=== PATIENT | female | born 1935 | race Caucasian/White ===

== ENCOUNTER 2016-04-11 14:07 | Inpatient (IN) | payer MEDICARE, OTHER ==
--- NOTE | 2016-04-11 14:54 | PDOC ---
History of Present Illness - General History Source: Patient Exam Limitations: No Limitations - History of Present Illness Initial Comments: 04/11/16 15:01 The patient is an 81 year old female, with significant past medical history diabetes, gastritis, HLD, diverticulosis, appendectomy, hiatal hernia, cholecystectomy, who presents today complaining of vomiting, diarrhea, chest pain, abdominal pain starting last night.She reports chills starting last night and states that her body started shaking and she urinated on herself. She describes the chest pain as not strong but if she had to rate the pain, it is 10/10. She reports 2 episodes of vomiting and 4 episodes of diarrhea since last night. She explains that the Abdominal pain is a soft pain, but hurts a lot. Her last meal was this morning which made her nauseous. Denies recent travel. Denies sick contact. Allergies: None reported Surgical Hx: hernia repair. Appendectomy, Cholecystectomy. PCP- Dr. Neri Kay Shotblast Operator: [phone] [id number] <Maris Cobb - Last Filed: 04/11/16 18:11> - General History Source: Patient Exam Limitations: No Limitations <Winifred Perkins - Last Filed: 04/14/16 07:27> - General Chief Complaint: Pain Stated Complaint: ABD PAIN, VOMITING Time Seen by Provider: 04/11/16 14:17 Past History <Maris Cobb - Last Filed: 04/11/16 18:11> - Past Medical History Anemia: Yes (h/o blood transfusion) Cardiac Disorders: Yes (HYPERLIPIDEMIA) Diabetes: Yes GI Disorders: Yes (DIVERTICULA OF COLON, Ulcers) - Surgical History Appendectomy: Yes - Psycho/Social/Smoking Cessation Hx Anxiety: No Suicidal Ideation: No Smoking Status: No Smoking History: Former smoker Have you smoked in the past 12 months: No Number of Cigarettes Smoked Daily: 2 Information on smoking cessation initiated: No Hx Alcohol Use: No Drug/Substance Use Hx: No Substance Use Type: None Hx Substance Use Treatment: No <Winifred Perkins - Last Filed: 04/14/16 07:27> - Past Medical History Allergies/Adverse Reactions: Allergies Allergy/AdvReac Type Severity Reaction Status Date / Time No Known Allergies Allergy Verified 04/11/16 14:08 Home Medications: Ambulatory Orders Esomeprazole Mag Trihydrate [Nexium] 40 mg PO DAILY 07/17/11 Meclizine HCl [Antivert -] 12.5 mg PO DAILY PRN 07/17/11 PARoxetine HCL "CR" SUST REL [Paxil Cr -] 12.5 mg PO DAILY 07/17/11 Metformin HCl [Glucophage] 1,000 mg PO BID 04/11/16 Docusate Sodium [Colace -] 1 tablet PO TID 04/12/16 Ferrous Sulfate 325 mg PO TID 04/12/16 Gabapentin [Neurontin] 300 mg PO BID 04/12/16 Hydrochlorothiazide [Hctz -] 12.5 mg PO DAILY 04/12/16 Lipase/Protease/Amylase [Creon Dr 24,000 Units Capsule] 1 cap PO TIDCM 04/12/16 Lubiprostone [Amitiza] 8 mcg PO BID 04/12/16 Metoclopramide HCl [Reglan] 5 mg PO TIDCM 04/12/16 Sitagliptin Phosphate [Januvia] 50 mg PO DAILY 04/12/16 Cephalexin [Keflex] 500 mg PO BID #10 capsule 04/13/16 Review of Systems - Review of Systems Able to Perform ROS?: Yes Comments:: 04/11/16 15:01 GENERAL/CONSTITUTIONAL: No: fever, chills, weakness, loss of appetite. HEAD, EYES, EARS, NOSE AND THROAT: No: change in vision, ear pain, discharge, sore throat, throat swelling. CARDIOVASCULAR: Yes: chest pain. No: lightheadedness, palpitations, syncope RESPIRATORY: No: cough, shortness of breath, wheezing, hemoptysis, stridor. GASTROINTESTINAL: Yes: nausea, vomiting, abdominal pain, diarrhea. No: rectal bleeding, constipation. GENITOURINARY: No: dysuria, hematuria, frequency, urgency, flank pain. MUSCULOSKELETAL: No: back pain, neck pain, joint pain, muscle swelling or pain SKIN: No: lesions, pallor, rash or easy bruising. NEUROLOGIC: No: headache, vertigo, paresthesias, weakness ENDOCRINE: No: unexplained weight gain or loss HEMATOLOGIC/LYMPHATIC: No: anemia, easy bleeding, swelling nodes <Maris Cobb - Last Filed: 04/11/16 18:11> *Physical Exam - Vital Signs Last Vital Signs Temp Pulse Resp BP Pulse Ox 98.2 F 80 18 121/65 95 04/11/16 14:08 04/11/16 14:08 04/11/16 14:08 04/11/16 14:08 04/11/16 14:08 - Physical Exam Comments: 04/11/16 15:01 GENERAL: The patient is in no acute distress. HEAD: Normal with no signs of trauma. EYES: PERRLA, EOMI, sclera anicteric, conjunctiva clear. ENT: Ears normal, nares patent, oropharynx clear without exudates. Moist mucous membranes. NECK: Normal range of motion, supple without lymphadenopathy, JVD, or masses. LUNGS: Breath sounds equal, clear to auscultation bilaterally. No wheezes, and no crackles. HEART:Regular rate and rhythm, normal S1 and S2 without murmur, rub or gallop. ABDOMEN: +Diffuse abdominal tenderness. Soft, normoactive bowel sounds. No guarding, no rebound. EXTREMITIES: Normal range of motion, no edema. No clubbing or cyanosis. No erythema, or tenderness. NEUROLOGICAL: Cranial nerves II through XII grossly intact. Normal speech. No focal neurological deficits. MUSCULOSKELETAL: Back nontender to palpation, no CVA tenderness SKIN: Warm, Dry, normal turgor, no rashes or lesions noted. <Maris Cobb - Last Filed: 04/11/16 18:11> - Vital Signs Last Vital Signs Temp Pulse Resp BP Pulse Ox 98.2 F 80 18 121/65 95 04/11/16 14:08 04/11/16 14:08 04/11/16 14:08 04/11/16 14:08 04/11/16 14:08 <Winifred Perkins - Last Filed: 04/14/16 07:27> Heart Score/ECG Review #1 ECG reviewed & interpreted by me at: 15:12 04/11/16 15:12 Twelve-lead EKG was performed and reviewed by me. There is normal sinus rhythm with a normal rate of 81bpm. The axis is normal. The intervals are normal - pr: 184ms, QRS:78ms, QTc:432ms. There are no ST elevations or depressions. T wave flattening. PVC <Winifred Perkins - Last Filed: 04/14/16 07:27> ED Treatment Course - LABORATORY CBC & Chemistry Diagram: 04/11/16 14:59 04/11/16 14:59 - RADIOLOGY Radiograph Interpretation: 04/11/16 18:11 EXAM#: TYPE/EXAM: RESULT: [id number] RAD/CHEST X-RAY PORTABLE* Chest pain. Single AP portable x-ray compared with August 08, 2015. Uncoiled thoracic aorta. No evidence of cardiomegaly, a widening of the superior mediastinum. The lungs are well aerated. No evidence of pulmonary infiltrates, CHF, pleural effusion, or pneumothorax. Intact visualized osseous structures. Impression No evidence of active pulmonary disease. Reported By: Malachi Jenkins MD 04/11/16 1540 <Maris Cobb - Last Filed: 04/11/16 18:11> - LABORATORY CBC & Chemistry Diagram: 04/12/16 05:35 04/12/16 05:35 <Winifred Perkins - Last Filed: 04/14/16 07:27> Medical Decision Making - Medical Decision Making 04/11/16 14:54 A portion of this note was documented by scribe services under my direction. I have reviewed the details of the note, within reason, and agree with the documentation with the following case summary and management plan written by me. Nursing documentation reviewed and incorporated into medical decision making This is an 81 yo F presenting to the ER with a complaint of Nausea, vomiting, diarrhea, abdominal pain and chest pain shaking chills at night Pt states her chest pain is intermittent, currently chest pain is present (non exertional, no diaphoresis) Pt differential is broad given her symptoms Will eval for pancreatitis, gastritis, gastroenteritis, ACS, angina Will do labs, cxr, possibly CT Will re assess Laboratory Tests 04/11/16 04/11/16 04/11/16 14:59 14:59 14:59 WBC 4.5 D Hgb 12.7 D Hct 40.4 D Plt Count 218 D Sodium 140 Potassium 3.6 D Chloride 105 Carbon Dioxide 25 D BUN 12 Creatinine 1.0 Random Glucose 133 H D Creatine Kinase 85 Troponin I 0.21 H Urine Nitrite Positive Ur Leukocyte Esterase 1+ H Urine RBC 1 Urine WBC 174 UA positive will give ceftriaxone Pt pending CT Trop is elevated, will plan to admit to Tele Upon re assessment, pt has NO chest pain right now Pt signed out to Dr Rosenberg <Winifred Perkins - Last Filed: 04/14/16 07:27> *DC/Admit/Observation/Transfer - Attestations Scribe Attestion: 04/11/16 15:02 Documentation prepared by ELADIA Britt, acting as medical billing manager for Winifred Perkins MD. <Maris Cobb - Last Filed: 04/11/16 18:11> <Winifred Perkins - Last Filed: 04/14/16 07:27> Diagnosis at time of Disposition: Chest pain, UTI (urinary tract infection) - Discharge Dispostion Disposition: VNS/HOME HEALTH CARE Condition at time of disposition: Stable - Prescriptions
[2016-04-11] MEDS ORDERED: SODIUM CHLORIDE 1,000 ML IV STA ×2 (14:59→22:11)
[2016-04-11] MEDS ORDERED: ONDANSETRON 4 MG/2 ML VIAL IVPUSH ONE (14:59)
[2016-04-11] MEDS ORDERED: ONDANSETRON 4 MG/2 ML VIAL ONE (15:04)
[2016-04-11 15:26] LABS: BASOPHIL 0.8 % (0-2.0); EOSINOPHIL 2.5 % (0-4.5); MCH 25.3 pg (25.7-33.7); MCHC 31.5 g/dl (32.0-36.0); MEAN CELL VOLUME 80.2 fl (80-96); MEAN PLT VOLUME 8.8 fl (7.5-11.1); NEUTROPHILS 73.1 % (42.8-82.8); PLATELET COUNT 218 K/MM3 (134-434); RDW 19.7 % (11.6-15.6); WHITE BLOOD COUNT 4.5 K/mm3 (4.0-10.0)
[2016-04-11 15:31] LABS: ALBUMIN 2.5 g/dl (3.4-5.0); BILIRUBIN,TOTAL 0.4 mg/dL (0.2-1.0); CALCIUM 8.1 mg/dL (8.5-10.1); TOT PROT 6.2 g/dl (6.4-8.2)
[2016-04-11 15:34] LABS: TROPONIN I 0.21 ng/ml (0.00-0.05)
[2016-04-11 15:43] LABS: URINE APPEARANCE CLEAR; URINE BILIRUBIN 1+ (NEGATIVE); URINE COLOR YELLOW; URINE GLUCOSE (UA) NEGATIVE (NEGATIVE); URINE KETONE TRACE (NEGATIVE); URINE PROTEIN TRACE (NEGATIVE); URINE UROBILINOGEN 0.2 E.U/dl E.U./dl (0.2-1.0)
[2016-04-11 15:45] LABS: URINE BLOOD TRACE (NEGATIVE); URINE LEUK ESTERASE 1+ (NEGATIVE); URINE NITRITE POSITIVE (NEGATIVE)
[2016-04-11 16:27] LABS: URINE BACTERIA RARE /hpf (NONE SEEN); URINE MUCUS MODERATE; URINE RBC 1 /hpf (0-3); URINE WBC 174 /hpf (3-5)
[2016-04-11] MEDS ORDERED: ASPIRIN 81 MG CHEWABLE TABLETS PO ONE (17:38)
[2016-04-11] MEDS ORDERED: ASPIRIN 81 MG CHEWABLE TABLETS ONE (17:49)
[2016-04-11] MEDS ORDERED: NITROGLYCERIN SUBLINGUAL 1/150 0.4 MG TAB SL ONE (18:49)
[2016-04-11] MEDS ORDERED: CEFTRIAXONE 1 GM in DEXTROSE 5%-WATER - 50 ML IVPB ONE (19:05)
[2016-04-11] MEDS ORDERED: CEFTRIAXONE 50 ML ONE (19:11)
--- NOTE | 2016-04-11 19:44 | PDOC ---
*Physical Exam - Vital Signs Last Vital Signs Temp Pulse Resp BP Pulse Ox 98.2 F 80 18 121/65 95 04/11/16 14:08 04/11/16 14:08 04/11/16 14:08 04/11/16 14:08 04/11/16 14:08 ED Treatment Course - LABORATORY CBC & Chemistry Diagram: 04/11/16 14:59 04/11/16 14:59 - ADDITIONAL ORDERS Additional order review: Laboratory Results 04/11/16 04/11/16 14:59 14:59 Sodium 140 Potassium 3.6 D Chloride 105 Carbon Dioxide 25 D Anion Gap 10 BUN 12 Creatinine 1.0 Creat Clearance w eGFR 53.35 Random Glucose 133 H D Calcium 8.1 L Total Bilirubin 0.4 D AST 52 H D ALT 25 D Alkaline Phosphatase 173 H D Creatine Kinase 85 Troponin I 0.21 H Total Protein 6.2 L Albumin 2.5 L D Total Amylase 38 Lipase 149 Urine Color Yellow Urine Appearance Clear Urine pH 6.0 Ur Specific [place] 1.015 Urine Protein Trace H Urine Glucose (UA) Negative Urine Ketones Trace H Urine Blood Trace H Urine Nitrite Positive Urine Bilirubin 1+ H Urine Urobilinogen 0.2 e.u/dl Ur Leukocyte Esterase 1+ H Urine RBC 1 Urine WBC 174 Ur Epithelial Cells Rare Urine Bacteria Rare Urine Mucus Moderate 04/11/16 14:59 RBC 5.04 D MCV 80.2 MCHC 31.5 L RDW 19.7 H D MPV 8.8 Neutrophils % 73.1 Lymphocytes % 16.2 Monocytes % 7.4 Eosinophils % 2.5 Basophils % 0.8 - Medications Given in the ED: ED Medications Discontinued Medications Generic Name Dose Route Start Last Admin Trade Name Luis PRN Reason Stop Dose Admin Aspirin 162 mg 04/11/16 17:38 04/11/16 18:19 Asa - PO 04/11/16 17:39 162 mg ONCE ONE Administration Ceftriaxone Sodium 1 gm/ 50 mls @ 100 mls/hr 04/11/16 19:05 04/11/16 19:27 Dextrose IVPB 04/11/16 19:34 100 mls/hr ONCE ONE Administration Nitroglycerin 0.4 mg 04/11/16 18:49 04/11/16 19:09 Nitrostat - SL 04/11/16 18:50 Not Given ONCE ONE Ondansetron HCl 4 mg 04/11/16 14:59 04/11/16 15:09 Zofran Injection IVPUSH 04/11/16 15:00 4 mg ONCE ONE Administration *DC/Admit/Observation/Transfer Diagnosis at time of Disposition: Chest pain Qualifiers: Chest pain type: unspecified Qualified Code(s): R07.9 - Chest pain, unspecified Urinary tract infection Qualifiers: Urinary tract infection type: site unspecified Hematuria presence: without hematuria Qualified Code(s): N39.0 - Urinary tract infection, site not specified - Discharge Dispostion Condition at time of disposition: Stable Admit: Yes
--- NOTE | 2016-04-11 20:51 | PN ---
<Clarisa Multani - Last Filed: 04/11/16 20:51> Teaching Attending Note Name of Resident: Dulce Villatoro <Aicha Santamaria - Last Filed: 04/11/16 23:23> Teaching Attending Note ATTENDING PHYSICIAN STATEMENT I saw and evaluated the patient. I reviewed the resident's note and discussed the case with the resident. I agree with the resident's findings and plan as documented. SUBJECTIVE: 82 yo F who presents with shakes, diffuse, nonradiating chest pain. Patient reports having shakes on Sunday which resolved with warm compresses and again today with severe weakness and urine incontinence. Patient reports that first episode of rigors occurred 6 months ago before her which resolved spontaneously. Chest pain is reported as chronic and intermittent with dysonea on exertion and decreased exercise tolerance. Patient also complaining of nausea , vomiting (nonbilious, non nonbloody) and diarrhea(4 episode of black stools). Patient also reports increase in urgency and frequency. She denies any sick contacts or recent travel. She denies any cough, SOB, chest palpitations, diaphoresis or headache. Patient denies fever, constipation or hematuria. PMHx: Iron defeciency, anemia, diabetes, gastritis, HLD, diverticulosis s/p appendectomy, hiatal hernia, cholecystectomy. OBJECTIVE: Physical Last Vital Signs Temp Pulse Resp BP Pulse Ox 98.2 F 80 18 121/65 95 04/11/16 14:08 04/11/16 14:08 04/11/16 14:08 04/11/16 14:08 04/11/16 14:08 GENERAL: Awake, alert, and fully oriented, in no acute distress HEENT: Atraumatic. PERRLA, EOMI. Moist mucosa. No JVD LUNGS: No distress, speaks full sentences, clear to auscultation bilaterally HEART: Regular rate and rhythm, normal S1 and S2, no murmurs, rubs or gallops, peripheral pulses normal and equal bilaterally. ABDOMEN: + Diffuse abdominal tenderness. + Hyperactive bowel sounds. No guarding , no rebound. No masses EXTREMITIES: Normal inspection, Normal range of motion, no edema. No clubbing or cyanosis. NEUROLOGICAL: Cranial nerves II through XII grossly intact. Normal speech, normal gait, no focal sensorimotor deficits SKIN: Warm, Dry, normal turgor, no rashes or lesions noted. CBCD WBC 4.5 K/mm3 (4.0-10.0) D 04/11/16 14:59 RBC 5.04 M/mm3 (3.60-5.2) D 04/11/16 14:59 Hgb 12.7 GM/dL (10.7-15.3) D 04/11/16 14:59 Hct 40.4 % (32.4-45.2) D 04/11/16 14:59 MCV 80.2 fl (80-96) 04/11/16 14:59 MCHC 31.5 g/dl (32.0-36.0) L 04/11/16 14:59 RDW 19.7 % (11.6-15.6) H D 04/11/16 14:59 Plt Count 218 K/MM3 (134-434) D 04/11/16 14:59 MPV 8.8 fl (7.5-11.1) 04/11/16 14:59 CMP Sodium 140 mmol/L (136-145) 04/11/16 14:59 Potassium 3.6 mmol/L (3.5-5.1) D 04/11/16 14:59 Chloride 105 mmol/L (98-107) 04/11/16 14:59 Carbon Dioxide 25 mmol/L (21-32) D 04/11/16 14:59 Anion Gap 10 (8-16) 04/11/16 14:59 BUN 12 mg/dL (7-18) 04/11/16 14:59 Creatinine 1.0 mg/dL (0.55-1.02) 04/11/16 14:59 Creat Clearance w eGFR 53.35 (>60) 04/11/16 14:59 Calcium 8.1 mg/dL (8.5-10.1) L 04/11/16 14:59 Total Bilirubin 0.4 mg/dL (0.2-1.0) D 04/11/16 14:59 AST 52 U/L (15-37) H D 04/11/16 14:59 ALT 25 U/L (12-78) D 04/11/16 14:59 Alkaline Phosphatase 173 U/L (45-117) H D 04/11/16 14:59 Total Protein 6.2 g/dl (6.4-8.2) L 04/11/16 14:59 Albumin 2.5 g/dl (3.4-5.0) L D 04/11/16 14:59 IMAGING: Chest Xray No evidence of active pulmonary disease. Abdomen/Pelvis CT There is suggestion of thickening of the second and third portion of the duodenal wall without surrounding inflammatory changes. Further evaluation is needed Diverticulosis coli mainly involving the sigmoid colon without evidence of acute diverticulitis. Nonvisualization of the gallbladder. ASSESSMENT AND PLAN: 82 yo F admitted for atypical chest pain. 1.) Atypical chest pain r/o ACS - Trend trops - Lipid panel and TSH - Aspirin - Get Echo - Cardiology consult 2.) UTI - Rocephin - Follow UC 3.) Acute Gastroenteritis - Supportive care: IVF - FOBT Continue home medications. Admission to Inpatient Documentation prepared by Aicha Santamaria, acting as medical program specialist for Clarisa Multani MD.
--- NOTE | 2016-04-11 20:57 | HP ---
CHIEF COMPLAINT: "esvin been feeling week and shaking" PCP: none at this time, Past PCP Dr. Neri Verduzco GI: Dr Kay HISTORY OF PRESENT ILLNESS: This is an 81 yo F with PMH of atypical chest pain, atypical abdominal pain, Fe deficiency anemia, HLD, NIDDM, gastritis and diverticulosis, who presents due to increasing weakness and chills x5 days. She states that on sun she started having chills but not fever and feeling week, symptoms progressed until today she had an episode of rigors, had urinary incontinence and was unable to walk from weakness. She has chronic dysuria but lately has had new urgency and frequency w/o hematuria. She has had diarrhea and nbnb vomiting in , sun and today. Today she vomited 2x and had 4 eps of diarrhea. She denies hematochezia but states that her stool is always black; she does take Fe supplements. She denies sick contacts. She has chronic nonradiating, diffuse chest pain and chronic diffuse abdominal and flank pain that comes and goes and has been unchanged from baseline. She had some chest pain when she first arrived but it has since resolved. It is reproducible by pressing on sternum. Her abd and flank pain is still present. She denies associated h/a, SOB, cough, orthopnea, dizziness, loc, diaphoresis, palpitations or LE edema. ER course was notable for: (1)labs (2)cxr, ct abd (3)asa, ntg, rocephin, zofran, IVF Recent Travel: denies PAST MEDICAL HISTORY: as above PAST SURGICAL HISTORY: cholecystectomy, appendectomy, hiatal hernia repair. Social History: lives in senior care Smoking: past 2 cigs/day Alcohol: denies Drugs: denies Family History: denies Allergies No Known Allergies Allergy (Verified 04/11/16 14:08) Selected Entries 04/11/16 14:08 Temperature 98.2 F Pulse Rate 80 Respiratory 18 Rate Blood Pressure 121/65 O2 Sat by Pulse 95 Oximetry (%) Weight 135 lb HOME MEDICATIONS: Medication Instructions Recorded Aspirin [Aspirin EC] 81 mg PO DAILY 07/17/11 Bicarsim 80 mg PO TID 07/17/11 Esomeprazole Mag Trihydrate 40 mg PO DAILY 07/17/11 [Nexium] Meclizine HCl [Antivert -] 12.5 mg PO DAILY 07/17/11 PARoxetine HCL "CR" SUST REL 12.5 mg PO DAILY 07/17/11 [Paxil Cr -] Lipase/Protease/Amylase 3 each NR TID #0 cap 07/22/11 [Pancrelipase 5,000 Dr Capsule] Sitagliptin Phos/Metformin HCl 1 each PO DAILY #0 tablet 07/22/11 [Janumet 50-500 mg Tablet] REVIEW OF SYSTEMS CONSTITUTIONAL: Absent: weight change HEENT: Absent: rhinorrhea, nasal congestion, throat pain, ear pain, eye pain, visual changes CARDIOVASCULAR: Absent: syncope, palpitations, irregular heart rate, lightheadedness, peripheral edema RESPIRATORY: Absent: cough, shortness of breath, orthopnea GASTROINTESTINAL: Absent: constipation, melena, hematochezia GENITOURINARY: Absent: hematuria, genital pain MUSCULOSKELETAL: present: myalgia, arthralgia, joint swelling, back pain, neck pain SKIN: Absent: rash, itching, pallor HEMATOLOGIC/IMMUNOLOGIC: Absent: easy bleeding, easy bruising ENDOCRINE: Absent: unexplained weight gain, unexplained weight loss NEUROLOGIC: Absent: headache, focal weakness or paresthesias, seizure, mental status changes PSYCHIATRIC: Absent: anxiety, depression Laboratory Tests 04/11/16 04/11/16 04/11/16 14:59 14:59 14:59 WBC 4.5 D Hgb 12.7 D Hct 40.4 D MCHC 31.5 L RDW 19.7 H D Plt Count 218 D Sodium 140 Potassium 3.6 D Chloride 105 Carbon Dioxide 25 D Anion Gap 10 BUN 12 Creatinine 1.0 Creat Clearance w eGFR 53.35 Random Glucose 133 H D Calcium 8.1 L Total Bilirubin 0.4 D AST 52 H D ALT 25 D Alkaline Phosphatase 173 H D Creatine Kinase 85 Troponin I 0.21 H Total Protein 6.2 L Albumin 2.5 L D Total Amylase 38 Lipase 149 Urine Color Yellow Urine Appearance Clear Urine pH 6.0 Ur Specific [place] 1.015 Urine Protein Trace H Urine Glucose (UA) Negative Urine Ketones Trace H Urine Blood Trace H Urine Nitrite Positive Urine Bilirubin 1+ H Urine Urobilinogen 0.2 e.u/dl Ur Leukocyte Esterase 1+ H Urine RBC 1 Urine WBC 174 Ur Epithelial Cells Rare Urine Bacteria Rare Urine Mucus Moderate PHYSICAL EXAMINATION GENERAL: Awake, alert, and fully oriented, in no acute distress. HEAD: Normal with no signs of trauma. EYES: Pupils equal, round and reactive to light, extraocular movements intact, sclera anicteric, conjunctiva clear. EARS, NOSE, THROAT: oropharynx clear without exudates. Moist mucous membranes. NECK: supple without JVD LUNGS: Breath sounds equal, clear to auscultation bilaterally. HEART: Regular rate and rhythm, normal S1 and S2 ABDOMEN: Soft, diffusely tender, not distended, hyperactive bowel sounds, no guarding, no masses. MUSCULOSKELETAL: diffuse body tenderness. mild b/l CVA tenderness. Reproducible chest pain UPPER EXTREMITIES: 2+ pulses, warm, well-perfused. No cyanosis. No peripheral edema. LOWER EXTREMITIES: 2+ pulses, warm, well-perfused. diffuse muscular tenderness. No peripheral edema. NEUROLOGICAL: Cranial nerves II-XII grossly intact. Normal speech. PSYCHIATRIC: Cooperative. Good eye contact. Appropriate mood and affect. SKIN: Warm, dry ASSESSMENT/PLAN: This is an 81 yo F with PMH of atypical chest pain, atypical abdominal pain, Fe deficiency anemia, HLD, NIDDM, gastritis and diverticulosis, who presents due to increasing weakness and chills x5 days. EKG unremarkable for ACS; some PVC's CXR unremarkable CT Abd: possible wall thinckening of 2nd and 3rd duodenal segment w/o inflammation, sigmoid deverticulosis Atypical chest pain -r/o ACS vs demand ischemia possibly due to PVC's or dehydration -MATTEO score=3 -EKG unremarkable -trop 0.21, next trop 0.24; prior admission trop negative; trend trop -reproducible -tele monitoring -TTE; no baseline available -TFTs -lipid panel -A1C -NS@75 -s/p asa load, continue daily asa 81 -am labs -cardio consult UTI -s/p rocephin -f/u cultures -continue rocephin nausea and diarrhea -r/o gastroenteritis -likely viral -CT abd appreciated -IV hydration -zofran prn NIDDM -fingerstick TIDAC -sliding scale Pancreating insufficiency -continue pancreatic enzyme supplement vertigo -meclazine prn FEN NS@75 lytes stable DVT GI PPX: SCD's, early ambulation, diet na restricted diet Dispo: admit tele Problem List - Problem (1) Chest pain Code(s): R07.9 - CHEST PAIN, UNSPECIFIED Qualifiers: Chest pain type: unspecified Qualified Code(s): R07.9 - Chest pain, unspecified (2) UTI (urinary tract infection) Code(s): N39.0 - URINARY TRACT INFECTION, SITE NOT SPECIFIED Qualifiers: Urinary tract infection type: site unspecified Hematuria presence: without hematuria Qualified Code(s): N39.0 - Urinary tract infection, site not specified (3) Atypical chest pain Code(s): R07.89 - OTHER CHEST PAIN (4) Chronic anemia Code(s): D64.9 - ANEMIA, UNSPECIFIED (5) Abdominal pain Code(s): R10.9 - UNSPECIFIED ABDOMINAL PAIN (6) Nausea & vomiting Code(s): R11.2 - NAUSEA WITH VOMITING, UNSPECIFIED (7) Diarrhea Code(s): R19.7 - DIARRHEA, UNSPECIFIED Visit type - Emergency Visit Emergency Visit: Yes ED Registration Date: 04/11/16 Care time: The patient presented to the Emergency Department on the above date and was hospitalized for further evaluation of their emergent condition. - New Patient This patient is new to me today: Yes Date on this admission: 04/12/16 - Critical Care Critical Care patient: No
[2016-04-11 22:47] LABS: TROPONIN I 0.24 ng/ml (0.00-0.05)
--- NOTE | 2016-04-11 22:49 | MSN ---
Admitting History and Physical - Admission Chief Complaint: Chills and weakness History of Present Illness: 81 year old female patient with a significant past medical history of NIDDM, HLP , HTN, diverticulosis, gastritis and iron deficiency anemia presents with chills and weakness to the point where today she has trouble walking. Today she developed rigors and had an episode of urinary incontinence. She has diffuse abdominal and reproducible, non-radiating chest pain that seems to come and go periodically that has not changed in severity. She says she has had chest and abdominal pain for a long time. She experienced episodes of vomiting and diarrhea on , Sunday and today. Today she had diarrhea twice and vomited four times today. Vomiting was described as non bilious and non bloody and diarrhea is described as dark, however, patient is on iron suppliments. She has chronic dysuria but has noticed an increase in frequency and urgency. Patient denies sob, dizziness, fever, headache, palpitations, orthopnea and cough. History Source: Patient - Past Medical History Cardiovascular: Yes: HTN, Hyperlipdemia Gastrointestinal: Yes: Diverticulosis, Gastritis Heme/Onc: Yes: Anemia - Past Surgical History Past Surgical History: Yes: Appendectomy, Cholecystectomy, Hernia Repair (Hiatal ) - Smoking History Smoking history: Never smoked Have you smoked in the past 12 months: No Aproximately how many cigarettes per day: 2 - Alcohol/Substance Use Hx Alcohol Use: No History of Substance Use: reports: None - Social History Usual Living Arrangement: Yes: Longterm Home Medications - Allergies Allergies/Adverse Reactions: Allergies Allergy/AdvReac Type Severity Reaction Status Date / Time No Known Allergies Allergy Verified 04/11/16 14:08 - Home Medications Home Medications: Ambulatory Orders Esomeprazole Mag Trihydrate [Nexium] 40 mg PO DAILY 07/17/11 Meclizine HCl [Antivert -] 12.5 mg PO DAILY PRN 07/17/11 PARoxetine HCL "CR" SUST REL [Paxil Cr -] 12.5 mg PO DAILY 07/17/11 Metformin HCl [Glucophage] 1,000 mg PO BID 04/11/16 Docusate Sodium [Colace -] 1 tablet PO TID 04/12/16 Ferrous Sulfate 325 mg PO TID 04/12/16 Gabapentin [Neurontin] 300 mg PO BID 04/12/16 Hydrochlorothiazide [Hctz -] 12.5 mg PO DAILY 04/12/16 Lipase/Protease/Amylase [Toya Tucker 24,000 Units Capsule] 1 cap PO TIDCM 04/12/16 Lubiprostone [Amitiza] 8 mcg PO BID 04/12/16 Metoclopramide HCl [Reglan] 5 mg PO TIDCM 04/12/16 Miscellaneous Medical Supply [Outpatient Order] 1 each ASDIR #1 misc Sitagliptin Phosphate [Januvia] 50 mg PO DAILY 04/12/16 Family Disease History - Family Disease History Family History: Denies Review of Systems - Review of Systems Constitutional: reports: Chills, Weakness Cardiovascular: reports: Chest Pain Respiratory: reports: No Symptoms Gastrointestinal: reports: Abdominal Pain, Diarrhea, Nausea, Vomiting Genitourinary: reports: Dysuria, Flank Pain, Frequency, Incontinence, Urgency Breasts: reports: No Symptoms Reported Musculoskeletal: reports: Back Pain Endocrine: reports: No Symptoms Pain Intensity: 10 Physical Examination Vital Signs: Vital Signs Temperature 98.2 F 04/11/16 14:08 Pulse Rate 76 04/11/16 22:24 Respiratory Rate 18 04/11/16 22:24 Blood Pressure 123/66 04/11/16 22:24 O2 Sat by Pulse Oximetry (%) 98 04/11/16 22:24 Constitutional: Yes: Well Nourished, No Distress, Calm Eyes: Yes: WNL HENT: Yes: WNL Cardiovascular: Yes: WNL, Regular Rate and Rhythm Respiratory: Yes: WNL, Regular Gastrointestinal: Yes: Hyperactive Bowel Sounds Musculoskeletal: Yes: Back Pain Edema: No Neurological: Yes: WNL, Alert, Oriented Labs: Elevated troponin on comparison with previous and is trending upward upon second draw Elevated AST and ALP UA showed positive leukocyte esterase and nitrites Imaging - Results Chest X-ray: Report Reviewed (No acute process) Cat Scan: Report Reviewed (Wall of 2nd and 3rd portion of duodenum thickening and diverticulosis) EKG: Image Reviewed (Unremarkable with PVC's present) Assessment/Plan Patient is 89 year old female with past medical history of NIDDM, HLP, HTN, diverticulosis, gastritis and iron deficiency anemia who presents with a chief complaint of chills and weakness. -Admit to inpatient -2x elevated troponin -Moniter and observe -Echocardiogram -EKG unremarkable with PVC -CXR-no acute process, unremarkable -UTI -continue treatment with rosephin -IV fluids -UA-positive nitrites and leukocyte esterase -HTN -continue aspirin and nitroglycerin -HCTZ -Gastritis -conitnue protonix -CT-2nd and 3rd part duodenal wall thickening -NIDDM -meformin -elevated random glucose
[2016-04-11] MEDS ORDERED: ONDANSETRON 4 MG TABLET PO PRN (22:52)
[2016-04-12 00:40] VITALS: BMI 24.3
[2016-04-12] MEDS: INSULIN SLIDING SCALE (NOVOLOG) 1 VIAL SQ SCH ×3 (06:15→17:50)
[2016-04-12 06:50] LABS: MCH 26.3 pg (25.7-33.7); MCHC 32.9 g/dl (32.0-36.0); MEAN CELL VOLUME 79.8 fl (80-96); MEAN PLT VOLUME 8.7 fl (7.5-11.1); PLATELET COUNT 196 K/MM3 (134-434); RDW 19.7 % (11.6-15.6); WHITE BLOOD COUNT 4.2 K/mm3 (4.0-10.0)
[2016-04-12 07:14] LABS: ALBUMIN 2.2 g/dl (3.4-5.0); ANION GAP 7 (8-16); CALCIUM 7.8 mg/dL (8.5-10.1); CO2 25 mmol/L (21-32); GLUCOSE,RANDOM 79 mg/dL (74-106); MAGNESIUM 1.9 mg/dL (1.8-2.4)
[2016-04-12 07:20] LABS: ALK PHOS 149 U/L (45-117); BILIRUBIN,TOTAL 0.3 mg/dL (0.2-1.0); CREATININE 0.7 mg/dL (0.55-1.02); SGOT/AST 42 U/L (15-37); SGPT/ALT 22 U/L (12-78); TOT PROT 5.3 g/dl (6.4-8.2)
--- NOTE | 2016-04-12 08:43 | CONSULT ---
Consult Consult Specialty:: Cardiology Referred by:: Hospitalist Reason for Consultation:: Chest pain - History of Present Illness Chief Complaint: Chest pain History of Present Illness: 81 year old woman with a history of HTN, HLD, DMII, multiple abdominal surgeries , admitted with c/o nausea, vomiting, abdominal pain, fever, chills and chest pain. Pt. seen and examined today in nad. states she is feeling better. denies sob, palpitations, pnd, orthopnea, or LE edema. no lightheadedness, dizziness, syncope, or near syncope. - History Source History Provided By: Patient, Medical Record Limitations to Obtaining History: Language Barrier - Past Medical History Cardio/Vascular: Yes: HTN, Hyperlipdemia Gastrointestinal: Yes: Diverticulosis, Gastritis - Past Surgical History Past Surgical History: Yes: Appendectomy, Cholecystectomy, Hernia Repair (Hiatal ) - Alcohol/Substance Use Hx Alcohol Use: No History of Substance Use: reports: None - Smoking History Smoking history: Never smoked Have you smoked in the past 12 months: No Aproximately how many cigarettes per day: 2 - Social History ADL: Independent History of Recent Travel: No Home Medications - Allergies Allergies/Adverse Reactions: Allergies Allergy/AdvReac Type Severity Reaction Status Date / Time No Known Allergies Allergy Verified 04/11/16 14:08 - Home Medications Home Medications: Ambulatory Orders Esomeprazole Mag Trihydrate [Nexium] 40 mg PO DAILY 07/17/11 Meclizine HCl [Antivert -] 12.5 mg PO DAILY 07/17/11 PARoxetine HCL "CR" SUST REL [Paxil Cr -] 12.5 mg PO DAILY 07/17/11 Lipase/Protease/Amylase [Pancrelipase 5,000 Dr Capsule] 3 each NR TID #0 cap 22/03 Lipase/Protease/Amylase [Creon Dr 6,000 Units Capsule] 1 cap PO TIDCM 04/11/16 Metformin HCl [Glucophage] 1,000 mg PO DAILY 04/11/16 Family Disease History - Family Disease History Family History: Denies Review of Systems - Review of Systems Constitutional: reports: Chills, Fever, Loss of Appetite, Weakness. denies: No Symptoms, Diaphoresis, Lethargy, Malaise, Night Sweats, Unintentional Wgt. Loss , Other Eyes: denies: No Symptoms, Blind Spots, Blurred Vision, Double Vision, Eye Pain , Floaters, Photophobia, Recent Change in Vision, Other HENT: denies: No Symptoms, Difficult Swallowing, Ear Discharge, Ear Pain, Epistaxis, Gingival Bleeding, Hearing Loss, Mouth Swelling, Nasal Congestion, Ocular Prosthesis, Throat Pain, Toothache, Ringing in Ears, Other Neck: denies: No Symptoms, Decreased ROM, Lumps, Pain on Movement, Stiffness, Swollen Glands, Tenderness, Other Cardiovascular: reports: Chest Pain. denies: No Symptoms, Edema, Palpitations, Shortness of Breath, Other Respiratory: denies: No Symptoms, Cough, Exercise Intolerance, Hemoptysis, Orthopnea, PND, Snoring, SOB, SOB on Exertion, Wheezing, Other Gastrointestinal: reports: Abdominal Pain, Nausea, Vomiting. denies: No Symptoms, Bloating, Constipation, Diarrhea, Dysphagia, Indigestion, Melena, Rectal Bleeding, Vomiting Blood, Other Genitourinary: denies: No Symptoms, Burning, Discharge, Dysuria, Flank Pain, Frequency, Hematuria, Incontinence, Lesions, Menses, Pain, Testicular Mass, Testicular Pain, Testicular Swelling, Urgency, Vaginal Bleeding, Other Breasts: denies: No Symptoms Reported, See HPI, Breast Implants, Discharge from Nipple, Lumps, Pain, Skin Changes, Other Musculoskeletal: denies: No Symptoms, Back Pain, Crepitus, Decreased ROM, Extremity Pain, Joint Pain, Joint Swelling, Muscle Pain, Muscle Cramps, Muscle Weakness, Other Integumentary: denies: No Symptoms, Blister, Bruising, Change in Color, Eczema, Erythema, Incision, Lesions, Lump, Pallor, Pruritis, Rash, Wound, Other Neurological: denies: No Symptoms, Change in LOC, Change in Speech, Confusion, Dizziness, Headache, Incoordination, Numbness, Parasthesia, Pre-Existing Deficit , Seizure, Syncope, Tremors, Unsteady Gait, Weakness, Other Endocrine: denies: No Symptoms, Excessive Sweating, Flushing, Increased Hunger, Increased Thirst, Intolerance to Cold, Intolerance to Heat, Unexplained Weight Gain, Unexplained Weight Loss, Other Hematology/Lymphatic: denies: No Symptoms, Easily Bruised, Excessive Bleeding, Swollen Glands, Other Psychiatric: denies: No Symptoms, Altered Sleep Pattern, Anxiety, Depression, Hallucinations, Panic, Paranoia, Suicidal, Other - Risk Factors Known Risk Factors: Yes: Diabetes Mellitus, Hypercholesterolemia, Hypertension Vital Signs: Vital Signs Temperature 97.9 F 04/12/16 06:00 Pulse Rate 68 04/12/16 06:00 Respiratory Rate 16 04/12/16 06:00 Blood Pressure 105/60 04/12/16 06:00 O2 Sat by Pulse Oximetry (%) 98 04/12/16 00:41 Constitutional: Yes: Well Nourished, No Distress, Calm Eyes: Yes: WNL, Conjunctiva Clear, EOM Intact, PERRL HENT: Yes: WNL, Atraumatic, Normocephalic Neck: Yes: WNL, Supple, Trachea Midline Respiratory: Yes: WNL, Regular, CTA Bilaterally. No: Rales, Rhonchi, Wheezes Gastrointestinal: Yes: Normal Bowel Sounds, Soft, Tenderness. No: Distention Renal/: Yes: WNL Cardiovascular: Yes: WNL, Regular Rate and Rhythm. No: Bradycardia, Tachycardia , Pulse Irregular, Gallop, Rub, Varicosities JVD: No Carotid Bruit: No PMI: Non-Displaced Heart Sounds: Yes: S1, S2. No: Split S2, S3, S4, Clicks, Gallop, Rub, Bruit Murmur: No: Systolic Murmur, Diastolic Murmur Musculoskeletal: Yes: WNL Extremities: Yes: WNL Edema: No Peripheral Pulses WNL: Yes Peripheral Pulses: 2+ Left Doralis Pedis, 2+ Right Dorsalis Pedis Integumentary: Yes: WNL Neurological: Yes: WNL, Alert, Oriented, Cran Nerves II-XII Intact ...Motor Strength: WNL Psychiatric: Yes: WNL, Alert, Oriented - Other Data Labs, Other Data: Troponin, BNP 04/12/16 06:30 Troponin I 0.14 H Troponin, BNP 04/12/16 06:30 Troponin I 0.14 H ekg-nsr 81bpm, pvcs, borderline 1st deg AVB, nonspecific ST abnl, no ischemia Echo: Pending Imaging - Results Chest X-ray: Report Reviewed, Image Reviewed EKG: Report Reviewed, Image Reviewed Other: Report Reviewed, Image Reviewed (tele-nsr, frequent pvcs) Problem List - Problems (1) Abdominal pain Code(s): R10.9 - UNSPECIFIED ABDOMINAL PAIN (2) Chest pain Code(s): R07.9 - CHEST PAIN, UNSPECIFIED Qualifiers: Chest pain type: unspecified Qualified Code(s): R07.9 - Chest pain, unspecified (3) Diarrhea Code(s): R19.7 - DIARRHEA, UNSPECIFIED (4) Nausea & vomiting Code(s): R11.2 - NAUSEA WITH VOMITING, UNSPECIFIED (5) Chronic anemia Code(s): D64.9 - ANEMIA, UNSPECIFIED (6) Diabetes mellitus Code(s): E11.9 - TYPE 2 DIABETES MELLITUS WITHOUT COMPLICATIONS (7) HTN (hypertension) Code(s): I10 - ESSENTIAL (PRIMARY) HYPERTENSION (8) HLD (hyperlipidemia) Code(s): E78.5 - HYPERLIPIDEMIA, UNSPECIFIED Assessment/Plan 81 year old woman with a history of HTN, HLD, DMII, multiple abdominal surgeries , admitted with c/o nausea, vomiting, abdominal pain, fever, chills and chest pain. Chest pain-atypical, unlikely ACS -likely related to GI/ pathology -no ischemia on ekg -troponin slightly above upper limit of normal with normal CK level -only PVCs on tele, no sig arrhythmia -no sign of chf -check echo to evaluate for structural heart disease -work up for abdominal process -can consider stress test either inpatient or outpatient once GI/ work up is complete -can start ASA 81mg daily HTN-well controlled -does not require medical therapy HLD -adequately controlled
[2016-04-12] MEDS: LIPASE/PROTEASE/AMYLASE 6,000 UNIT CAPSULE PO SCH ×3 (09:08→17:47)
[2016-04-12 09:39] LABS: FREE T4 1.07 ng/dl (0.76-1.46); THYROID STIMULATING HORMONE 5.58 uIU/ml (0.358-3.74)
[2016-04-12] MEDS ORDERED: PATIENT'S OWN MEDICATION (NON-FORMULARY) (Esomeprazole Mag Trihydrate [Nexium] 40 MG) PO SCH (10:00)
[2016-04-12] MEDS ORDERED: PARoxetine HCL 10 MG TABLET (FP) PO SCH ×2 (10:00)
[2016-04-12] MEDS: MECLIZINE HCL 12.5 MG TABLET PO SCH (10:36)
[2016-04-12] MEDS: PANTOPRAZOLE 40 MG TABLET (FP) PO SCH (10:36)
[2016-04-12] MEDS: ASPIRIN 81 MG CHEWABLE TABLETS PO SCH (10:36)
[2016-04-12] MEDS ORDERED: INFLUENZA VACCINE 45 MCG/0.5 ML (MDV 16-17) IM ONE (11:00)
--- NOTE | 2016-04-12 15:26 | MSN ---
Progress Note (SOAP) - Subjective Chief Complaint: Patient feels nausea and fatigue for the past 5 days History of Present Illness: Patient was interviewed at bedside, and only speaks [place] islander. She stated that she was feeling better this morning, and had only a mild nausea this morning. She denied any fevers headaches or chills but stated that her chest pain is still present. She also noted that she had suprapubic pain on palpation. - Current Medications Current Medications: Active Medications Aspirin (Asa -) 81 mg PO DAILY [facility] Last Admin: 04/12/16 10:36 Dose: 81 mg Ceftriaxone Sodium (Rocephin 1gm Ivpb (Pre-Docked)) 50 mls @ 100 mls/hr IVPB ONCE ONE Stop: 04/12/16 20:29 Insulin Aspart (Novolog Vial Sliding Scale -) 1 vial SQ TIDAC [facility] PRN Reason: Protocol Last Admin: 04/12/16 11:47 Dose: Not Given Meclizine HCl (Antivert -) 12.5 mg PO DAILY [facility] Last Admin: 04/12/16 10:36 Dose: 12.5 mg Ondansetron HCl (Zofran -) 4 mg PO Q6H PRN PRN Reason: NAUSEA Pancrelipase (Creon Dr 6,000 Units Capsule) 1 cap PO TIDCM [facility] Last Admin: 04/12/16 12:45 Dose: 1 cap Pantoprazole Sodium (Protonix -) 40 mg PO DAILY [facility] Last Admin: 04/12/16 10:36 Dose: 40 mg Paroxetine HCl (Paxil -) 10 mg PO DAILY [facility] Last Admin: 04/12/16 10:36 Dose: 10 mg - Objective Vital Signs: Vital Signs Temperature 98.1 F 04/12/16 14:08 Pulse Rate 67 04/12/16 14:08 Respiratory Rate 16 04/12/16 14:08 Blood Pressure 119/71 04/12/16 14:08 O2 Sat by Pulse Oximetry (%) 95 04/12/16 10:00 Constitutional: Yes: Well Nourished, No Distress, Calm Eyes: Yes: WNL, Conjunctiva Clear, EOM Intact, PERRL HENT: Yes: WNL, Atraumatic, Normocephalic Neck: Yes: WNL, Supple, Trachea Midline Cardiovascular: Yes: WNL, Regular Rate and Rhythm Respiratory: Yes: WNL, Regular, CTA Bilaterally Gastrointestinal: Yes: WNL, Normal Bowel Sounds, Soft Musculoskeletal: Yes: Muscle Weakness (Throughout) Extremities: Yes: WNL Peripheral Pulses WNL: Yes Peripheral Pulses: Left Radial: 2+, Right Radial: 2+, Left Doralis Pedis: 2+, Right Dorsalis Pedis: 2+ Edema: No Integumentary: Yes: WNL Neurological: Yes: WNL, Alert, Oriented ...Motor Strength: No: WNL (Weakness throughout ) Psychiatric: Yes: WNL, Alert, Oriented Assessment/Plan Patient is an 81 yo F with PMH of atypical chest pain, atypical abdominal pain, Fe deficiency anemia, HLD, NIDDM, gastritis and diverticulosis, who presents due to increasing weakness and chills x5 days. Atypical chest pain/GERD/MSK Pain -Patient is complaining of a Burning pain in the chest that is also reproduced by palaption on the ribcage -EKG shows some PVC's -trop 0.21, then 0.24; then 0.14 --Trop below range for concern of NSTEMI -Pain reproducible with palpation of the chest -Tele monitoring -TFTs-TSH high while T4 normal -TG-high and HDL is Low -Start ASA 81 -Cardio consult - Chest pain is secondary to GI pain UTI -Cont. rocephin -Culture-gram neg lactose fermenting lactobacilli NIDDM -fingerstick TIDAC -sliding scale nausea and diarrhea -r/o gastroenteritis -H. Pylori stool antigen -IV hydration -zofran prn Pancreating insufficiency -continue pancreatic enzyme supplement
--- NOTE | 2016-04-12 16:05 | PN ---
Teaching Attending Note Name of Resident: Joo Mg ATTENDING PHYSICIAN STATEMENT I saw and evaluated the patient. I reviewed the resident's note and discussed the case with the resident. I agree with the resident's findings and plan as documented. SUBJECTIVE:science interpreter phone was used no fever or chills, denies cp at time of interview( 10 am ) . denies SOb. reported burning like CP yesterday, which lasted 5 min , resolved then she vomited. reports inability to ambulate far due to arthritis , but she develops CP and SOB with esxertion ( not clear about distance ) . no LE edema . has nausea , vomited yesterday . intermittent black stool, but on iron supp She saw Dr. Harrell before and had an EGD about a year ago. results are unknown OBJECTIVE: NAD CV: RRR, no MRG , no JVD lungs: CTAB Ext : no edema abd : soft, TTP in epigastric area and in suprapubic area. ND , NL BS . no rebound tenderness or guarding TTP over chest wall on both sides ASSESSMENT AND PLAN: 81 y/o lady with h/o NIDDM, HLP, HTN, diverticulosis, gastritis and iron deficiency anemia who presented with Chest pain . she was found to have a trop leak and UTI . 1- Atypical CP : not sure if trop elevation is significant . possible demand ischemia chest pain is reproducible. She also ,has GERD /gastritis sx and her pain is burning in nature, so it could be due to GERD trop trended down. - Aspirin daily - tele with no events ( PVCs ) - echo with no WMA - will need a stress test at some point as she reports exertional cp - LDL 64 2- UTI : with lactose fermenting GNR - cont CTX . - follow cx 3- N/V : probably due to gastritis . CT shows thickening in dudenum. - need to r/o HP. check HP stool AG - consult Dr. Harrell - PPI 4-DM : SSI . metfromin at dc dispo : monitor in house
--- NOTE | 2016-04-12 17:43 | PN ---
Physical Exam: SUBJECTIVE: Patient seen and examined this morning pt was c/o nausea but no vomiting pt vomited at home non bloody, non bilious vomitus no fever, chills c/o dysuria which resolved since te pt has been in the hospital the weakness has resolved had chest pain yesterday, had resolved, it was across the chest, lasted 5mn, burning, pt felt bad and vomited C/o chest pain and fatigue on exertion and ambulation OBJECTIVE: Vital Signs Period Temp Pulse Resp BP Sys/White Pulse Ox Last 24 Hr 98.1 F-98.4 F 67-74 16-18 119-135/71-74 95 GENERAL: The patient is awake, alert, and fully oriented, in no acute distress. HEAD: Normal with no signs of trauma. EYES: PERRL, extraocular movements intact, sclera anicteric, conjunctiva clear. No ptosis. ENT: Ears normal, nares patent, oropharynx clear without exudates, moist mucous membranes. NECK: Trachea midline, full range of motion, supple. LUNGS: Breath sounds equal, clear to auscultation bilaterally, no wheezes, no crackles, no accessory muscle use. HEART: Regular rate and rhythm, S1, S2 without murmur, rub or gallop. ABDOMEN: Low abdominal and suprapubic tenderness. Epigastric tendernes. nondistended, normoactive bowel sounds, no guarding, no rebound, no hepatosplenomegaly, no masses. EXTREMITIES: 2+ pulses, warm, well-perfused, no edema. NEUROLOGICAL: Normal speech, gait not observed. PSYCH: Normal mood, normal affect. SKIN: Warm, dry, normal turgor, no rashes or lesions noted Laboratory Results - last 24 hr 04/12/16 04/12/16 04/12/16 06:30 06:30 06:30 POC Glucometer Hemoglobin A1c % 6.9 H Troponin I 0.14 H Triglycerides Cancelled Cholesterol Cancelled Total LDL Cholesterol Cancelled HDL Cholesterol Cancelled TSH Cancelled Free T4 Cancelled 04/12/16 04/12/16 06:30 11:47 POC Glucometer 131 Hemoglobin A1c % Troponin I Triglycerides 165 H Cholesterol 103 Total LDL Cholesterol 64 HDL Cholesterol 23 L TSH 5.58 H Free T4 1.07 Active Medications Generic Name Dose Route Start Last Admin Trade Name Freq PRN Reason Stop Dose Admin Aspirin 81 mg 04/12/16 10:00 04/12/16 10:36 Asa - PO 81 mg DAILY [facility] Administration Docusate Sodium 100 mg 04/12/16 22:00 Colace - PO TID [facility] Ferrous Sulfate 325 mg 04/12/16 22:00 Feosol - PO TID [facility] Ceftriaxone Sodium 50 mls @ 100 mls/hr 04/12/16 20:00 Rocephin 1gm Ivpb (Pre-Docked) IVPB 04/12/16 20:29 ONCE ONE Insulin Aspart 1 vial 04/12/16 07:00 04/12/16 11:47 Novolog Vial Sliding Scale - SQ Not Given TIDAC [facility] Protocol Meclizine HCl 12.5 mg 04/12/16 10:00 04/12/16 10:36 Antivert - PO 12.5 mg DAILY [facility] Administration Metoclopramide HCl 5 mg 04/12/16 17:30 Reglan - PO TIDCM [facility] Ondansetron HCl 4 mg 04/11/16 22:52 Zofran - PO Q6H PRN NAUSEA Pancrelipase 4 cap 04/12/16 17:[address] 6,000 Units Capsule PO TIDCM [facility] Pantoprazole Sodium 40 mg 04/12/16 10:00 04/12/16 10:36 Protonix - PO 40 mg DAILY [facility] Administration Paroxetine HCl 10 mg 04/13/16 10:00 Paxil - PO DAILY [facility] CBC, BMP 04/12/16 05:35 04/12/16 05:35 Microbiology 04/11/16 14:59 Urine - Urine Clean Catch Urine Culture - Preliminary Lactose Fermenting Neg Bacilli Laboratory Tests 04/11/16 04/11/16 04/11/16 14:59 14:59 22:00 Phosphorus Magnesium Total Bilirubin AST ALT Alkaline Phosphatase Troponin I 0.21 H 0.24 H Cholesterol Total LDL Cholesterol HDL Cholesterol Lipase 149 TSH Free T4 Urine Nitrite Positive Ur Leukocyte Esterase 1+ H Urine WBC 174 04/12/16 04/12/16 04/12/16 05:35 06:30 06:30 Phosphorus 3.0 Magnesium 1.9 Total Bilirubin 0.3 D AST 42 H ALT 22 Alkaline Phosphatase 149 H Troponin I 0.14 H Cholesterol 103 Total LDL Cholesterol 64 HDL Cholesterol 23 L Lipase TSH 5.58 H Free T4 1.07 Urine Nitrite Ur Leukocyte Esterase Urine WBC CXR: 04/11/16 Uncoiled thoracic aorta. No evidence of cardiomegaly, a widening of the superior mediastinum. The lungs are well aerated. No evidence of pulmonary infiltrates, CHF, pleural effusion, or pneumothorax. Intact visualized osseous structures. Impression No evidence of active pulmonary disease CTabdomen 04/11/16 There is suggestion of thickening of the second and third portion of the duodenal wall without surrounding inflammatory changes. Further evaluation is needed Diverticulosis coli mainly involving the sigmoid colon without evidence of acute diverticulitis. Nonvisualization of the gallbladder ASSESSMENT/PLAN: 81 year old female with pmh gastritis, diverticulosis, iron deficiency anemia, atypical chest pain, NIDDM present to the ED with complaint of chest pain. she was found to have a UTI and troponins Atypical Chest pain Pt has intermediate troponins they are less than 0.5. madelyn be related to demand ischemia Pt with GEARD/GAStritis/PUD symptoms/signs with burning pain, epigastric tenderness, nausea/vomiting troponins are trending down 024, 0.21, 0.14 Aspirin po echo with normal function, thickness and EF LDL 64, HDL 23 consider outpatient stress test cardiology consulted UTI c/o of dysuria which resolved suprapubic tenderness on physical exam UA with pyuria Urine culture with gram negative bacilli lactose fermenting on rocephin IV will continue pending sensitivity on urine culture NAusea and vomiting likley due to gastritis r/o PUD/Hpilori/gastroenteritis Stool H pilori antigen Zofran PPI IV fluid DR Kay consulted NIDDM HBGA1c 6.9 ON novolog sliding on metformin at home FEN Fluid : None Elctrolytes : no leectrlytes Nutrition: Diabetic diet DVT prophylaxis: SCD Disposition: pending cardiology and GI eval Visit type - Emergency Visit Emergency Visit: Yes ED Registration Date: 04/12/16 Care time: The patient presented to the Emergency Department on the above date and was hospitalized for further evaluation of their emergent condition. - New Patient This patient is new to me today: Yes Date on this admission: 04/13/16 - Critical Care Critical Care patient: No - Discharge Referral Referred to [facility] Med [facility] No
[2016-04-12] MEDS: METOCLOPRAMIDE HCL 10 MG TABLET (FP) PO SCH (17:47)
--- NOTE | 2016-04-12 18:28 | CONSULT ---
Consult Consult Specialty:: gastroenterology Referred by:: hospitalist - History of Present Illness History of Present Illness: 81 y/o female was admitted becasue of atypical chest pain,UTI, abdominal pain, nausea, vomiting. At present asymptomatic and diarrhea. Tonight ate 60 percent of her diet. No nausea no vomiting. Diarrhea has resolved. She was started on Docusate for constipation. - Past Medical History Cardio/Vascular: Yes: HTN, Hyperlipdemia Gastrointestinal: Yes: Diverticulosis, Gastritis - Past Surgical History Past Surgical History: Yes: Appendectomy, Cholecystectomy, Hernia Repair (Hiatal ) - Alcohol/Substance Use Hx Alcohol Use: No History of Substance Use: reports: None - Smoking History Smoking history: Never smoked Have you smoked in the past 12 months: No Aproximately how many cigarettes per day: 2 - Social History ADL: Independent History of Recent Travel: No Home Medications - Allergies Allergies/Adverse Reactions: Allergies Allergy/AdvReac Type Severity Reaction Status Date / Time No Known Allergies Allergy Verified 04/11/16 14:08 - Home Medications Home Medications: Ambulatory Orders Esomeprazole Mag Trihydrate [Nexium] 40 mg PO DAILY 07/17/11 Meclizine HCl [Antivert -] 12.5 mg PO DAILY PRN 07/17/11 PARoxetine HCL "CR" SUST REL [Paxil Cr -] 12.5 mg PO DAILY 07/17/11 Metformin HCl [Glucophage] 1,000 mg PO BID 04/11/16 Docusate Sodium [Colace -] 1 tablet PO TID 04/12/16 Ferrous Sulfate 325 mg PO TID 04/12/16 Gabapentin [Neurontin] 300 mg PO BID 04/12/16 Hydrochlorothiazide [Hctz -] 12.5 mg PO DAILY 04/12/16 Lipase/Protease/Amylase [Toya Dr 24,000 Units Capsule] 1 cap PO TIDCM 04/12/16 Lubiprostone [Amitiza] 8 mcg PO BID 04/12/16 Metoclopramide HCl [Reglan] 5 mg PO TIDCM 04/12/16 Miscellaneous Medical Supply [Outpatient Order] 1 each ASDIR #1 misc Sitagliptin Phosphate [Januvia] 50 mg PO DAILY 04/12/16 Physical Exam-GI Vital Signs: Vital Signs Temperature 98.5 F 04/12/16 18:13 Pulse Rate 70 04/12/16 18:13 Respiratory Rate 18 04/12/16 18:13 Blood Pressure 122/80 04/12/16 18:13 O2 Sat by Pulse Oximetry (%) 95 04/12/16 10:00 Constitutional: Yes: Well Nourished Eyes: Yes: Conjunctiva Clear HENT: Yes: Atraumatic Neck: Yes: Supple Cardiovascular: Yes: Regular Rate and Rhythm Respiratory: Yes: CTA Bilaterally ...Palpate: Yes: Soft. No: Firm/Rigid, Guarding, Hepatomegaly, Mass, Pulsatile Mass, Splenomegaly, Tenderness Assessment/Plan IBS alternating diarrhea and constipation R> low fiber lactose free diet further gi w/u as an outpatient pt's son was informed of findings and was asked to bring her mother for follow -up as an outpatient
[2016-04-12] MEDS ORDERED: CEFTRIAXONE 50 ML IVPB ONE (20:00)
[2016-04-12] MEDS: FERROUS SO4 325 MG TABLET (FP) PO SCH (21:17)
[2016-04-12] MEDS: DOCUSATE SODIUM 100 MG CAPSULE (FP) PO SCH (21:17)
--- NOTE | 2016-04-12 23:52 | EKG ---
Test Reason : Blood Pressure : / mmHG Vent. Rate : 081 BPM Atrial Rate : 081 BPM P-R Int : 184 ms QRS Dur : 078 ms QT Int : 372 ms P-R-T Axes : 075 020 084 degrees QTc Int : 432 ms SINUS RHYTHM WITH OCCASIONAL PREMATURE VENTRICULAR COMPLEXES OTHERWISE NORMAL ECG WHEN COMPARED WITH ECG OF 08-AUG-2015 10:15, PREMATURE VENTRICULAR COMPLEXES ARE NOW PRESENT Confirmed by KAMRON MONTANO, KATHERIN ([id number]) on 04/12/2016 11:52:39 PM Referred By: Confirmed By:KATHERIN LUNDY MD
[2016-04-13] MEDS: DOCUSATE SODIUM 100 MG CAPSULE (FP) PO SCH ×2 (07:05→13:08)
[2016-04-13] MEDS: INSULIN SLIDING SCALE (NOVOLOG) 1 VIAL SQ SCH ×3 (07:05→16:58)
[2016-04-13] MEDS: FERROUS SO4 325 MG TABLET (FP) PO SCH ×2 (07:05→13:08)
--- NOTE | 2016-04-13 07:46 | PN ---
Physical Exam: SUBJECTIVE: Patient seen and examined Pt said the nausea has subsided She is feeling stronger she is walking now and going to the bathroom She denies abdominal pain She complain of watery/soft bowel movement 2 times yesterday and once this morning no bright red blood, no melena no fever, no chills OBJECTIVE: Vital Signs Period Temp Pulse Resp BP Sys/White Pulse Ox Last 24 Hr 97.9 F-98.5 F 66-79 16-18 111-135/47-80 95-95 GENERAL: The patient is awake, alert, and fully oriented, in no acute distress. HEAD: Normal with no signs of trauma. EYES: PERRL, extraocular movements intact, sclera anicteric, conjunctiva clear. No ptosis. ENT: Ears normal, nares patent, oropharynx clear without exudates, moist mucous membranes. NECK: Trachea midline, full range of motion, supple. LUNGS: Breath sounds equal, clear to auscultation bilaterally, no wheezes, no crackles, no accessory muscle use. HEART: Regular rate and rhythm, S1, S2 without murmur, rub or gallop. ABDOMEN: Still having Low abdominal and suprapubic tenderness. Epigastric tendernes. nondistended, normoactive bowel sounds, no guarding, no rebound, no hepatosplenomegaly, no masses. EXTREMITIES: 2+ pulses, warm, well-perfused, no edema. NEUROLOGICAL: Normal speech, gait not observed. PSYCH: Normal mood, normal affect. SKIN: Warm, dry, normal turgor, no rashes or lesions noted Laboratory Results - last 24 hr 04/12/16 04/12/16 04/12/16 06:30 06:30 06:30 POC Glucometer Hemoglobin A1c % 6.9 H Triglycerides Cancelled 165 H Cholesterol Cancelled 103 Total LDL Cholesterol Cancelled 64 HDL Cholesterol Cancelled 23 L TSH Cancelled 5.58 H Free T4 Cancelled 1.07 04/12/16 04/12/16 04/13/16 11:47 17:50 06:39 POC Glucometer 131 130 117 Hemoglobin A1c % Triglycerides Cholesterol Total LDL Cholesterol HDL Cholesterol TSH Free T4 Active Medications Generic Name Dose Route Start Last Admin Trade Name Freq PRN Reason Stop Dose Admin Aspirin 81 mg 04/12/16 10:00 04/12/16 10:36 Asa - PO 81 mg DAILY SARAH Administration Docusate Sodium 100 mg 04/12/16 22:00 04/13/16 07:05 Colace - PO 100 mg TID SARAH Administration Ferrous Sulfate 325 mg 04/12/16 22:00 04/13/16 07:05 Feosol - PO 325 mg TID SARAH Administration Insulin Aspart 1 vial 04/12/16 07:00 04/13/16 07:05 Novolog Vial Sliding Scale - SQ Not Given TIDAC [facility] Protocol Meclizine HCl 12.5 mg 04/12/16 10:00 04/12/16 10:36 Antivert - PO 12.5 mg DAILY SARAH Administration Metoclopramide HCl 5 mg 04/12/16 17:30 04/12/16 17:47 Reglan - PO 5 mg TIDCM SARAH Administration Ondansetron HCl 4 mg 04/11/16 22:52 Zofran - PO Q6H PRN NAUSEA Pancrelipase 4 cap 04/12/16 17:30 04/12/16 17:[address] 6,000 Units Capsule PO 4 cap TIDCM SARAH Administration Pantoprazole Sodium 40 mg 04/12/16 10:00 04/12/16 10:36 Protonix - PO 40 mg DAILY SARAH Administration Paroxetine HCl 10 mg 04/13/16 10:00 Paxil - PO DAILY SARAH ASSESSMENT/PLAN: CXR: 04/11/16 Uncoiled thoracic aorta. No evidence of cardiomegaly, a widening of the superior mediastinum. The lungs are well aerated. No evidence of pulmonary infiltrates, CHF, pleural effusion, or pneumothorax. Intact visualized osseous structures. Impression No evidence of active pulmonary disease CTabdomen 04/11/16 There is suggestion of thickening of the second and third portion of the duodenal wall without surrounding inflammatory changes. Further evaluation is needed Diverticulosis coli mainly involving the sigmoid colon without evidence of acute diverticulitis. Nonvisualization of the gallbladder ASSESSMENT/PLAN: 81 year old female with pmh gastritis, diverticulosis, iron deficiency anemia, atypical chest pain, NIDDM present to the ED with complaint of chest pain. she was found to have a UTI and troponins Atypical Chest pain Pt has intermediate troponins they are less than 0.5. may be related to demand ischemia Pt with GEARD/GAStritis/PUD symptoms/signs with burning pain, epigastric tenderness, nausea/vomiting troponins are trending down 024, 0.21, 0.14, this morning 0.04 Aspirin po echo with normal function, thickness and EF LDL 64, HDL 23 Stress test this morning cardiology consulted UTI c/o of dysuria which resolved suprapubic tenderness on physical exam UA with pyuria Urine culture with gram negative bacilli lactose fermenting on rocephin IV will continue pending sensitivity on urine culture NAusea and vomiting likley due to gastritis r/o PUD/Hpilori/gastroenteritis Stool H pilori antigen Zofran PPI DR Kay consulted, outpatient follow for IBS Confirm plan with Dr Kay rt to duodenal thickening on CT scan abdomen and pelvis NIDDM HBGA1c 6.9 ON novolog sliding on metformin at home FEN Fluid : None Elctrolytes : no electrolytes abnormalities Nutrition: Diabetic diet, low sodium, lactose free low fiber diet DVT prophylaxis: SCD Disposition: waiting for sensitivity on urine culture and stress test result Visit type - Emergency Visit Emergency Visit: Yes ED Registration Date: 04/12/16 Care time: The patient presented to the Emergency Department on the above date and was hospitalized for further evaluation of their emergent condition. - New Patient This patient is new to me today: No - Critical Care Critical Care patient: No - Discharge Referral Referred to [facility] No
[2016-04-13 08:40] LABS: TROPONIN I 0.04 ng/ml (0.00-0.05)
[2016-04-13] MEDS ORDERED: CEFTRIAXONE 50 ML IVPB SCH (10:00)
[2016-04-13] MEDS ORDERED: DIPYRIDAMOLE STRESS TEST IVPB ONE (10:00)
[2016-04-13] MEDS ORDERED: WATER IVPB ONE (10:00)
[2016-04-13] MEDS ORDERED: DEXTROSE 5% IVPB ONE (10:00)
[2016-04-13] MEDS ORDERED: PARoxetine HCL 10 MG TABLET (FP) PO SCH (10:00)
[2016-04-13 10:11] VITALS: PULSE 70
[2016-04-13] MEDS: LIPASE/PROTEASE/AMYLASE 6,000 UNIT CAPSULE PO SCH ×3 (12:00→17:01)
[2016-04-13] MEDS: METOCLOPRAMIDE HCL 10 MG TABLET (FP) PO SCH ×3 (12:00→16:57)
[2016-04-13] MEDS: ASPIRIN 81 MG CHEWABLE TABLETS PO SCH (12:01)
[2016-04-13] MEDS: PANTOPRAZOLE 40 MG TABLET (FP) PO SCH (12:01)
[2016-04-13] MEDS: MECLIZINE HCL 12.5 MG TABLET PO SCH (12:02)
--- NOTE | 2016-04-13 12:14 | DS ---
Physical Exam: SUBJECTIVE: Patient seen and examined no complaint at this time OBJECTIVE: Vital Signs Period Temp Pulse Resp BP Sys/White Pulse Ox Last 24 Hr 97.9 F-98.5 F 66-79 16-18 111-129/47-80 95-95 PHYSICAL EXAM GENERAL: The patient is awake, alert, and fully oriented, in no acute distress. HEAD: Normal with no signs of trauma. EYES: PERRL, extraocular movements intact, sclera anicteric, conjunctiva clear. No ptosis. ENT: Ears normal, nares patent, oropharynx clear without exudates, moist mucous membranes. NECK: Trachea midline, full range of motion, supple. LUNGS: Breath sounds equal, clear to auscultation bilaterally, no wheezes, no crackles, no accessory muscle use. HEART: Regular rate and rhythm, S1, S2 without murmur, rub or gallop. ABDOMEN: Still having Low abdominal and suprapubic tenderness. Epigastric tendernes. nondistended, normoactive bowel sounds, no guarding, no rebound, no hepatosplenomegaly, no masses. EXTREMITIES: 2+ pulses, warm, well-perfused, no edema. NEUROLOGICAL: Normal speech, gait not observed. PSYCH: Normal mood, normal affect. SKIN: Warm, dry, normal turgor, no rashes or lesions noted LABS Laboratory Results - last 24 hr 04/12/16 04/12/16 04/13/16 11:47 17:50 05:35 POC Glucometer 131 130 Creatine Kinase 38 Troponin I 0.04 04/13/16 04/13/16 06:39 11:30 POC Glucometer 117 147 Creatine Kinase Troponin I CBC, BMP 04/12/16 05:35 04/12/16 05:35 CXR: 04/11/16 Uncoiled thoracic aorta. No evidence of cardiomegaly, a widening of the superior mediastinum. The lungs are well aerated. No evidence of pulmonary infiltrates, CHF, pleural effusion, or pneumothorax. Intact visualized osseous structures. Impression No evidence of active pulmonary disease CTabdomen 04/11/16 There is suggestion of thickening of the second and third portion of the duodenal wall without surrounding inflammatory changes. Further evaluation is needed Diverticulosis coli mainly involving the sigmoid colon without evidence of acute diverticulitis. Nonvisualization of the gallbladder HOSPITAL COURSE: Date of Admission:04/12/16 This is an 81 yo F with PMH of atypical chest pain, atypical abdominal pain, Fe deficiency anemia, HLD, NIDDM, gastritis and diverticulosis, who presents due to increasing weakness and chills x5 days. She states that on sunday she started having chills but not fever and feeling week, symptoms progressed until today she had an episode of rigors, had urinary incontinence and was unable to walk from weakness. She has chronic dysuria but lately has had new urgency and frequency w/o hematuria. She has had diarrhea and nbnb vomiting in , Sun and today. Today she vomited 2x and had 4 eps of diarrhea. She denies hematochezia but states that her stool is always black; she does take Fe supplements. She denies sick contacts. She has chronic nonradiating, diffuse chest pain and chronic diffuse abdominal and flank pain that comes and goes and has been unchanged from baseline. She had some chest pain when she first arrived but it has since resolved. It is reproducible by pressing on sternum. Her abd and flank pain is still present. She denies associated h/a, SOB, cough, orthopnea, dizziness, loc, diaphoresis, palpitations or LE edema. ER course was notable for: (1)labs (2)cxr, ct abd (3)asa, ntg, rocephin, zofran, IVF 81 year old female with pmh gastritis, diverticulosis, iron deficiency anemia, atypical chest pain, NIDDM present to the ED with complaint of chest pain, epigastric and low abdominal tenderness, nausea, vomiting. She was found to have a UTI and troponins. Pt was admitted with a diagnosis of Atypical Chest pain, Pt had intermediate troponins they were less than 0.5. possibly be related to demand ischemia. Troponins trended down from 024, 0.21, 0.14, this morning 0.04. Pt was aspirin 81 mg po. Pt had an echo with normal LV function, thickness and EF. LDL 64, HDL 23. Pt had a normal Stress test this morning. Symptoms were of GI origin or costochondritis since chest pain reproducible. Patient was diagnosed with UTI, her initial c/o of dysuria has resolved, she had suprapubic tenderness on physical exam, UA with pyuria, Urine culture showed E. coli and Pt was treated with Rocephin IV for 2 days, pt will now be discharge on Keflex 500mg BID for 5 more days. Pt nausea and vomiting likely due to gastritis r/o PUD/Hpilori/gastroenteritis. Pt had burning chest pain, epigastric tenderness, nausea/vomiting. Stool H pilori antigen was sent. Pt was teated with Zofran, PPI, CT abdomen was done and showed diverticulosis and thickening of 2nd portion duodenum. Dr Kay was consulted, he recommend lactose free, low fiber diet, outpatient follow for IBS. he aslo said he may do another endoscopy to take a look at the duondenum as outpatient. Pt is diabetic, his HBGA1c is 6.9, was novolog sliding in the hospital, will resume metformin and Januvia at home Date of Discharge: 04/13/16 Minutes to complete discharge: 35 Discharge Summary Reason For Visit: CHEST PAIN/UTI Current Active Problems Abdominal pain (Acute) Chest pain (Acute) Diabetes mellitus (Acute) Diarrhea (Acute) HLD (hyperlipidemia) (Acute) HTN (hypertension) (Acute) Nausea & vomiting (Acute) UTI (urinary tract infection) (Acute) Condition: Stable - Instructions Diet, Activity, Other Instructions: Discharge Home Resume Home activity Start Low fiber, lactose free diet Resume home medication Start Keflex 1 tablet orally twice per day for 5 days starting tomorrow. Follow up with Dr Neri Witt in 1 week Follow up with your Primary Care Physician within 1 week Follow up With Dr Remberto Cali in 2 week Referrals: Eren Head MD [Primary Care Provider] - 1 Week Neri Kay MD [Staff Physician] - 1 Week Remberto Cali MD [Staff Physician] - 2 Weeks Disposition: VNS/HOME HEALTH CARE - Home Medications Comprehensive Discharge Medication List: Ambulatory Orders Esomeprazole Mag Trihydrate [Nexium] 40 mg PO DAILY 07/17/11 Meclizine HCl [Antivert -] 12.5 mg PO DAILY PRN 07/17/11 PARoxetine HCL "CR" SUST REL [Paxil Cr -] 12.5 mg PO DAILY 07/17/11 Metformin HCl [Glucophage] 1,000 mg PO BID 04/11/16 Docusate Sodium [Colace -] 1 tablet PO TID 04/12/16 Ferrous Sulfate 325 mg PO TID 04/12/16 Gabapentin [Neurontin] 300 mg PO BID 04/12/16 Hydrochlorothiazide [Hctz -] 12.5 mg PO DAILY 04/12/16 Lipase/Protease/Amylase [Toya Tucker 24,000 Units Capsule] 1 cap PO TIDCM 04/12/16 Lubiprostone [Amitiza] 8 mcg PO BID 04/12/16 Metoclopramide HCl [Reglan] 5 mg PO TIDCM 04/12/16 Miscellaneous Medical Supply [Outpatient Order] 1 each ASDIR #1 misc Sitagliptin Phosphate [Januvia] 50 mg PO DAILY 04/12/16 This patient is new to me today: No Emergency Visit: Yes ED Registration Date: 04/12/16 Care time: The patient presented to the Emergency Department on the above date and was hospitalized for further evaluation of their emergent condition. Critical Care patient: No - Discharge Referral Referred to [facility] No
--- NOTE | 2016-04-13 12:50 | PN ---
Teaching Attending Note Name of Resident: Joo Mg ATTENDING PHYSICIAN STATEMENT I saw and evaluated the patient. I reviewed the resident's note and discussed the case with the resident. I agree with the resident's findings and plan as documented. SUBJECTIVE: no CP , no fever or chills, no abd pain . no diarrhea OBJECTIVE: NAD CV: RRR, no MRG , no JVD lungs: CTAB Ext : no edema Abd : soft, TTP in epigastric area and in suprapubic area. ND , NL BS . no rebound tenderness or guarding ASSESSMENT AND PLAN: 81 y/o lady with h/o NIDDM, HLP, HTN, diverticulosis, gastritis and iron deficiency anemia who presented with Chest pain . she was found to have a trop leak and UTI . 1- Atypical CP : probably from GERD/gastritis. Has slight trop elevation < 0.5 , which trended down. - obtain stress test due to h/o exertional cp - aspirin daily 2- complicated UTI : with E coli - cont CTX . here , but prescribe Keflex at dc to complete 7 day total of Abx 3- N/V : probably due to gastritis , resolved . CT shows thickening in dudenum which will be followed by GI as out pt - HP stool AG pending - PPI 4-DM : SSI . metfromin at dc Dispo : Depending on results of stress test. possible dc today
--- NOTE | 2016-04-13 13:25 | PN ---
Progress Note, Physician History of Present Illness: seen and examined today in nad. no overnight events. no new complaints. - Current Medication List Current Medications: Active Medications Aspirin (Asa -) 81 mg PO DAILY [facility] Last Admin: 04/13/16 12:01 Dose: 81 mg Docusate Sodium (Colace -) 100 mg PO TID [facility] Last Admin: 04/13/16 13:08 Dose: 100 mg Ferrous Sulfate (Feosol -) 325 mg PO TID [facility] Last Admin: 04/13/16 13:08 Dose: 325 mg Ceftriaxone Sodium (Rocephin 1gm Ivpb (Pre-Docked)) 50 mls @ 100 mls/hr IVPB DAILY [facility] Last Admin: 04/13/16 12:01 Dose: 100 mls/hr Insulin Aspart (Novolog Vial Sliding Scale -) 1 vial SQ TIDAC [facility] PRN Reason: Protocol Last Admin: 04/13/16 12:02 Dose: Not Given Meclizine HCl (Antivert -) 12.5 mg PO DAILY [facility] Last Admin: 04/13/16 12:02 Dose: 12.5 mg Metoclopramide HCl (Reglan -) 5 mg PO TIDCM [facility] Last Admin: 04/13/16 12:01 Dose: 5 mg Ondansetron HCl (Zofran -) 4 mg PO Q6H PRN PRN Reason: NAUSEA Pancrelipase (Creon Dr 6,000 Units Capsule) 4 cap PO TIDCM [facility] Last Admin: 04/13/16 12:03 Dose: 4 cap Pantoprazole Sodium (Protonix -) 40 mg PO DAILY [facility] Last Admin: 04/13/16 12:01 Dose: 40 mg Paroxetine HCl (Paxil -) 10 mg PO DAILY [facility] Last Admin: 04/13/16 12:01 Dose: 10 mg - Objective Vital Signs: Vital Signs Temperature 98.2 F 04/13/16 10:00 Pulse Rate 70 04/13/16 10:00 Respiratory Rate 18 04/13/16 10:00 Blood Pressure 129/79 04/13/16 10:19 O2 Sat by Pulse Oximetry (%) 95 04/13/16 10:00 Constitutional: Yes: Well Nourished, No Distress, Calm Eyes: Yes: WNL, Conjunctiva Clear, EOM Intact, PERRL HENT: Yes: WNL, Atraumatic, Normocephalic Neck: Yes: WNL, Supple, Trachea Midline Cardiovascular: Yes: WNL, Regular Rate and Rhythm, S1, S2. No: Bradycardia, Tachycardia, Pulse Irregular, Bruit, JVD, Gallop, Murmur, Rub, S3, S4, Varicosities Respiratory: Yes: WNL, Regular, CTA Bilaterally. No: Rales, Rhonchi, Wheezes Gastrointestinal: Yes: WNL, Normal Bowel Sounds, Soft. No: Distention, Tenderness Musculoskeletal: Yes: WNL Extremities: Yes: WNL Edema: No Peripheral Pulses WNL: Yes Peripheral Pulses: Left Doralis Pedis: 2+, Right Dorsalis Pedis: 2+ Integumentary: Yes: WNL Neurological: Yes: WNL, Alert, Oriented, Cran Nerves II-XII Intact ...Motor Strength: WNL Psychiatric: Yes: WNL, Alert, Oriented - ....Imaging Chest X-ray: Report Reviewed, Image Reviewed EKG: Report Reviewed, Image Reviewed Other: Report Reviewed, Image Reviewed (tele-nsr, frequent pvcs) Problem List - Problems (1) Abdominal pain Code(s): R10.9 - UNSPECIFIED ABDOMINAL PAIN (2) Chest pain Code(s): R07.9 - CHEST PAIN, UNSPECIFIED Qualifiers: Qualified Code(s): R07.9 - Chest pain, unspecified (3) Diarrhea Code(s): R19.7 - DIARRHEA, UNSPECIFIED (4) Nausea & vomiting Code(s): R11.2 - NAUSEA WITH VOMITING, UNSPECIFIED (5) Chronic anemia Code(s): D64.9 - ANEMIA, UNSPECIFIED (6) Diabetes mellitus Code(s): E11.9 - TYPE 2 DIABETES MELLITUS WITHOUT COMPLICATIONS (7) HTN (hypertension) Code(s): I10 - ESSENTIAL (PRIMARY) HYPERTENSION (8) HLD (hyperlipidemia) Code(s): E78.5 - HYPERLIPIDEMIA, UNSPECIFIED Assessment/Plan 81 year old woman with a history of HTN, HLD, DMII, multiple abdominal surgeries , admitted with c/o nausea, vomiting, abdominal pain, fever, chills and chest pain. Chest pain-atypical, unlikely ACS -likely related to GI/ pathology, however pt reports a few week history of more typical chest pain with exertion -no ischemia on ekg -troponin slightly above upper limit of normal with normal CK level -only PVCs on tele, no sig arrhythmia -no sign of chf -echo showed normal LV systolic function, impaired relaxation, trace to mild mr , mild tr, mild AR -pt underwent a pharm nuclear stress test today, if no sig ischemia would be acceptable for discharge home with outpatient follow up, if shows ischemia will plan to transfer for cardiac cath -cont ASA 81mg daily HTN-well controlled -does not require medical therapy HLD -adequately controlled
--- NOTE | 2016-04-13 14:46 | MSN ---
Progress Note (SOAP) - Subjective Chief Complaint: Weakness and chills for 5 days History of Present Illness: Patient was examined at bedside. She was alert and oriented. She stated that she had no chest pain today above her normal level of chest pain. Patient also claimed to have 2 events of diarrhea this morning. Patient says she is feeling stronger, with no SLADE, Nauesa, vomiting, constipation or throat pain. She has diffuse pain throughout her abdomen. - Current Medications Current Medications: Active Medications Aspirin (Asa -) 81 mg PO DAILY [facility] Last Admin: 04/13/16 12:01 Dose: 81 mg Docusate Sodium (Colace -) 100 mg PO TID [facility] Last Admin: 04/13/16 13:08 Dose: 100 mg Ferrous Sulfate (Feosol -) 325 mg PO TID [facility] Last Admin: 04/13/16 13:08 Dose: 325 mg Ceftriaxone Sodium (Rocephin 1gm Ivpb (Pre-Docked)) 50 mls @ 100 mls/hr IVPB DAILY [facility] Last Admin: 04/13/16 12:01 Dose: 100 mls/hr Insulin Aspart (Novolog Vial Sliding Scale -) 1 vial SQ TIDAC [facility] PRN Reason: Protocol Last Admin: 04/13/16 12:02 Dose: Not Given Meclizine HCl (Antivert -) 12.5 mg PO DAILY [facility] Last Admin: 04/13/16 12:02 Dose: 12.5 mg Metoclopramide HCl (Reglan -) 5 mg PO TIDCM [facility] Last Admin: 04/13/16 12:01 Dose: 5 mg Ondansetron HCl (Zofran -) 4 mg PO Q6H PRN PRN Reason: NAUSEA Pancrelipase (Creon Dr 6,000 Units Capsule) 4 cap PO TIDCM [facility] Last Admin: 04/13/16 12:03 Dose: 4 cap Pantoprazole Sodium (Protonix -) 40 mg PO DAILY [facility] Last Admin: 04/13/16 12:01 Dose: 40 mg Paroxetine HCl (Paxil -) 10 mg PO DAILY [facility] Last Admin: 04/13/16 12:01 Dose: 10 mg - Objective Vital Signs: Vital Signs Temperature 98.2 F 04/13/16 10:00 Pulse Rate 70 04/13/16 10:00 Respiratory Rate 18 04/13/16 10:00 Blood Pressure 129/79 04/13/16 10:19 O2 Sat by Pulse Oximetry (%) 95 04/13/16 10:00 Constitutional: Yes: Well Nourished, No Distress, Calm Eyes: Yes: WNL, Conjunctiva Clear, EOM Intact HENT: Yes: WNL, Atraumatic, Normocephalic Neck: Yes: WNL, Supple, Trachea Midline Cardiovascular: Yes: WNL, Regular Rate and Rhythm Respiratory: Yes: WNL, Regular, CTA Bilaterally Gastrointestinal: Yes: Soft, Hyperactive Bowel Sounds Musculoskeletal: Yes: WNL Extremities: Yes: WNL Peripheral Pulses WNL: Yes Peripheral Pulses: Left Radial: 2+, Right Radial: 2+, Left Doralis Pedis: 2+, Right Dorsalis Pedis: 2+, Left Femoral: 2+, Right Femoral: 2+ Edema: No Integumentary: Yes: WNL Neurological: Yes: WNL, Alert, Oriented ...Motor Strength: Yes: WNL Psychiatric: Yes: WNL, Alert, Oriented Assessment/Plan Patient is an 81 yo F with PMH of atypical chest pain, atypical abdominal pain, Fe deficiency anemia, HLD, NIDDM, gastritis and diverticulosis, who presents due to increasing weakness and chills x5 days. Atypical chest pain/GERD/MSK Pain -Patient is no longer complaining of any CP greater than her baseline -trop 0.21, then 0.24; then 0.14 --Trop below range for concern of NSTEMI -Stress Test-all findings normal -Pain reproducible with palpation of the chest -Tele monitoring --EKG shows some PVC's -TFTs-TSH high normal and T4 normal -TG-high and HDL is Low -Started ASA 81 -Cardio consult - Chest pain is secondary to GI pain UTI -Culture came back with E. Coli with sensitivity to all cephalosporins -Stop rocephin -Start keflex 500mg BID NIDDM -fingerstick TIDAC -sliding scale -Start home meds after discharge nausea and diarrhea -r/o gastroenteritis -H. Pylori stool antigen Pending -zofran prn -Follow up with GI in outpt. Pancreating insufficiency -continue pancreatic enzyme supplement
[2016-04-13] MEDS ORDERED: PT OWN MED DRAWER 7, Y5N ONE (17:14)
[2016-04-13 18:39] VITALS: BP 111/78; TEMP 97.8
== END 2016-04-13 18:40 | disposition home health service (06) | DRG 392 ==
LOC: JER 14:07 → JERBED 20:15 → UNDOADMIN 20:15 → JERBED 22:35 → J4S 22:46 → JERBED 04-12 06:06 → J4S 04-12 06:06
PROVIDERS: ADMIT Internal Medicine; ATTEND Internal Medicine
DX: K29.70 Gastritis, unspecified, without bleeding (principal); N39.0 Urinary tract infection, site not specified; K21.9 Gastro-esophageal reflux disease without esophagitis; B96.20 Unspecified Escherichia coli [E. coli] as the cause of diseases classified elsewhere; R07.9 Chest pain, unspecified; E11.9 Type 2 diabetes mellitus without complications; R11.2 Nausea with vomiting, unspecified; K86.89 Other specified diseases of pancreas; D64.9 Anemia, unspecified; I10 Essential (primary) hypertension; E78.5 Hyperlipidemia, unspecified; K57.90 Diverticulosis of intestine, part unspecified, without perforation or abscess without bleeding; K58.9 Irritable bowel syndrome, unspecified
CPT/HCPCS: 36415; 71010-TC; 74177-TC; 78452-TC; 80053; 80061; 81003; 81015; 82150; 82550; 82977; 83036; 83690; 83721; 83735; 84100; 84439; 84443; 84484; 85025; 85027; 87086; 87186; 87338; 93005; 93010; 93017; 93306-TC; 97116-GP; 97161-GP; 99285-25; A9502; C1887; G0008; J1245; Q2037; Q9967

== ENCOUNTER 2016-05-23 09:55 | Day surgery (SDC) | payer MEDICARE, OTHER ==
[2016-05-23 10:56] VITALS: BMI 32.5
[2016-05-23] MEDS ORDERED: LIDOCAINE HCL/PF 1% SDV 5ML VIAL ONE (11:55)
[2016-05-23] MEDS ORDERED: PROPOFOL 20 ML ONE (11:55)
[2016-05-23 12:18] VITALS: TEMP 98
[2016-05-23 12:46] VITALS: BP 143/73; PULSE 58
--- NOTE | 2016-05-24 14:46 | PATH ---
Surgical Pathology Report Patient Name: OMAIRA LUONG [facility]. Rec. #: [id number] /Age/Gender: 1935 (Age: 81) / F Account: [id number] Location: U-ENDOSCOPY Taken: 05/23/2016 Received: 05/23/2016 Reported: 05/24/2016 Physicians: Neri Kay M.D. Specimen(s) Received A: BX SUBMUCOSAL MASS B: BX BODY Clinical History Anemia, epigastric pain Atrophic gastritis, submucosal mass Final Diagnosis A. SUBMUCOSAL MASS, BIOPSY: GASTRIC MUCOSA WITH MODERATE CHRONIC GASTRITIS WITH FOCAL INTESTINAL METAPLASIA AND ATROPHIC FEATURES; NEGATIVE FOR DYSPLASIA. FOCALLY PROMINENT BLAND APPEARING SMOOTH MUSCLE (SEE COMMENT). Comment: Immunohistochemical stains for SMM-HC and S100 performed and interpreted at [facility] show the following: SMM-HC highlights smooth muscle, S100 shows focal non-specific reactivity. These results support prominent smooth muscle fibers, which may represent smooth muscle hyperplasia or leiomyoma. Endoscopic correlations are suggested. B. STOMACH, BODY, BIOPSY: GASTRIC OXYNTIC MUCOSA WITH MODERATE CHRONIC GASTRITIS WITH FOCAL INTESTINAL METAPLASIA. NEGATIVE FOR DYSPLASIA. IMMUNOSTAIN FOR H. PYLORI IS NEGATIVE FOR ORGANISMS. Electronically Signed Riley Sheets M.D. Gross Description A. Received in formalin, labeled "biopsy submucosal mass" are 3 parker, irregular portions of soft tissue ranging from 0.1-0.2 cm in greatest dimension. The specimens are submitted in toto in one cassette. B. Received in formalin, labeled "biopsy body" are 2 parker, irregular portions of soft tissue averaging 0.3 cm in greatest dimension. The specimens are submitted in toto in one cassette. 05/23/201605/23/2016
== END 2016-05-23 13:04 | disposition home or self-care (01) ==
LOC: JASU-ENDO 09:55
PROVIDERS: ATTEND Internal Medicine Gastroenterology
PROC: 0DB68ZX Excision of Stomach, Via Natural or Artificial Opening Endoscopic, Diagnostic (ICD-10-PCS; 2016-05-23)
PROC: 0DB98ZX Excision of Duodenum, Via Natural or Artificial Opening Endoscopic, Diagnostic (ICD-10-PCS; principal; 2016-05-23 11:00)
DX: D64.89 Other specified anemias (principal); K29.50 Unspecified chronic gastritis without bleeding; K31.89 Other diseases of stomach and duodenum
CPT/HCPCS: 88305-TC; 88341-TC; 88342-TC

== ENCOUNTER 2016-06-21 23:31 | Inpatient (IN) | payer MEDICARE, OTHER ==
[2016-06-22] MEDS ORDERED: ASPIRIN 81 MG CHEWABLE TABLETS PO ONE (00:12)
--- NOTE | 2016-06-22 00:12 | PDOC ---
History of Present Illness - General Chief Complaint: Chest Pain Stated Complaint: CHEST PAIN Time Seen by Provider: 06/22/16 00:08 - History of Present Illness Initial Comments: 06/22/16 01:02 CHIEF COMPLAINT: abdominal pain, chest pain HISTORY OF PRESENT ILLNESS: 81 yo F with significant PMH of NIDDM, gastritis, HLD, diverticulosis presents to ED complaining of vomiting, chest pain, abdominal pain x 9 hours. Patient reports two episodes of vomiting and epigastric pain, as well as chest pain and shortness of breath. She reports the chest pain as a shooting pain across her chest, and the abdominal pain as a cramping pain. She denies any fever, chills, diarrhea, rectal bleeding, or change in urination. No recent travel or sick contacts. PAST MEDICAL HISTORY: as per HPI SOCIAL HISTORY: Former smoker. Denies alcohol, illicit drug use. SURGICAL HISTORY: appendectomy, hernia repair, and cholecystectomy ALLERGIES: No known drug allergies REVIEW OF SYSTEMS General/Constitutional: Denies fever or chills. Denies weakness, weight change. HEENT: Denies change in vision. Denies ear pain or discharge. Denies sore throat. Cardiovascular: Denies chest pain or shortness of breath. Respiratory: Denies cough, wheezing, or hemoptysis. Gastrointestinal: Two episodes of vomiting tonight. Denies diarrhea or constipation. Denies rectal bleeding. Genitourinary: Denies dysuria, frequency, or change in urination. Musculoskeletal: Denies joint or muscle swelling or pain. Denies neck or back pain. Skin and breasts: Denies rash or easy bruising. Neurologic: Denies headache, vertigo, loss of consciousness, or loss of sensation. PHYSICAL EXAM General Appearance: Uncomfortable-appearing, appropriately dressed. HEENT: EOMI, PERRLA, normal ENT inspection, normal voice, TMs normal, pharynx normal. No conjunctival pallor. No photophobia, scleral icterus. Respiratory/Chest: Lungs CTAB. Cardiovascular: Tachycardic to 124. S1, S2. Vascular Pulses: Dorsalis-Pedis (R): 2+, Dorsalis-Pedis (L): 2+ Gastrointestinal/Abdominal: Diffuse abdominal tenderness. No organomegaly, pulsatile mass, guarding, hernia, hepatomegaly, splenomegaly. Musculoskeletal/Extremities: Normal inspection. FROM of all extremities, normal capillary refill. Pelvis Stable. No CVA tenderness. No tenderness to extremities, pedal edema, swelling, erythema or deformity. Integumentary: Appropriate color, dry, warm. 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 Fully oriented, alert. Appropriate mood/affect. Motor strength 5/5. No appreciable EOM palsy, facial droop or sensory deficit. 07/27/16 16:06 Past History - Past Medical History Allergies/Adverse Reactions: Allergies Allergy/AdvReac Type Severity Reaction Status Date / Time No Known Allergies Allergy Verified 04/11/16 14:08 Home Medications: Ambulatory Orders Metformin HCl [Glucophage] 1,000 mg PO BID 04/11/16 Docusate Sodium [Colace -] 100 mg PO BID 06/23/16 Ferrous Sulfate TID 06/23/16 Furosemide [Lasix] 40 mg PO DAILY 06/23/16 Glipizide 10 mg PO DAILY 06/23/16 Lubiprostone [Amitiza] 8 mcg PO BID 06/23/16 Sitagliptin Phosphate [Januvia] 100 mg PO DAILY 06/23/16 Tramadol HCl/Acetaminophen [Ultracet Tablet] 1 each PO Q4H 06/23/16 Amox-Tr/K Cl [Augmentin 500-125mg Tablet -] 1 tab PO BID@0800,1730 #6 tablet Aspirin Coated [Ecotrin -] 81 mg PO DAILY #30 tab 06/26/16 Esomeprazole Mag Trihydrate [Nexium Packets] 40 mg PO DAILY 06/26/16 Metoclopramide HCl [Reglan] 5 mg PO TID 06/26/16 Anemia: Yes (h/o blood transfusion) Asthma: No Cancer: No Cardiac Disorders: Yes CVA: No COPD: No CHF: No Dementia: No Diabetes: Yes (NIDDM) 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, COLON POLYP, DIVERTICULOSIS) Disorders: No HTN: No Hypercholesterolemia: Yes Liver Disease: Yes (FATTY LIVER) Seizures: No Thyroid Disease: No - Surgical History Abdominal Surgery: Yes (UMBILICAL HERNIA REPAIR) Appendectomy: Yes Cardiac Surgery: No Cholecystectomy: Yes Lung Surgery: No Neurologic Surgery: No Orthopedic Surgery: No - Psycho/Social/Smoking Cessation Hx Anxiety: No Suicidal Ideation: No Smoking Status: No Smoking History: Never smoked Have you smoked in the past 12 months: No Number of Cigarettes Smoked Daily: 2 Information on smoking cessation initiated: No Hx Alcohol Use: No Drug/Substance Use Hx: No Substance Use Type: None Hx Substance Use Treatment: No Cardiac Specific PMH - Complaint Specific PMHX Pacemaker: No *Physical Exam - Vital Signs Last Vital Signs Temp Pulse Resp BP Pulse Ox 98.3 F 80 20 126/86 98 06/26/16 17:45 06/26/16 17:45 06/26/16 17:45 06/26/16 17:45 06/26/16 09:00 Heart Score/ECG Review - History History: Moderately suspicious - Electrocardiogram EKG: Normal - Age Age: >/= 65 - Risk Factors Risk Factors Heart Score: Yes Hx Hypercholesterolemia, Yes Hx Diabetes, Yes Smoking History Based on the list above the patient has:: >/=3 risk factors or Hx atherosclerotic disease - Troponin Troponin: 1-3x normal limit - Score Heart Score - Total: 6 ED Treatment Course - LABORATORY CBC & Chemistry Diagram: 06/25/16 06:30 06/25/16 06:30 - ADDITIONAL ORDERS Additional order review: 06/22/16 01:24 RBC 4.58 MCV 79.5 L MCHC 32.8 RDW 15.1 D MPV 9.3 Neutrophils % 83.0 H Lymphocytes % 2.0 L D Monocytes % 1.0 L D - RADIOLOGY Radiology Studies Ordered: Category Date Time Status ABDOMEN & PELVIS CT WITH CONTR [CT] Stat CT Scan 06/22/16 02:10 Completed CHEST PA & LAT [RAD] Stat Radiology 06/22/16 00:12 Completed - Medications Given in the ED: ED Medications Discontinued Medications Generic Name Dose Route Start Last Admin Trade Name Devanteq PRN Reason Stop Dose Admin Amoxicillin/Clavulanate Potassium 1 tab 06/26/16 12:30 06/26/16 16:32 Augmentin - 500mg Tablet PO 1 tab BID@0800,1730 SARAH Administration Aspirin 162 mg 06/22/16 00:12 06/22/16 00:27 Asa - PO 06/22/16 00:13 162 mg ONCE ONE Administration Aspirin 81 mg 06/22/16 10:00 06/22/16 10:46 Ecotrin - PO 81 mg DAILY SARAH Administration Aspirin 81 mg 06/23/16 10:00 06/24/16 10:51 Ecotrin - PO 81 mg DAILY SARAH Administration Aspirin 81 mg 06/25/16 10:00 06/26/16 11:10 Ecotrin - PO 81 mg DAILY SARAH Administration Docusate Sodium 100 mg 06/24/16 11:00 06/24/16 11:55 Colace - PO Not Given BID SARAH Docusate Sodium 100 mg 06/24/16 22:00 06/26/16 11:11 Colace - PO 100 mg BID SARAH Administration Furosemide 20 mg 06/24/16 12:15 06/24/16 12:27 Lasix Injection - IVPUSH 06/24/16 12:16 20 mg ONCE ONE Administration Heparin Sodium (Porcine) 5,000 unit 06/22/16 10:00 06/22/16 10:46 Heparin - SQ 5,000 unit BID SARAH Administration Heparin Sodium (Porcine) 5,000 unit 06/22/16 22:00 06/24/16 10:51 Heparin - SQ 5,000 unit BID SARAH Administration Heparin Sodium (Porcine) 5,000 unit 06/24/16 22:00 06/26/16 11:11 Heparin - SQ 5,000 unit BID SARAH Administration Potassium Chloride/Sodium Chloride 1,000 mls @ 100 mls/hr 06/22/16 02:45 03:34 Ns+20 Meq Kcl - IV 100 mls/hr ASDIR SARAH Administration Sodium Chloride 1,000 mls @ 75 mls/hr 06/22/16 07:30 06/22/16 09:00 Normal Saline - IV 75 mls/hr ASDIR SRAAH Administration Potassium Chloride 100 mls @ 100 mls/hr 06/22/16 08:50 06/22/16 09:00 Potassium Chloride 10 Meq Premix Ivpb - IVPB 06/22/16 09:49 100 mls/hr Q60M SARAH Administration Ceftriaxone Sodium 50 mls @ 100 mls/hr 06/22/16 09:30 06/22/16 09:30 Rocephin 1gm Ivpb (Pre-Docked) IVPB 06/22/16 09:59 100 mls/hr ONCE ONE Administration Metronidazole 50 mls @ 50 mls/hr 06/22/16 10:00 06/22/16 17:58 Flagyl 250mg Premixed Ivpb - IVPB 50 mls/hr Q8H-IV SARAH Administration Sodium Chloride 1,000 mls @ 100 mls/hr 06/22/16 14:03 06/22/16 14:09 Normal Saline - IV 100 mls/hr ASDIR SARAH Administration Sodium Chloride 500 mls @ 500 mls/hr 06/22/16 13:03 06/22/16 13:30 Normal Saline - IV 06/22/16 14:02 500 mls/hr ASDIR STA Administration Sodium Chloride 500 mls @ 500 mls/hr 06/22/16 16:08 06/22/16 16:15 Normal Saline - IV 06/22/16 17:07 500 mls/hr ASDIR STA Administration Sodium Chloride 500 mls @ 500 mls/hr 06/22/16 18:32 06/22/16 18:59 Normal Saline - IV 06/22/16 19:31 500 mls/hr ASDIR STA Administration Metronidazole 50 mls @ 50 mls/hr 06/23/16 02:00 06/23/16 09:28 Flagyl 250mg Premixed Ivpb - IVPB 50 mls/hr Q8H-IV SARAH Administration Imipenem/Cilastatin Sodium 500 100 mls @ 200 mls/hr 06/22/16 20:45 06/22/16 21: 00 mg/ Dextrose IVPB 06/22/16 21:14 200 mls/hr ONCE ONE Administration Sodium Chloride 1,000 mls @ 175 mls/hr 06/22/16 20:40 06/22/16 21:00 Normal Saline - IV 06/25/16 01:46 175 mls/hr ASDIR SARAH Administration Lactated Ringer's 1,000 mls @ 1,000 mls/hr 06/22/16 22:06 06/22/16 22:10 Lactated Ringers Solution IV 06/22/16 23:05 1,000 mls/hr ONCE STA Administration Norepinephrine Bitartrate 4, 500 mls @ 37.5 mls/hr 06/23/16 01:15 06/23/16 12: 00 000 mcg/ Dextrose IV 0 mcg/min TITR SARAH Titration Protocol 5 MCG/MIN Lactated Ringer's 1,000 mls @ 1,000 mls/hr 06/23/16 05:57 06/23/16 06:57 Lactated Ringers Solution IV 06/23/16 06:56 1,000 mls/hr ONCE STA Administration Imipenem/Cilastatin Sodium 500 100 mls @ 100 mls/hr 06/23/16 07:57 06/23/16 08: 36 mg/ Sodium Chloride IVPB 06/23/16 08:56 100 mls/hr ONCE ONE Administration Protocol Imipenem/Cilastatin Sodium 250 100 mls @ 100 mls/hr 06/23/16 16:00 06/23/16 16: 02 mg/ Sodium Chloride IVPB 100 mls/hr Q8H SARAH Administration Protocol Sodium Chloride 1,000 mls @ 100 mls/hr 06/23/16 09:17 06/23/16 09:35 Normal Saline - IV 06/25/16 06:39 100 mls/hr ASDIR SARAH Administration Dextrose/Sodium Chloride 1,000 mls @ 100 mls/hr 06/23/16 12:00 06/23/16 14:49 D5-1/2ns - IV Not Given ASDIR SARAH Sodium Chloride 1,000 mls @ 100 mls/hr 06/23/16 13:15 06/23/16 13:15 1/2 Normal Saline IV 100 mls/hr ASDIR SARAH Administration Meropenem 1 gm/ Dextrose 100 mls @ 100 mls/hr 06/24/16 02:00 06/24/16 17:57 IVPB 100 mls/hr Q8H-IV SARAH Administration Protocol Meropenem 1 gm/ Dextrose 100 mls @ 100 mls/hr 06/25/16 02:00 06/26/16 11:10 IVPB 100 mls/hr Q8H-IV SARAH Administration Protocol Insulin Aspart 1 vial 06/22/16 16:30 06/22/16 17:17 Novolog Vial Sliding Scale - SQ 6 units [facility] Administration Protocol Insulin Aspart 1 vial 06/23/16 07:00 06/24/16 17:28 Novolog Vial Sliding Scale - SQ 2 units [facility] Administration Protocol Insulin Aspart 1 vial 06/25/16 07:00 06/26/16 11:59 Novolog Vial Sliding Scale - SQ 2 unit [facility] Administration Protocol Magnesium Sulfate 1 gm 06/22/16 02:41 06/22/16 03:02 Magnesium Sulfate IVPB 06/22/16 02:42 1 gm ONCE ONE Administration Metoprolol Tartrate 5 mg 06/22/16 02:41 06/22/16 03:02 Lopressor Injection - IVPUSH 06/22/16 02:42 5 mg ONCE ONE Administration Pantoprazole Sodium 40 mg 06/22/16 10:00 06/22/16 10:46 Protonix 40mg Ivpb (Pre-Docked) IVPB 40 mg DAILY SARAH Administration Pantoprazole Sodium 40 mg 06/23/16 10:00 06/24/16 10:52 Protonix 40mg Ivpb (Pre-Docked) IVPB 40 mg DAILY SARAH Administration Pantoprazole Sodium 40 mg 06/24/16 11:00 06/24/16 12:26 Protonix - PO Not Given DAILY SARAH Pantoprazole Sodium 40 mg 06/25/16 10:00 06/26/16 11:11 Protonix - PO 40 mg DAILY SARAH Administration Pneumococcal 13-Valent Conj Vacc 0.5 ml 06/22/16 14:30 06/22/16 16:27 Prevnar 13 Syringe - IM 06/22/16 14:31 Not Given .ONCE ONE Potassium Chloride 20 meq 06/24/16 08:45 06/24/16 10:51 K-Dur - PO 06/24/16 08:46 20 meq ONCE ONE Administration Potassium Phos/Sodium Phos 1 packet 06/24/16 22:00 06/26/16 11:11 Phos-Nak Packet - PO 1 packet BID SARAH Administration Medical Decision Making - Medical Decision Making 06/22/16 03:52 81 yo F with significant PMH of NIDDM, gastritis, HLD, diverticulosis presents to ED complaining of vomiting, chest pain, abdominal pain x 9 hours. -EKG, CXR -CBC, CMP, PT/INR, Mg, cardiac profile Patient has diffuse abdominal tenderness, given hx of diverticulosis will order A&P CT to r/o diverticulitis. EKG: Sinus tachycardia. Read by myself and MD Rosenberg . -Abdomen and pelvis CT with contrast Labs: WBC: 10.8 K: 3.1 M.3 Creatinine: 1.2 AST: 386 ALT: 127 Trop 0.08 -5 mg Lopressor -NS + 20K -1g Mg Sulfate CT results: Impression: No findings to indicate diverticulitis. Stippled calcifications seen in the right adnexa, no appreciable change impression to prior. Consider further evaluation which can be performed non-emergently. Read by: Nick Franco M.D. Elevated trop. Will admit for serial trops, PAZ. *DC/Admit/Observation/Transfer Diagnosis at time of Disposition: Chest pain, rule out acute myocardial infarction Abdominal pain Qualifiers: Abdominal location: epigastric Qualified Code(s): R10.13 - Epigastric pain - Discharge Dispostion Disposition: VNS/HOME HEALTH CARE Condition at time of disposition: Improved Admit: Yes - Prescriptions
[2016-06-22] MEDS ORDERED: ASPIRIN 81 MG CHEWABLE TABLETS ONE (00:23)
[2016-06-22 01:39] LABS: MCH 26.1 pg (25.7-33.7); MCHC 32.8 g/dl (32.0-36.0); MEAN CELL VOLUME 79.5 fl (80-96); MEAN PLT VOLUME 9.3 fl (7.5-11.1); PLATELET COUNT 169 K/MM3 (134-434); RDW 15.1 % (11.6-15.6); WHITE BLOOD COUNT 10.8 K/mm3 (4.0-10.0)
[2016-06-22 01:55] LABS: INR 1.29 (0.82-1.09); PROTHROMBIN TIME (PATIENT) 14.3 SEC (9.98-11.88)
[2016-06-22 02:06] LABS: ALBUMIN 2.7 g/dl (3.4-5.0); BILIRUBIN,TOTAL 0.9 mg/dL (0.2-1.0); CALCIUM 8.6 mg/dL (8.5-10.1); CREATININE 1.2 mg/dL (0.55-1.02); MAGNESIUM 1.3 mg/dL (1.8-2.4); TOT PROT 6.2 g/dl (6.4-8.2)
[2016-06-22 02:09] LABS: TROPONIN I 0.08 ng/ml (0.00-0.05)
[2016-06-22] MEDS ORDERED: MAGNESIUM SULF 50% (8.12 MEQ/2 ML-1 GM VIAL) IVPB ONE (02:41)
[2016-06-22] MEDS ORDERED: METOPROLOL TARTRATE 5 MG/5 ML VIAL IVPUSH ONE (02:41)
[2016-06-22] MEDS ORDERED: SODIUM CHLORIDE 0.9%/KCL 1,000 ML IV SCH (02:45)
[2016-06-22] MEDS ORDERED: MAGNESIUM SULF 50% (8.12 MEQ/2 ML-1 GM VIAL) ONE (02:52)
[2016-06-22] MEDS ORDERED: METOPROLOL TARTRATE 5 MG/5 ML VIAL ONE (02:52)
[2016-06-22 03:44] LABS: ANISOCYTOSIS 1+; METAMYELOCYTE 2 % (0-2); PLATELET COMMENT2 NO CLOTTING DETECTED; PLATELET COMMENT3 FEW LARGE PLTS; PLATELET ESTIMATE ADEQUATE (NORMAL)
--- NOTE | 2016-06-22 06:03 | PDOC ---
[id number] 120/69 98 06/21/16 23:49 06/22/16 04:56 06/22/16 04:56 06/22/16 04:56 06/22/16 05:59 ED Treatment Course - LABORATORY CBC & Chemistry Diagram: 06/22/16 01:24 06/22/16 10:30 - ADDITIONAL ORDERS Additional order review: Laboratory Results 06/22/16 06/22/16 01:24 01:24 INR 1.29 H Sodium 135 L Potassium 3.1 L Chloride 101 Carbon Dioxide 15 L D Anion Gap 19 H BUN 12 D Creatinine 1.2 H D Creat Clearance w eGFR 43.23 Random Glucose 387 H* D Calcium 8.6 Magnesium 1.3 L D Total Bilirubin 0.9 D AST 386 H D ALT 127 H D Alkaline Phosphatase 407 H D Creatine Kinase 66 Troponin I 0.08 H Total Protein 6.2 L Albumin 2.7 L D 06/22/16 01:24 RBC 4.58 MCV 79.5 L MCHC 32.8 RDW 15.1 D MPV 9.3 Neutrophils % 83.0 H Lymphocytes % 2.0 L D Monocytes % 1.0 L D - Medications Given in the ED: ED Medications Discontinued Medications Generic Name Dose Route Start Last Admin Trade Name Freq PRN Reason Stop Dose Admin Aspirin 162 mg 06/22/16 00:12 06/22/16 00:27 Asa - PO 06/22/16 00:13 162 mg ONCE ONE Administration Magnesium Sulfate 1 gm 06/22/16 02:41 06/22/16 03:02 Magnesium Sulfate IVPB 06/22/16 02:42 1 gm ONCE ONE Administration Metoprolol Tartrate 5 mg 06/22/16 02:41 06/22/16 03:02 Lopressor Injection - IVPUSH 06/22/16 02:42 5 mg ONCE ONE Administration Medical Decision Making - Medical Decision Making 06/22/16 06:03 agree with care from LETICIA Whitlock *DC/Admit/Observation/Transfer Diagnosis at time of Disposition: Chest pain, rule out acute myocardial infarction, Abdominal pain
[2016-06-22] MEDS ORDERED: morphine CARPU-JECT 2 MG/1 ML DISP.SYRIN IVPUSH PRN ×2 (07:19→20:03)
[2016-06-22] MEDS ORDERED: SODIUM CHLORIDE 1,000 ML IV SCH ×4 (07:30→20:40)
--- NOTE | 2016-06-22 08:30 | PN ---
Teaching Attending Note Name of Resident: Ducle Villatoro ATTENDING PHYSICIAN STATEMENT I saw and evaluated the patient. I reviewed the resident's note and discussed the case with the resident. I agree with the resident's findings and plan as documented. SUBJECTIVE: CC: abd and chest pain . - pt has had R shoulder pain due to OA for a while , 2 weeks ago she had steroid injection , and continued to do PT . her pain has worsened in past few days and , including anterior chest wall pain , whch was present before( now worse) . son was called yesterday that his mom was not doing well . She had N/ V of non bllious , non- bloody material. she also had chills. SHe denied any abd pain . she denies SOB or cough Of note and depending on EMR: she had an EGD in 05/19 , which showed subendothelial mass ( bx showed no malignancy) . [facility] with CP, stress test was neg OBJECTIVE: NAD, looks tired. AAox3 , cooperative HEENT: no facial droop, MMM, round equal ppils . CV: RRR, no MRG LUngs : CTAB ( R side with courser breath sounds , but no crackles heard ) Abd: soft, obese, TTP in all quadrants especially RUQ. no rebound tenderness or guarding, nL BS. B/l CVA tenderness . RUQ vertigal surgical scar. lower abd durgical scar . Ext: no edema , no fungal infection among toes. TTP over R shoulder with limited rangeof motion in abduction and flexion Neuro : awake , alert and oriented x3. no facial droop, round equal pupils reactive to light , tongue at mid line , nl facial sensation . strength 5/5 in upper and lower ext proximally and distally . unable to evaluate R shoulder shrug due to pain. nL sensation all over . 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 1- Cheat pain : Atypical in nature, due to radiation form shoulder OA. there is tenderness of Chest wall on exam . - will review EKG ( unavailable at this time ) - although trop slightly elevated ( minimal ) , ACS is unlikely . she had a recent admission with similar trop leak and stress test came back Neg . will follow trop . - tele 2- Abd pain . Meets SIRS criteria . CT scan with no evidence of acute diverticulitis or acute intra-abd process. LFTS are elevated ( mixed hepatocellular and obstructive picture ) and she has significant pain in RUQ. Although she has CCY in past, that does not R/O choledocolithiasis. biliary tree mass is less likely as cause of acute ABd pain Due with her tachypnea, tachycardia , bandemia , and chills..infection in biliary tree (cholangitis ) need to be r/o. - Repeat Stat LFTS , to evaluate if she passed a stone - start Abx , CTX and flagyl for now - check US of RUQ to evaluate for dialted CBD , if neg will perform MRCP . - will check UA ( has no dysuria , but diabetic ) . - GI consult - IVF - NPO until we get US results 3- DM : SSI, hold metformin . will confirm home meds 4- h/ GERD , gastric mass. Bx with benign pathology. HP antigen in stool was neg in May - start PPI 5- hypomagnesemia , hypokalemia : replete 6- DVT px .
[2016-06-22] MEDS ORDERED: KCL 10 MEQ IVPB 100 ML IVPB SCH (08:50)
[2016-06-22 09:21] LABS: TROPONIN I 0.05 ng/ml (0.00-0.05)
[2016-06-22] MEDS ORDERED: CEFTRIAXONE 50 ML IVPB ONE (09:30)
[2016-06-22] MEDS ORDERED: PANTOPRAZOLE SODIUM 40 MG/100 ML PRE-DOCKED IVPB SCH (10:00)
[2016-06-22] MEDS ORDERED: HEPARIN NA (PORCINE) 5,000 UNITS/ML 1ML VIAL SQ SCH (10:00)
[2016-06-22] MEDS ORDERED: PANTOPRAZOLE SODIUM 40 MG in SODIUM CHLORIDE 100 ML IVPB SCH (10:00)
[2016-06-22] MEDS ORDERED: ASPIRIN COATED 81 MG TABLET.EC PO SCH (10:00)
--- NOTE | 2016-06-22 11:03 | HP ---
CHIEF COMPLAINT: "my stomach hurts" PCP: HISTORY OF PRESENT ILLNESS: This is an 81 you F with PMH of gastritis, diverticulosis, NIDDM, HLD, R shoulder arthritis, who presents due to 9 hours of abd pain, NBNB vomiting, nausea and chest pain. History obtained from patient and her son. She has cortizone injection (second one) in her R shoulder 2 days ago and the chest pain is not new and is related to her shoulder pain. Yesterday, however, she began experienchig rigors, nausea and vomiting, as well as diffuse abd pain exacerbated by wretching. Denies taking tylenol or new meds. She had a nonbloody , nonmelenous normal BM yestarday. She was hospitalized In may 2016 for reproducible musculoskeletal chest pain and n/v, found ot have gastritis, h pylori negative. She had EGD with Dr Kay in May, when a benign gastric mass was noted. She is noncompliant with most of her home meds. In Ed her abdominal pain is improved and n/v resolved. she complains of h/a. She states taht she has no appetite. she was initially tachycardic 120's, hypertensive 160's, afebrile and satting 98% on 2l. Her current vitals are 98, 130/72, afebrile. She had a leukocytosis of 10.8, bandemia, new tranaminitis, elevated alk phos and normal bilirubin. Slighly elevated troponin but consistent with labs from previous admisison. Her chest pain is present and reproducible. She denies dysuria, diarrhea, nausaea, vomiting, loc, f/c. She denies eating new foods or sick contacts. She denies drinking EtOH. ER course was notable for: (1)labs (2)cxr, abd ct, abd us (3) asa, hep, NS, morphine, ppi Recent Travel: denies PAST MEDICAL HISTORY: as above PAST SURGICAL HISTORY: cholecystectomy, appendectomy 30 yr ago, hernia repair Social History: lives in [place] Smoking: past smoker Alcohol: past drinker Drugs: denies Family History: no HX of Gi canter Allergies No Known Allergies Allergy (Verified 04/11/16 14:08) HOME MEDICATIONS: Home Medications Medication Instructions Recorded Metformin HCl [Glucophage] 1,000 mg PO BID 04/11/16 REVIEW OF SYSTEMS CONSTITUTIONAL: Absent: fever, chills, weight change HEENT: Absent: rhinorrhea, nasal congestion, throat pain CARDIOVASCULAR: Absent: syncope, palpitations, irregular heart rate, lightheadedness, peripheral edema RESPIRATORY: Absent: cough, shortness of breath GASTROINTESTINAL: Absent: nausea, vomiting, diarrhea, constipation, melena, hematochezia GENITOURINARY: Absent: dysuria MUSCULOSKELETAL: Absent: back pain, neck pain SKIN: Absent: rash, itching, pallor HEMATOLOGIC/IMMUNOLOGIC: Absent: frequent infections ENDOCRINE: Absent: unexplained weight gain, unexplained weight loss NEUROLOGIC: Absent: headache, focal weakness or paresthesias PSYCHIATRIC: Absent: anxiety, depression PHYSICAL EXAMINATION Vital Signs - 24 hr 06/22/16 06/22/16 06/22/16 06:51 07:30 09:00 Temperature 98.7 F Pulse Rate 104 H Pulse Rate [ 98 H 109 H Apical] Respiratory 21 14 20 Rate Blood Pressure 99/54 Blood Pressure 130/72 90/51 [Right Arm] O2 Sat by Pulse 98 98 Oximetry (%) GENERAL: Awake, alert, and fully oriented, in no acute distress. HEAD: Normal with no signs of trauma. EYES: Pupils equal, round and reactive to light, extraocular movements intact, sclera anicteric, conjunctiva clear. EARS, NOSE, THROAT: Moist mucous membranes. NECK: supple without JVD, or masses. LUNGS: mild bibasilar crackles R>L HEART: Regular rate and rhythm, normal S1 and S2, reproducible chest wall pain ABDOMEN: Soft, mildly diffusely nontender, mildly distended, slightly reduced bowel sounds, negative murphys, no guarding, no rebound, no masses. MUSCULOSKELETAL: No CVA tenderness. UPPER EXTREMITIES: 2+ pulses, warm, well-perfused. No peripheral edema. LOWER EXTREMITIES: 2+ pulses, warm, well-perfused. No calf tenderness. No peripheral edema. NEUROLOGICAL: Cranial nerves II-XII grossly intact. Normal speech. PSYCHIATRIC: Cooperative. Good eye contact. Appropriate mood and affect. SKIN: Warm, dry Laboratory Results - last 24 hr 06/22/16 06/22/16 07:30 08:00 Creatine Kinase 63 Troponin I 0.06 H 0.05 ASSESSMENT/PLAN: This is an 81 you F with PMH of gastritis, diverticulosis, NIDDM, HLD, R shoulder arthritis, who presents due to 9 hours of abd pain, NBNB vomiting, nausea and chest pain. s/p cholecystectomy and appendectomy 30 yrs ago CXR WNL Abd CT: diverticulosis Abd US: diffuse fatty liver Sepsis -leukocytosis 10.8 and bandemia -lactic acidosis 7.66, trend -GI vs source -Abdominal pain, vomiting -imaging appreciated, no acute process -new transaminitis, trend -UA, u culture uncollected, please collect -rocephin/flagyl -IVF -blood cultures Transaminitis -AST 386, ALT 127, alk phos 407, t bili normal -possible retained stone in cbd post cholecystectomy vs hepatitis -possibly liver affected by sepsis from another source -trend LFTs -GI consult Dr Kay -MRCP -hepatisis panel -NPO Atypical reproducible chest pain -musculoskeletal, related to R shoulder arthritis -troponin elevated initially 0.08 resoved, possibly due to demand -trend trop -motrin for pain STEPHAN -BUN/Creat 12/1.2 above baseline -likely due to sepsis -IVF -trend NIDDM -hold glipizide 10d, januvia 100d, metformin 1000bid -Sliding scale -BGM gastritis -IV PPI HTN -hold lasix 40 d due to stephan -hydralazine IV 10 q 8 Shoulder pain -hold ultracet 325 q4-5h prn (prescribed by Dr Mariee) -Iv morphine PRN Constipation -not currently constipated -hold amitiza and colace Supplements -hold ferrous sulfate FEN NS@100 replete k, mag, na NPO Hep,ppi Dispo: admit med [facility] Problem List - Problem (1) Abdominal pain Code(s): R10.9 - UNSPECIFIED ABDOMINAL PAIN Qualifiers: Abdominal location: epigastric Qualified Code(s): R10.13 - Epigastric pain (2) Chest pain, rule out acute myocardial infarction Code(s): R07.9 - CHEST PAIN, UNSPECIFIED (3) Chronic anemia Code(s): D64.9 - ANEMIA, UNSPECIFIED (4) Diabetes mellitus Code(s): E11.9 - TYPE 2 DIABETES MELLITUS WITHOUT COMPLICATIONS (5) HLD (hyperlipidemia) Code(s): E78.5 - HYPERLIPIDEMIA, UNSPECIFIED (6) HTN (hypertension) Code(s): I10 - ESSENTIAL (PRIMARY) HYPERTENSION (7) Sepsis Code(s): A41.9 - SEPSIS, UNSPECIFIED ORGANISM (8) STEPHAN (acute kidney injury) Code(s): N17.9 - ACUTE KIDNEY FAILURE, UNSPECIFIED (9) Vomiting Code(s): R11.10 - VOMITING, UNSPECIFIED Visit type - Emergency Visit Emergency Visit: Yes ED Registration Date: 06/22/16 Care time: The patient presented to the Emergency Department on the above date and was hospitalized for further evaluation of their emergent condition. - New Patient This patient is new to me today: Yes Date on this admission: 06/22/16 - Critical Care Critical Care patient: No
[2016-06-22 11:32] LABS: ALBUMIN 2.4 g/dl (3.4-5.0); BILIRUBIN,TOTAL 1.2 mg/dL (0.2-1.0); CALCIUM 7.8 mg/dL (8.5-10.1); CREATININE 1.5 mg/dL (0.55-1.02); TOT PROT 5.6 g/dl (6.4-8.2)
[2016-06-22 12:22] VITALS: BMI 22.6
[2016-06-22] MEDS ORDERED: IBUPROFEN 800 MG/8 ML IJ IVPB PRN (12:56)
[2016-06-22] MEDS ORDERED: SODIUM CHLORIDE 500 ML IV STA ×3 (13:03→18:32)
[2016-06-22] MEDS ORDERED: hydrALAZINE HCL 20 MG/ML VIAL IVPUSH PRN ×2 (13:07→17:09)
[2016-06-22] MEDS ORDERED: FUROSEMIDE 40 MG/4 ML INJECTABLE VIAL IVPUSH SCH (13:15)
[2016-06-22] MEDS: METRONIDAZOLE PREMIXED IVPB 50 ML IVPB SCH ×2 (13:15→17:58)
[2016-06-22] MEDS ORDERED: PNEUMOC 13-VAL CONJ-DIP CRM/PF 0.5 ML DISP.SYRIN IM ONE (14:30)
[2016-06-22] MEDS ORDERED: INSULIN SLIDING SCALE (NOVOLOG) 1 VIAL SQ SCH (16:30)
--- NOTE | 2016-06-22 17:07 | EKG ---
Test Reason : Blood Pressure : / mmHG Vent. Rate : 124 BPM Atrial Rate : 124 BPM P-R Int : 000 ms QRS Dur : 064 ms QT Int : 350 ms P-R-T Axes : 081 035 068 degrees QTc Int : 502 ms SINUS TACHYCARDIA WITH PREMATURE SUPRAVENTRICULAR COMPLEXES OTHERWISE NORMAL ECG WHEN COMPARED WITH ECG OF 11-APR-2016 14:44, PREMATURE VENTRICULAR COMPLEXES ARE NO LONGER PRESENT PREMATURE SUPRAVENTRICULAR COMPLEXES ARE NOW PRESENT VENT. RATE HAS INCREASED BY 43 BPM Confirmed by KATHERIN LUNDY MD ([id number]) on 06/22/2016 5:06:51 PM Referred By: Confirmed By:KATHERIN LUNDY MD
[2016-06-22] MEDS ORDERED: PT OWN MED DRAWER 7, Y5N ONE (17:56)
--- NOTE | 2016-06-22 20:34 | CON.GI ---
Consult Consult Specialty:: Gastroenterology Referred by:: Hospitalist Reason for Consultation:: abdominal pain and elevated liver enzymes - History of Present Illness History of Present Illness: The patient was seen in the ICU.81 y/o female with PMh of cholecystectomy was doing well until 3 days ago when she developed dysuria, suprapubic pain, fever and chills. She has history of Chronic gastritis. She underwent EGD was noted to have erosive gastritis. Abdominal ultrasound was noted to have normal CBD and intrahepatic ducts. On routine labs his sgot/sgpt andALP was 3-5 times normal - Past Medical History Cardio/Vascular: Yes: HTN, Hyperlipdemia Gastrointestinal: Yes: Diverticulosis, Gastritis - Past Surgical History Past Surgical History: Yes: Appendectomy, Cholecystectomy, Hernia Repair (Hiatal ) - Alcohol/Substance Use Hx Alcohol Use: No History of Substance Use: reports: None - Smoking History Smoking history: Never smoked Have you smoked in the past 12 months: No Aproximately how many cigarettes per day: 2 - Social History ADL: Independent History of Recent Travel: No Home Medications - Allergies Allergies/Adverse Reactions: Allergies Allergy/AdvReac Type Severity Reaction Status Date / Time No Known Allergies Allergy Verified 04/11/16 14:08 - Home Medications Home Medications: Ambulatory Orders Metformin HCl [Glucophage] 1,000 mg PO BID 04/11/16 Physical Exam-GI Vital Signs: Vital Signs Temperature 98.0 F 06/22/16 17:00 Pulse Rate 100 H 06/22/16 17:00 Respiratory Rate 18 06/22/16 17:00 Blood Pressure 103/60 06/22/16 17:00 O2 Sat by Pulse Oximetry (%) 98 06/22/16 09:00 Constitutional: Yes: Well Nourished Eyes: Yes: Conjunctiva Clear HENT: Yes: Atraumatic Neck: Yes: Supple Cardiovascular: Yes: Regular Rate and Rhythm Respiratory: Yes: CTA Bilaterally ...Palpate: Yes: Soft, Tenderness (suprapubic greater than epigastric). No: Firm/Rigid, Guarding, Hepatomegaly, Mass, Pulsatile Mass, Splenomegaly Labs: CBC, BMP 06/22/16 10:30 INR, PTT INR 1.29 (0.82-1.09) H 06/22/16 01:24 Problem List - Problems (1) Sepsis Assessment/Plan: r/o Urosepsis, unlikely cholangitis, elevated liver enzymes secondary to sepsis and ischemia R>start Imipenem ID consult u/a marin as needed IV hydration expect lfts to have a downward trend once sepsis has improved. Code(s): A41.9 - SEPSIS, UNSPECIFIED ORGANISM
--- NOTE | 2016-06-22 20:38 | CONSULT ---
Consult Consult Specialty:: PULM / CCM Referred by:: Dr. Padilla Carcamo Reason for Consultation:: Sepsis - History of Present Illness Chief Complaint: Sepsis History of Present Illness: PULM / CCM Pt seen & examined in the ICU: Ms. Beckwith is an 81 y/o woman w/ a PMHX/o OA & DM. The pt is well known to GI w /: GERD, diverticulitis, chronic gastritis, & a CCY. (Most recent EGD was on shows erosive gastritis). The pt presents to the ED on 06/21 w/ dysuria, suprapubic pain, fever, chills, malaise, & global body pain. Her labs in the ED were c/f an LA > 6.0 and LFTs 3-5 X > normal c/f cholangitis. 06/22 Abd US in ED showed a normal CBD and intrahepatic ducts. The pt is transferred now to the ICU for hypotension & sepsis m/l 05/04 urosepsis. - History Source History Provided By: Family Member, Medical Record Limitations to Obtaining History: Language Barrier - Past Medical History Cardio/Vascular: Yes: HTN, Hyperlipdemia Gastrointestinal: Yes: Diverticulosis, Gastritis - Past Surgical History Past Surgical History: Yes: Appendectomy, Cholecystectomy, Hernia Repair (Hiatal ) - Alcohol/Substance Use Hx Alcohol Use: No History of Substance Use: reports: None - Smoking History Smoking history: Never smoked Have you smoked in the past 12 months: No Aproximately how many cigarettes per day: 2 - Social History ADL: Independent History of Recent Travel: No Home Medications - Allergies Allergies/Adverse Reactions: Allergies Allergy/AdvReac Type Severity Reaction Status Date / Time No Known Allergies Allergy Verified 04/11/16 14:08 - Home Medications Home Medications: Ambulatory Orders Metformin HCl [Glucophage] 1,000 mg PO BID 04/11/16 Family Disease History - Family Disease History Family History: Unable to Obtain (Language Barrier) Review of Systems Unable to obtain ROS, reason: Language Barrier Physical Exam Vital Signs: Vital Signs Temperature 98.5 F 06/22/16 20:24 Pulse Rate 100 H 06/22/16 20:29 Respiratory Rate 32 H 06/22/16 20:29 Blood Pressure 90/50 06/22/16 20:29 O2 Sat by Pulse Oximetry (%) 98 06/22/16 09:00 Constitutional: Yes: Well Nourished, No Distress, Calm Eyes: Yes: WNL, Conjunctiva Clear, EOM Intact HENT: Yes: WNL, Atraumatic, Normocephalic Neck: Yes: WNL, Supple, Trachea Midline Cardiovascular: Yes: WNL, Regular Rate and Rhythm Respiratory: Yes: WNL, Regular, CTA Bilaterally Gastrointestinal: Yes: WNL, Normal Bowel Sounds, Abdomen, Obese, Tenderness, Tenderness, Epigastrium, Other (Multiple well healed abd surgical scars.) ...Rectal Exam: Yes: Deferred Renal/: Yes: WNL Breast(s): Yes: WNL Musculoskeletal: Yes: Joint Stiffness, Joint Swelling Extremities: Yes: WNL Edema: No Peripheral Pulses WNL: Yes Neurological: Yes: WNL, Alert, Oriented ...Motor Strength: WNL Psychiatric: Yes: WNL, Alert, Oriented Labs: CBC, BMP 06/22/16 01:24 06/22/16 10:30 Troponin, BNP 06/22/16 06/22/16 07:30 08:00 Troponin I 0.06 H 0.05 Imaging - Results Chest X-ray: Image Reviewed (06/22: Clear (My Read)) Cat Scan: Report Reviewed (CTAP 06/22: colonic diverticulosis w/ no CT e/o diverticulitis.) Ultrasound: Report Reviewed (Abd US 06/22: Fatty Liver w/ normal CBD and intrahepatic ducts.) EKG: Image Reviewed (06/21: S-Tach in the 120's w/o ectopy, normal axis, no T- wave aberrations, QTc= 502ms, no acute process (My Read).) Problem List - Problems (1) Sepsis Code(s): A41.9 - SEPSIS, UNSPECIFIED ORGANISM (2) HTN (hypertension) Code(s): I10 - ESSENTIAL (PRIMARY) HYPERTENSION (3) HLD (hyperlipidemia) Code(s): E78.5 - HYPERLIPIDEMIA, UNSPECIFIED (4) UTI (urinary tract infection) Code(s): N39.0 - URINARY TRACT INFECTION, SITE NOT SPECIFIED Qualifiers: Urinary tract infection type: site unspecified Hematuria presence: without hematuria Qualified Code(s): N39.0 - Urinary tract infection, site not specified (5) UTI symptoms Code(s): R39.9 - UNSP SYMPTOMS AND SIGNS INVOLVING THE GENITOURINARY SYSTEM Assessment/Plan ASSESS: This is an 81 y/o woman w/ OA, DM, GERD, diverticulitis, chronic gastritis, & a CCY who presents to the ED today w/ dysuria, suprapubic pain, fever and chills, transferred now to the ICU for hypotension m/l 2/2 urosepsis. PLAN: -NPO -Ceftriax -Flagyl -F/u Clxrs -ID Consult -IVFs -Trend LA -No Metformin in the ICU w/ a high LA -Low threshold to place a CVC -If CVC then --> IVFs for a CVP of 10 - 12 -Press for a MAP 65 - 70 -FSs -Insulin prn -Abn LFTs m/l 2/2 ischemia 2/2 sepsis -Check Hepatitis Panel -Run Hep C RNA PCR -Trend LFTs -GI Consult -Stict I's & O's -trend BUN/Cr -Replete e-lytes prn -Can cont ASA -PPI (Hx/o GERD) -SQH This patient has multiple comorbidities including but NOT limited to: OA, DM, GERD, diverticulitis, chronic gastritis. From a clinical and treatment plan perspective, considering this pts comorbidities as well as her new sepsis, this pt has a high mortality rate and satisfies the definition of critical condition. Thus, this pt requires inpatient admit to the ICU and based on these facts I do certify that this pt is expected to receive hospital services for at least 2 midnights. Critical Care Time/MDM Note Total Critical Care Time: 38 Critical Care Statement: The care of this patient involved high complexity decision making to prevent further life threatening deterioration of the patient 's condition and/or to evalute & treat vital organ system(s) failure or risk of failure.
[2016-06-22] MEDS ORDERED: IMIPENEM/CILASTATIN SODIUM 500 MG in DEXTROSE 5%-WATER - 100 ML IVPB ONE (20:45)
[2016-06-22 21:18] LABS: URINE APPEARANCE CLEAR; URINE BILIRUBIN NEGATIVE (NEGATIVE); URINE COLOR YELLOW; URINE GLUCOSE (UA) 3+ (NEGATIVE); URINE KETONE NEGATIVE (NEGATIVE); URINE LEUK ESTERASE NEGATIVE (NEGATIVE); URINE NITRITE NEGATIVE (NEGATIVE); URINE UROBILINOGEN NEGATIVE E.U./dl (0.2-1.0)
[2016-06-22 21:43] LABS: URINE BLOOD 1+ (NEGATIVE); URINE PROTEIN 1+ (NEGATIVE)
[2016-06-22] MEDS: HEPARIN NA (PORCINE) 5,000 UNITS/ML 1ML VIAL SQ SCH (21:52)
[2016-06-22] MEDS ORDERED: LACTATED RINGERS SOLUTION 1,000 ML IV STA (22:06)
[2016-06-22 22:23] LABS: URINE MUCUS RARE; URINE RBC 12 /hpf (0-3); URINE WBC 4 /hpf (3-5); YEAST RARE
[2016-06-23] MEDS ORDERED: LIDOCAINE HCL 1%, 10 MG/ML (20ML VIAL) ONE (00:15)
[2016-06-23] MEDS ORDERED: NOREPINEPHRINE BITARTRATE 4,000 MCG in DEXTROSE 5%-WATER - 496 ML IV SCH (01:15)
--- NOTE | 2016-06-23 02:23 | PROC ---
Central Line Insertion Indication: CVP Monitoring, Sepsis, Vasopressor Risks and Benefits Explained: Yes Consent on Chart: Yes Central Line: Triple Lumen Catheter Anesthesia: 1% Lidocaine Sterile Technique: Yes Ultrasound Guided Assistance: Yes Position: Right Internal Jugular Post Insertion: Yes: Bilateral Breath Sounds, Bilateral Chest Expansion, Chest X-Ray Ordered Sterile Dressing Applied: Yes
[2016-06-23] MEDS: METRONIDAZOLE PREMIXED IVPB 50 ML IVPB SCH ×2 (02:26→09:28)
[2016-06-23] MEDS ORDERED: NOREPINEPHRINE BITARTRATE 4 MG/4 ML ML IV ONE (02:50)
[2016-06-23 05:49] LABS: BASOPHIL 0.2 % (0-2.0); EOSINOPHIL 0.8 % (0-4.5); MCH 25.7 pg (25.7-33.7); MCHC 32.6 g/dl (32.0-36.0); MEAN CELL VOLUME 78.8 fl (80-96); MEAN PLT VOLUME 9.8 fl (7.5-11.1); NEUTROPHILS 90.2 % (42.8-82.8); PLATELET COUNT 134 K/MM3 (134-434); RDW 14.9 % (11.6-15.6); WHITE BLOOD COUNT 12.9 K/mm3 (4.0-10.0)
[2016-06-23] MEDS ORDERED: LACTATED RINGERS SOLUTION 1,000 ML IV STA (05:57)
[2016-06-23] MEDS: INSULIN SLIDING SCALE (NOVOLOG) 1 VIAL SQ SCH ×3 (06:47→16:36)
[2016-06-23] MEDS ORDERED: IMIPENEM/CILASTATIN SODIUM 500 MG in SODIUM CHLORIDE 100 ML IVPB ONE (07:57)
[2016-06-23 08:39] LABS: ALBUMIN 1.9 g/dl (3.4-5.0); BILIRUBIN,DIRECT 0.4 mg/dL (0.0-0.2); BILIRUBIN,TOTAL 0.8 mg/dL (0.2-1.0); TOT PROT 4.6 g/dl (6.4-8.2)
[2016-06-23 09:13] LABS: ANION GAP 12 (8-16); CALCIUM 7.1 mg/dL (8.5-10.1); CO2 19 mmol/L (21-32); CREATININE 0.9 mg/dL (0.55-1.02); GLUCOSE,RANDOM 152 mg/dL (74-106)
[2016-06-23 09:14] LABS: TROPONIN I < 0.02 ng/ml (0.00-0.05)
[2016-06-23] MEDS ORDERED: SODIUM CHLORIDE 1,000 ML IV SCH (09:17)
[2016-06-23 09:29] LABS: MAGNESIUM 1.8 mg/dL (1.8-2.4); PHOSPHOROUS 2.7 mg/dL (2.5-4.9)
[2016-06-23] MEDS: PANTOPRAZOLE SODIUM 40 MG/100 ML PRE-DOCKED IVPB SCH (09:30)
[2016-06-23] MEDS: ASPIRIN COATED 81 MG TABLET.EC PO SCH (09:30)
[2016-06-23] MEDS: HEPARIN NA (PORCINE) 5,000 UNITS/ML 1ML VIAL SQ SCH ×2 (09:30→22:00)
[2016-06-23] MEDS ORDERED: cefTRIAXone 1 GM/50 ML BAG (PRE-DOCKED) IVPB SCH (10:00)
[2016-06-23] MEDS ORDERED: CEFTRIAXONE 1 GM in DEXTROSE 5%-WATER - 50 ML IVPB SCH (10:00)
[2016-06-23] MEDS ORDERED: DEXTROSE 5%-0.45% SALINE 1,000 ML IV SCH (12:00)
--- NOTE | 2016-06-23 13:07 | CONSULT ---
Addendum entered and electronically signed by Kale Britton RES 06/23/16 13:56 : possible left apical abnormality, can get CT as an outpatient Original Note: Consultation: REQUESTING PROVIDER: CONSULT REQUEST: We have been asked to medically evaluate this patient for ( specify). HISTORY OF PRESENT ILLNESS: obtained from ed notes 81 yo F with significant PMH of NIDDM, gastritis, HLD, diverticulosis presents to ED complaining of vomiting , chest pain, abdominal pain x 9 hours. Patient reports two episodes of vomiting and epigastric pain, as well as chest pain and shortness of breath. She reports the chest pain as a shooting pain across her chest, and the abdominal pain as a cramping pain. She denies any fever, chills, diarrhea, rectal bleeding, or change in urination. patient seen and examined, lying comfortably in bed, denies pain abdomen, nausea , vomiting diarrhoea. denies chest pain , sob. PAST SURGICAL HISTORY: cholecystectomy, appendectomy 30 yr ago, hernia repair REVIEW OF SYSTEMS: CONSTITUTIONAL: Absent: fever, chills, HEENT: Absent: rhinorrhea, nasal congestion, throat pain CARDIOVASCULAR: Absent: palpitations, irregular heart rate, lightheadedness, peripheral edema RESPIRATORY: Absent: cough, shortness of breath, fever, GASTROINTESTINAL: Absent: nausea, vomiting, diarrhea, constipation, melena, hematochezia, pain abdomen improved GENITOURINARY: dysuria present. MUSCULOSKELETAL: Absent: back pain, neck pain ENDOCRINE: Absent: unexplained weight gain, unexplained weight loss NEUROLOGIC: Absent: headache, focal weakness or paresthesias PSYCHIATRIC: Absent: anxiety, depression PHYSICAL EXAMINATION Vital Signs - 24 hr 06/22/16 06/22/16 06/22/16 16:13 17:00 20:24 Temperature 98.9 F 98.0 F 98.5 F Pulse Rate 103 H 100 H 103 H Respiratory 20 18 31 H Rate Blood Pressure 94/58 103/60 90/50 O2 Sat by Pulse Oximetry (%) 06/22/16 06/22/16 06/22/16 20:29 21:00 22:00 Temperature Pulse Rate 100 H 92 H Respiratory 32 H 20 Rate Blood Pressure 90/50 81/52 O2 Sat by Pulse 100 Oximetry (%) 06/23/16 06/23/16 06/23/16 00:00 02:00 02:57 Temperature 99.3 F Pulse Rate 101 H 99 H 93 H Respiratory 31 H 28 H Rate Blood Pressure 96/57 93/43 93/43 O2 Sat by Pulse Oximetry (%) 06/23/16 06/23/16 06/23/16 04:00 06:00 08:00 Temperature 98.6 F Pulse Rate 89 89 88 Respiratory 23 19 22 Rate Blood Pressure 97/56 100/52 110/59 O2 Sat by Pulse Oximetry (%) 06/23/16 10:00 Temperature 98.9 F Pulse Rate 92 H Respiratory 21 Rate Blood Pressure 118/60 O2 Sat by Pulse Oximetry (%) GENERAL: Awake, alert, and fully oriented, in no acute distress. HEAD: Normal with no signs of trauma. EYES: Pupils equal, round and reactive to light, conjunctiva clear. EARS, NOSE, THROAT: Ears normal, nares patent, oropharynx clear without exudates. Moist mucous membranes. NECK: Normal range of motion, supple without lymphadenopathy, JVD, LUNGS: Breath sounds equal, clear to auscultation bilaterally. No wheezes, and mild crackles in left basal area. HEART: s1s2 normal ABDOMEN: Soft, nontender, normoactive bowel sounds, no guarding, no rebound, no masses, mild tenderness in right upper quadrant n deep palpation. MUSCULOSKELETAL: Normal range of motion at all joints. No bony deformities or tenderness. No CVA tenderness. UPPER EXTREMITIES: 2+ pulses, warm, well-perfused. No cyanosis. No clubbing. Cap refill <2 seconds. No peripheral edema. LOWER EXTREMITIES: 2+ pulses, warm, well-perfused. No calf tenderness. No peripheral edema. PSYCHIATRIC: Cooperative. Good eye contact. Appropriate mood and affect. SKIN: Warm, dry, Laboratory Results - last 24 hr 06/22/16 06/22/16 06/22/16 08:00 13:40 16:00 WBC RBC Hgb Hct MCV MCHC RDW Plt Count MPV Neutrophils % Lymphocytes % Monocytes % Eosinophils % Basophils % Sodium Potassium Chloride Carbon Dioxide Anion Gap BUN Creatinine Creat Clearance w eGFR POC Glucometer Random Glucose Lactic Acid 6.657 H* 6.437 H* Calcium Phosphorus Magnesium Total Bilirubin Direct Bilirubin AST ALT Alkaline Phosphatase Troponin I B-Natriuretic Peptide Total Protein Albumin Urine Color Urine Appearance Urine pH Ur Specific [place] Urine Protein Urine Glucose (UA) Urine Ketones Urine Blood Urine Nitrite Urine Bilirubin Urine Urobilinogen Ur Leukocyte Esterase Urine RBC Urine WBC Ur Epithelial Cells Urine Mucus Urine Yeast Hepatitis C Antibody 0.1 06/22/16 06/22/16 06/22/16 16:22 20:30 21:20 WBC RBC Hgb Hct MCV MCHC RDW Plt Count MPV Neutrophils % Lymphocytes % Monocytes % Eosinophils % Basophils % Sodium Potassium Chloride Carbon Dioxide Anion Gap BUN Creatinine Creat Clearance w eGFR POC Glucometer 283 Random Glucose Lactic Acid 2.906 H* Calcium Phosphorus Magnesium Total Bilirubin Direct Bilirubin AST ALT Alkaline Phosphatase Troponin I B-Natriuretic Peptide Total Protein Albumin Urine Color Yellow Urine Appearance Clear Urine pH 5.0 Ur Specific [place] 1.040 H Urine Protein 1+ H Urine Glucose (UA) 3+ H Urine Ketones Negative Urine Blood 1+ H Urine Nitrite Negative Urine Bilirubin Negative Urine Urobilinogen Negative Ur Leukocyte Esterase Negative Urine RBC 12 Urine WBC 4 Ur Epithelial Cells Rare Urine Mucus Rare Urine Yeast Rare Hepatitis C Antibody 06/23/16 06/23/16 06/23/16 01:00 05:00 05:00 WBC 12.9 H RBC 3.14 L D Hgb 8.1 L D Hct 24.7 L D MCV 78.8 L MCHC 32.6 RDW 14.9 Plt Count 134 D MPV 9.8 Neutrophils % 90.2 H Lymphocytes % 5.6 L D Monocytes % 3.2 L D Eosinophils % 0.8 Basophils % 0.2 Sodium Cancelled Potassium Cancelled Chloride Cancelled Carbon Dioxide Cancelled Anion Gap Cancelled BUN Cancelled Creatinine Cancelled Creat Clearance w eGFR Cancelled POC Glucometer Random Glucose Cancelled Lactic Acid 1.365 Calcium Cancelled Phosphorus Cancelled Magnesium Cancelled Total Bilirubin Cancelled Direct Bilirubin AST Cancelled ALT Cancelled Alkaline Phosphatase Cancelled Troponin I B-Natriuretic Peptide Total Protein Cancelled Albumin Cancelled Urine Color Urine Appearance Urine pH Ur Specific [place] Urine Protein Urine Glucose (UA) Urine Ketones Urine Blood Urine Nitrite Urine Bilirubin Urine Urobilinogen Ur Leukocyte Esterase Urine RBC Urine WBC Ur Epithelial Cells Urine Mucus Urine Yeast Hepatitis C Antibody 06/23/16 06/23/16 06/23/16 05:00 05:00 05:00 WBC RBC Hgb Hct MCV MCHC RDW Plt Count MPV Neutrophils % Lymphocytes % Monocytes % Eosinophils % Basophils % Sodium 146 H Potassium 3.6 Chloride 115 H D Carbon Dioxide 19 L Anion Gap 12 BUN 16 Creatinine 0.9 D Creat Clearance w eGFR POC Glucometer Random Glucose 152 H D Lactic Acid Calcium 7.1 L Phosphorus 2.7 Magnesium 1.8 D Total Bilirubin Cancelled 0.8 D Direct Bilirubin Cancelled 0.4 H AST Cancelled 124 H D ALT Cancelled 117 H D Alkaline Phosphatase Cancelled 207 H D Troponin I < 0.02 B-Natriuretic Peptide 1842 H Cancelled Total Protein Cancelled 4.6 L Albumin Cancelled 1.9 L D Urine Color Urine Appearance Urine pH Ur Specific [place] Urine Protein Urine Glucose (UA) Urine Ketones Urine Blood Urine Nitrite Urine Bilirubin Urine Urobilinogen Ur Leukocyte Esterase Urine RBC Urine WBC Ur Epithelial Cells Urine Mucus Urine Yeast Hepatitis C Antibody 06/23/16 06/23/16 05:14 11:10 WBC RBC Hgb Hct MCV MCHC RDW Plt Count MPV Neutrophils % Lymphocytes % Monocytes % Eosinophils % Basophils % Sodium Potassium Chloride Carbon Dioxide Anion Gap BUN Creatinine Creat Clearance w eGFR POC Glucometer 179.97276 249.06178 Random Glucose Lactic Acid Calcium Phosphorus Magnesium Total Bilirubin Direct Bilirubin AST ALT Alkaline Phosphatase Troponin I B-Natriuretic Peptide Total Protein Albumin Urine Color Urine Appearance Urine pH Ur Specific [place] Urine Protein Urine Glucose (UA) Urine Ketones Urine Blood Urine Nitrite Urine Bilirubin Urine Urobilinogen Ur Leukocyte Esterase Urine RBC Urine WBC Ur Epithelial Cells Urine Mucus Urine Yeast Hepatitis C Antibody Active Medications Generic Name Dose Route Start Last Admin Trade Name Devanteq PRN Reason Stop Dose Admin Aspirin 81 mg 06/23/16 10:00 06/23/16 09:30 Ecotrin - PO 81 mg DAILY SARAH Administration Heparin Sodium (Porcine) 5,000 unit 06/22/16 22:00 06/23/16 09:30 Heparin - SQ 5,000 unit BID SARAH Administration Metronidazole 50 mls @ 50 mls/hr 06/23/16 02:00 06/23/16 09:28 Flagyl 250mg Premixed Ivpb - IVPB 50 mls/hr Q8H-IV SARAH Administration Norepinephrine Bitartrate 4, 500 mls @ 37.5 mls/hr 06/23/16 01:15 06/23/16 10: 00 000 mcg/ Dextrose IV 1 mcg/min TITR SARAH Titration Protocol 5 MCG/MIN Imipenem/Cilastatin Sodium 250 100 mls @ 100 mls/hr 06/23/16 16:00 mg/ Sodium Chloride IVPB Q8H SARAH Protocol Dextrose/Sodium Chloride 1,000 mls @ 100 mls/hr 06/23/16 12:00 D5-1/2ns - IV ASDIR [facility] Insulin Aspart 1 vial 06/23/16 07:00 06/23/16 06:47 Novolog Vial Sliding Scale - SQ Not Given TIDAC [facility] Protocol Morphine Sulfate 1 mg 06/22/16 20:03 Morphine Injection - IVPUSH Q4H PRN PAIN Pantoprazole Sodium 40 mg 06/23/16 10:00 06/23/16 09:30 Protonix 40mg Ivpb (Pre-Docked) IVPB 40 mg DAILY SARAH Administration ASSESSMENT/PLAN: Sepsis : source on infection not clear, mrcp pending, patient has less chances for cholangitis, UA in unremarkable for uti, ischemic colitis is also possible -leukocytosis -lactic acidosis improved after IV fluid -pain abdomen resolved -CT scan and USg reviewed, diverticulosis and fatty liver -transamenitis can be elevated because of low bp, trend LFT will trend down as sepsis improve, follow hepatitis panel. Less likely from cholangitis - follow blood culture and urine culture. - follow stool for occult blood - monitor vitals - monitor intake / output - taper nor epi - continue with antibiotics. imipenem and metro - started on 1/2 ns 100ml/hr. as patient has hypernatremia and hyperchloremia. watch for fluid over load. STEPHAN renal function improved could be pre renal avoid nephrotoxic drugs monitor creatnine monitor urine output NIDDM -hold oral hypoglycemic -insulin according to sliding scale -BGM gastritis continue IV Protonix h/o HTN hold home meds lasix and hydralazine due to low blood pressure microcytic anemia follow occult blood maintain hb over 8 iron studies can be done out patient fluid: 1/2 ns 100ml/hr electrolyte; follow na, cl corrected calcium in normal range nutrition : oral clear liquid dvt pro ; on sq heparin gi pro ; on protonix dispo: in icu Visit type - Emergency Visit Emergency Visit: Yes ED Registration Date: 06/22/16 Care time: The patient presented to the Emergency Department on the above date and was hospitalized for further evaluation of their emergent condition. - New Patient This patient is new to me today: Yes Date on this admission: 06/23/16 - Critical Care Critical Care patient: Yes Total Critical Care Time (in minutes): 45 Critical Care Statement: The care of this patient involved high complexity decision making to prevent further life threatening deterioration of the patient 's condition and/or to evalute & treat vital organ system(s) failure or risk of failure.
[2016-06-23] MEDS ORDERED: SODIUM CHLORIDE 0.45% 1,000 ML IV SCH (13:15)
--- NOTE | 2016-06-23 13:21 | PN ---
Addendum entered and electronically signed by Dulce Villatoro RES 06/23/16 13: 38: TTE unremarkable Original Note: Physical Exam: SUBJECTIVE: Patient seen and examined Patient resting in bed NAD. Transferred to ICU last night for closer monitoring due to persistent lactic acidosis and hypotension (90's systolic). Now hemodynamically stable on Levophed @ 2 and IVF (R IJ placed). AAOx3. states she feels better. denies and pain, f/c, n/v, h/a. dizzines, loc. OBJECTIVE: Vital Signs Period Temp Pulse Resp BP Sys/White Pulse Ox Last 24 Hr 98.0 F-99.3 F 88-103 18-32 81-118/43-60 100 GENERAL: Awake, alert, and fully oriented, in no acute distress. HEAD: Normal with no signs of trauma. EYES: Pupils equal, round and reactive to light, extraocular movements intact, sclera anicteric, conjunctiva clear. EARS, NOSE, THROAT: dry mucous membranes. NECK: supple without JVD, or masses. LUNGS: mild bibasilar crackles HEART: Regular rate and rhythm, normal S1 and S2, lessened reproducible chest wall pain ABDOMEN: Soft, mildly diffusely nontender, mildly distended, slightly reduced bowel sounds, negative murphys, no guarding, no rebound, no masses. MUSCULOSKELETAL: No CVA tenderness. UPPER EXTREMITIES: 2+ pulses, warm, well-perfused. No peripheral edema. LOWER EXTREMITIES: 2+ pulses, warm, well-perfused. No calf tenderness. No peripheral edema. NEUROLOGICAL: Cranial nerves II-XII grossly intact. Normal speech. PSYCHIATRIC: Cooperative. Good eye contact. Appropriate mood and affect. SKIN: Warm, dry Laboratory Results - last 24 hr 06/22/16 06/22/16 06/22/16 08:00 13:40 16:00 WBC RBC Hgb Hct MCV MCHC RDW Plt Count MPV Neutrophils % Lymphocytes % Monocytes % Eosinophils % Basophils % Sodium Potassium Chloride Carbon Dioxide Anion Gap BUN Creatinine Creat Clearance w eGFR POC Glucometer Random Glucose Lactic Acid 6.657 H* 6.437 H* Calcium Phosphorus Magnesium Total Bilirubin Direct Bilirubin AST ALT Alkaline Phosphatase Troponin I B-Natriuretic Peptide Total Protein Albumin Urine Color Urine Appearance Urine pH Ur Specific [place] Urine Protein Urine Glucose (UA) Urine Ketones Urine Blood Urine Nitrite Urine Bilirubin Urine Urobilinogen Ur Leukocyte Esterase Urine RBC Urine WBC Ur Epithelial Cells Urine Mucus Urine Yeast Hepatitis C Antibody 0.1 06/22/16 06/22/16 06/22/16 16:22 20:30 21:20 WBC RBC Hgb Hct MCV MCHC RDW Plt Count MPV Neutrophils % Lymphocytes % Monocytes % Eosinophils % Basophils % Sodium Potassium Chloride Carbon Dioxide Anion Gap BUN Creatinine Creat Clearance w eGFR POC Glucometer 283 Random Glucose Lactic Acid 2.906 H* Calcium Phosphorus Magnesium Total Bilirubin Direct Bilirubin AST ALT Alkaline Phosphatase Troponin I B-Natriuretic Peptide Total Protein Albumin Urine Color Yellow Urine Appearance Clear Urine pH 5.0 Ur Specific [place] 1.040 H Urine Protein 1+ H Urine Glucose (UA) 3+ H Urine Ketones Negative Urine Blood 1+ H Urine Nitrite Negative Urine Bilirubin Negative Urine Urobilinogen Negative Ur Leukocyte Esterase Negative Urine RBC 12 Urine WBC 4 Ur Epithelial Cells Rare Urine Mucus Rare Urine Yeast Rare Hepatitis C Antibody 06/23/16 06/23/16 06/23/16 01:00 05:00 05:00 WBC 12.9 H RBC 3.14 L D Hgb 8.1 L D Hct 24.7 L D MCV 78.8 L MCHC 32.6 RDW 14.9 Plt Count 134 D MPV 9.8 Neutrophils % 90.2 H Lymphocytes % 5.6 L D Monocytes % 3.2 L D Eosinophils % 0.8 Basophils % 0.2 Sodium Cancelled Potassium Cancelled Chloride Cancelled Carbon Dioxide Cancelled Anion Gap Cancelled BUN Cancelled Creatinine Cancelled Creat Clearance w eGFR Cancelled POC Glucometer Random Glucose Cancelled Lactic Acid 1.365 Calcium Cancelled Phosphorus Cancelled Magnesium Cancelled Total Bilirubin Cancelled Direct Bilirubin AST Cancelled ALT Cancelled Alkaline Phosphatase Cancelled Troponin I B-Natriuretic Peptide Total Protein Cancelled Albumin Cancelled Urine Color Urine Appearance Urine pH Ur Specific [place] Urine Protein Urine Glucose (UA) Urine Ketones Urine Blood Urine Nitrite Urine Bilirubin Urine Urobilinogen Ur Leukocyte Esterase Urine RBC Urine WBC Ur Epithelial Cells Urine Mucus Urine Yeast Hepatitis C Antibody 06/23/16 06/23/16 06/23/16 05:00 05:00 05:00 WBC RBC Hgb Hct MCV MCHC RDW Plt Count MPV Neutrophils % Lymphocytes % Monocytes % Eosinophils % Basophils % Sodium 146 H Potassium 3.6 Chloride 115 H D Carbon Dioxide 19 L Anion Gap 12 BUN 16 Creatinine 0.9 D Creat Clearance w eGFR POC Glucometer Random Glucose 152 H D Lactic Acid Calcium 7.1 L Phosphorus 2.7 Magnesium 1.8 D Total Bilirubin Cancelled 0.8 D Direct Bilirubin Cancelled 0.4 H AST Cancelled 124 H D ALT Cancelled 117 H D Alkaline Phosphatase Cancelled 207 H D Troponin I < 0.02 B-Natriuretic Peptide 1842 H Cancelled Total Protein Cancelled 4.6 L Albumin Cancelled 1.9 L D Urine Color Urine Appearance Urine pH Ur Specific [place] Urine Protein Urine Glucose (UA) Urine Ketones Urine Blood Urine Nitrite Urine Bilirubin Urine Urobilinogen Ur Leukocyte Esterase Urine RBC Urine WBC Ur Epithelial Cells Urine Mucus Urine Yeast Hepatitis C Antibody 06/23/16 06/23/16 05:14 11:10 WBC RBC Hgb Hct MCV MCHC RDW Plt Count MPV Neutrophils % Lymphocytes % Monocytes % Eosinophils % Basophils % Sodium Potassium Chloride Carbon Dioxide Anion Gap BUN Creatinine Creat Clearance w eGFR POC Glucometer 179.35663 249.29415 Random Glucose Lactic Acid Calcium Phosphorus Magnesium Total Bilirubin Direct Bilirubin AST ALT Alkaline Phosphatase Troponin I B-Natriuretic Peptide Total Protein Albumin Urine Color Urine Appearance Urine pH Ur Specific [place] Urine Protein Urine Glucose (UA) Urine Ketones Urine Blood Urine Nitrite Urine Bilirubin Urine Urobilinogen Ur Leukocyte Esterase Urine RBC Urine WBC Ur Epithelial Cells Urine Mucus Urine Yeast Hepatitis C Antibody Active Medications Generic Name Dose Route Start Last Admin Trade Name Devanteq PRN Reason Stop Dose Admin Aspirin 81 mg 06/23/16 10:00 06/23/16 09:30 Ecotrin - PO 81 mg DAILY SARAH Administration Heparin Sodium (Porcine) 5,000 unit 06/22/16 22:00 06/23/16 09:30 Heparin - SQ 5,000 unit BID SARAH Administration Metronidazole 50 mls @ 50 mls/hr 06/23/16 02:00 06/23/16 09:28 Flagyl 250mg Premixed Ivpb - IVPB 50 mls/hr Q8H-IV SARAH Administration Norepinephrine Bitartrate 4, 500 mls @ 37.5 mls/hr 06/23/16 01:15 06/23/16 10: 00 000 mcg/ Dextrose IV 1 mcg/min TITR SARAH Titration Protocol 5 MCG/MIN Imipenem/Cilastatin Sodium 250 100 mls @ 100 mls/hr 06/23/16 16:00 mg/ Sodium Chloride IVPB Q8H SARAH Protocol Sodium Chloride 1,000 mls @ 100 mls/hr 06/23/16 13:15 1/2 Normal Saline IV ASDIR [facility] Insulin Aspart 1 vial 06/23/16 07:00 06/23/16 06:47 Novolog Vial Sliding Scale - SQ Not Given TIDAC [facility] Protocol Morphine Sulfate 1 mg 06/22/16 20:03 Morphine Injection - IVPUSH Q4H PRN PAIN Pantoprazole Sodium 40 mg 06/23/16 10:00 06/23/16 09:30 Protonix 40mg Ivpb (Pre-Docked) IVPB 40 mg DAILY [facility] Administration ASSESSMENT/PLAN: This is an 81 you F with PMH of gastritis, diverticulosis, NIDDM, HLD, R shoulder arthritis, who presents due to 9 hours of abd pain, NBNB vomiting, nausea and chest pain. s/p cholecystectomy and appendectomy 30 yrs ago CXR WNL Abd CT: diverticulosis Abd US: diffuse fatty liver MRCP p/d Sepsis -leukocytosis 12.9 trended up. may be reactive due to steroids -lactic acidosis resolved -Levophed @2, wean off -GI vs source -Abdominal pain, vomiting resolved -imaging appreciated, no acute process -new transaminitis, trending down -UA not consistent with infection but drawn after abx started -u culture, 2 blood cultures p/d -imipanem, flagyl day 2 -still volume contrated s/p 3 L bolus and NS @ 175. Needs further IVF resuscitation but at slower rate -TTE Transaminitis -AST 124, ALT 117, alk phos 207 trending down, t bili normal -GI consult appreciated: Unlikely biliary tree source, possible bowel ischemia -possibly liver affected by sepsis from another source -trend LFTs -GI consult Dr Kay -MRCP -hepatisis panel -clears Atypical reproducible chest pain -improved -musculoskeletal, related to R shoulder arthritis -troponin elevated initially 0.08 resoved, possibly due to demand -trend trop -motrin for pain STEPHAN -resolved -Creat 0.9 at baseline -likely due to sepsis -IVF -trend NIDDM -hold glipizide 10d, januvia 100d, metformin 1000bid -Sliding scale -BGM gastritis -IV PPI HTN -stable on pressors. -hold lasix 40 d due to stephan Shoulder pain -hold ultracet 325 q4-5h prn (prescribed by Dr Mariee) -Iv morphine PRN Constipation -not currently constipated -hold amitiza and colace -can restart tomorrow when tolerates diet Supplements -hold ferrous sulfate FEN NS@100 lytes stable clears Hep,ppi Dispo: ICU Problem List - Problems (1) Abdominal pain Code(s): R10.9 - UNSPECIFIED ABDOMINAL PAIN Qualifiers: Abdominal location: epigastric Qualified Code(s): R10.13 - Epigastric pain (2) Chest pain, rule out acute myocardial infarction Code(s): R07.9 - CHEST PAIN, UNSPECIFIED (3) Chronic anemia Code(s): D64.9 - ANEMIA, UNSPECIFIED (4) Diabetes mellitus Code(s): E11.9 - TYPE 2 DIABETES MELLITUS WITHOUT COMPLICATIONS (5) HLD (hyperlipidemia) Code(s): E78.5 - HYPERLIPIDEMIA, UNSPECIFIED (6) HTN (hypertension) Code(s): I10 - ESSENTIAL (PRIMARY) HYPERTENSION (7) Sepsis Code(s): A41.9 - SEPSIS, UNSPECIFIED ORGANISM (8) STEPHAN (acute kidney injury) Code(s): N17.9 - ACUTE KIDNEY FAILURE, UNSPECIFIED (9) Vomiting Code(s): R11.10 - VOMITING, UNSPECIFIED Visit type - Emergency Visit Emergency Visit: Yes ED Registration Date: 06/22/16 Care time: The patient presented to the Emergency Department on the above date and was hospitalized for further evaluation of their emergent condition. - New Patient This patient is new to me today: No - Critical Care Critical Care patient: Yes Total Critical Care Time (in minutes): 45 Critical Care Statement: The care of this patient involved high complexity decision making to prevent further life threatening deterioration of the patient 's condition and/or to evalute & treat vital organ system(s) failure or risk of failure.
--- NOTE | 2016-06-23 14:17 | PN ---
Teaching Attending Note Name of Resident: Dulce Villatoro ATTENDING PHYSICIAN STATEMENT I saw and evaluated the patient. I reviewed the resident's note and discussed the case with the resident. I agree with the resident's findings and plan as documented. SUBJECTIVE: no fever or chills, feels a little better. denies abd pain . denies N/V. no CP . over night she was placed on levophed due to hypotension OBJECTIVE: NAD, AAOx3 , cooperative HEENT: no facial droop, MMM. CV: RRR, no MRG LUngs : CTAB Abd: soft, obese, no TTP in all quadrants especially RUQ. no rebound tenderness or guarding, nL BS. B/l CVA tenderness . RUQ vertigal surgical scar. lower abd durgical scar . Ext: no edema , no fungal infection among toes. TTP over R shoulder with limited rangeof motion in abduction and flexion Neuro : awake , alert and oriented x3. no facial droop, round equal pupils reactive to light , tongue at mid line , nl facial sensation . strength 5/5 in upper and lower ext proximally and distally . unable to evaluate R shoulder shrug due to pain. nL sensation all over . 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 1- Septic shock with lactic acidosis : unknown source of infection so far. urine does not indicate UTI, less likely biliary tract source. CT scan of Abd with no evidence of diverticulitis or infection . cxray with no PNA and no pulm symptoms. - decrease IVF. - dc levophed - MRCP today - follow blood cx - lactic acid , nl and AG closed . lactic acidosis improved ( bicarb improved ) - cont imipinem , ID consult pending 2- STEPHAN : likely due to prerenal azotemia an dsepsis . resolve d 3- CP : atypical . trop normalized echo 4- DM : SSI now , hold metformin 5- h/o GERD, and gastritis , - cont pPI 6- DVT PX Diet : start clears and then advance ICU level of care Critical Care Total Critical Care Time (in minutes): 45 Critical Care Statement: The care of this patient involved high complexity decision making to prevent further life threatening deterioration of the patient 's condition and/or to evalute & treat vital organ system(s) failure or risk of failure.
[2016-06-23 14:24] LABS: HEP B SURFACE AB Non Reactive (.)
--- NOTE | 2016-06-23 15:55 | PN ---
Teaching Attending Note Name of Resident: Kale Britton ATTENDING PHYSICIAN STATEMENT Patient seen and examined in the ICU. Awake and alert. Some mild lower abdominal discomfort. Mildly tachypneic at rest. No CP or SOB. Intake & Output 06/20/16 06/21/16 06/22/16 06/23/16 23:59 23:59 23:59 23:59 Intake Total 600 4825 Output Total 1900 Balance 600 2925 Weight 124 lb 124 lb 136 lb 3.931 oz Last Vital Signs Temp Pulse Resp BP Pulse Ox 98.8 F 72 19 126/72 100 06/23/16 14:00 06/23/16 15:03 06/23/16 15:03 06/23/16 15:03 06/23/16 09:00 Laboratory Results - last 24 hr 06/22/16 06/22/16 06/22/16 08:00 08:00 16:00 WBC RBC Hgb Hct MCV MCHC RDW Plt Count MPV Neutrophils % Lymphocytes % Monocytes % Eosinophils % Basophils % Sodium Potassium Chloride Carbon Dioxide Anion Gap BUN Creatinine Creat Clearance w eGFR POC Glucometer Random Glucose Lactic Acid 6.437 H* Calcium Phosphorus Magnesium Total Bilirubin Direct Bilirubin AST ALT Alkaline Phosphatase Troponin I B-Natriuretic Peptide Total Protein Albumin Urine Color Urine Appearance Urine pH Ur Specific [place] Urine Protein Urine Glucose (UA) Urine Ketones Urine Blood Urine Nitrite Urine Bilirubin Urine Urobilinogen Ur Leukocyte Esterase Urine RBC Urine WBC Ur Epithelial Cells Urine Mucus Urine Yeast Hep A IgM Ab Confirm Negative Hepatitis A Ab Total Positive H Hep Bs Antigen Negative Hep Bs Antibody Non reactive Hep B Core Total Ab Negative Hepatitis C Antibody 0.1 06/22/16 06/22/16 06/22/16 16:22 20:30 21:20 WBC RBC Hgb Hct MCV MCHC RDW Plt Count MPV Neutrophils % Lymphocytes % Monocytes % Eosinophils % Basophils % Sodium Potassium Chloride Carbon Dioxide Anion Gap BUN Creatinine Creat Clearance w eGFR POC Glucometer 283 Random Glucose Lactic Acid 2.906 H* Calcium Phosphorus Magnesium Total Bilirubin Direct Bilirubin AST ALT Alkaline Phosphatase Troponin I B-Natriuretic Peptide Total Protein Albumin Urine Color Yellow Urine Appearance Clear Urine pH 5.0 Ur Specific [place] 1.040 H Urine Protein 1+ H Urine Glucose (UA) 3+ H Urine Ketones Negative Urine Blood 1+ H Urine Nitrite Negative Urine Bilirubin Negative Urine Urobilinogen Negative Ur Leukocyte Esterase Negative Urine RBC 12 Urine WBC 4 Ur Epithelial Cells Rare Urine Mucus Rare Urine Yeast Rare Hep A IgM Ab Confirm Hepatitis A Ab Total Hep Bs Antigen Hep Bs Antibody Hep B Core Total Ab Hepatitis C Antibody 06/23/16 06/23/16 06/23/16 01:00 05:00 05:00 WBC 12.9 H RBC 3.14 L D Hgb 8.1 L D Hct 24.7 L D MCV 78.8 L MCHC 32.6 RDW 14.9 Plt Count 134 D MPV 9.8 Neutrophils % 90.2 H Lymphocytes % 5.6 L D Monocytes % 3.2 L D Eosinophils % 0.8 Basophils % 0.2 Sodium Cancelled Potassium Cancelled Chloride Cancelled Carbon Dioxide Cancelled Anion Gap Cancelled BUN Cancelled Creatinine Cancelled Creat Clearance w eGFR Cancelled POC Glucometer Random Glucose Cancelled Lactic Acid 1.365 Calcium Cancelled Phosphorus Cancelled Magnesium Cancelled Total Bilirubin Cancelled Direct Bilirubin AST Cancelled ALT Cancelled Alkaline Phosphatase Cancelled Troponin I B-Natriuretic Peptide Total Protein Cancelled Albumin Cancelled Urine Color Urine Appearance Urine pH Ur Specific [place] Urine Protein Urine Glucose (UA) Urine Ketones Urine Blood Urine Nitrite Urine Bilirubin Urine Urobilinogen Ur Leukocyte Esterase Urine RBC Urine WBC Ur Epithelial Cells Urine Mucus Urine Yeast Hep A IgM Ab Confirm Hepatitis A Ab Total Hep Bs Antigen Hep Bs Antibody Hep B Core Total Ab Hepatitis C Antibody 06/23/16 06/23/16 06/23/16 05:00 05:00 05:00 WBC RBC Hgb Hct MCV MCHC RDW Plt Count MPV Neutrophils % Lymphocytes % Monocytes % Eosinophils % Basophils % Sodium 146 H Potassium 3.6 Chloride 115 H D Carbon Dioxide 19 L Anion Gap 12 BUN 16 Creatinine 0.9 D Creat Clearance w eGFR POC Glucometer Random Glucose 152 H D Lactic Acid Calcium 7.1 L Phosphorus 2.7 Magnesium 1.8 D Total Bilirubin Cancelled 0.8 D Direct Bilirubin Cancelled 0.4 H AST Cancelled 124 H D ALT Cancelled 117 H D Alkaline Phosphatase Cancelled 207 H D Troponin I < 0.02 B-Natriuretic Peptide 1842 H Cancelled Total Protein Cancelled 4.6 L Albumin Cancelled 1.9 L D Urine Color Urine Appearance Urine pH Ur Specific [place] Urine Protein Urine Glucose (UA) Urine Ketones Urine Blood Urine Nitrite Urine Bilirubin Urine Urobilinogen Ur Leukocyte Esterase Urine RBC Urine WBC Ur Epithelial Cells Urine Mucus Urine Yeast Hep A IgM Ab Confirm Hepatitis A Ab Total Hep Bs Antigen Hep Bs Antibody Hep B Core Total Ab Hepatitis C Antibody 06/23/16 06/23/16 05:14 11:10 WBC RBC Hgb Hct MCV MCHC RDW Plt Count MPV Neutrophils % Lymphocytes % Monocytes % Eosinophils % Basophils % Sodium Potassium Chloride Carbon Dioxide Anion Gap BUN Creatinine Creat Clearance w eGFR POC Glucometer 179.77384 249.58519 Random Glucose Lactic Acid Calcium Phosphorus Magnesium Total Bilirubin Direct Bilirubin AST ALT Alkaline Phosphatase Troponin I B-Natriuretic Peptide Total Protein Albumin Urine Color Urine Appearance Urine pH Ur Specific [place] Urine Protein Urine Glucose (UA) Urine Ketones Urine Blood Urine Nitrite Urine Bilirubin Urine Urobilinogen Ur Leukocyte Esterase Urine RBC Urine WBC Ur Epithelial Cells Urine Mucus Urine Yeast Hep A IgM Ab Confirm Hepatitis A Ab Total Hep Bs Antigen Hep Bs Antibody Hep B Core Total Ab Hepatitis C Antibody Constitutional: Yes: Awake and alert, NAD Eyes: Yes: WNL, Conjunctiva Clear, EOM Intact HENT: Yes: WNL, Atraumatic, Normocephalic Neck: Yes: WNL, Supple, Trachea Midline Cardiovascular: Yes: WNL, Regular Rate and Rhythm Respiratory: Yes: few rhonchi Gastrointestinal: Yes: WNL, Normal Bowel Sounds, Abdomen, Obese, Tenderness, Tenderness, Epigastrium, Other (Multiple well healed abd surgical scars.) ...Rectal Exam: Yes: Deferred Renal/: Yes: WNL Breast(s): Yes: WNL Musculoskeletal: Yes: Joint Stiffness, Joint Swelling Extremities: Yes: WNL Edema: No Peripheral Pulses WNL: Yes Neurological: Yes: WNL, Alert, Oriented ...Motor Strength: WNL Psychiatric: Yes: WNL, Alert, Oriented Labs: Laboratory Results - last 24 hr 06/22/16 06/22/16 06/22/16 08:00 08:00 16:00 WBC RBC Hgb Hct MCV MCHC RDW Plt Count MPV Neutrophils % Lymphocytes % Monocytes % Eosinophils % Basophils % Sodium Potassium Chloride Carbon Dioxide Anion Gap BUN Creatinine Creat Clearance w eGFR POC Glucometer Random Glucose Lactic Acid 6.437 H* Calcium Phosphorus Magnesium Total Bilirubin Direct Bilirubin AST ALT Alkaline Phosphatase Troponin I B-Natriuretic Peptide Total Protein Albumin Urine Color Urine Appearance Urine pH Ur Specific [place] Urine Protein Urine Glucose (UA) Urine Ketones Urine Blood Urine Nitrite Urine Bilirubin Urine Urobilinogen Ur Leukocyte Esterase Urine RBC Urine WBC Ur Epithelial Cells Urine Mucus Urine Yeast Hep A IgM Ab Confirm Negative Hepatitis A Ab Total Positive H Hep Bs Antigen Negative Hep Bs Antibody Non reactive Hep B Core Total Ab Negative Hepatitis C Antibody 0.1 06/22/16 06/22/16 06/22/16 16:22 20:30 21:20 WBC RBC Hgb Hct MCV MCHC RDW Plt Count MPV Neutrophils % Lymphocytes % Monocytes % Eosinophils % Basophils % Sodium Potassium Chloride Carbon Dioxide Anion Gap BUN Creatinine Creat Clearance w eGFR POC Glucometer 283 Random Glucose Lactic Acid 2.906 H* Calcium Phosphorus Magnesium Total Bilirubin Direct Bilirubin AST ALT Alkaline Phosphatase Troponin I B-Natriuretic Peptide Total Protein Albumin Urine Color Yellow Urine Appearance Clear Urine pH 5.0 Ur Specific [place] 1.040 H Urine Protein 1+ H Urine Glucose (UA) 3+ H Urine Ketones Negative Urine Blood 1+ H Urine Nitrite Negative Urine Bilirubin Negative Urine Urobilinogen Negative Ur Leukocyte Esterase Negative Urine RBC 12 Urine WBC 4 Ur Epithelial Cells Rare Urine Mucus Rare Urine Yeast Rare Hep A IgM Ab Confirm Hepatitis A Ab Total Hep Bs Antigen Hep Bs Antibody Hep B Core Total Ab Hepatitis C Antibody 06/23/16 06/23/16 06/23/16 01:00 05:00 05:00 WBC 12.9 H RBC 3.14 L D Hgb 8.1 L D Hct 24.7 L D MCV 78.8 L MCHC 32.6 RDW 14.9 Plt Count 134 D MPV 9.8 Neutrophils % 90.2 H Lymphocytes % 5.6 L D Monocytes % 3.2 L D Eosinophils % 0.8 Basophils % 0.2 Sodium Cancelled Potassium Cancelled Chloride Cancelled Carbon Dioxide Cancelled Anion Gap Cancelled BUN Cancelled Creatinine Cancelled Creat Clearance w eGFR Cancelled POC Glucometer Random Glucose Cancelled Lactic Acid 1.365 Calcium Cancelled Phosphorus Cancelled Magnesium Cancelled Total Bilirubin Cancelled Direct Bilirubin AST Cancelled ALT Cancelled Alkaline Phosphatase Cancelled Troponin I B-Natriuretic Peptide Total Protein Cancelled Albumin Cancelled Urine Color Urine Appearance Urine pH Ur Specific [place] Urine Protein Urine Glucose (UA) Urine Ketones Urine Blood Urine Nitrite Urine Bilirubin Urine Urobilinogen Ur Leukocyte Esterase Urine RBC Urine WBC Ur Epithelial Cells Urine Mucus Urine Yeast Hep A IgM Ab Confirm Hepatitis A Ab Total Hep Bs Antigen Hep Bs Antibody Hep B Core Total Ab Hepatitis C Antibody 06/23/16 06/23/16 06/23/16 05:00 05:00 05:00 WBC RBC Hgb Hct MCV MCHC RDW Plt Count MPV Neutrophils % Lymphocytes % Monocytes % Eosinophils % Basophils % Sodium 146 H Potassium 3.6 Chloride 115 H D Carbon Dioxide 19 L Anion Gap 12 BUN 16 Creatinine 0.9 D Creat Clearance w eGFR POC Glucometer Random Glucose 152 H D Lactic Acid Calcium 7.1 L Phosphorus 2.7 Magnesium 1.8 D Total Bilirubin Cancelled 0.8 D Direct Bilirubin Cancelled 0.4 H AST Cancelled 124 H D ALT Cancelled 117 H D Alkaline Phosphatase Cancelled 207 H D Troponin I < 0.02 B-Natriuretic Peptide 1842 H Cancelled Total Protein Cancelled 4.6 L Albumin Cancelled 1.9 L D Urine Color Urine Appearance Urine pH Ur Specific [place] Urine Protein Urine Glucose (UA) Urine Ketones Urine Blood Urine Nitrite Urine Bilirubin Urine Urobilinogen Ur Leukocyte Esterase Urine RBC Urine WBC Ur Epithelial Cells Urine Mucus Urine Yeast Hep A IgM Ab Confirm Hepatitis A Ab Total Hep Bs Antigen Hep Bs Antibody Hep B Core Total Ab Hepatitis C Antibody 06/23/16 06/23/16 05:14 11:10 WBC RBC Hgb Hct MCV MCHC RDW Plt Count MPV Neutrophils % Lymphocytes % Monocytes % Eosinophils % Basophils % Sodium Potassium Chloride Carbon Dioxide Anion Gap BUN Creatinine Creat Clearance w eGFR POC Glucometer 179.49533 249.26617 Random Glucose Lactic Acid Calcium Phosphorus Magnesium Total Bilirubin Direct Bilirubin AST ALT Alkaline Phosphatase Troponin I B-Natriuretic Peptide Total Protein Albumin Urine Color Urine Appearance Urine pH Ur Specific [place] Urine Protein Urine Glucose (UA) Urine Ketones Urine Blood Urine Nitrite Urine Bilirubin Urine Urobilinogen Ur Leukocyte Esterase Urine RBC Urine WBC Ur Epithelial Cells Urine Mucus Urine Yeast Hep A IgM Ab Confirm Hepatitis A Ab Total Hep Bs Antigen Hep Bs Antibody Hep B Core Total Ab Hepatitis C Antibody Problem List - Problems (1) Sepsis Code(s): A41.9 - SEPSIS, UNSPECIFIED ORGANISM (2) HTN (hypertension) Code(s): I10 - ESSENTIAL (PRIMARY) HYPERTENSION (3) HLD (hyperlipidemia) Code(s): E78.5 - HYPERLIPIDEMIA, UNSPECIFIED (4) UTI (urinary tract infection) Code(s): N39.0 - URINARY TRACT INFECTION, SITE NOT SPECIFIED Qualifiers: Urinary tract infection type: site unspecified Hematuria presence: without hematuria Qualified Code(s): N39.0 - Urinary tract infection, site not specified (5) UTI symptoms Code(s): R39.9 - UNSP SYMPTOMS AND SIGNS INVOLVING THE GENITOURINARY SYSTEM Assessment/Plan ASSESS: This is an 81 y/o woman w/ OA, DM, GERD, diverticulitis, chronic gastritis, & a CCY who presents to the ED today w/ dysuria, suprapubic pain, fever and chills, transferred now to the ICU for hypotension m/l 2/2 urosepsis. PLAN: ABX per ID O2 as needed IVF Wean pressors Follow CVP Insulin coverage Follow LFTs VTE prophylaxis Strict I&O ICU monitoring Dr Fitch CCTime 35"
[2016-06-23] MEDS ORDERED: PT OWN MED DRAWER 7, Y5N ONE (15:58)
[2016-06-23] MEDS ORDERED: IMIPENEM/CILASTATIN SODIUM 250 MG in SODIUM CHLORIDE 100 ML IVPB SCH (16:00)
--- NOTE | 2016-06-23 17:59 | CONSULT ---
Consult Consult Specialty:: infectious diseases Reason for Consultation:: uti - History of Present Illness Chief Complaint: abd pain History of Present Illness: Ms. Beckwith is an 81 y/o woman w/ a PMHX/o OA & DM. T GERD, diverticulitis, chronic gastritis, & a CCY. (Most recent EGD was on 05/23 shows erosive gastritis ). patient was admitted w/ dysuria, suprapubic pain, fever, chills, malaise, & global body pain ICU for hypotension & sepsis patient was admitted was evaluated and found to have urinary retention Further enquring about the history and d/w with the family the history goes as follows dionne was doing well uptill sun when she went to doctor because of shoulder pain she was injected steroids injection as i think as family mentions that her shoulder was injected with something couple of hours later patient became sick and was brought and admitted to the hospital. she was worked up with imaging studies on admission her lactic acid was very high and patient had nausea and vomiting patient has had gall bladder removed previously currently patient feeling better but still the abdomen is bloated - History Source History Provided By: Family Member Limitations to Obtaining History: Language Barrier - Past Medical History Cardio/Vascular: Yes: HTN, Hyperlipdemia Gastrointestinal: Yes: Diverticulosis, Gastritis - Past Surgical History Past Surgical History: Yes: Appendectomy, Cholecystectomy, Hernia Repair (Hiatal ) - Alcohol/Substance Use Hx Alcohol Use: No History of Substance Use: reports: None - Smoking History Smoking history: Never smoked Have you smoked in the past 12 months: No Aproximately how many cigarettes per day: 2 - Social History ADL: Independent History of Recent Travel: No Home Medications - Allergies Allergies/Adverse Reactions: Allergies Allergy/AdvReac Type Severity Reaction Status Date / Time No Known Allergies Allergy Verified 04/11/16 14:08 - Home Medications Home Medications: Ambulatory Orders Metformin HCl [Glucophage] 1,000 mg PO BID 04/11/16 Docusate Sodium [Colace -] 100 mg PO BID 06/23/16 Ferrous Sulfate DAILY 06/23/16 Furosemide [Lasix] 40 mg PO DAILY 06/23/16 Glipizide 10 mg PO DAILY 06/23/16 Lubiprostone [Amitiza] 8 mcg PO DAILY 06/23/16 Sitagliptin Phosphate [Januvia] 100 mg PO DAILY 06/23/16 Tramadol HCl/Acetaminophen [Ultracet Tablet] 1 each PO Q4H 06/23/16 Review of Systems - Review of Systems Constitutional: reports: Fever, Weakness Eyes: reports: No Symptoms HENT: reports: No Symptoms Neck: reports: No Symptoms Cardiovascular: reports: No Symptoms Respiratory: reports: No Symptoms Gastrointestinal: reports: Abdominal Pain, Nausea, Vomiting Genitourinary: reports: Pain, Other Musculoskeletal: reports: No Symptoms Integumentary: reports: No Symptoms Neurological: reports: No Symptoms Endocrine: reports: No Symptoms Hematology/Lymphatic: reports: No Symptoms Physical Exam Vital Signs: Vital Signs Temperature 98.8 F 06/23/16 14:00 Pulse Rate 84 06/23/16 16:00 Respiratory Rate 19 06/23/16 16:00 Blood Pressure 127/72 06/23/16 16:00 O2 Sat by Pulse Oximetry (%) 100 06/23/16 09:00 Constitutional: Yes: Calm, Mild Distress Eyes: Yes: Conjunctiva Clear HENT: Yes: Atraumatic Neck: Yes: Supple, Trachea Midline Cardiovascular: Yes: Regular Rate and Rhythm Respiratory: Yes: Regular, Poor Air Entry Gastrointestinal: Yes: Soft, Distention, Hypoactive Bowel Sounds, Tenderness Musculoskeletal: Yes: WNL Extremities: Yes: WNL Neurological: Yes: Alert, Oriented Psychiatric: Yes: Alert, Oriented Labs: CBC, BMP 06/23/16 05:00 06/23/16 05:00 Imaging - Results Chest X-ray: Report Reviewed, Image Reviewed Cat Scan: Report Reviewed, Image Reviewed Ultrasound: Report Reviewed, Image Reviewed Assessment/Plan after looking at the patient and the history,and looking at the ct scan of abdomen and lactic acid and other work up As far as i think patients source could be from two places abdomen or the shoulder she also has a chance of having uti and all the cultures have been send patient also had increase in creatinine which was mostly due to her urinary retention she received couple of doses of imipenam patient is going to get mri of the abdomen ct scan does show slow emptuing and dilated stomach--i think there might be a transition point Problem List - Problems (1) Sepsis Code(s): A41.9 - SEPSIS, UNSPECIFIED ORGANISM (2) HTN (hypertension) Code(s): I10 - ESSENTIAL (PRIMARY) HYPERTENSION (3) HLD (hyperlipidemia) Code(s): E78.5 - HYPERLIPIDEMIA, UNSPECIFIED (4) UTI (urinary tract infection) Code(s): N39.0 - URINARY TRACT INFECTION, SITE NOT SPECIFIED Qualifiers: Urinary tract infection type: site unspecified Hematuria presence: without hematuria Qualified Code(s): N39.0 - Urinary tract infection, site not specified (5) UTI symptoms Code(s): R39.9 - UNSP SYMPTOMS AND SIGNS INVOLVING THE GENITOURINARY SYSTEM r/o shoulder infection plan i have started patient on meropenam i would get mri of the rt shoulder to evaluate for any infection continue as per icu gi on board rest as per the team consider keeping patient npo cc time 50 min
[2016-06-24] MEDS: MEROPENEM 1 GM in DEXTROSE 5%-WATER - 100 ML IVPB SCH ×3 (01:18→17:57)
[2016-06-24] MEDS: INSULIN SLIDING SCALE (NOVOLOG) 1 VIAL SQ SCH ×3 (06:05→17:28)
[2016-06-24 06:16] LABS: BASOPHIL 0.3 % (0-2.0); EOSINOPHIL 2.7 % (0-4.5); MCH 25.9 pg (25.7-33.7); MCHC 32.7 g/dl (32.0-36.0); MEAN CELL VOLUME 79.2 fl (80-96); MEAN PLT VOLUME 9.5 fl (7.5-11.1); NEUTROPHILS 85.4 % (42.8-82.8); PLATELET COUNT 118 K/MM3 (134-434); WHITE BLOOD COUNT 8.1 K/mm3 (4.0-10.0)
[2016-06-24 06:23] LABS: ALBUMIN 1.9 g/dl (3.4-5.0); ANION GAP 7 (8-16); BILIRUBIN,TOTAL 0.7 mg/dL (0.2-1.0); CALCIUM 7.5 mg/dL (8.5-10.1); CO2 22 mmol/L (21-32); CREATININE 0.8 mg/dL (0.55-1.02); GLUCOSE,RANDOM 113 mg/dL (74-106); MAGNESIUM 1.9 mg/dL (1.8-2.4); PHOSPHOROUS 2.4 mg/dL (2.5-4.9); SGOT/AST 83 U/L (15-37); SGPT/ALT 91 U/L (12-78); TOT PROT 4.7 g/dl (6.4-8.2)
[2016-06-24 06:24] LABS: ALK PHOS 206 U/L (45-117)
--- NOTE | 2016-06-24 08:11 | PN ---
Progress Note (short form) - Note Progress Note: PULM/CCM Patient seen and examined in the ICU. 24HR: off pressors cxl negative awake and largely comfortable Vital Signs Temp 98.2 F 06/24/16 06:00 Pulse 80 06/24/16 06:00 Resp 21 06/24/16 06:00 BP 137/63 06/24/16 06:00 Pulse Ox 100 06/23/16 22:00 Intake & Output 06/23/16 06/23/16 06/24/16 11:59 23:59 11:59 Intake Total 4425 2124.4 910 Output Total 1200 1200 1400 Balance 3225 924.4 -490 Weight 61.8 kg 61.87 kg Intake: IV 4155 1334.4 750 Normal Saline - 1,000 ml 3102 @ 175 mls/hr IV ASDIR SARAH Rx#:[id number] Levophed - 4,000 Mcg In 53 34.4 D5w - 496 ml @ 5 MCG/MIN 37.5 mls/hr IV TITR SARAH Rx#:[id number] Lactated Ringers Solution 1000 1,000 ml @ 1000 mls/hr IV ONCE STA Rx#: [id number] Normal Saline - 1,000 ml 400 @ 100 mls/hr IV ASDIR SARAH Rx#:[id number] 1/2 Normal Saline 1,000 900 750 ml @ 100 mls/hr IV ASDIR SARAH Rx#:[id number] IVPB 150 150 100 Oral 120 640 60 Output: Urine 1200 1200 1400 Reinoso 1200 1200 1400 Other: Voiding Method Indwelling Catheter Indwelling Catheter Bowel Movement No Yes: soft, unformed # Bowel Movements 1 Weight Measurement Method Built in [facility] Constitutional: Yes: Awake and alert, NAD Eyes: Yes: WNL, Conjunctiva Clear, EOM Intact HENT: Yes: WNL, Atraumatic, Normocephalic Neck: Yes: WNL, Supple, Trachea Midline Cardiovascular: Yes: WNL, Regular Rate and Rhythm Respiratory: Yes: few rhonchi Gastrointestinal: Yes: WNL, Normal Bowel Sounds, Abdomen, Obese, Tenderness, Tenderness, Epigastrium, Other (Multiple well healed abd surgical scars.) ...Rectal Exam: Yes: Deferred Renal/: Yes: WNL Breast(s): Yes: WNL Musculoskeletal: Yes: Joint Stiffness, Joint Swelling R wrist and shoulder Extremities: Yes: WNL Edema: No Peripheral Pulses WNL: Yes Neurological: Yes: WNL, Alert, Oriented ...Motor Strength: WNL Psychiatric: Yes: WNL, Alert, Oriented CBC, BMP 06/24/16 05:40 06/24/16 05:40 Hepatic Panel Total Bilirubin 0.7 mg/dL (0.2-1.0) 06/24/16 05:40 Direct Bilirubin 0.4 mg/dL (0.0-0.2) H 06/23/16 05:00 AST 83 U/L (15-37) H D 06/24/16 05:40 ALT 91 U/L (12-78) H D 06/24/16 05:40 Alkaline Phosphatase 206 U/L (45-117) H 06/24/16 05:40 Albumin 1.9 g/dl (3.4-5.0) L 06/24/16 05:40 Microbiology 06/23/16 01:00 Blood - Peripheral Venous Blood Culture - Preliminary NO GROWTH OBTAINED AFTER 24 HOURS, INCUBATION TO CONTINUE FOR 4 DAYS. 06/23/16 01:00 Blood - Peripheral Venous Blood Culture - Preliminary NO GROWTH OBTAINED AFTER 24 HOURS, INCUBATION TO CONTINUE FOR 4 DAYS. 06/22/16 13:40 Blood - Peripheral Venous Blood Culture - Preliminary NO GROWTH OBTAINED AFTER 24 HOURS, INCUBATION TO CONTINUE FOR 4 DAYS. 06/22/16 13:20 Blood - Peripheral Venous Blood Culture - Preliminary NO GROWTH OBTAINED AFTER 24 HOURS, INCUBATION TO CONTINUE FOR 4 DAYS. Problem List - Problems (1) Sepsis Code(s): A41.9 - SEPSIS, UNSPECIFIED ORGANISM (2) HTN (hypertension) Code(s): I10 - ESSENTIAL (PRIMARY) HYPERTENSION (3) HLD (hyperlipidemia) Code(s): E78.5 - HYPERLIPIDEMIA, UNSPECIFIED (4) UTI (urinary tract infection) Code(s): N39.0 - URINARY TRACT INFECTION, SITE NOT SPECIFIED Qualifiers: Urinary tract infection type: site unspecified Hematuria presence: without hematuria Qualified Code(s): N39.0 - Urinary tract infection, site not specified (5) UTI symptoms Code(s): R39.9 - UNSP SYMPTOMS AND SIGNS INVOLVING THE GENITOURINARY SYSTEM Assessment/Plan ASSESS: This is an 81 y/o woman w/ OA, DM, GERD, diverticulitis, chronic gastritis, & a CCY who presents to the ED today w/ dysuria, suprapubic pain, fever and chills, transferred now to the ICU for hypotension m/l 2/2 urosepsis. PLAN: ABX per ID , cont source work up, MR pending O2 as needed IVF Off pressors, D/c TLC tomorrow Insulin coverage Follow LFTs VTE prophylaxis Strict I&O start clears today ICU monitoring today, can likely leave ICU tomorrow Cordell KIMP
[2016-06-24] MEDS ORDERED: POTASSIUM CHLORIDE TABS 20 MEQ TABLET.ER (FP) PO ONE (08:45)
[2016-06-24] MEDS ORDERED: PT OWN MED DRAWER 7, Y5N ONE ×3 (10:31→19:20)
--- NOTE | 2016-06-24 10:47 | PN ---
Teaching Attending Note Name of Resident: Dulce Villatoro ATTENDING PHYSICIAN STATEMENT I saw and evaluated the patient. I reviewed the resident's note and discussed the case with the resident. I agree with the resident's findings and plan as documented. SUBJECTIVE: no fever or chills, feels better . no Abd pain today . denies SOB OBJECTIVE: NAD, AAOx3 , cooperative. HEENT: no facial droop, MMM. CV: RRR, no MRG LUngs : CTAB , decreased breath sounds at bases , slightly labored breathing Abd: soft, obese, no TTP , nL BS. RUQ vertigal surgical scar. lower abd durgical scar . Ext: no edema , . 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 1- Septic shock with lactic acidosis : source could still be abdominal ( cholangitis , or volvulos causing bowel ischemia ) , or Infected shoulder. shock has resolved and sepsis improved . -Dc IVF , due to labored breathing and elevated BNP - cont meropenem . - follow blood cx . Urine cx neg - MRCP with a stone in CBD. So ascending cholangitits is still in picture . destini contact GI again fro possible ERCP to r/o stone vs tumor - MRI of shoulder 2- STEPHAN : likely due to pr-erenal azotemia and sepsis . resolved 3- CP : atypical . trop normalized echo reviewed 4- DM : SSI now , hold metformin 5- h/o GERD, and gastritis , - cont pPI 6- DVT PX Diet : advance diet
[2016-06-24] MEDS: HEPARIN NA (PORCINE) 5,000 UNITS/ML 1ML VIAL SQ SCH ×2 (10:51→22:00)
[2016-06-24] MEDS: ASPIRIN COATED 81 MG TABLET.EC PO SCH (10:51)
[2016-06-24] MEDS: PANTOPRAZOLE SODIUM 40 MG/100 ML PRE-DOCKED IVPB SCH (10:52)
[2016-06-24] MEDS ORDERED: PANTOPRAZOLE 40 MG TABLET (FP) PO SCH (11:00)
[2016-06-24] MEDS ORDERED: DOCUSATE SODIUM 100 MG CAPSULE (FP) PO SCH (11:00)
--- NOTE | 2016-06-24 11:31 | PN ---
GI Progress Note Subjective: The patient was seen in the ICU. She complains of shoulder pain, denies abdominal pain, no nausea and no vomiting, MRI stomach is under distended and possible 3 mm filling defect in the distal CBD, the CBD is normal in size, the patient is clinically improved. Discussed case with the house staff and Dr Carcamo at length. - Objective Vital Signs: Vital Signs Temperature 98.9 F 06/24/16 09:27 Pulse Rate 81 06/24/16 09:27 Respiratory Rate 26 H 06/24/16 09:27 Blood Pressure 132/64 06/24/16 09:27 O2 Sat by Pulse Oximetry (%) 97 06/24/16 09:37 Constitutional: Well Nourished Eyes: Yes: Conjunctiva Clear HENT: Yes: Atraumatic Neck: Yes: Supple Cardiovascular: Yes: Regular Rate and Rhythm Respiratory: Yes: CTA Bilaterally ...Palpate: Yes: Soft. No: Firm/Rigid, Guarding, Hepatomegaly, Mass, Pulsatile Mass, Splenomegaly, Tenderness Labs: CBC, BMP 06/24/16 05:40 06/24/16 05:40 INR, PTT INR 1.29 (0.82-1.09) H 06/22/16 01:24 Problem List - Problems (1) Sepsis Assessment/Plan: --resolving R> continue antibiotics, most likely urosepsis as patients u/a is unreliable as the specimen was obtained after antibiotic use Code(s): A41.9 - SEPSIS, UNSPECIFIED ORGANISM (2) Anemia Assessment/Plan: etiology unclear R> anemia w/u consider hematology consult CC:35 min Code(s): D64.9 - ANEMIA, UNSPECIFIED
[2016-06-24] MEDS ORDERED: FUROSEMIDE 40 MG/4 ML INJECTABLE VIAL IVPUSH ONE (12:15)
--- NOTE | 2016-06-24 13:32 | PN ---
Progress Note, Physician History of Present Illness: patient feeling much better no complaints family in room abd feels much better still bloated - Current Medication List Current Medications: Active Medications Aspirin (Ecotrin -) 81 mg PO DAILY [facility] Last Admin: 06/24/16 10:51 Dose: 81 mg Docusate Sodium (Colace -) 100 mg PO BID [facility] Last Admin: 06/24/16 11:55 Dose: Not Given Heparin Sodium (Porcine) (Heparin -) 5,000 unit SQ BID [facility] Last Admin: 06/24/16 10:51 Dose: 5,000 unit Meropenem 1 gm/ Dextrose 100 mls @ 100 mls/hr IVPB Q8H-IV SARAH PRN Reason: Protocol Last Admin: 06/24/16 10:54 Dose: 100 mls/hr Insulin Aspart (Novolog Vial Sliding Scale -) 1 vial SQ TIDAC [facility] PRN Reason: Protocol Last Admin: 06/24/16 12:25 Dose: 2 units Pantoprazole Sodium (Protonix -) 40 mg PO DAILY [facility] Last Admin: 06/24/16 12:26 Dose: Not Given Potassium Phos/Sodium Phos (Phos-Nak Packet -) 1 packet PO BID [facility] - Objective Vital Signs: Vital Signs Temperature 98.9 F 06/24/16 09:27 Pulse Rate 84 06/24/16 11:56 Respiratory Rate 26 H 06/24/16 11:56 Blood Pressure 146/86 06/24/16 11:56 O2 Sat by Pulse Oximetry (%) 97 06/24/16 09:37 Constitutional: Yes: No Distress, Calm Cardiovascular: Yes: Regular Rate and Rhythm Respiratory: Yes: Regular, CTA Bilaterally Gastrointestinal: Yes: Normal Bowel Sounds, Soft Musculoskeletal: Yes: WNL Extremities: Yes: WNL Neurological: Yes: Alert, Oriented Psychiatric: Yes: Alert Labs: CBC, BMP 06/24/16 05:40 06/24/16 05:40 INR, PTT INR 1.29 (0.82-1.09) H 06/22/16 01:24 - ....Imaging Chest X-ray: Report Reviewed, Image Reviewed MRI: Report Reviewed, Image Reviewed Assessment/Plan after looking at the patient and the history,and looking at the ct scan of abdomen and lactic acid and other work up Problem List - Problems (1) Sepsis Code(s): A41.9 - SEPSIS, UNSPECIFIED ORGANISM (2) HTN (hypertension) Code(s): I10 - ESSENTIAL (PRIMARY) HYPERTENSION (3) HLD (hyperlipidemia) Code(s): E78.5 - HYPERLIPIDEMIA, UNSPECIFIED (4) UTI (urinary tract infection) Code(s): N39.0 - URINARY TRACT INFECTION, SITE NOT SPECIFIED Qualifiers: Urinary tract infection type: site unspecified Hematuria presence: without hematuria Qualified Code(s): N39.0 - Urinary tract infection, site not specified (5) UTI symptoms Code(s): R39.9 - UNSP SYMPTOMS AND SIGNS INVOLVING THE GENITOURINARY SYSTEM (6) Anemia Code(s): D64.9 - ANEMIA, UNSPECIFIED plan continue abx continue current mgmt continue following labs rest as per icu primary and gi cc time 40 min
--- NOTE | 2016-06-24 13:39 | PN ---
Addendum entered and electronically signed by Dulce Villatoro RES 06/24/16 13: 53: informed by icu that patient developed mild sob. was given 20 IV lasix. kept in ICU until symptoms resolve Original Note: Physical Exam: SUBJECTIVE: Patient seen and examined Patient resting in bed NAD. No acute events. afebrile, hemodynamically stable off pressors. still on IVF. States she feels better. denies sob. tolerating clears. + NB nonmelenous diarrhea. Complains of R shoulder pain, lately hurting more than usual. AAOx3. denies abd pain, f/c, n/v, h/a. dizzines, loc. OBJECTIVE: Vital Signs Period Temp Pulse Resp BP Sys/White Pulse Ox Last 24 Hr 98.1 F-98.9 F 72-86 19-26 112-146/59-86 97-100 GENERAL: Awake, alert, and fully oriented, in no acute distress. HEAD: Normal with no signs of trauma. EYES: Pupils equal, round and reactive to light, extraocular movements intact, sclera anicteric, conjunctiva clear. EARS, NOSE, THROAT: moist mucous membranes. NECK: supple without JVD, or masses. LUNGS: b/l bibasilar ronchi HEART: Regular rate and rhythm, normal S1 and S2, lessened reproducible chest wall pain ABDOMEN: Soft, nontender, mildly distended, + bowel sounds, negative murphys, no guarding, no rebound, no masses. MUSCULOSKELETAL: No CVA tenderness. UPPER EXTREMITIES: 2+ pulses, warm, well-perfused. No peripheral edema. R shoulder painful, limited ROM LOWER EXTREMITIES: 2+ pulses, warm, well-perfused. No calf tenderness. No peripheral edema. NEUROLOGICAL: Cranial nerves II-XII grossly intact. Normal speech. PSYCHIATRIC: Cooperative. Good eye contact. Appropriate mood and affect. SKIN: Warm, dry Laboratory Results - last 24 hr 06/22/16 06/23/16 06/23/16 08:00 05:00 16:22 WBC RBC Hgb Hct MCV MCHC RDW Plt Count MPV Neutrophils % Lymphocytes % Monocytes % Eosinophils % Basophils % Sodium Potassium Chloride Carbon Dioxide Anion Gap BUN Creatinine Creat Clearance w eGFR POC Glucometer [phone] Random Glucose Calcium Phosphorus Magnesium Total Bilirubin AST ALT Alkaline Phosphatase Troponin I < 0.02 Total Protein Albumin Stool Occult Blood Hep A IgM Ab Confirm Negative Hepatitis A Ab Total Positive H Hep Bs Antigen Negative Hep Bs Antibody Non reactive Hep B Core Total Ab Negative 06/23/16 06/24/16 06/24/16 18:30 05:40 05:40 WBC 8.1 D RBC 3.08 L Hgb 8.0 L Hct 24.4 L MCV 79.2 L MCHC 32.7 RDW 15.0 Plt Count 118 L MPV 9.5 Neutrophils % 85.4 H Lymphocytes % 8.9 D Monocytes % 2.7 L Eosinophils % 2.7 D Basophils % 0.3 Sodium 145 Potassium 3.4 L Chloride 116 H Carbon Dioxide 22 Anion Gap 7 L BUN 8 D Creatinine 0.8 Creat Clearance w eGFR > 60 POC Glucometer Random Glucose 113 H D Calcium 7.5 L Phosphorus 2.4 L Magnesium 1.9 Total Bilirubin 0.7 AST 83 H D ALT 91 H D Alkaline Phosphatase 206 H Troponin I Total Protein 4.7 L Albumin 1.9 L Stool Occult Blood Negative Hep A IgM Ab Confirm Hepatitis A Ab Total Hep Bs Antigen Hep Bs Antibody Hep B Core Total Ab 06/24/16 05:42 WBC RBC Hgb Hct MCV MCHC RDW Plt Count MPV Neutrophils % Lymphocytes % Monocytes % Eosinophils % Basophils % Sodium Potassium Chloride Carbon Dioxide Anion Gap BUN Creatinine Creat Clearance w eGFR POC Glucometer [phone] Random Glucose Calcium Phosphorus Magnesium Total Bilirubin AST ALT Alkaline Phosphatase Troponin I Total Protein Albumin Stool Occult Blood Hep A IgM Ab Confirm Hepatitis A Ab Total Hep Bs Antigen Hep Bs Antibody Hep B Core Total Ab Active Medications Generic Name Dose Route Start Last Admin Trade Name Freq PRN Reason Stop Dose Admin Aspirin 81 mg 06/23/16 10:00 06/24/16 10:51 Ecotrin - PO 81 mg DAILY SARAH Administration Docusate Sodium 100 mg 06/24/16 11:00 06/24/16 11:55 Colace - PO Not Given BID SARAH Heparin Sodium (Porcine) 5,000 unit 06/22/16 22:00 06/24/16 10:51 Heparin - SQ 5,000 unit BID SARAH Administration Meropenem 1 gm/ Dextrose 100 mls @ 100 mls/hr 06/24/16 02:00 06/24/16 10:54 IVPB 100 mls/hr Q8H-IV SARAH Administration Protocol Insulin Aspart 1 vial 06/23/16 07:00 06/24/16 12:25 Novolog Vial Sliding Scale - SQ 2 units TIDAC SARAH Administration Protocol Pantoprazole Sodium 40 mg 06/24/16 11:00 06/24/16 12:26 Protonix - PO Not Given DAILY [facility] Potassium Phos/Sodium Phos 1 packet 06/24/16 22:00 Phos-Nak Packet - PO BID [facility] ASSESSMENT/PLAN: This is an 81 you F with PMH of gastritis, diverticulosis, NIDDM, HLD, R shoulder arthritis, who presents due to 9 hours of abd pain, NBNB vomiting, nausea and chest pain. s/p cholecystectomy and appendectomy 30 yrs ago CXR WNL Abd CT: diverticulosis Abd US: diffuse fatty liver MRCP filling defect consistent with choledocholithiasis Sepsis -GI vs vs R shouder source -leukocytosis resolved -lactic acidosis resolved -Abdominal pain, vomiting resolved -off pressors -imaging appreciated -Discussed MRCP with Dr Kay. Unlikely biliary tree source of sepsis, if there is an obstruction it has resolved, based on clinical picture. no ERCP needed -transaminitis trending down -UA not consistent with infection but drawn after abx started -u culture, 2 blood cultures negative -ID consult appreciated: started on meropenam day 2 -TTE unremarkable -CXR AM: new bibasilar effusions. + ronci, consistent with vol overload -stop IVF -lasix IV if develops sob -d/c marin Transaminitis -AST 83, ALT 91, alk phos 206 trending down, t bili normal -GI consult appreciated: possibly due to ichemia in setting of sepsis from another source -trend LFTs -hepatisis panel -advance to soft diet Atypical reproducible chest pain -improved -musculoskeletal, related to R shoulder arthritis vs infection of R shoulder -troponin elevated initially 0.08 resoved, possibly due to demand -resolved -R shoulder MRI STEPHAN -resolved -Creat at baseline -likely due to sepsis -trend NIDDM -hold glipizide 10d, januvia 100d, metformin 1000bid -Sliding scale -BGM gastritis -po PPI HTN -stable -hold lasix 40 d due to stephan Shoulder pain -hold ultracet 325 q4-5h prn (prescribed by Dr Mariee) -Iv morphine PRN Constipation -+ diarrhea -hold amitiza and colace -can restart tomorrow when tolerates diet Supplements -hold ferrous sulfate FEN no ivf replete k, phos clears Hep,ppi Dispo: x [facility] Problem List - Problems (1) Abdominal pain Code(s): R10.9 - UNSPECIFIED ABDOMINAL PAIN Qualifiers: Abdominal location: epigastric Qualified Code(s): R10.13 - Epigastric pain (2) Chest pain, rule out acute myocardial infarction Code(s): R07.9 - CHEST PAIN, UNSPECIFIED (3) Chronic anemia Code(s): D64.9 - ANEMIA, UNSPECIFIED (4) Diabetes mellitus Code(s): E11.9 - TYPE 2 DIABETES MELLITUS WITHOUT COMPLICATIONS (5) HLD (hyperlipidemia) Code(s): E78.5 - HYPERLIPIDEMIA, UNSPECIFIED (6) HTN (hypertension) Code(s): I10 - ESSENTIAL (PRIMARY) HYPERTENSION (7) Sepsis Code(s): A41.9 - SEPSIS, UNSPECIFIED ORGANISM (8) STEPHAN (acute kidney injury) Code(s): N17.9 - ACUTE KIDNEY FAILURE, UNSPECIFIED (9) Vomiting Code(s): R11.10 - VOMITING, UNSPECIFIED Visit type - Emergency Visit Emergency Visit: Yes ED Registration Date: 06/22/16 Care time: The patient presented to the Emergency Department on the above date and was hospitalized for further evaluation of their emergent condition. - New Patient This patient is new to me today: No - Critical Care Critical Care patient: No - Discharge Referral Referred to [facility] Med P.C.: No
[2016-06-24] MEDS: DOCUSATE SODIUM 100 MG CAPSULE (FP) PO SCH (21:56)
[2016-06-24] MEDS: NAPH,MB-DB/K PH,MBDB POWDER PACKET PO SCH (22:00)
[2016-06-24] MEDS ORDERED: NAPH,MB-DB/K PH,MBDB POWDER PACKET PO SCH (22:00)
[2016-06-25] MEDS: MEROPENEM 1 GM in DEXTROSE 5%-WATER - 100 ML IVPB SCH ×3 (01:42→18:36)
[2016-06-25] MEDS: INSULIN SLIDING SCALE (NOVOLOG) 1 VIAL SQ SCH ×3 (06:10→17:21)
[2016-06-25] MEDS ORDERED: PT OWN MED DRAWER 7, Y5N ONE ×2 (08:23→17:02)
[2016-06-25 08:28] LABS: MCH 25.7 pg (25.7-33.7); MEAN CELL VOLUME 77.7 fl (80-96); MEAN PLT VOLUME 9.5 fl (7.5-11.1); PLATELET COUNT 135 K/MM3 (134-434); RDW 14.7 % (11.6-15.6); WHITE BLOOD COUNT 5.8 K/mm3 (4.0-10.0)
[2016-06-25 08:48] LABS: ALBUMIN 2.1 g/dl (3.4-5.0); ALK PHOS 203 U/L (45-117); ANION GAP 11 (8-16); BILIRUBIN,TOTAL 0.5 mg/dL (0.2-1.0); CALCIUM 7.7 mg/dL (8.5-10.1); CO2 23 mmol/L (21-32); CREATININE 0.7 mg/dL (0.55-1.02); GLUCOSE,RANDOM 130 mg/dL (74-106); MAGNESIUM 1.8 mg/dL (1.8-2.4); PHOSPHOROUS 2.4 mg/dL (2.5-4.9); SGOT/AST 37 U/L (15-37); SGPT/ALT 57 U/L (12-78); TOT PROT 5.1 g/dl (6.4-8.2)
[2016-06-25] MEDS: HEPARIN NA (PORCINE) 5,000 UNITS/ML 1ML VIAL SQ SCH ×2 (10:21→22:16)
[2016-06-25] MEDS: ASPIRIN COATED 81 MG TABLET.EC PO SCH (10:22)
[2016-06-25] MEDS: DOCUSATE SODIUM 100 MG CAPSULE (FP) PO SCH ×2 (10:22→22:15)
[2016-06-25] MEDS: PANTOPRAZOLE 40 MG TABLET (FP) PO SCH (10:22)
[2016-06-25] MEDS: NAPH,MB-DB/K PH,MBDB POWDER PACKET PO SCH ×2 (10:23→22:16)
--- NOTE | 2016-06-25 12:36 | PN ---
Progress Note, Physician History of Present Illness: patient doing well abd pain much better still with shoulder pain - Current Medication List Current Medications: Active Medications Aspirin (Ecotrin -) 81 mg PO DAILY [facility] Last Admin: 06/25/16 10:22 Dose: 81 mg Docusate Sodium (Colace -) 100 mg PO BID [facility] Last Admin: 06/25/16 10:22 Dose: 100 mg Heparin Sodium (Porcine) (Heparin -) 5,000 unit SQ BID [facility] Last Admin: 06/25/16 10:21 Dose: 5,000 unit Meropenem 1 gm/ Dextrose 100 mls @ 100 mls/hr IVPB Q8H-IV SARAH PRN Reason: Protocol Last Admin: 06/25/16 10:23 Dose: 100 mls/hr Insulin Aspart (Novolog Vial Sliding Scale -) 1 vial SQ TIDAC [facility] PRN Reason: Protocol Last Admin: 06/25/16 12:08 Dose: 2 unit Pantoprazole Sodium (Protonix -) 40 mg PO DAILY [facility] Last Admin: 06/25/16 10:22 Dose: 40 mg Potassium Phos/Sodium Phos (Phos-Nak Packet -) 1 packet PO BID [facility] Last Admin: 06/25/16 10:23 Dose: 1 packet - Objective Vital Signs: Vital Signs Temperature 98.2 F 06/25/16 10:00 Pulse Rate 84 06/25/16 10:00 Respiratory Rate 18 06/25/16 10:00 Blood Pressure 127/67 06/25/16 10:00 O2 Sat by Pulse Oximetry (%) 96 06/25/16 02:14 Constitutional: Yes: No Distress, Calm HENT: Yes: Atraumatic, Normocephalic Cardiovascular: Yes: Regular Rate and Rhythm Respiratory: Yes: Regular, CTA Bilaterally Gastrointestinal: Yes: Normal Bowel Sounds, Soft Musculoskeletal: Yes: WNL Extremities: Yes: Other (rt shoulder pain) Integumentary: Yes: WNL Neurological: Yes: Alert, Oriented Psychiatric: Yes: Alert Labs: CBC, BMP 06/25/16 06:30 06/25/16 06:30 INR, PTT INR 1.29 (0.82-1.09) H 06/22/16 01:24 Assessment/Plan after looking at the patient and the history,and looking at the ct scan of abdomen and lactic acid and other work up Problem List - Problems (1) Sepsis Code(s): A41.9 - SEPSIS, UNSPECIFIED ORGANISM (2) HTN (hypertension) Code(s): I10 - ESSENTIAL (PRIMARY) HYPERTENSION (3) HLD (hyperlipidemia) Code(s): E78.5 - HYPERLIPIDEMIA, UNSPECIFIED (4) UTI (urinary tract infection) Code(s): N39.0 - URINARY TRACT INFECTION, SITE NOT SPECIFIED Qualifiers: Urinary tract infection type: site unspecified Hematuria presence: without hematuria Qualified Code(s): N39.0 - Urinary tract infection, site not specified (5) UTI symptoms Code(s): R39.9 - UNSP SYMPTOMS AND SIGNS INVOLVING THE GENITOURINARY SYSTEM (6) Anemia Code(s): D64.9 - ANEMIA, UNSPECIFIED plan continue abx continue current mgmt pain control shoulder exercise avoid frozen shoulder
--- NOTE | 2016-06-25 14:02 | PN ---
Progress Note (short form) - Note Progress Note: Subjective: no fever or chills , denies abd pain , has R shoulder pain . Objective: Vital Signs: Last Vital Signs Temp Pulse Resp BP Pulse Ox 98.2 F 84 18 127/67 96 06/25/16 10:00 06/25/16 10:00 06/25/16 10:00 06/25/16 10:00 06/25/16 02:14 Physical Exam: NAD, AAOx3 , cooperative. HEENT: no facial droop, MMM. CV: RRR, no MRG LUngs : R basilar crackles Abd: soft, obese, no TTP , nL BS. RUQ vertigal surgical scar. lower abd durgical scar . Ext: no edema. TTP over R shoulder with limited range of motion in abduction and flexion Laboratory Results - last 24 hr 06/24/16 06/25/16 06/25/16 17:20 06:07 06:30 WBC 5.8 RBC 3.54 L Hgb 9.1 L D Hct 27.5 L MCV 77.7 L MCHC 33.0 RDW 14.7 Plt Count 135 MPV 9.5 Sodium Potassium Chloride Carbon Dioxide Anion Gap BUN Creatinine Creat Clearance w eGFR POC Glucometer [phone] Random Glucose Calcium Phosphorus Magnesium Total Bilirubin AST ALT Alkaline Phosphatase Total Protein Albumin 06/25/16 06/25/16 06:30 11:36 WBC RBC Hgb Hct MCV MCHC RDW Plt Count MPV Sodium 142 Potassium 3.5 Chloride 108 H Carbon Dioxide 23 Anion Gap 11 BUN 7 Creatinine 0.7 Creat Clearance w eGFR > 60 POC Glucometer 154 Random Glucose 130 H Calcium 7.7 L Phosphorus 2.4 L Magnesium 1.8 Total Bilirubin 0.5 D AST 37 D ALT 57 D Alkaline Phosphatase 203 H Total Protein 5.1 L Albumin 2.1 L Microbiology 06/23/16 01:00 Blood Culture - Preliminary Blood - Peripheral Venous NO GROWTH OBTAINED AFTER 48 HOURS, INCUBATION TO CONTINUE FOR 3 DAYS. 06/23/16 01:00 Blood Culture - Preliminary Blood - Peripheral Venous NO GROWTH OBTAINED AFTER 48 HOURS, INCUBATION TO CONTINUE FOR 3 DAYS. 06/22/16 13:40 Blood Culture - Preliminary Blood - Peripheral Venous NO GROWTH OBTAINED AFTER 48 HOURS, INCUBATION TO CONTINUE FOR 3 DAYS. 06/22/16 13:20 Blood Culture - Preliminary Blood - Peripheral Venous NO GROWTH OBTAINED AFTER 48 HOURS, INCUBATION TO CONTINUE FOR 3 DAYS. 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 1- Septic shock with lactic acidosis : source could still be abdominal ( cholangitis , or volvulos causing bowel ischemia ) . No signs of infection in R shoulder on MRI - cont meropenem . - Follow blood cx . - Spoke to Dr. Kay about CBD abnormality, no plans for ERCP 2- STEPHAN : pr-erenal azotemia and sepsis . resolved 3- CP : atypical . trop normalized 4- DM : SSI now , hold metformin 5- Complete tear of R supraspinatus muscle on MRI - son will provide name and number of orthopedic surgeon treating her with steroids injections . - will d/w her orthopedic surgeon 6- DVT PX No labs tomorrow Visit type - Emergency Visit Emergency Visit: Yes ED Registration Date: 06/22/16 Care time: The patient presented to the Emergency Department on the above date and was hospitalized for further evaluation of their emergent condition. - New Patient This patient is new to me today: No - Critical Care Critical Care patient: No
[2016-06-26] MEDS: MEROPENEM 1 GM in DEXTROSE 5%-WATER - 100 ML IVPB SCH ×2 (01:04→11:10)
[2016-06-26] MEDS: INSULIN SLIDING SCALE (NOVOLOG) 1 VIAL SQ SCH ×2 (06:14→11:59)
[2016-06-26] MEDS: ASPIRIN COATED 81 MG TABLET.EC PO SCH (11:10)
[2016-06-26] MEDS: NAPH,MB-DB/K PH,MBDB POWDER PACKET PO SCH (11:11)
[2016-06-26] MEDS: PANTOPRAZOLE 40 MG TABLET (FP) PO SCH (11:11)
[2016-06-26] MEDS: DOCUSATE SODIUM 100 MG CAPSULE (FP) PO SCH (11:11)
[2016-06-26] MEDS: HEPARIN NA (PORCINE) 5,000 UNITS/ML 1ML VIAL SQ SCH (11:11)
--- NOTE | 2016-06-26 12:23 | PN ---
Progress Note, Physician History of Present Illness: patient doing much better no complaints except shoulder pain abd no issues - Current Medication List Current Medications: Active Medications Aspirin (Ecotrin -) 81 mg PO DAILY [facility] Last Admin: 06/26/16 11:10 Dose: 81 mg Docusate Sodium (Colace -) 100 mg PO BID [facility] Last Admin: 06/26/16 11:11 Dose: 100 mg Heparin Sodium (Porcine) (Heparin -) 5,000 unit SQ BID [facility] Last Admin: 06/26/16 11:11 Dose: 5,000 unit Insulin Aspart (Novolog Vial Sliding Scale -) 1 vial SQ TIDAC [facility] PRN Reason: Protocol Last Admin: 06/26/16 11:59 Dose: 2 unit Pantoprazole Sodium (Protonix -) 40 mg PO DAILY [facility] Last Admin: 06/26/16 11:11 Dose: 40 mg Potassium Phos/Sodium Phos (Phos-Nak Packet -) 1 packet PO BID [facility] Last Admin: 06/26/16 11:11 Dose: 1 packet - Objective Vital Signs: Vital Signs Temperature 98.9 F 06/26/16 06:00 Pulse Rate 75 06/26/16 06:00 Respiratory Rate 20 06/26/16 06:00 Blood Pressure 121/70 06/26/16 06:00 O2 Sat by Pulse Oximetry (%) 96 06/25/16 21:00 Constitutional: Yes: Calm, Mild Distress (because of shoulder) Eyes: Yes: Conjunctiva Clear Cardiovascular: Yes: Regular Rate and Rhythm Respiratory: Yes: Regular, CTA Bilaterally Gastrointestinal: Yes: Normal Bowel Sounds, Soft Musculoskeletal: Yes: WNL Extremities: Yes: WNL Neurological: Yes: Alert, Oriented Psychiatric: Yes: Alert, Oriented Labs: CBC, BMP 06/25/16 06:30 06/25/16 06:30 INR, PTT INR 1.29 (0.82-1.09) H 06/22/16 01:24 Assessment/Plan after looking at the patient and the history,and looking at the ct scan of abdomen and lactic acid and other work up Problem List - Problems (1) Sepsis Code(s): A41.9 - SEPSIS, UNSPECIFIED ORGANISM (2) HTN (hypertension) Code(s): I10 - ESSENTIAL (PRIMARY) HYPERTENSION (3) HLD (hyperlipidemia) Code(s): E78.5 - HYPERLIPIDEMIA, UNSPECIFIED (4) UTI (urinary tract infection) Code(s): N39.0 - URINARY TRACT INFECTION, SITE NOT SPECIFIED Qualifiers: Urinary tract infection type: site unspecified Hematuria presence: without hematuria Qualified Code(s): N39.0 - Urinary tract infection, site not specified (5) UTI symptoms Code(s): R39.9 - UNSP SYMPTOMS AND SIGNS INVOLVING THE GENITOURINARY SYSTEM (6) Anemia Code(s): D64.9 - ANEMIA, UNSPECIFIED plan changed to oral abx continue oral abx for another 3 days
--- NOTE | 2016-06-26 13:35 | DS ---
Addendum entered and electronically signed by Dulce Villatoro RES 06/26/16 15: 16: No UTI as diagnosis Original Note: Physical Exam: SUBJECTIVE: Patient seen and examined Patient resting in bed NAD. No acute events. afebrile, hemodynamically stable. States she feels well. denies sob. tolerating regular diet. Diarrhea resolved, had normal BM yesterday. Complains of R shoulder pain. denies abd pain, f/c, n /v, h/a. dizzines, loc. OBJECTIVE: Vital Signs Period Temp Pulse Resp BP Sys/White Pulse Ox Last 24 Hr 98.2 F-98.9 F 75-82 20-20 121-142/60-70 96 PHYSICAL EXAM GENERAL: Awake, alert, and fully oriented, in no acute distress. HEAD: Normal with no signs of trauma. EYES: Pupils equal, round and reactive to light, extraocular movements intact, sclera anicteric, conjunctiva clear. EARS, NOSE, THROAT: moist mucous membranes. NECK: supple without JVD, or masses. LUNGS: b/l mild bibasilar crackles HEART: Regular rate and rhythm, normal S1 and S2 ABDOMEN: Soft, nontender, mildly distended, + bowel sounds, negative murphys, no guarding, no rebound, no masses. MUSCULOSKELETAL: No CVA tenderness. UPPER EXTREMITIES: 2+ pulses, warm, well-perfused. No peripheral edema. R shoulder painful, limited ROM LOWER EXTREMITIES: 2+ pulses, warm, well-perfused. No calf tenderness. No peripheral edema. NEUROLOGICAL: Cranial nerves II-XII grossly intact. Normal speech. PSYCHIATRIC: Cooperative. Good eye contact. Appropriate mood and affect. SKIN: Warm, dry LABS Laboratory Results - last 24 hr 06/25/16 06/26/16 06/26/16 17:19 05:25 11:56 POC Glucometer 125 133 167 HOSPITAL COURSE: Date of Admission:06/22/16 This is an 81 you F with PMH of gastritis, diverticulosis, NIDDM, HLD, R shoulder arthritis, who presents due to 9 hours of abd pain, NBNB vomiting, nausea and chest pain. Experienced rigors, nausea, vomiting, diffuse abd pain the day before admission. EGD with Dr Kay in May, when a benign gastric mass was noted. She is noncompliant with most of her home meds. She had a leukocytosis of 10.8, bandemia, new tranaminitis, elevated alk phos and normal bilirubin. Inpatient Imaging: CXR WNL Abd CT: diverticulosis Abd US: diffuse fatty liver MRCP filling defect consistent with choledocholithiasis R Shoulder MRI: R supraspinatus tear, arthrosis. She was worked up for Sepsis due to GI vs source. She was in the ICU for a few days, requiring pressors due to hypotension. She finished a course of broad spectrum IV abx. Her blood and urine cultures came back negative, definitive source was not established. Her sepsis associated STEPHAN and ransaminitis also resolved. She is s/p [id number] 30 yrs ago but was still worked up with MRCP that showed a filling defect, however, GI specialist did nto sugest further intervention. She was sent home on PO augmentin bid x 3 days, per ID specialist. Her R shoulder MRI revealed R supraspinatus tear and was thought o be the cause of her R sided reproducible chest pain and she was advised to f/u with orthopedic surgeon. Date of Discharge: 06/26/16 Minutes to complete discharge: 30 (na) Discharge Summary Reason For Visit: CHEST PAIN, R/O [place] Current Active Problems STEPHAN (acute kidney injury) (Acute) Abdominal pain (Acute) Anemia (Acute) Chest pain, rule out acute myocardial infarction (Acute) Sepsis (Acute) UTI (urinary tract infection) (Acute) UTI symptoms (Acute) Vomiting (Acute) Condition: Good - Instructions Diet, Activity, Other Instructions: You were admitted because of severe infection, It may have come from your urine or your abdomen. You finished a course if IV antibiotics. You will need to take oral antibiotic augmentin twice a day for 3 more days. You had an issue with your liver due to the infection, which had resolved Your shoulder pain is due to arthritis and a torn muscle. Follow up with your orthopedic surgeon for further management. Disposition: HOME - Home Medications Comprehensive Discharge Medication List: Ambulatory Orders Metformin HCl [Glucophage] 1,000 mg PO BID 04/11/16 Docusate Sodium [Colace -] 100 mg PO BID 06/23/16 Ferrous Sulfate TID 06/23/16 Furosemide [Lasix] 40 mg PO DAILY 06/23/16 Glipizide 10 mg PO DAILY 06/23/16 Lubiprostone [Amitiza] 8 mcg PO BID 06/23/16 Sitagliptin Phosphate [Januvia] 100 mg PO DAILY 06/23/16 Tramadol HCl/Acetaminophen [Ultracet Tablet] 1 each PO Q4H 06/23/16 Amox-Tr/K Cl [Augmentin 500-125mg Tablet -] 1 tab PO BID@0800,1730 #6 tablet Aspirin Coated [Ecotrin -] 81 mg PO DAILY #30 tab 06/26/16 Esomeprazole Mag Trihydrate [Nexium Packets] 40 mg PO DAILY 06/26/16 Metoclopramide HCl [Reglan] 5 mg PO TID 06/26/16 Problem List - Problems (1) Abdominal pain Code(s): R10.9 - UNSPECIFIED ABDOMINAL PAIN Qualifiers: Abdominal location: epigastric Qualified Code(s): R10.13 - Epigastric pain (2) Chest pain, rule out acute myocardial infarction Code(s): R07.9 - CHEST PAIN, UNSPECIFIED (3) Chronic anemia Code(s): D64.9 - ANEMIA, UNSPECIFIED (4) Diabetes mellitus Code(s): E11.9 - TYPE 2 DIABETES MELLITUS WITHOUT COMPLICATIONS (5) HLD (hyperlipidemia) Code(s): E78.5 - HYPERLIPIDEMIA, UNSPECIFIED (6) HTN (hypertension) Code(s): I10 - ESSENTIAL (PRIMARY) HYPERTENSION (7) Sepsis Code(s): A41.9 - SEPSIS, UNSPECIFIED ORGANISM (8) STEPHAN (acute kidney injury) Code(s): N17.9 - ACUTE KIDNEY FAILURE, UNSPECIFIED (9) Vomiting Code(s): R11.10 - VOMITING, UNSPECIFIED This patient is new to me today: No Emergency Visit: Yes ED Registration Date: 06/22/16 Care time: The patient presented to the Emergency Department on the above date and was hospitalized for further evaluation of their emergent condition. Critical Care patient: No - Discharge Referral Referred to [facility] Med P.C.: No
[2016-06-26] MEDS: AMOX TR/POT CLAV 500MG/125MG TABLETS (FP) PO SCH ×2 (14:03→16:32)
--- NOTE | 2016-06-26 15:15 | PN ---
Teaching Attending Note Name of Resident: Dulce Villatoro ATTENDING PHYSICIAN STATEMENT I saw and evaluated the patient. I reviewed the resident's note and discussed the case with the resident. I agree with the resident's findings and plan as documented. SUBJECTIVE: no abd pain ,no fever or chills . R shoulder pain OBJECTIVE: NAD CV : RRR Lungs: minimal crackles at bases Ext : trace edema. 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 1- Septic shock with lactic acidosis : source could still be abdominal ( cholangitis , or volvulos causing bowel ischemia ) . No signs of infection in R shoulder on MRI - switch to Augmentin x 3 more days - f/u with GI , and ID 2- STEPHAN : pr-erenal azotemia and sepsis . resolved 3- CP : atypical . trop normalized 4- DM : SSI now , resume po meds as out pt 5- Complete tear of R supraspinatus muscle on MRI spoke to Dr. Mariee last night , no recommendation for sx , and she will follow in office with dr. Newton dc home .
--- NOTE | 2016-06-26 16:49 | OP ---
Operative Note - Note: Operative Date: 06/26/16 Pre-Operative Diagnosis: LEFT IT HIP FX Operation: LEFT GAMMA NAILING Post-Operative Diagnosis: Same as Pre-op Surgeon: Nick Mariee Anesthesia: General Operative Report Dictated: Yes
[2016-06-26] MEDS ORDERED: LACTATED RINGERS SOLUTION 1,000 ML IV SCH (17:00)
--- NOTE | 2016-06-26 17:06 | CONSULT ---
Consult - text type - Consultation Consultation Note: full consult dictated Imp: chronic right RC tear plan: DC to home. F/U with Dr Newton one week after discharge
[2016-06-26 17:45] VITALS: BP 126/86; PULSE 80; TEMP 98.3
[2016-06-26] MEDS ORDERED: CEFAZOLIN 1 GM/D5W 50 ML IVPB SCH (18:00)
--- NOTE | 2016-06-26 18:50 | CONS ---
DATE OF CONSULTATION: 06/26/2016 DATE OF DICTATION: 06/26/2016 ORTHOPEDIC CONSULTATION HISTORY OF PRESENT ILLNESS: Patient is an 81-year-old female who is known to our service. My partner, Dr. Newton, had given her an injection of cortisone in her right shoulder approximately 2-3 weeks ago. She was admitted to the hospital recently for respiratory infection. She has been doing quite well, but is still complaining of some right shoulder pain. This precipitated an MRI of her right shoulder which was positive for a supraspinatus tear with 1.3 cm retraction but no atrophy of the muscle, no evidence of infection in the shoulder. Patient is scheduled to be discharged today and is feeling much better. PHYSICAL EXAMINATION: She has a positive impingement sign, weakness, with ____ _ full range of motion all , otherwise neurovascularly intact. IMPRESSION: Bursitis and right rotator cuff tear, probably chronic. As symptoms are minimal, at this time I will do nothing further, but at discharge from the hospital she can follow with Dr. Newton in a week's time, where they can administer some physical therapy and strengthening protocol for her shoulder. I do not believe patient is a surgical candidate for this rotator cuff tear. NIDIA WOODY M.D. [id number] MTDD
[2016-06-27] MEDS ORDERED: ENOXAPARIN NA (PORCINE) 40 MG/0.4 ML DISP.SYRIN SQ SCH (10:00)
== END 2016-06-26 18:27 | disposition home health service (06) | DRG 871 ==
LOC: JER 23:31 → JERBED 06-22 06:30 → UNDOADMIN 06-22 06:47 → J4W 06-22 09:14 → JICU 06-22 20:19 → J8W 06-24 19:33
PROVIDERS: ADMIT Internal Medicine; ATTEND Internal Medicine
PROC: 05HM33Z Insertion of Infusion Device into Right Internal Jugular Vein, Percutaneous Approach (ICD-10-PCS; principal; 2016-06-23)
DX: A41.89 Other specified sepsis (principal); R65.21 Severe sepsis with septic shock; N17.9 Acute kidney failure, unspecified; E87.2 Acidosis; N39.0 Urinary tract infection, site not specified; E78.5 Hyperlipidemia, unspecified; K29.60 Other gastritis without bleeding; E11.9 Type 2 diabetes mellitus without complications; K57.90 Diverticulosis of intestine, part unspecified, without perforation or abscess without bleeding; K76.0 Fatty (change of) liver, not elsewhere classified; K42.9 Umbilical hernia without obstruction or gangrene; K21.9 Gastro-esophageal reflux disease without esophagitis; E83.42 Hypomagnesemia; E87.6 Hypokalemia; R74.0 Nonspecific elevation of levels of transaminase and lactic acid dehydrogenase [LDH]; M19.011 Primary osteoarthritis, right shoulder; K59.09 Other constipation; R11.10 Vomiting, unspecified; D64.9 Anemia, unspecified; K31.89 Other diseases of stomach and duodenum; M75.101 Unspecified rotator cuff tear or rupture of right shoulder, not specified as traumatic; Z87.891 Personal history of nicotine dependence
CPT/HCPCS: 36415; 71010-TC; 71020-TC; 73218-TC; 74177-TC; 74181-TC; 76705-TC; 80048; 80053; 80076; 81003; 81015; 82010; 82272; 82550; 83605; 83735; 83880; 84100; 84484; 85025; 85027; 85610; 86704; 86706; 86708; 87040; 87086; 87340; 93005; 93010; 93306-TC; 97116-GP; 97162-PG; 99284-25; J1644

== ENCOUNTER 2016-09-06 08:25 | Day surgery (SDC) | payer MEDICARE ==
[2016-09-05 13:37] VITALS: BMI 32.8
[2016-09-06] MEDS ORDERED: ROPIVACAINE HCL 0.5% 30ML VIAL ONE (10:50)
[2016-09-06] MEDS ORDERED: MIDAZOLAM HCL 2 MG/2 ML SINGLE DOSE VIAL ONE ×2 (10:51)
[2016-09-06] MEDS ORDERED: PROPOFOL 20 ML ONE ×2 (10:58)
[2016-09-06] MEDS ORDERED: ONDANSETRON 4 MG/2 ML VIAL IVPUSH PRN (11:25)
[2016-09-06] MEDS ORDERED: oxyCODONE HCL 5 MG TABLET PO PRN (11:25)
[2016-09-06] MEDS ORDERED: LACTATED RINGERS SOLUTION 1,000 ML IV SCH (11:30)
--- NOTE | 2016-09-06 11:39 | HP ---
Satellite [facility] - Chief Complaint Chief Complaint: right shoulder pain - Past Medical History Allergies/Adverse Reactions: Allergies Allergy/AdvReac Type Severity Reaction Status Date / Time No Known Allergies Allergy Verified 09/06/16 09:38 Cardiovascular: Yes: HTN, Hyperlipdemia Gastrointestinal: Yes: Diverticulosis, Gastritis Heme/Onc: Yes: Anemia - Current Medications Current Medications: Home Medications Medication Instructions Recorded Metformin HCl [Glucophage] 1,000 mg PO BID 04/11/16 Docusate Sodium [Colace -] 100 mg PO BID 06/23/16 Furosemide [Lasix] 40 mg PO DAILY 06/23/16 Glipizide 10 mg PO DAILY 06/23/16 Sitagliptin Phosphate [Januvia] 100 mg PO DAILY 06/23/16 Metoclopramide HCl [Reglan] 5 mg PO TID 06/26/16 Naproxen [Naprosyn -] 500 mg PO BID #60 tablet 09/06/16 Satellite Physical Exam - Physical Examination Vital Signs: Vital Signs Period Temp Pulse Resp BP Sys/White Pulse Ox Last 24 Hr 97.8 F 75 18 137/68 96 General Appearance: Well Nourished, Well Developed, Alert & Oriented x3 ENT: Clear Lung: Normal air movement Heart: Regular rate & rhythm Extremities: Other (right shoulder- + ttp, decr rom, + neer, + arreaga, + emptyc can, nvi MRI + rct) Neurological: Intact, Alert, Oriented Satellite Impression/Plan - Impression/Plan Impression: right shoulder rct Operative Procedure: right shoulder arthroscopy with SAD and possible rcr Date to be Performed: 09/06/16
[2016-09-06] MEDS ORDERED: HYDROmorphone HCL/PF 1 MG/ML VIAL (FOR PYXIS CHARGING ONLY) ONE (11:51)
[2016-09-06] MEDS ORDERED: ceFAZolin SODIUM 1 GM VIAL IVPB ONE ×2 (11:52→15:09)
[2016-09-06] MEDS ORDERED: DESFLURANE GAS 240 ML BOTTLE IH ONE (12:14)
--- NOTE | 2016-09-06 12:45 | OP ---
Operative Note - Note: Operative Date: 09/06/16 ([facility]) Pre-Operative Diagnosis: right shoulder rct Operation: right shoulder arthroscopy with RCR, SAD Implants: 2 arthrex swivelocks Post-Operative Diagnosis: Same as Pre-op Surgeon: Nick Mariee Meal Cook: Red Bassett Anesthesiologist/SHOT POLISHER: Kartik Santoyo Anesthesia: General, Local Specimens Removed: shavings Estimated Blood Loss (mls): 5 Operative Report Dictated: Yes
[2016-09-06] MEDS ORDERED: CEFAZOLIN (PRE-DOCKED) 50 ML IVPB ONE (13:30)
[2016-09-06 14:21] VITALS: TEMP 98
[2016-09-06] MEDS ORDERED: ceFAZolin SODIUM 1 GM VIAL ONE (15:02)
[2016-09-06 16:34] VITALS: BP 159/73; PULSE 98
--- NOTE | 2016-09-07 14:18 | OP ---
DATE OF OPERATION: 09/06/2016 PREOPERATIVE DIAGNOSIS: Right rotator cuff tear. POSTOPERATIVE DIAGNOSIS: Right rotator cuff tear. PROCEDURE: Arthroscopy, right shoulder, with subacromial decompression and arthroscopic right rotator cuff repair. SURGICAL ATTENDING: Nick Mariee MD MICROBIOLOGY TECHNOLOGIST: MILY Leger ANESTHESIA: LMA. CLOSURE: Two SwiveLocks with FiberWire suture for rotator cuff, 3-0 nylon for skin. ESTIMATED BLOOD LOSS: Negligible. COMPLICATIONS: None. CONDITION: To recovery in stable condition. DESCRIPTION OF OPERATIVE PROCEDURE: Patient taken to the operating room on September 06, 2016. LMA anesthesia was administered by the anesthesiologist. IV Kefzol administered prophylactically prior to the case. Patient was placed in the beach-chair position with all prominences well padded. The right shoulder area was prepped and draped in the usual sterile fashion. First, a diagnostic arthroscopy of the glenohumeral joint was performed. Posterior portal was made 2 fingerbreadths below the acromion first by a 15 blade followed by a blunt trocar. Arthroscopic exam of the glenohumeral joint revealed the following: Intact glenoid and humeral head articular cartilage, intact labrum circumferentially, intact biceps and biceps anchor, no loose bodies in the axillary pouch, intact subscapularis at its insertion. The supraspinatus was torn and was displaced about 1.5 cm from its insertion on the greater tuberosity. The rest of the rotator cuff appeared to be intact. The fluid was drained from the shoulder and the trocars were removed. The posterior trocar was redirected in the subacromial space. An accessory lateral portal was made with a 15 blade followed by a blunt trocar and an anterior portal at the AC joint for docking of sutures. The subacromial space was debrided using a shaver. ArthroCare device was used to clean off the undersurface of the acromion and detach the coracoacromial ligaments from the anterior acromion. An acromioplasty was then performed using the acromionizer bur out to the appropriate level. A shaver and the ArthroCare were used to clean off the rotator cuff and to mobilize the rotator cuff. Despite her advanced age, her rotator cuff was easily mobilizable and was able to be pulled back to its place on the greater tuberosity. The greater tuberosity was cleaned of all soft tissue, exposing good bleeding surface. Four horizontal mattress sutures were placed using the Scorpion needle using FiberWire suture in a fanned-out configuration in the rotator cuff from anterior to posterior. These sutures were docked through the anterior portal. The 2 posterior sutures were fixated through 1 SwiveLock and the 2 anterior ones were fixated through an anterior SwiveLock into the greater tuberosity. Then, the sutures were cut and snugged. Post fixation, the rotator cuff was matted down to the greater tuberosity with no undue tension on the repair. Range of motion showed good clearance of the subacromial space. The shoulder was irrigated and then drained of fluid. The portals were closed using 3-0 nylon. A sterile pressure dressing followed by a shoulder immobilizer was applied. Patient awakened from anesthesia and transferred to recovery in stable condition. No complications. Estimated blood loss: Negligible. Irena [id number]
--- NOTE | 2016-09-07 16:10 | PATH ---
Surgical Pathology Report Patient Name: OMAIRA LUONG [facility]. Rec. #: [id number] /Age/Gender: 1935 (Age: 81) / F Account: [id number] Location: [facility] SURGICAL Taken: 09/06/2016 Received: 09/06/2016 Reported: 09/07/2016 Physicians: Nick Mariee M.D. Specimen(s) Received SHAVINGS RIGHT SHOULDER Clinical History Right shoulder impingement Final Diagnosis SOFT TISSUE, RIGHT SHOULDER, ARTHROSCOPIC SHAVINGS: SYNOVIUM AND FIBROCARTILAGE WITH MYXOHYALINE DEGENERATION. FRAGMENTS OF UNREMARKABLE BONE AND SKELETAL MUSCLE. Electronically Signed Riley Sheets M.D. Gross Description Received in formalin, labeled "right shoulder shavings" is a 4.0 x 2.7 x 0.3 cm aggregate of parker-yellow soft tissue fragments. A commercial pest control representative portion is submitted in one cassette. 09/06/201609/06/2016
== END 2016-09-06 16:36 | disposition home or self-care (01) ==
LOC: JASU-SURG 08:25
PROVIDERS: ATTEND Orthopaedic Surgery
PROC: 0LQ14ZZ Repair Right Shoulder Tendon, Percutaneous Endoscopic Approach (ICD-10-PCS; 2016-09-06)
PROC: 0RNJ4ZZ Release Right Shoulder Joint, Percutaneous Endoscopic Approach (ICD-10-PCS; principal; 2016-09-06 10:30)
DX: M75.101 Unspecified rotator cuff tear or rupture of right shoulder, not specified as traumatic (principal)
CPT/HCPCS: 88304-TC; 94760

== ENCOUNTER 2017-07-25 16:56 | Observation (INO) | payer MEDICARE, OTHER ==
[2017-07-25] MEDS ORDERED: ASPIRIN 81 MG CHEWABLE TABLETS PO ONE (17:31)
--- NOTE | 2017-07-25 17:34 | PDOC ---
History of Present Illness - General Chief Complaint: Chest Pain Stated Complaint: CHEST PAIN Time Seen by Provider: 07/25/17 17:31 - History of Present Illness Initial Comments: 07/25/17 17:33 DM, gastritis, HTN, HLD, anemia, depression, presents with L-sided chest pain described as a pressure on her L anterior chest with intermittent radiation to her arms. She endorses some tingling in her arms during these episodes of radiation "like her arm is asleep." Pt was brought in by ambulance after her visiting nurse found out because the patient and family believe that this is normal for her. Pt and pt's family state that this chest pain began since her became , however within the recent past she has began walking less (half of a block) due to shortness of breath. She endorses some intermittent shortness of breath with her pain at times. She also endorses increasing fatigue throughout the day and even at rest. Pt denies any exacerbated diaphoresis today, jaw claudication, fevers/chills, palpitations, nausea, vomiting, and edematous legs. In addition pt reports undergoing stress test one year ago which revealed: Normal persantine ecg, normal stress test and an echocardiogram with: Normal LVEF and size. PCP: Dr. Doe Cat Scan Tech: Dr. Goodwin Past History - Past Medical History Allergies/Adverse Reactions: Allergies Allergy/AdvReac Type Severity Reaction Status Date / Time No Known Allergies Allergy Verified 07/25/17 17:22 Home Medications: Ambulatory Orders Metformin HCl [Glucophage] 1,000 mg PO BID 04/11/16 Docusate Sodium [Colace -] 100 mg PO BID 06/23/16 Furosemide [Lasix] 40 mg PO DAILY 06/23/16 Glipizide 10 mg PO DAILY 06/23/16 Sitagliptin Phosphate [Januvia] 100 mg PO DAILY 06/23/16 Metoclopramide HCl [Reglan] 5 mg PO TID 06/26/16 Anemia: Yes (h/o blood transfusion) Asthma: No Cancer: No Cardiac Disorders: Yes CVA: No COPD: No CHF: No DVT: No Dementia: No Diabetes: Yes 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, COLON POLYP, DIVERTICULOSIS) Disorders: No HTN: No Hypercholesterolemia: Yes Liver Disease: Yes (FATTY LIVER) Seizures: No Thyroid Disease: No - Surgical History Abdominal Surgery: Yes (UMBILICAL HERNIA REPAIR) Appendectomy: Yes Cardiac Surgery: No Cholecystectomy: Yes Lung Surgery: No Neurologic Surgery: No Orthopedic Surgery: No - Suicide/Smoking/Psychosocial Hx Smoking Status: No Smoking History: Never smoked Have you smoked in the past 12 months: No Number of Cigarettes Smoked Daily: 2 If you are a former smoker, when did you quit?: 10 yrs ago Information on smoking cessation initiated: No Hx Alcohol Use: No Drug/Substance Use Hx: No Substance Use Type: None Hx Substance Use Treatment: No Review of Systems - Review of Systems Constitutional: Yes: Night Sweats. No: Chills, Fever, Weakness HEENTM: No: Blurred Vision, Nose Congestion, Throat Pain Respiratory: Yes: SOB with Exertion. No: Cough, Wheezing Cardiac (ROS): Yes: See HPI, Chest Tightness. No: Edema, Lightheadedness, Palpitations, Syncope ABD/GI: Yes: Abdominal cramping. No: Constipated, Diarrhea, Nausea, Vomiting : Yes: Dysuria, Flank Pain. No: Incontinence Musculoskeletal: Yes: Back Pain. No: Neck Pain Integumentary: No: Pallor, Rash Neurological: Yes: Tingling. No: Headache, Numbness, Ataxia, Dizziness Hematologic/Lymphatic: No: Easy Bleeding, Easy Bruising *Physical Exam - Vital Signs Last Vital Signs Temp Pulse Resp BP Pulse Ox 99.8 F H 95 H 17 153/80 95 07/25/17 17:21 07/25/17 17:21 07/25/17 17:21 07/25/17 17:21 07/25/17 17:24 - Physical Exam Comments: 07/25/17 18:30 GEN: NAD, awake, alert, Latvian-speaking HEENT: EOMI, ABHI, dry-moist mucosa Neck: Soft, no carotid bruits, no JVD CHEST: nonreproducible pain LUNGS: CTA bilaterally, sufficient airway entry CARDIAC: RRR no murmurs appreciated ABD: Diffusely tender, normoactive BS, nondistended, guarding present BACK: L CVA pain EXT: No edema, 2+ DP pulses Heart Score/ECG Review - History History: Slightly suspicious - Electrocardiogram EKG: Non specific repolarization disturbance - Age Age: >/= 65 - Risk Factors Risk Factors Heart Score: Yes Hx Hypercholesterolemia, Yes Hx Hypertension, Yes Hx Diabetes, No Smoking History, No Hx Obesity Based on the list above the patient has:: >/=3 risk factors or Hx atherosclerotic disease #1 07/25/17 18:36 NSR @ 96bpm, nonspecific T wave repolarization abnormality in the inferior leads --Minimally changed from EKG 1 year prior ED Treatment Course - LABORATORY CBC & Chemistry Diagram: 07/25/17 17:40 07/25/17 17:40 Medical Decision Making - Medical Decision Making 07/25/17 18:17 82yo F with L-sided chest discomfort and increasing DUNN with orthopnea --Suspect family and patient are downplaying type and timing of chest pain --Moderately suspicious for ACS; cardiac workup --CBC, CMP, EKG, Cardiac profile, PT/INR, PTT, BNP --CXR --ASA 162mg PO once --Cardiac monitoring --Due to dysuria and endorsement of UTI without records --UA and urine culture EKG - NSR @ 96bpm, nonspecific T wave repolarization abnormality in the inferior leads --Minimally changed from EKG 1 year prior
[2017-07-25] MEDS ORDERED: ASPIRIN 81 MG CHEWABLE TABLETS ONE (17:59)
[2017-07-25 18:01] LABS: BASO % 0.9 % (0-2.0); EOS % 3.5 % (0-4.5); HEMATOCRIT 34.5 % (32.4-45.2); HEMOGLOBIN 11.9 GM/dL (10.7-15.3); LYMPH % 13.3 % (8-40); MCH 28.1 pg (25.7-33.7); MCHC 34.5 g/dl (32.0-36.0); MEAN CELL VOLUME 81.4 fl (80-96); MEAN PLT VOLUME 8.5 fl (7.5-11.1); NEUT % 76.3 % (42.8-82.8); PLATELET COUNT 248 K/MM3 (134-434); RBC 4.24 M/mm3 (3.60-5.2); RDW 14.3 % (11.6-15.6)
[2017-07-25 18:21] LABS: INR 1.05 (0.82-1.09); PROTHROMBIN TIME (PATIENT) 11.9 SEC (9.7-13.0)
[2017-07-25 18:35] LABS: N-TERMINAL BNP 75.86 pg/ml (5-450)
[2017-07-25 18:53] LABS: ANION GAP 7 (8-16); BILIRUBIN,TOTAL 0.5 mg/dL (0.2-1.0); BLOOD UREA NITROGEN 15 mg/dL (7-18); CALCIUM 8.1 mg/dL (8.5-10.1); CHLORIDE 105 mmol/L (98-107); CO2 22 mmol/L (21-32); CREATININE 0.9 mg/dL (0.55-1.02); POTASSIUM 4.2 mmol/L (3.5-5.1); SGOT/AST 16 U/L (15-37); SGPT/ALT 10 U/L (12-78); SODIUM 134 mmol/L (136-145); TOT PROT 6.8 g/dl (6.4-8.2)
[2017-07-25 18:56] LABS: ALK PHOS 177 U/L (45-117)
[2017-07-25 19:16] LABS: GLUCOSE,RANDOM 322 mg/dL (74-106)
--- NOTE | 2017-07-25 19:23 | PDOC ---
*Physical Exam - Vital Signs Last Vital Signs Temp Pulse Resp BP Pulse Ox 99.8 F H 95 H 17 153/80 95 07/25/17 17:21 07/25/17 17:21 07/25/17 17:21 07/25/17 17:21 07/25/17 17:24 - Physical Exam Comments: 07/25/17 20:56 General Appearance: Nourished. No Apparent Distress HEENT: No Pharyngeal Erythema, Tonsillar Exudate, Tonsillar Erythema Neck: No Cervical Lymphadenopathy Respiratory/Chest: Lungs Clear, Normal Breath Sounds. No Crackles, Rales, Rhonchi, Wheezing Cardiovascular: Regular Rhythm, Regular Rate. No Murmur, Gallops, Rubs Gastrointestinal/Abdominal: Normal Bowel Sounds, Soft. No Guarding, Rebound, Tenderness Musculoskeletal: No CVA Tenderness Extremity: Normal Capillary Refill Integumentary: Normal Color, Dry, Warm Neurologic: Fully Oriented, Alert, Normal Mood/Affect, Normal Response, ED Treatment Course - LABORATORY CBC & Chemistry Diagram: 07/25/17 17:40 07/25/17 17:40 - ADDITIONAL ORDERS Additional order review: Laboratory Results 07/25/17 07/25/17 07/25/17 17:57 17:40 17:40 PT with INR INR Sodium 134 L Potassium 4.2 Chloride 105 Carbon Dioxide 22 Anion Gap 7 L BUN 15 Creatinine 0.9 Creat Clearance w eGFR > 60 Random Glucose 322 H* Calcium 8.1 L Magnesium 2.0 Total Bilirubin 0.5 AST 16 ALT 10 L Alkaline Phosphatase 177 H Creatine Kinase 44 Troponin I < 0.02 B-Natriuretic Peptide 75.86 Total Protein 6.8 Albumin 3.0 L Lipase Cancelled 464 H 07/25/17 17:40 PT with INR 11.90 INR 1.05 Sodium Potassium Chloride Carbon Dioxide Anion Gap BUN Creatinine Creat Clearance w eGFR Random Glucose Calcium Magnesium Total Bilirubin AST ALT Alkaline Phosphatase Creatine Kinase Troponin I B-Natriuretic Peptide Total Protein Albumin Lipase 07/25/17 17:40 RBC 4.24 MCV 81.4 MCHC 34.5 RDW 14.3 MPV 8.5 D Neutrophils % 76.3 Lymphocytes % 13.3 D Monocytes % 6.0 D Eosinophils % 3.5 Basophils % 0.9 - Medications Given in the ED: ED Medications Discontinued Medications Generic Name Dose Route Start Last Admin Trade Name Freq PRN Reason Stop Dose Admin Aspirin 162 mg 07/25/17 17:31 07/25/17 18:04 Asa - PO 07/25/17 17:32 162 mg ONCE ONE Administration Progress Note - Progress Note Progress Note: The patient is an 82 year old female with a history of HTN, HLD, DM who presented for evaluation of chest pain and SOB. The patient has been experiencing worsening dyspnea on exertion with associated left sided chest pain over the past week. The patient is pending a troponin, and cmp and will likely be an observation admission given her cardiac risk factors and history. The patient's communications programmer is Dr. Goodwin. Medical Decision Making - Medical Decision Making 07/25/17 20:58 cmp, troponin are unremarkable. We discussed the case with the hospitalist team who accepted the patient for admission. We discussed the results and plan with the patient and her family and they voiced understanding and are agreeable with the plan. *DC/Admit/Observation/Transfer Diagnosis at time of Disposition: SOB (shortness of breath) Chest pain Qualifiers: Chest pain type: unspecified Qualified Code(s): R07.9 - Chest pain, unspecified - Discharge Dispostion Condition at time of disposition: Stable Admit: Yes - Referrals - Patient Instructions - Post Discharge Activity
--- NOTE | 2017-07-25 20:21 | PN ---
Teaching Attending Note Name of Resident: Jenny Farley ATTENDING PHYSICIAN STATEMENT I saw and evaluated the patient. I reviewed the resident's note and discussed the case with the resident. I agree with the resident's findings and plan as documented. SUBJECTIVE: 82 yo F DM, gastritis, HTN, HLD, anemia, depression, presents with L-sided chest pain. States when she touches her chest wall it is very tender. No chest pressure, chest tightness or shortness of breath. No Nausea, vomiting or diarrhea. No fevers or chills. OBJECTIVE: Physical: VS: Vital Signs Period Temp Pulse Resp BP Sys/White Pulse Ox Last 24 Hr 99.8 F 95 17 153/80 95-100 GEN: NAD, Resting in bed, AA0X3 HEENT: NCAT, PERRL, Throat without erythema or exudates CARD: RRR S1, S2, TTP on Left anterior chest wall RESP: CTAB ABD: BSx4, NTD to palption EXT: - C/C/E CBCD WBC 6.0 K/mm3 (4.0-10.0) 07/25/17 17:40 RBC 4.24 M/mm3 (3.60-5.2) 07/25/17 17:40 Hgb 11.9 GM/dL (10.7-15.3) D 07/25/17 17:40 Hct 34.5 % (32.4-45.2) D 07/25/17 17:40 MCV 81.4 fl (80-96) 07/25/17 17:40 MCHC 34.5 g/dl (32.0-36.0) 07/25/17 17:40 RDW 14.3 % (11.6-15.6) 07/25/17 17:40 Plt Count 248 K/MM3 (134-434) D 07/25/17 17:40 MPV 8.5 fl (7.5-11.1) D 07/25/17 17:40 CMP Sodium 134 mmol/L (136-145) L 07/25/17 17:40 Potassium 4.2 mmol/L (3.5-5.1) 07/25/17 17:40 Chloride 105 mmol/L (98-107) 07/25/17 17:40 Carbon Dioxide 22 mmol/L (21-32) 07/25/17 17:40 Anion Gap 7 (8-16) L 07/25/17 17:40 BUN 15 mg/dL (7-18) 07/25/17 17:40 Creatinine 0.9 mg/dL (0.55-1.02) 07/25/17 17:40 Creat Clearance w eGFR > 60 (>60) 07/25/17 17:40 Random Glucose 322 mg/dL (74-106) H* 07/25/17 17:40 Calcium 8.1 mg/dL (8.5-10.1) L 07/25/17 17:40 Total Bilirubin 0.5 mg/dL (0.2-1.0) 07/25/17 17:40 AST 16 U/L (15-37) 07/25/17 17:40 ALT 10 U/L (12-78) L 07/25/17 17:40 Alkaline Phosphatase 177 U/L (45-117) H 07/25/17 17:40 Total Protein 6.8 g/dl (6.4-8.2) 07/25/17 17:40 Albumin 3.0 g/dl (3.4-5.0) L 07/25/17 17:40 CARDIAC ENZYMES Creatine Kinase 44 IU/L (26-192) 07/25/17 17:40 Troponin I < 0.02 ng/ml (0.00-0.05) 07/25/17 17:40 CXR:No Acute Process EKG: NSR, Non-specific T-Wave Flattening Home Medications Medication Instructions Recorded Metformin HCl [Glucophage] 1,000 mg PO BID 04/11/16 Docusate Sodium [Colace -] 100 mg PO BID 06/23/16 Furosemide [Lasix] 40 mg PO DAILY 06/23/16 Glipizide 10 mg PO DAILY 06/23/16 Sitagliptin Phosphate [Januvia] 100 mg PO DAILY 06/23/16 Metoclopramide HCl [Reglan] 5 mg PO TID 06/26/16 ASSESSMENT AND PLAN: 82 yo F DM, gastritis, HTN, HLD, anemia, depression, presents with L-sided chest pain, 1.) Atypical Chest Pain- Costochondritis, Less Likely ACS - NSAIDS - Trend Trop/EKG - Lipid Panel/A1C - ASA given in ED 2.) HTN - Not on any home meds - Monitor BP - Metoprolol 3.) HLD - Check lipid panel 4.) DM - FS - RAISS 5.) DVT PPx - Less <72 hr stay - [facility] Place in Obs-Tele
[2017-07-25] MEDS ORDERED: KETOROLAC TROMETHAMINE 15 MG/ML VIAL IVPUSH PRN (20:44)
[2017-07-25] MEDS ORDERED: DOCUSATE SODIUM 100 MG CAPSULE (FP) PO PRN (20:45)
[2017-07-25] MEDS ORDERED: METOCLOPRAMIDE HCL 10 MG TABLET (FP) PO PRN (20:45)
--- NOTE | 2017-07-25 20:48 | HP ---
CHIEF COMPLAINT: Chest Pain PCP: Dr Doe Drums Teacher: Dr Goodwin HISTORY OF PRESENT ILLNESS: 82yo pleasant Botswanan speaking F with PMHx of IDDM who presented with intermittent, reproducible, midsternal chest pressure. Pain has been present for weeks, but visiting nurse recommended that she come to the ER. She endorses some dyspnea on exertion. Denies diaphoresis, jaw claudication, palpitations, nausea, vomiting, orthopnea. Reports normal stress test in the past. Prior echo last year was wnl. She also endorses mild suprapubic tenderness, bilateral lower back pain and dysuria. In the ER, she was hemodynamically stable with low grade temps. Labs show no leukocytosis. First set of trops were negative. EKG shows no new changes. Not having CP jovanni. UA studies show trace leuk esterase and has a history UTIs in the past Recent Travel: Denies PAST MEDICAL HISTORY: DM, gastritis, anemia, depression, PAST SURGICAL HISTORY: Umbilical hernia repair, appendectomy, cholecystectomy Social History: Smoking: Denies Alcohol: Denies Drugs: Denies Allergies: No Known Allergies Allergy (Verified 07/25/17 17:22) HOME MEDICATIONS: Home Medications Medication Instructions Recorded Metformin HCl [Glucophage] 1,000 mg PO BID 04/11/16 Docusate Sodium [Colace -] 100 mg PO BID 06/23/16 Furosemide [Lasix] 40 mg PO DAILY 06/23/16 Glipizide 10 mg PO DAILY 06/23/16 Sitagliptin Phosphate [Januvia] 100 mg PO DAILY 06/23/16 Metoclopramide HCl [Reglan] 5 mg PO TID 06/26/16 REVIEW OF SYSTEMS CONSTITUTIONAL: Absent: fever, chills, diaphoresis, generalized weakness, malaise, loss of appetite, weight change HEENT: Absent: rhinorrhea, nasal congestion, throat pain, throat swelling, difficulty swallowing, mouth swelling, ear pain, eye pain, visual changes CARDIOVASCULAR: Absent: chest pain, syncope, palpitations, irregular heart rate , lightheadedness, peripheral edema RESPIRATORY: Absent: cough, shortness of breath, dyspnea with exertion, orthopnea, wheezing, stridor, hemoptysis GASTROINTESTINAL:Absent: abdominal pain, abdominal distension, nausea, vomiting , diarrhea, constipation, melena, hematochezia GENITOURINARY: Absent: dysuria, frequency, urgency, hesitancy, hematuria, flank pain, genital pain MUSCULOSKELETAL: Absent: myalgia, arthralgia, joint swelling, back pain, neck pain SKIN: Absent: rash, itching, pallor HEMATOLOGIC/IMMUNOLOGIC: Absent: easy bleeding, easy bruising, lymphadenopathy, frequent infections ENDOCRINE:Absent: unexplained weight gain, unexplained weight loss, heat intolerance, cold intolerance NEUROLOGIC: Absent: headache, focal weakness or paresthesias, dizziness, unsteady gait, seizure, mental status changes, bladder or bowel incontinence PSYCHIATRIC: Absent: anxiety, depression, suicidal or homicidal ideation, hallucinations. PHYSICAL EXAMINATION Vital Signs Period Temp Pulse Resp BP Sys/White Pulse Ox Last 24 Hr 99.8 F 95 17 153/80 95-100 GEN: AAOx3, NAD, Lying comfortably HEENT: PERRLa, EOMi, no JVD CV: S1, S2, RRR, chest wall tenderness LUNG: CTABL ABD: Soft, mild suprapubic tenderness MSK: No edema, no erythema, tenderness to spine and bilateral flank NEURO: CN 2-12 intact, no msk or sensation deficits, no facial droop ASSESSMENT/PLAN: 82yo pleasant Botswanan speaking F with PMHx of IDDM who presented with intermittent, reproducible, midsternal chest pressure. # Chest Pain -- Likely costrochondritis since she has chest wall tenderness. Will treat w/ Toradol PRN. Due to RF, will trend trops and observe on tele. # IDDM -- Hold PO medications. Continue BGMs and ISS ACHS. Diabetic diet # Dysuria -- UA shows trace leuk esterase, but due to clinical symptoms and hx of UTIs in the past will treat for cystitis. Flank tenderness appears to be musculoskeletal because it is bilateral and she has assoc spinal tenderness, but will get renal sono to evaluate further. # Hx of Constipation -- Continue home colace PRN # FEN/PPx -- No IVF, diabetic diet, SCDs # Dispo -- Obs Tele Case d/w Dr Farley & Dr Meron Jacobson MD - [id number] Night Tapp[employer] Adjuster Visit type - Emergency Visit Emergency Visit: Yes ED Registration Date: 07/25/17 Care time: The patient presented to the Emergency Department on the above date and was hospitalized for further evaluation of their emergent condition. - New Patient This patient is new to me today: Yes Date on this admission: 07/26/17 - Critical Care Critical Care patient: No Hospitalist Screening - Colonoscopy Questionnaire Colonoscopy Questionnaire: Colonoscopy Questionnaire - Patient: 50 - 75 years old and never had a screening colonoscopy: Unknown History of colon or rectal polyps, or CA: Unknown History of IBD, Crohn's disease or UC: Unknown History of abdominal radiation therapy as a child: Unknown - Relative: 1 with colon or rectal CA, or polyps at age 60 or younger: Unknown Colon or rectal CA diagnosed at age 45 or younger: Unknown Multiple relatives with colon or rectal CA: Unknown - Outcome: Screening Result: Negative Screen
[2017-07-25] MEDS: INSULIN SLIDING SCALE (NOVOLOG) 1 VIAL SQ SCH (22:13)
[2017-07-25 22:28] VITALS: BMI 27.2
[2017-07-25 23:12] LABS: URINE APPEARANCE CLEAR; URINE BILIRUBIN NEGATIVE (<2.0 mg/dL); URINE BLOOD NEGATIVE (NEGATIVE); URINE COLOR LTYELLOW; URINE GLUCOSE (UA) 3+ (NEGATIVE); URINE KETONE NEGATIVE (NEGATIVE); URINE LEUK ESTERASE TRACE (NEGATIVE); URINE NITRITE NEGATIVE (NEGATIVE); URINE PROTEIN NEGATIVE (NEGATIVE); URINE UROBILINOGEN NEGATIVE mg/dL (0.2-1.0)
[2017-07-25 23:23] LABS: EPI CELLS RARE /HPF (FEW); URINE MUCUS RARE
[2017-07-26] MEDS ORDERED: CEFTRIAXONE 1 GM in DEXTROSE 5%-WATER - 50 ML IVPB ONE (00:11)
[2017-07-26] MEDS ORDERED: cefTRIAXone SODIUM 1 GM VIAL ONE ×2 (00:27→09:55)
[2017-07-26] MEDS ORDERED: DEXTROSE 5%-WATER - 50 ML IVPB ONE ×2 (00:28→09:55)
[2017-07-26] MEDS: INSULIN SLIDING SCALE (NOVOLOG) 1 VIAL SQ SCH ×4 (06:06→22:50)
--- NOTE | 2017-07-26 06:07 | CON.CARD ---
Cardiology Consult (text) - Consultation Consultation Note: FULL CONSULT DICTATED IMP: Atypical CP H/o pericarditis with small effusion, treated Elevated Lipase Low grade fever REC: 1. Echo today 2. Tele x 24 hours, cardiac enzymes all negative. Nuclear stress test April 2016 no ischemia. 3. Work up of low grade fever and elevated lipase as per PMD
[2017-07-26 07:07] LABS: BASO % 0.8 % (0-2.0); HEMATOCRIT 33.8 % (32.4-45.2); HEMOGLOBIN 11.6 GM/dL (10.7-15.3); LYMPH % 14.4 % (8-40); MCHC 34.3 g/dl (32.0-36.0); MEAN CELL VOLUME 81.6 fl (80-96); NEUT % 73.8 % (42.8-82.8); PLATELET COUNT 254 K/MM3 (134-434); RBC 4.14 M/mm3 (3.60-5.2); RDW 14.2 % (11.6-15.6); WHITE BLOOD COUNT 6.1 K/mm3 (4.0-10.0)
[2017-07-26 07:15] LABS: ANION GAP 11 (8-16); BLOOD UREA NITROGEN 13 mg/dL (7-18); CHLORIDE 103 mmol/L (98-107); CO2 21 mmol/L (21-32); GLUCOSE,RANDOM 261 mg/dL (74-106); MAGNESIUM 2.1 mg/dL (1.8-2.4); POTASSIUM 3.8 mmol/L (3.5-5.1); SODIUM 135 mmol/L (136-145)
[2017-07-26 07:18] LABS: CREATININE 0.8 mg/dL (0.55-1.02); PHOSPHOROUS 4.5 mg/dL (2.5-4.9)
[2017-07-26] MEDS: FUROSEMIDE 40 MG TABLET (FP) PO SCH (09:58)
[2017-07-26] MEDS ORDERED: CEFTRIAXONE 1 GM in DEXTROSE 5%-WATER - 50 ML IVPB SCH (10:00)
--- NOTE | 2017-07-26 10:20 | CONS ---
DATE OF CONSULTATION: 07/26/2017 REQUESTING PHYSICIAN: Luís Uribe MD REASON FOR CONSULTATION: Chest pain. HISTORY OF PRESENT ILLNESS: The patient is an 82-year-old female with past medical history of diabetes who also has a history of chronic chest pain and pericarditis treated [place] [address] Cali. Patient underwent a nuclear stress test in 2016, which was negative for ischemia with normal EF. Subsequent echoes showed trivial to small pericardial effusions, and she was treated for presumptive pericarditis. Repeat echocardiogram in December of 2016 showed resolution of pericardial effusion. She now presents to the ER with very atypical chest pain, reproducible upon examination. She denies any significant shortness of breath, nausea, vomiting, or diaphoresis. She denies cough, fevers, or chills. Cardiac enzymes are negative x2, both CPK and troponin, BNP is negative. Chest x-ray showed no acute changes. PAST MEDICAL HISTORY: Diabetes. SURGICAL HISTORY: Status post cholecystectomy. ALLERGIES: None. MEDICATIONS: Include Januvia 100 mg daily, Reglan 5 mg t.i.d., Glucophage 1000 p.o. b.i.d., glipizide 10 mg daily, Lasix 40 mg daily, and Colace 100 mg b.i.d. FAMILY HISTORY: Noncontributory. SOCIAL HISTORY: Patient never smoked. PHYSICAL EXAMINATION: General: She is seen and examined on in no acute distress. She is anicteric Vital signs: Telemetry shows sinus rhythm. Temperature is 99.0 F, blood pressure 123/68, oxygen saturation is 98 on room air. Neck: No JVD. Heart: S1, S2, regular. No murmurs. Chest: Clear. No wheezing. Abdomen: Soft, nontender. No rebound or guarding. Extremities: No edema. LABORATORIES: CBC was normal. INR 1.05. Sodium 135, potassium 3.8, creatinine 0.8, magnesium 2.1. CK and troponin negative x2 sets. BNP 75.9. Lipase elevated at 464. EKG normal sinus rhythm with non-specific ST changes IMPRESSION: 1. Atypical chest pain. 2. History of pericarditis with small effusion, treated. Echocardiogram shows no pericardial effusion. 3. Elevated lipase. 4. Low-grade fever. RECOMMENDATIONS: 1. Follow up office echocardiogram report. 2. Telemetry x24 hours; third cardiac enzyme. Nuclear stress test in 2017 showed no ischemia. At this point, no plan to repeat further ischemic workup. 3. Workup of low-grade fever and elevated lipase as per PMD. Will follow. Thank you for the consult. CHINTAN WISE M.D. [id number]
--- NOTE | 2017-07-26 12:59 | EKG ---
Test Reason : Blood Pressure : / mmHG Vent. Rate : 096 BPM Atrial Rate : 096 BPM P-R Int : 200 ms QRS Dur : 070 ms QT Int : 350 ms P-R-T Axes : 091 054 080 degrees QTc Int : 442 ms NORMAL SINUS RHYTHM NONSPECIFIC T WAVE ABNORMALITY ABNORMAL ECG WHEN COMPARED WITH ECG OF 21-JUN-2016 23:43, PREMATURE SUPRAVENTRICULAR COMPLEXES ARE NO LONGER PRESENT Confirmed by KAMRON MONTANO, KATHERIN ([id number]) on 07/26/2017 12:58:57 PM Referred By: Confirmed By:KATHERIN LUNDY MD
--- NOTE | 2017-07-26 16:31 | PN ---
Physical Exam: SUBJECTIVE: Patient seen and examined No acute events overnight. Patient feels well this morning. OBJECTIVE: Vital Signs Period Temp Pulse Resp BP Sys/White Pulse Ox Last 24 Hr 97.2 F-99.8 F 78-95 17-20 112-153/62-81 95-100 GEN: AAOx3, NAD, Lying comfortably HEENT: PERRLa, EOMi, no JVD CV: S1, S2, RRR, chest wall tenderness LUNG: CTABL ABD: Soft, mild suprapubic tenderness MSK: No edema, no erythema, tenderness to spine and bilateral flank NEURO: CN 2-12 intact, no msk or sensation deficits, no facial droop Laboratory Results - last 24 hr 07/25/17 07/25/17 07/25/17 17:40 17:40 17:40 WBC 6.0 RBC 4.24 Hgb 11.9 D Hct 34.5 D MCV 81.4 MCH 28.1 MCHC 34.5 RDW 14.3 Plt Count 248 D MPV 8.5 D Neutrophils % 76.3 Lymphocytes % 13.3 D Monocytes % 6.0 D Eosinophils % 3.5 Basophils % 0.9 PT with INR 11.90 INR 1.05 Sodium 134 L Potassium 4.2 Chloride 105 Carbon Dioxide 22 Anion Gap 7 L BUN 15 Creatinine 0.9 Creat Clearance w eGFR > 60 POC Glucometer Random Glucose 322 H* Calcium 8.1 L Phosphorus Magnesium 2.0 Total Bilirubin 0.5 AST 16 ALT 10 L Alkaline Phosphatase 177 H Creatine Kinase 44 Troponin I < 0.02 B-Natriuretic Peptide Total Protein 6.8 Albumin 3.0 L Lipase Urine Color Urine Appearance Urine pH Ur Specific [place] Urine Protein Urine Glucose (UA) Urine Ketones Urine Blood Urine Nitrite Urine Bilirubin Urine Urobilinogen Ur Leukocyte Esterase Urine WBC (Auto) Urine RBC (Auto) Ur Epithelial Cells Urine Mucus 07/25/17 07/25/17 07/25/17 17:40 17:57 21:48 WBC RBC Hgb Hct MCV MCH MCHC RDW Plt Count MPV Neutrophils % Lymphocytes % Monocytes % Eosinophils % Basophils % PT with INR INR Sodium Potassium Chloride Carbon Dioxide Anion Gap BUN Creatinine Creat Clearance w eGFR POC Glucometer 286 Random Glucose Calcium Phosphorus Magnesium Total Bilirubin AST ALT Alkaline Phosphatase Creatine Kinase Troponin I B-Natriuretic Peptide 75.86 Total Protein Albumin Lipase 464 H Cancelled Urine Color Urine Appearance Urine pH Ur Specific [place] Urine Protein Urine Glucose (UA) Urine Ketones Urine Blood Urine Nitrite Urine Bilirubin Urine Urobilinogen Ur Leukocyte Esterase Urine WBC (Auto) Urine RBC (Auto) Ur Epithelial Cells Urine Mucus 07/25/17 07/25/17 07/26/17 23:00 23:00 05:41 WBC RBC Hgb Hct MCV MCH MCHC RDW Plt Count MPV Neutrophils % Lymphocytes % Monocytes % Eosinophils % Basophils % PT with INR INR Sodium Potassium Chloride Carbon Dioxide Anion Gap BUN Creatinine Creat Clearance w eGFR POC Glucometer 271 Random Glucose Calcium Phosphorus Magnesium Total Bilirubin AST ALT Alkaline Phosphatase Creatine Kinase 40 Troponin I < 0.02 B-Natriuretic Peptide Total Protein Albumin Lipase Urine Color Ltyellow Urine Appearance Clear Urine pH 7.0 D Ur Specific [place] 1.018 Urine Protein Negative Urine Glucose (UA) 3+ H Urine Ketones Negative Urine Blood Negative Urine Nitrite Negative Urine Bilirubin Negative Urine Urobilinogen Negative Ur Leukocyte Esterase Trace Urine WBC (Auto) 15 Urine RBC (Auto) 1 Ur Epithelial Cells Rare Urine Mucus Rare 07/26/17 07/26/17 07/26/17 06:20 06:20 06:20 WBC 6.1 RBC 4.14 Hgb 11.6 Hct 33.8 MCV 81.6 MCH 28.0 MCHC 34.3 RDW 14.2 Plt Count 254 MPV 9.0 Neutrophils % 73.8 Lymphocytes % 14.4 Monocytes % 6.0 Eosinophils % 5.0 H Basophils % 0.8 PT with INR INR Sodium 135 L Potassium 3.8 Chloride 103 Carbon Dioxide 21 Anion Gap 11 BUN 13 Creatinine 0.8 Creat Clearance w eGFR POC Glucometer Random Glucose 261 H Calcium 9.0 Phosphorus 4.5 Magnesium 2.1 Total Bilirubin AST ALT Alkaline Phosphatase Creatine Kinase 36 Cancelled Troponin I < 0.02 Cancelled B-Natriuretic Peptide Total Protein Albumin Lipase Urine Color Urine Appearance Urine pH Ur Specific [place] Urine Protein Urine Glucose (UA) Urine Ketones Urine Blood Urine Nitrite Urine Bilirubin Urine Urobilinogen Ur Leukocyte Esterase Urine WBC (Auto) Urine RBC (Auto) Ur Epithelial Cells Urine Mucus Active Medications Generic Name Dose Route Start Last Admin Trade Name Freq PRN Reason Stop Dose Admin Docusate Sodium 100 mg 07/25/17 20:45 Colace - PO BID PRN CONSTIPATION Furosemide 40 mg 07/26/17 10:00 07/26/17 09:58 Lasix - PO 40 mg DAILY SARAH Administration Ceftriaxone Sodium 1 gm/ 50 mls @ 200 mls/hr 07/26/17 10:00 07/26/17 10:35 Dextrose IVPB 200 mls/hr DAILY SARAH Administration Protocol Insulin Aspart 1 vial 07/25/17 22:00 07/26/17 11:30 Novolog Vial Sliding Scale - SQ Not Given ACHS SARAH Protocol Ketorolac Tromethamine 15 mg 07/25/17 20:44 Toradol Injection - IVPUSH 07/30/17 20:43 Q6H PRN PAIN LEVEL 6-10 Metoclopramide HCl 5 mg 07/25/17 20:45 Reglan - PO TID PRN NAUSEA ASSESSMENT/PLAN: 82yo pleasant Swazi speaking F with PMHx of IDDM who presented with intermittent, reproducible, midsternal chest pressure. # Chest Pain -- Likely costrochondritis since she has chest wall tenderness. Will treat w/ Toradol PRN. Trops negative x 3 -- echo unremarkable # IDDM -- Hold PO medications. Continue BGMs and ISS ACHS. Diabetic diet # Dysuria -- UA shows trace leuk esterase, but due to clinical symptoms and hx of UTIs in the past will treat for cystitis. -- Continue Ceftriaxone 1g daily, can be dc on keflex 500 mg tid x 4 more days. # Hx of Constipation -- Continue home colace PRN # Elevated lipase and alk phos --RUQ us # FEN/PPx -- No IVF, diabetic diet, SCDs Dispo: if ruq u/s is negative , can be d/c Visit type - Emergency Visit Emergency Visit: Yes ED Registration Date: 07/25/17 Care time: The patient presented to the Emergency Department on the above date and was hospitalized for further evaluation of their emergent condition. - New Patient This patient is new to me today: Yes Date on this admission: 07/26/17 - Critical Care Critical Care patient: No
--- NOTE | 2017-07-26 17:53 | PN ---
Teaching Attending Note Name of Resident: Rocael Hernandez ATTENDING PHYSICIAN STATEMENT I saw and evaluated the patient. I reviewed the resident's note and discussed the case with the resident. I agree with the resident's findings and plan as documented. SUBJECTIVE: OBJECTIVE: Vital Signs Period Temp Pulse Resp BP Sys/White Pulse Ox Last 24 Hr 97.2 F-99.4 F 78-91 18-20 112-140/62-81 97-99 Laboratory Results - last 24 hr 07/25/17 07/25/17 07/25/17 17:40 17:40 17:40 WBC 6.0 RBC 4.24 Hgb 11.9 D Hct 34.5 D MCV 81.4 MCH 28.1 MCHC 34.5 RDW 14.3 Plt Count 248 D MPV 8.5 D Neutrophils % 76.3 Lymphocytes % 13.3 D Monocytes % 6.0 D Eosinophils % 3.5 Basophils % 0.9 PT with INR 11.90 INR 1.05 Sodium 134 L Potassium 4.2 Chloride 105 Carbon Dioxide 22 Anion Gap 7 L BUN 15 Creatinine 0.9 Creat Clearance w eGFR > 60 POC Glucometer Random Glucose 322 H* Calcium 8.1 L Phosphorus Magnesium 2.0 Total Bilirubin 0.5 AST 16 ALT 10 L Alkaline Phosphatase 177 H Creatine Kinase 44 Troponin I < 0.02 B-Natriuretic Peptide Total Protein 6.8 Albumin 3.0 L Lipase Urine Color Urine Appearance Urine pH Ur Specific [place] Urine Protein Urine Glucose (UA) Urine Ketones Urine Blood Urine Nitrite Urine Bilirubin Urine Urobilinogen Ur Leukocyte Esterase Urine WBC (Auto) Urine RBC (Auto) Ur Epithelial Cells Urine Mucus 07/25/17 07/25/17 07/25/17 17:40 17:57 21:48 WBC RBC Hgb Hct MCV MCH MCHC RDW Plt Count MPV Neutrophils % Lymphocytes % Monocytes % Eosinophils % Basophils % PT with INR INR Sodium Potassium Chloride Carbon Dioxide Anion Gap BUN Creatinine Creat Clearance w eGFR POC Glucometer 286 Random Glucose Calcium Phosphorus Magnesium Total Bilirubin AST ALT Alkaline Phosphatase Creatine Kinase Troponin I B-Natriuretic Peptide 75.86 Total Protein Albumin Lipase 464 H Cancelled Urine Color Urine Appearance Urine pH Ur Specific [place] Urine Protein Urine Glucose (UA) Urine Ketones Urine Blood Urine Nitrite Urine Bilirubin Urine Urobilinogen Ur Leukocyte Esterase Urine WBC (Auto) Urine RBC (Auto) Ur Epithelial Cells Urine Mucus 07/25/17 07/25/17 07/26/17 23:00 23:00 05:41 WBC RBC Hgb Hct MCV MCH MCHC RDW Plt Count MPV Neutrophils % Lymphocytes % Monocytes % Eosinophils % Basophils % PT with INR INR Sodium Potassium Chloride Carbon Dioxide Anion Gap BUN Creatinine Creat Clearance w eGFR POC Glucometer 271 Random Glucose Calcium Phosphorus Magnesium Total Bilirubin AST ALT Alkaline Phosphatase Creatine Kinase 40 Troponin I < 0.02 B-Natriuretic Peptide Total Protein Albumin Lipase Urine Color Ltyellow Urine Appearance Clear Urine pH 7.0 D Ur Specific [place] 1.018 Urine Protein Negative Urine Glucose (UA) 3+ H Urine Ketones Negative Urine Blood Negative Urine Nitrite Negative Urine Bilirubin Negative Urine Urobilinogen Negative Ur Leukocyte Esterase Trace Urine WBC (Auto) 15 Urine RBC (Auto) 1 Ur Epithelial Cells Rare Urine Mucus Rare 07/26/17 07/26/17 07/26/17 06:20 06:20 06:20 WBC 6.1 RBC 4.14 Hgb 11.6 Hct 33.8 MCV 81.6 MCH 28.0 MCHC 34.3 RDW 14.2 Plt Count 254 MPV 9.0 Neutrophils % 73.8 Lymphocytes % 14.4 Monocytes % 6.0 Eosinophils % 5.0 H Basophils % 0.8 PT with INR INR Sodium 135 L Potassium 3.8 Chloride 103 Carbon Dioxide 21 Anion Gap 11 BUN 13 Creatinine 0.8 Creat Clearance w eGFR POC Glucometer Random Glucose 261 H Calcium 9.0 Phosphorus 4.5 Magnesium 2.1 Total Bilirubin AST ALT Alkaline Phosphatase Creatine Kinase 36 Cancelled Troponin I < 0.02 Cancelled B-Natriuretic Peptide Total Protein Albumin Lipase Urine Color Urine Appearance Urine pH Ur Specific [place] Urine Protein Urine Glucose (UA) Urine Ketones Urine Blood Urine Nitrite Urine Bilirubin Urine Urobilinogen Ur Leukocyte Esterase Urine WBC (Auto) Urine RBC (Auto) Ur Epithelial Cells Urine Mucus Current Medications Generic Name Dose Route Start Last Admin Trade Name Freq PRN Reason Stop Dose Admin Docusate Sodium 100 mg 07/25/17 20:45 Colace - PO BID PRN CONSTIPATION Furosemide 40 mg 07/26/17 10:00 07/26/17 09:58 Lasix - PO 40 mg DAILY SARAH Administration Ceftriaxone Sodium 1 gm/ 50 mls @ 200 mls/hr 07/26/17 10:00 07/26/17 10:35 Dextrose IVPB 200 mls/hr DAILY SARAH Administration Protocol Insulin Aspart 1 vial 07/25/17 22:00 07/26/17 11:30 Novolog Vial Sliding Scale - SQ Not Given ACHS SARAH Protocol Ketorolac Tromethamine 15 mg 07/25/17 20:44 Toradol Injection - IVPUSH 07/30/17 20:43 Q6H PRN PAIN LEVEL 6-10 Metoclopramide HCl 5 mg 07/25/17 20:45 Reglan - PO TID PRN NAUSEA ASSESSMENT AND PLAN: This is an 82 year old woman with a history of hyperlipidmeia, DM, gastritis, pericarditis who presented to the ED with chest pressure. 1. Chest pain - Likely musculoskeletal - Resolved - Troponin negative x3 - Echo shows normal LV, normal RV, trace TR 2. Elevated lipase, alk phos - Check RUQ US 3. Type 2 DM - Metformin, glipizide, Januvia held - Continue Novolog sliding scale 4. UTI - Continue Rocephin - Urine culture pending 5. Disposition - If RUQ US unremarkable, discharge home on Keflex with follow up with PCP
[2017-07-27] MEDS: INSULIN SLIDING SCALE (NOVOLOG) 1 VIAL SQ SCH ×4 (06:29→21:21)
[2017-07-27 07:43] LABS: CALCIUM 8.9 mg/dL (8.5-10.1); CHLORIDE 103 mmol/L (98-107); POTASSIUM 3.8 mmol/L (3.5-5.1); SODIUM 135 mmol/L (136-145)
[2017-07-27 07:48] LABS: ALBUMIN 3.1 g/dl (3.4-5.0); ALK PHOS 151 U/L (45-117); ANION GAP 10 (8-16); BILIRUBIN,DIRECT 0.3 mg/dL (0.0-0.2); BILIRUBIN,TOTAL 0.5 mg/dL (0.2-1.0); BLOOD UREA NITROGEN 26 mg/dL (7-18); CO2 22 mmol/L (21-32); CREATININE 1.2 mg/dL (0.55-1.02); GLUCOSE,RANDOM 268 mg/dL (74-106); SGOT/AST 13 U/L (15-37); SGPT/ALT 10 U/L (12-78); TOT PROT 6.8 g/dl (6.4-8.2)
--- NOTE | 2017-07-27 08:50 | PN ---
Progress Note, Physician Chief Complaint: TELE: NSR History of Present Illness: comfortable - Current Medication List Current Medications: Active Medications Cephalexin HCl (Keflex -) 500 mg PO TID SARAH Docusate Sodium (Colace -) 100 mg PO BID PRN PRN Reason: CONSTIPATION Furosemide (Lasix -) 40 mg PO DAILY [facility] Last Admin: 07/26/17 09:58 Dose: 40 mg Insulin Aspart (Novolog Vial Sliding Scale -) 1 vial SQ ACHS SARAH PRN Reason: Protocol Last Admin: 07/27/17 06:29 Dose: 6 units Ketorolac Tromethamine (Toradol Injection -) 15 mg IVPUSH Q6H PRN PRN Reason: PAIN LEVEL 6-10 Stop: 07/30/17 20:43 Last Admin: 07/26/17 20:30 Dose: 15 mg Metoclopramide HCl (Reglan -) 5 mg PO TID PRN PRN Reason: NAUSEA - Objective Vital Signs: Vital Signs Temperature 98.5 F 07/27/17 02:00 Pulse Rate 89 07/27/17 06:00 Respiratory Rate 20 07/27/17 06:00 Blood Pressure 110/73 07/27/17 06:00 O2 Sat by Pulse Oximetry (%) 96 07/26/17 21:00 Constitutional: Yes: No Distress, Calm Cardiovascular: Yes: Regular Rate and Rhythm Respiratory: Yes: CTA Bilaterally Gastrointestinal: Yes: Soft Edema: No Neurological: Yes: Alert ...Motor Strength: WNL Psychiatric: Yes: WNL Labs: CBC, BMP 07/26/17 06:20 07/27/17 05:00 INR, PTT INR 1.05 (0.82-1.09) 07/25/17 17:40 Laboratory Tests 07/25/17 07/25/17 07/26/17 17:40 23:00 06:20 Troponin I < 0.02 < 0.02 < 0.02 - ....Imaging EKG: Image Reviewed Other: Other (Echo normal LV fx, no pericardial effusion) Assessment/Plan IMP: Atypical CP: musculoskeletal H/o pericarditis with small effusion, treated: now resolved. Elevated Lipase Low grade fever REC: 1. Echo normal 2. Tele x 24 hours normal. Cardiac enzymes normal. Nuclear stress test April 2016 no ischemia. 3. Work up of low grade fever and elevated lipase as per PMD D/C tele
[2017-07-27] MEDS ORDERED: CEPHALEXIN MONOHYDRATE 500 MG CAPSULE (UD) PO SCH (10:00)
[2017-07-27] MEDS: FUROSEMIDE 40 MG TABLET (FP) PO SCH (10:03)
[2017-07-27 14:05] LABS: LIPASE 398 U/L (73-393)
--- NOTE | 2017-07-27 14:21 | PN ---
Physical Exam: SUBJECTIVE: Patient seen and examined No acute events overnight. Patient complaining of mild epigastric pain this morning. Denies any other complaints OBJECTIVE: Vital Signs Period Temp Pulse Resp BP Sys/White Pulse Ox Last 24 Hr 97.2 F-98.5 F 82-101 18-20 107-140/64-73 96-96 GEN: AAOx3, NAD, Lying comfortably HEENT: PERRL, EOMi, no JVD CV: S1, S2, RRR, chest wall tenderness LUNG: CTABL ABD: Soft, mild epigastric tenderness MSK: No edema, no erythema, tenderness to spine and bilateral flank NEURO: CN 2-12 intact, no msk or sensation deficits, no facial droop Laboratory Results - last 24 hr 07/26/17 07/26/17 07/27/17 17:37 22:45 05:00 Sodium 135 L Potassium 3.8 Chloride 103 Carbon Dioxide 22 Anion Gap 10 BUN 26 H Creatinine 1.2 H POC Glucometer 320 330 Random Glucose 268 H Calcium 8.9 Total Bilirubin 0.5 Direct Bilirubin 0.3 H AST 13 L ALT 10 L Alkaline Phosphatase 151 H Total Protein 6.8 Albumin 3.1 L Lipase 398 H 07/27/17 07/27/17 07/27/17 05:00 05:36 12:19 Sodium Potassium Chloride Carbon Dioxide Anion Gap BUN Creatinine POC Glucometer 290 343 Random Glucose Calcium Total Bilirubin Direct Bilirubin AST ALT Alkaline Phosphatase Total Protein Albumin Lipase Cancelled Active Medications Generic Name Dose Route Start Last Admin Trade Name Freq PRN Reason Stop Dose Admin Docusate Sodium 100 mg 07/25/17 20:45 Colace - PO BID PRN CONSTIPATION Estrogens Conjugated 1 applic 07/27/17 22:00 Premarin Vaginal Cream - VG HS SARAH Furosemide 40 mg 07/26/17 10:00 07/27/17 10:03 Lasix - PO 40 mg DAILY SARAH Administration Insulin Aspart 1 vial 07/25/17 22:00 07/27/17 13:02 Novolog Vial Sliding Scale - SQ 8 units ACHS SARAH Administration Protocol Metoclopramide HCl 5 mg 07/25/17 20:45 Reglan - PO TID PRN NAUSEA ASSESSMENT/PLAN: 82yo pleasant Japanese speaking F with PMHx of IDDM who presented with intermittent, reproducible, midsternal chest pressure. # Chest Pain -- Likely costrochondritis since she has chest wall tenderness. resolved --Dc toradol -- echo unremarkable #STEPHAN, likely 2/2 to toradol -- Will dc toradol and monitor # IDDM -- Hold PO medications. Continue BGMs and ISS ACHS. Diabetic diet # Dysuria, ucx negative, thinking this may be likely to atrophic vaginitis -DC abx and start estrogen cream vaginally hs # Hx of Constipation -- Continue home colace PRN # Elevated lipase and alk phos --RUQ us negative -- starting to have epigastric pain --will obtain CT abd/pelvis with iv contrast to evaluate pancreas # FEN/PPx -- No IVF, diabetic diet, SCDs Dispo: if CT negative and epigastric pain resolves, can be dc in AM Visit type - Emergency Visit Emergency Visit: Yes ED Registration Date: 07/25/17 Care time: The patient presented to the Emergency Department on the above date and was hospitalized for further evaluation of their emergent condition. - New Patient This patient is new to me today: No - Critical Care Critical Care patient: No
--- NOTE | 2017-07-27 19:09 | PN ---
Teaching Attending Note Name of Resident: Rocael Hernandez ATTENDING PHYSICIAN STATEMENT I saw and evaluated the patient. I reviewed the resident's note and discussed the case with the resident. I agree with the resident's findings and plan as documented. SUBJECTIVE: Patient complaining of epigastric pain today. OBJECTIVE: Last Vital Signs Temp Pulse Resp BP Pulse Ox 98.5 F 94 H 20 140/69 96 07/27/17 02:00 07/27/17 10:00 07/27/17 10:00 07/27/17 10:00 07/27/17 10:00 Patient was feeling well yesterday, but today she complains of epigastric pain. chest clear heart rr no M abd soft, positive upper abdominal tenderness in the midline without guarding or rebound tenderness extrem nl Laboratory Results - last 24 hr 07/26/17 07/27/17 07/27/17 22:45 05:00 05:00 Sodium 135 L Potassium 3.8 Chloride 103 Carbon Dioxide 22 Anion Gap 10 BUN 26 H Creatinine 1.2 H POC Glucometer 330 Random Glucose 268 H Calcium 8.9 Total Bilirubin 0.5 Direct Bilirubin 0.3 H AST 13 L ALT 10 L Alkaline Phosphatase 151 H Total Protein 6.8 Albumin 3.1 L Lipase 398 H Cancelled 07/27/17 07/27/17 07/27/17 05:36 12:19 17:14 Sodium Potassium Chloride Carbon Dioxide Anion Gap BUN Creatinine POC Glucometer 290 343 295 Random Glucose Calcium Total Bilirubin Direct Bilirubin AST ALT Alkaline Phosphatase Total Protein Albumin Lipase Current Medications Generic Name Dose Route Start Last Admin Trade Name Freq PRN Reason Stop Dose Admin Docusate Sodium 100 mg 07/25/17 20:45 Colace - PO BID PRN CONSTIPATION Estrogens Conjugated 1 applic 07/27/17 22:00 Premarin Vaginal Cream - VG HS SARAH Insulin Aspart 1 vial 07/25/17 22:00 07/27/17 17:25 Novolog Vial Sliding Scale - SQ 6 units ACHS SARAH Administration Protocol Metoclopramide HCl 5 mg 07/25/17 20:45 Reglan - PO TID PRN NAUSEA ASSESSMENT AND PLAN: This is an 82 year old woman with a history of hyperlipidmeia, DM, gastritis, pericarditis Admitted for evaluation of chest pain, troponins and serial EKGs unremarkable, not c/w ACS 1. Chest pain - Likely musculoskeletal - Resolved - Troponin negative x3 - Echo shows normal LV, normal RV, trace TR 2. Elevated lipase, alk phos - RUQ ultrasound with normal ducts and no stones - today has new epigastric pain with tenderness - repeat lipase down to almost normal - CT A/P done with results pending 3. Type 2 DM - Metformin, glipizide, Januvia held - Continue Novolog sliding scale 4. UTI - Urine culture without significant growth - stop rocephin - start estrogen topical for dysria from likely atrophic vaginitis - f/u physical therapy attendant 5. Disposition - home tomorrow if CT negative and abdominal pain improved
[2017-07-27] MEDS ORDERED: ESTROGENS,CONJUGATE VAGINAL CR 30 GM TUBE VG SCH (22:00)
[2017-07-28] MEDS: INSULIN SLIDING SCALE (NOVOLOG) 1 VIAL SQ SCH ×2 (06:20→12:35)
[2017-07-28 08:03] LABS: BASO % 0.9 % (0-2.0); EOS % 5.6 % (0-4.5); HEMATOCRIT 37.1 % (32.4-45.2); HEMOGLOBIN 12.8 GM/dL (10.7-15.3); LYMPH % 18.8 % (8-40); MCH 28.1 pg (25.7-33.7); MCHC 34.5 g/dl (32.0-36.0); MEAN CELL VOLUME 81.6 fl (80-96); MEAN PLT VOLUME 8.8 fl (7.5-11.1); MONO % 7.5 % (3.8-10.2); NEUT % 67.2 % (42.8-82.8); PLATELET COUNT 291 K/MM3 (134-434); RBC 4.55 M/mm3 (3.60-5.2); RDW 14.4 % (11.6-15.6); WHITE BLOOD COUNT 6.7 K/mm3 (4.0-10.0)
[2017-07-28 08:57] LABS: CHLORIDE 102 mmol/L (98-107); POTASSIUM 3.6 mmol/L (3.5-5.1); SODIUM 135 mmol/L (136-145)
[2017-07-28 09:37] LABS: ALBUMIN 3.2 g/dl (3.4-5.0); ALK PHOS 146 U/L (45-117); ANION GAP 13 (8-16); BILIRUBIN,TOTAL 0.5 mg/dL (0.2-1.0); BLOOD UREA NITROGEN 27 mg/dL (7-18); CALCIUM 9.1 mg/dL (8.5-10.1); CO2 20 mmol/L (21-32); GLUCOSE,RANDOM 274 mg/dL (74-106); SGOT/AST 16 U/L (15-37); SGPT/ALT 10 U/L (12-78)
--- NOTE | 2017-07-28 10:16 | PN ---
Physical Exam: SUBJECTIVE: Patient seen and examined OBJECTIVE: Vital Signs Temperature 98 F 07/28/17 09:44 Pulse Rate 84 07/28/17 09:44 Respiratory Rate 18 07/28/17 09:44 Blood Pressure 106/58 07/28/17 09:44 O2 Sat by Pulse Oximetry (%) 98 07/27/17 20:09 GENERAL: The patient is awake, alert, and fully oriented, in no acute distress. HEAD: Normal with no signs of trauma. EYES: PERRL, extraocular movements intact, sclera anicteric, conjunctiva clear. No ptosis. ENT: Ears normal, nares patent, oropharynx clear without exudates, moist mucous membranes. NECK: Trachea midline, full range of motion, supple. LUNGS: Breath sounds equal, clear to auscultation bilaterally, no wheezes, no crackles, no accessory muscle use. HEART: Regular rate and rhythm, S1, S2 without murmur, rub or gallop. ABDOMEN: Soft, nontender, nondistended, normoactive bowel sounds, no guarding, no rebound, no hepatosplenomegaly, no masses. EXTREMITIES: 2+ pulses, warm, well-perfused, no edema. NEUROLOGICAL: Cranial nerves II through XII grossly intact. Normal speech, gait not observed. PSYCH: Normal mood, normal affect. SKIN: Warm, dry, normal turgor, no rashes or lesions noted CBCD WBC 6.7 K/mm3 (4.0-10.0) 07/28/17 06:50 RBC 4.55 M/mm3 (3.60-5.2) 07/28/17 06:50 Hgb 12.8 GM/dL (10.7-15.3) D 07/28/17 06:50 Hct 37.1 % (32.4-45.2) 07/28/17 06:50 MCV 81.6 fl (80-96) 07/28/17 06:50 MCHC 34.5 g/dl (32.0-36.0) 07/28/17 06:50 RDW 14.4 % (11.6-15.6) 07/28/17 06:50 Plt Count 291 K/MM3 (134-434) 07/28/17 06:50 MPV 8.8 fl (7.5-11.1) 07/28/17 06:50 CMP Sodium 135 mmol/L (136-145) L 07/28/17 06:50 Potassium 3.6 mmol/L (3.5-5.1) 07/28/17 06:50 Chloride 102 mmol/L (98-107) 07/28/17 06:50 Carbon Dioxide 20 mmol/L (21-32) L 07/28/17 06:50 Anion Gap 13 (8-16) 07/28/17 06:50 BUN 27 mg/dL (7-18) H 07/28/17 06:50 Creatinine 1.0 mg/dL (0.55-1.02) 07/28/17 06:50 Creat Clearance w eGFR 53.21 (>60) 07/28/17 06:50 Random Glucose 274 mg/dL (74-106) H 07/28/17 06:50 Calcium 9.1 mg/dL (8.5-10.1) 07/28/17 06:50 Total Bilirubin 0.5 mg/dL (0.2-1.0) 07/28/17 06:50 AST 16 U/L (15-37) 07/28/17 06:50 ALT 10 U/L (12-78) L 07/28/17 06:50 Alkaline Phosphatase 146 U/L (45-117) H 07/28/17 06:50 Total Protein 7.0 g/dl (6.4-8.2) 07/28/17 06:50 Albumin 3.2 g/dl (3.4-5.0) L 07/28/17 06:50 CARDIAC ENZYMES Creatine Kinase 36 IU/L (26-192) 07/26/17 06:20 Troponin I < 0.02 ng/ml (0.00-0.05) 07/26/17 06:20 Active Medications Generic Name Dose Route Start Last Admin Trade Name Freq PRN Reason Stop Dose Admin Docusate Sodium 100 mg 07/25/17 20:45 Colace - PO BID PRN CONSTIPATION Estrogens Conjugated 1 applic 07/27/17 22:00 07/27/17 21:23 Premarin Vaginal Cream - VG 1 applic HS SARAH Administration Insulin Aspart 1 vial 07/25/17 22:00 07/28/17 06:20 Novolog Vial Sliding Scale - SQ 8 units ACHS SARAH Administration Protocol Metoclopramide HCl 5 mg 07/25/17 20:45 Reglan - PO TID PRN NAUSEA Home Medications Medication Instructions Recorded Metformin HCl [Glucophage] 1,000 mg PO BID 04/11/16 Docusate Sodium [Colace -] 100 mg PO BID 06/23/16 Furosemide [Lasix] 40 mg PO DAILY 06/23/16 Glipizide 10 mg PO DAILY 06/23/16 Sitagliptin Phosphate [Januvia] 100 mg PO DAILY 06/23/16 Metoclopramide HCl [Reglan] 5 mg PO TID 06/26/16 Cephalexin [Keflex] 500 mg PO TID #12 capsule 07/26/17 ASSESSMENT/PLAN: This is an 82 year old woman with a history of hyperlipidmeia, DM, gastritis, pericarditis Admitted for evaluation of chest pain, troponins and serial EKGs unremarkable, not c/w ACS 1. Chest pain - Likely musculoskeletal - Resolved - Troponin negative x3 - Echo shows normal LV, normal RV, trace TR 2. Elevated lipase, alk phos - RUQ ultrasound with normal ducts and no stones - today has new epigastric pain with tenderness - repeat lipase down to almost normal - CT A/P done with results pending 3. Type 2 DM - Metformin, glipizide, Januvia held - Continue Novolog sliding scale 4. UTI - Urine culture without significant growth - stop rocephin - start estrogen topical for dysria from likely atrophic vaginitis - f/u business practices supervisor 5. Disposition - home tomorrow if CT negative and abdominal pain improved
[2017-07-28] MEDS ORDERED: INSULIN (NOVOLOG) ASPART 100 UNITS/ML 10ML VIAL ONE (12:05)
--- NOTE | 2017-07-28 12:30 | DS ---
Physical Exam: SUBJECTIVE: Patient seen and examined Patient is comfortable ,has no further epigastric pain, no nausea or vomiting Vital Signs Temperature 98 F 07/28/17 09:44 Pulse Rate 84 07/28/17 09:44 Respiratory Rate 18 07/28/17 09:44 Blood Pressure 106/58 07/28/17 09:44 O2 Sat by Pulse Oximetry (%) 98 07/27/17 20:09 GENERAL: The patient is awake, alert, and fully oriented, in no acute distress. HEAD: Normal with no signs of trauma. EYES: PERRL, extraocular movements intact, sclera anicteric, conjunctiva clear. ENT: Ears normal, oropharynx clear without exudates, moist mucous membranes. NECK: Trachea midline, full range of motion, supple. LUNGS: Breath sounds equal, clear to auscultation bilaterally, no wheezes, no crackles, no accessory muscle use. HEART: Regular rate and rhythm, S1, S2 without murmur, rub or gallop. ABDOMEN: Soft, mild epigastric tenderness on deep palpation , ND, large abdomen ,normoactive bowel sounds, no guarding, no rebound, no hepatosplenomegaly, no masses appreciated. EXTREMITIES: 2+ pulses, warm, well-perfused, no edema. NEUROLOGICAL: Cranial nerves II through XII grossly intact. Normal speech, gait not observed. PSYCH: Normal mood, normal affect. SKIN: Warm, dry, normal turgor, no rashes or lesions noted CBCD WBC 6.7 K/mm3 (4.0-10.0) 07/28/17 06:50 RBC 4.55 M/mm3 (3.60-5.2) 07/28/17 06:50 Hgb 12.8 GM/dL (10.7-15.3) D 07/28/17 06:50 Hct 37.1 % (32.4-45.2) 07/28/17 06:50 MCV 81.6 fl (80-96) 07/28/17 06:50 MCHC 34.5 g/dl (32.0-36.0) 07/28/17 06:50 RDW 14.4 % (11.6-15.6) 07/28/17 06:50 Plt Count 291 K/MM3 (134-434) 07/28/17 06:50 MPV 8.8 fl (7.5-11.1) 07/28/17 06:50 CMP Sodium 135 mmol/L (136-145) L 07/28/17 06:50 Potassium 3.6 mmol/L (3.5-5.1) 07/28/17 06:50 Chloride 102 mmol/L (98-107) 07/28/17 06:50 Carbon Dioxide 20 mmol/L (21-32) L 07/28/17 06:50 Anion Gap 13 (8-16) 07/28/17 06:50 BUN 27 mg/dL (7-18) H 07/28/17 06:50 Creatinine 1.0 mg/dL (0.55-1.02) 07/28/17 06:50 Creat Clearance w eGFR 53.21 (>60) 07/28/17 06:50 Random Glucose 274 mg/dL (74-106) H 07/28/17 06:50 Calcium 9.1 mg/dL (8.5-10.1) 07/28/17 06:50 Total Bilirubin 0.5 mg/dL (0.2-1.0) 07/28/17 06:50 AST 16 U/L (15-37) 07/28/17 06:50 ALT 10 U/L (12-78) L 07/28/17 06:50 Alkaline Phosphatase 146 U/L (45-117) H 07/28/17 06:50 Total Protein 7.0 g/dl (6.4-8.2) 07/28/17 06:50 Albumin 3.2 g/dl (3.4-5.0) L 07/28/17 06:50 CARDIAC ENZYMES Creatine Kinase 36 IU/L (26-192) 07/26/17 06:20 Troponin I < 0.02 ng/ml (0.00-0.05) 07/26/17 06:20 Active Medications Generic Name Dose Route Start Last Admin Trade Name Freq PRN Reason Stop Dose Admin Docusate Sodium 100 mg 07/25/17 20:45 Colace - PO BID PRN CONSTIPATION Estrogens Conjugated 1 applic 07/27/17 22:00 07/27/17 21:23 Premarin Vaginal Cream - VG 1 applic HS SARAH Administration Insulin Aspart 1 vial 07/25/17 22:00 07/28/17 06:20 Novolog Vial Sliding Scale - SQ 8 units ACHS SARAH Administration Protocol Metoclopramide HCl 5 mg 07/25/17 20:45 Reglan - PO TID PRN NAUSEA Home Medications Medication Instructions Recorded Metformin HCl [Glucophage] 1,000 mg PO BID 04/11/16 Docusate Sodium [Colace -] 100 mg PO BID 06/23/16 Furosemide [Lasix] 40 mg PO DAILY 06/23/16 Glipizide 10 mg PO DAILY 06/23/16 Sitagliptin Phosphate [Januvia] 100 mg PO DAILY 06/23/16 Metoclopramide HCl [Reglan] 5 mg PO TID 06/26/16 Cephalexin [Keflex] 500 mg PO TID #12 capsule 07/26/17 HOSPITAL COURSE: Date of Admission:07/25/17 Date of Discharge: 07/28/17 This is an 82 year old woman with a history of hyperlipidmeia, DM, gastritis, pericarditis, Patient was admitted with chest pain with negative troponins and serial EKGs were unremarkable, ACS was rulled out. Echo shows normal LV, normal RV, trace TR # Epigastric pain with elevated lipase and alk phos , RUQ ultrasound with normal ducts and no stones, CT of the abdomen is done which was reported positive 0.3cm CBD stone s/p cholecystectomy, with 0.7cm CBD dilation, aLso reported 1cm enhancing focus noted on the segment of right hepatic lobe inferiorly. Discussed with , is given an appointment for this Sunday on August 01, 2017 at 9am. Patient is aware, son at bedside. Result of CT was discussed with . # Type 2 DM on Metformin, glipizide, Januvia , patient had a CT abdomen and Pelvis with IV contrast, will hold Metformin till Sunday. # UTI asymptomatic , no further treatment, patient on estrogen topical for dysuria from likely atrophic vaginitis, f/u clam dredger discharge patient home, discharge time is 45minutes. Minutes to complete discharge: 45 Discharge Summary Reason For Visit: SHORTNESS OF BREATH, CHEST PAIN Current Active Problems Cystitis (Acute) Diabetes mellitus (Chronic) HLD (hyperlipidemia) (Chronic) HTN (hypertension) (Chronic) Condition: Stable - Instructions Diet, Activity, Other Instructions: You were in the hospital for atypical chest pain and a UTI. Please follow up with your primary care provider within 1 week. Please follow up with your mid level developer within 1 week. A referral has been provided for the mid level developer you saw in the hospital. Continue your home medications as prescribed. Start taking keflex 500 mg three times a day for 4 more days. (Last day of abx - 07/30/17) If you have severe chest pain, shortness of breath, or any new/worsening symptoms please come back to the hospital immediately. Referrals: Kartik Goodwin MD [Staff Physician] - 1 Week Alex Santana MD [Staff Physician] - Genet Sneed MD [Staff Physician] - Disposition: HOME - Home Medications Comprehensive Discharge Medication List: Ambulatory Orders Metformin HCl [Glucophage] 1,000 mg PO BID 04/11/16 Docusate Sodium [Colace -] 100 mg PO BID 06/23/16 Furosemide [Lasix] 40 mg PO DAILY 06/23/16 Glipizide 10 mg PO DAILY 06/23/16 Sitagliptin Phosphate [Januvia] 100 mg PO DAILY 06/23/16 Metoclopramide HCl [Reglan] 5 mg PO TID 06/26/16 Cephalexin [Keflex] 500 mg PO TID #12 capsule 07/26/17 This patient is new to me today: Yes Date on this admission: 07/28/17 Emergency Visit: Yes ED Registration Date: 07/25/17 Care time: The patient presented to the Emergency Department on the above date and was hospitalized for further evaluation of their emergent condition. Critical Care patient: No - Discharge Referral Referred to [facility] No
[2017-07-28] MEDS ORDERED: sitaGLIPtin PHOSPHATE 100 MG TABLET (FP) PO ONE (13:45)
[2017-07-28 13:57] VITALS: BP 100/60; PULSE 80; TEMP 98.7
== END 2017-07-28 14:29 | disposition home or self-care (01) ==
LOC: JER 16:56 → JERBED 20:08 → J4W 21:31
PROVIDERS: ADMIT Internal Medicine; ATTEND Internal Medicine
PROC: 3E03329 Introduction of Other Anti-infective into Peripheral Vein, Percutaneous Approach (ICD-10-PCS; principal; 2017-07-25)
PROC: 3E0333Z Introduction of Anti-inflammatory into Peripheral Vein, Percutaneous Approach (ICD-10-PCS; 2017-07-25)
PROC: 3E013VG Introduction of Insulin into Subcutaneous Tissue, Percutaneous Approach (ICD-10-PCS; 2017-07-25)
DX: R07.89 Other chest pain (principal); I10 Essential (primary) hypertension; E78.5 Hyperlipidemia, unspecified; E11.9 Type 2 diabetes mellitus without complications; D64.9 Anemia, unspecified; F32.9 Major depressive disorder, single episode, unspecified; K76.0 Fatty (change of) liver, not elsewhere classified; M94.0 Chondrocostal junction syndrome [Tietze]; R74.8 Abnormal levels of other serum enzymes; N17.9 Acute kidney failure, unspecified; N30.90 Cystitis, unspecified without hematuria
CPT/HCPCS: 36415; 71045-TC-FY; 74170-TC; 76705-TC; 76775-TC; 80048; 80053; 80076; 81003; 81015; 82550; 82962; 83690; 83735; 83880; 84100; 84484; 85025; 85610; 87086; 93005; 93010; 93306-TC; 96372; 96374; 96375; 96376; 99282-25; G0378; J1410

== ENCOUNTER 2018-05-28 16:14 | Inpatient (IN) | payer MEDICARE, OTHER ==
[2018-05-28 16:42] VITALS: BMI 26.2
--- NOTE | 2018-05-28 19:24 | PDOC ---
History of Present Illness - General History Source: Patient Exam Limitations: Language Barrier ([employer] interpretor#[id number]) - History of Present Illness Initial Comments: 05/28/18 20:18 83 yr old pakistani speaking woman with HTN, DM, arthritis presents with headache and right facial droop for past 2 days. She was seen by her PCP today and referred to the ed for further evaluation. pt has had continuous pounding headache all over her head. the facial droop occurred 2 days ago a/w burning in her right eye and drooling from the right side of her mouth. She has been able to eat, drink, walk and talk as per her usual. she has had headaches in the past, recently in december while she was in [place]. denies any recent URI symptoms, viral-like illnesses, trauma, weightloss, fevers , cough, chest pain, rashes, chest pain. BGM's at home have been around 130's. when reviewing her medications, she had 2 bottles of levothyroxine, one that was 25mg from Dr. Cristobal and one that was 50mg from Dr. Bangura, pt has been taking both doses once in the morning and one at night. pmhx: DMII, hypothyroidism, HTN, Surghx: appendectomy, Lap Trudi, umbilical hernia, cataract surgery, right rotator cuff tear repair , CAD s/p RUDY <Linda Knott - Last Filed: 05/28/18 21:54> <Tenisha Simpson - Last Filed: 05/28/18 23:06> - General Chief Complaint: Weakness Stated Complaint: R/O STROKE Time Seen by Provider: 05/28/18 19:24 Past History - Travel Traveled outside of the country in the last 30 days: No Close contact w/someone who was outside of country & ill: No - Past Medical History Anemia: Yes (h/o blood transfusion) Asthma: No Cancer: No Cardiac Disorders: Yes CVA: No COPD: No CHF: No DVT: No Dementia: No Diabetes: Yes 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, COLON POLYP, DIVERTICULOSIS) Disorders: No HTN: Yes Hypercholesterolemia: Yes Liver Disease: Yes (FATTY LIVER) Seizures: No Thyroid Disease: No - Surgical History Abdominal Surgery: Yes (UMBILICAL HERNIA REPAIR) Appendectomy: Yes Cardiac Surgery: No Cholecystectomy: Yes Lung Surgery: No Neurologic Surgery: No Orthopedic Surgery: No - Suicide/Smoking/Psychosocial Hx Smoking Status: No Smoking History: Never smoked Have you smoked in the past 12 months: No Number of Cigarettes Smoked Daily: 2 If you are a former smoker, when did you quit?: 10 yrs ago Information on smoking cessation initiated: No Hx Alcohol Use: No Drug/Substance Use Hx: No Substance Use Type: None Hx Substance Use Treatment: No <Linda Knott - Last Filed: 05/28/18 21:54> <Tenisha Simpson - Last Filed: 05/28/18 23:06> - Past Medical History Allergies/Adverse Reactions: Allergies Allergy/AdvReac Type Severity Reaction Status Date / Time No Known Allergies Allergy Verified 07/25/17 17:22 Home Medications: Ambulatory Orders Metformin HCl [Glucophage] 1,000 mg PO BID 04/11/16 Docusate Sodium [Colace -] 100 mg PO BID 06/23/16 Furosemide [Lasix] 40 mg PO DAILY 06/23/16 Glipizide 10 mg PO DAILY 06/23/16 Sitagliptin Phosphate [Januvia] 100 mg PO DAILY 06/23/16 Estrogens,Conjugated [Premarin Vaginal Cream -] 1 applic VG HS tube 07/28/17 Review of Systems - Review of Systems Constitutional: No: Fever, Loss of Appetite, Weight Stable HEENTM: Yes: Blurred Vision, Tinnitus (right ear). No: Double Vision, Nose Bleeding, Hearing Loss, Throat Pain, Throat Swelling, Difficulty Swallowing Respiratory: No: Cough, Shortness of Breath, Wheezing, Productive cough Cardiac (ROS): Yes: Lightheadedness. No: Chest Pain, Edema, Palpitations, Syncope, Chest Tightness ABD/GI: No: Constipated, Diarrhea, Difficulty Swallowing, Nausea, Poor Appetite , Vomiting, Abdominal cramping : No: Dysuria, Discharge Musculoskeletal: No: Back Pain, Muscle Weakness, Neck Pain Integumentary: No: Change in Color, Erythema, Flushing Neurological: Yes: Headache, Tingling, Dizziness. No: Paresthesia, Tremors <Linda Knott - Last Filed: 05/28/18 21:54> *Physical Exam - Vital Signs Last Vital Signs Temp Pulse Resp BP Pulse Ox 97.9 F 77 16 158/100 96 05/28/18 16:40 05/28/18 16:40 05/28/18 16:40 05/28/18 16:40 05/28/18 16:40 - Physical Exam General Appearance: Yes: Mild Distress HEENT: positive: EOMI, GUILLERMINA, Normal Voice, Other (right nasolabial flattening, ptosis of the right eye, decr movement of forehead wrinkles. tongue symmetrical , decr sensation on the right side of her face both upper and lower). negative : Thrush Neck: positive: Trachea midline, Normal Thyroid Respiratory/Chest: positive: Lungs Clear, Normal Breath Sounds. negative: Crackles, Rhonchi, Wheezing <Linda Knott - Last Filed: 05/28/18 21:54> - Vital Signs Last Vital Signs Temp Pulse Resp BP Pulse Ox 97.9 F 77 16 158/100 96 05/28/18 16:40 05/28/18 16:40 05/28/18 16:40 05/28/18 16:40 05/28/18 16:40 <Tenisha Simpson - Last Filed: 05/28/18 23:06> Moderate Sedation - Procedure Monitoring Vital Signs: Procedure Monitoring Vital Signs Temperature 97.9 F 05/28/18 16:40 Pulse Rate 77 05/28/18 16:40 Respiratory Rate 16 05/28/18 16:40 Blood Pressure 158/100 05/28/18 16:40 O2 Sat by Pulse Oximetry (%) 96 05/28/18 16:40 <Linda Knott - Last Filed: 05/28/18 21:54> - Procedure Monitoring Vital Signs: Procedure Monitoring Vital Signs Temperature 97.9 F 05/28/18 16:40 Pulse Rate 77 05/28/18 16:40 Respiratory Rate 16 05/28/18 16:40 Blood Pressure 158/100 05/28/18 16:40 O2 Sat by Pulse Oximetry (%) 96 05/28/18 16:40 <Tenisha Simpson - Last Filed: 05/28/18 23:06> ED Treatment Course - Medications Given in the ED: ED Medications Discontinued Medications Generic Name Dose Route Start Last Admin Trade Name Freq PRN Reason Stop Dose Admin Acetaminophen 975 mg 05/28/18 21:41 05/28/18 21:55 Tylenol - PO 05/28/18 21:42 975 mg ONCE STA Administration <Tenisha Simpson - Last Filed: 05/28/18 23:06> Medical Decision Making - Medical Decision Making 05/28/18 21:21 83 yr old woman with DMII, HTN, hypothyroidism presents with facial droop and headache. diffs include stroke and bells palsy check cbc, cmp, lyme ab, head CT check tsh given pt's incr dose of levothyroxine TOP CAGER's name is Claudia Kern [phone], she is also pakistani speaking only 62yr old son's name is Enoc [phone], he [place]. <Linda Knott - Last Filed: 05/28/18 21:54> *DC/Admit/Observation/Transfer <iLnda Knott - Last Filed: 05/28/18 21:54> <Tenisha Simpson - Last Filed: 05/28/18 23:06> Diagnosis at time of Disposition: Quesada's palsy - Discharge Dispostion Condition at time of disposition: Stable - Referrals Referrals: Genet Sneed MD [Primary Care Provider] - Bryant Jacobs MD [Staff Physician] - - Patient Instructions Printed Discharge Instructions: DI for Quesada's Palsy Print Language: [place] - Post Discharge Activity
--- NOTE | 2018-05-28 20:17 | PDOC ---
Attending Attestation - HPI HPI: 05/28/18 21:53 The patient is an 83 year old female with a significant past medical history of HTN, DM, arthritis, gastritis, cad s/p RUDY, appendectomy, cholecystectomy, and umbilical hernia who presents to the emergency department sent by her PCP Dr. Dahl for evaluation of right sided facial droop with numbness for the last 2 days. Patient reports a 2 day history of right sided facial droop associated with a pounding headache and dizziness. Denies chest pain, fevers, cough, hematuria, weight loss, or dysphagia. - Physicial Exam PE: Wnwd 83 y/o F in no acute distress head ncat, (+) right facial droop with flattening on nasal facial fold. (+) Slight weakness in right eye lid neck supple Oropharynx no bruits or JVD. Heart RRR. No gallops, murmurs, or rubs. lungs clear to auscultation bilaterally abd soft,nontender ext no e/c/c, MAEx4 skin warm and dry,no rashes neuro A&Ox3,no gross focal neuro deficits, No drift in extremities. - Medical Decision Making 05/28/18 21:53 Documentation prepared by Javier Goode, acting as medical writer for Tenisha Simpson MD. <Javier Goode - Last Filed: 05/28/18 21:53> - Resident Resident Name: Linda Knott - ED Attending Attestation I have performed the following: I have examined & evaluated the patient, The case was reviewed & discussed with the resident, I agree w/resident's findings & plan, Exceptions are as noted - HPI HPI: 05/28/18 20:15 this 83 yo female sent by Dr Doe for eval of 2 days of rt sided facial numbness and headache. Pt is alert and ambulatory - Medical Decision Making 05/28/18 20:17 Besides the rt facial droop ,this pt has no focal neuro deficits 05/28/18 20:17 She has no constitutional complaints plan ct scan head 05/28/18 22:53 ct scan of head: there is NO Intracranial hemorrhage seen. There is no extra- axial fluid collection. No discrete infarct is identified. There is no obvious mass lesion. And additional changes are noted with mild ventricular dilatation. The calvarium appears intact. Partially image paranasal sinuses demonstrate no opacification 05/29/18 02:33 05/29/18 03:24 UA reveals UTI pt strated on antibiotics/pt admitted <Tenisha Simpson - Last Filed: 05/29/18 03:25>
[2018-05-28] MEDS ORDERED: ACETAMINOPHEN 500 MG TABLET (FP) PO STA (21:41)
[2018-05-28] MEDS ORDERED: ACETAMINOPHEN 325 MG TABLET (FP) ONE (21:45)
[2018-05-28] MEDS ORDERED: predniSONE 20 MG TABLET (UD) PO ONE (23:07)
[2018-05-29] MEDS ORDERED: predniSONE 20 MG TABLET (UD) ONE (00:05)
[2018-05-29 00:23] LABS: URINE APPEARANCE CLOUDY; URINE BILIRUBIN NEGATIVE (<2.0 mg/dL); URINE COLOR YELLOW; URINE GLUCOSE (UA) NEGATIVE (NEGATIVE); URINE KETONE NEGATIVE (NEGATIVE); URINE LEUK ESTERASE 3+ (NEGATIVE); URINE NITRITE POSITIVE (NEGATIVE); URINE PROTEIN NEGATIVE (NEGATIVE); URINE UROBILINOGEN NEGATIVE mg/dL (0.2-1.0)
[2018-05-29 00:30] LABS: EPI CELLS RARE /HPF (FEW); URINE BACTERIA MODERATE /hpf (NONE SEEN); URINE MUCUS RARE
[2018-05-29 00:40] LABS: BASO % 0.7 % (0-2.0); EOS % 3.5 % (0-4.5); HEMATOCRIT 33.6 % (32.4-45.2); HEMOGLOBIN 11.7 GM/dL (10.7-15.3); LYMPH % 19.5 % (8-40); MCH 27.8 pg (25.7-33.7); MCHC 34.7 g/dl (32.0-36.0); MEAN CELL VOLUME 80.1 fl (80-96); MEAN PLT VOLUME 8.7 fl (7.5-11.1); MONO % 7.5 % (3.8-10.2); NEUT % 68.8 % (42.8-82.8); PLATELET COUNT 276 K/MM3 (134-434); RBC 4.19 M/mm3 (3.60-5.2); RDW 19.8 % (11.6-15.6); WHITE BLOOD COUNT 6.6 K/mm3 (4.0-10.0)
[2018-05-29 01:11] LABS: ALBUMIN 2.9 g/dl (3.4-5.0); ALK PHOS 115 U/L (45-117); ANION GAP 7 MMOL/L (8-16); BILIRUBIN,TOTAL 0.4 mg/dL (0.2-1); BLOOD UREA NITROGEN 14 mg/dL (7-18); CALCIUM 8.3 mg/dL (8.5-10.1); CHLORIDE 108 mmol/L (98-107); CO2 24 mmol/L (21-32); CREATININE 0.8 mg/dL (0.55-1.3); GLUCOSE,RANDOM 126 mg/dL (74-106); POTASSIUM 3.7 mmol/L (3.5-5.1); SGOT/AST 11 U/L (15-37); SGPT/ALT 8 U/L (13-61); SODIUM 138 mmol/L (136-145); TOT PROT 6.4 g/dl (6.4-8.2)
[2018-05-29] MEDS ORDERED: valACYclovir HCL 1000 MG TABLET PO ONE (01:53)
[2018-05-29] MEDS ORDERED: valACYclovir HCL 500 MG TABLET (FP) ONE ×2 (02:04→06:34)
--- NOTE | 2018-05-29 02:14 | PN ---
Teaching Attending Note Name of Resident: Bina Arroyo ATTENDING PHYSICIAN STATEMENT I saw and evaluated the patient. I reviewed the resident's note and discussed the case with the resident. I agree with the resident's findings and plan as documented. SUBJECTIVE: Seen and examined; please refer to resident note for further historical information. Patient lives at home and has an aide. She normally is seen at [address] [place] [address]. She has history of HTN, DM, arthritis. Severe R-sided SLADE w/ facial droop for 48 hours. 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 Has a UA that is strongly suggestive of UTI. Her PCP sent a letter that said describes what her current presentation was; will place in the chart. Describes no prodromal illness. Unfortunately the aide left prior to the team coming down to assess her. 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 She was given valtrex and prednisone and medicine was called for admission. I should note that in the note from her PCP it details RLE weakness for 3 days but she denies this, stating that she has been weak throughout her body. No specific LE weakness that localizes on exam but has b/l positive straight leg raise test 10 sys ROS done and negative aside from HPI PMH, PSH, Family hx, Social hx reviewed Medication list reviewed; pending reconciliation OBJECTIVE: VS, labs, imaging reviewed NAD, AAO, resting comfortably in bed NC AT EOMI PERRLA RRR s1/2 no mgr Lungs CTAB, w/ sym exp Lower facial paralysis R-side evident, NIHSS otherwise would be fully unremarkable. CT head reviewed; no acute findings 3+ LE, 212 WBC EKG reviewed ASSESSMENT AND PLAN: Patient presents with facial droop suggestive of Quesada's Palsy; she is also found to have a UA suggestive of UTI. She presented with severe headache and weakness. 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 Placing the patient on prednisone 60mg PO QD and valtrex 1000 TID. Consider consulting neuro for additional treatment and diagnostic recommendations. Lyme titers ordered in the ER (sx are unilateral). In case of any potential underlying central process will of course review the patient's telemetry. Sx have been present for 48 hours. 2) Acute Cystitis -Old cx reviewed; gerber sn EC. Will place on 1g ceftriaxone QD and FU cx's. 3) Acute Headache -Negative CT; PRN analgesia (if APAP not working consider Mg infusion or MSO4) and followup with neuro 4) Weakness, LE pain -Will go ahead and consult PT. Check ESR to r/o PMR. -Had b/l + straight leg raises, but I question if she was interpreting any pain as the actual identifying sign as she is quite frail-appearing FENA -PO -PRN replete -Resume home diet -As tolerated
--- NOTE | 2018-05-29 02:33 | PDOC ---
NIH Stroke Scale - Last Known Well Date/Time & Onset Date Last Known Well: 05/26/18 Time Last Known Well: 08:00 - Initial Evaluation Level of consciousness: Alert Ask patient the month and their age: Answers both correctly Ask patient to open & close eyes; make fist and let go: Obeys both correctly Best gaze (horizontal eye movement): Normal Visual field testing: No visual field loss Facial paresis (Show teeth/raise eyebrows/close eyes tight): Minor paralysis ( flattened nasolabial fold, asymmetry on smiling) Motor Function: Left Arm: Normal Motor Function: Right Arm: Normal (extends arm 90 (or 45) degrees for 10 seconds without drift Motor Function: Left Leg: Normal (extends leg 30 degrees for 5 seconds without drift) Motor Function: Right Leg: Drift Limb Ataxia: No ataxia Sensory(Use pinprick test arms,legs,trunk,face/side to side): Mild to moderate decrease in sensation (rt facial numbness) Best language (Describe picture, name items, read sentences): No Aphasia (rt facial numbness) Dysarthria (read several words): Normal articulation Extinction and Inattention: No abnormality - Total Score NIH Stroke Scale Score: 3
--- NOTE | 2018-05-29 02:47 | PDOC ---
tPA Exclusion Checklist 0-3hr - Time Elapsed Date last known well: 05/26/18 Time last known well: 08:00 Elaspsed time: 2 Day(s) and 18 Hour(s) and 46 Minutes - Thrombolytic Therapy Candidate Is the patient eligible for Thrombolytic Therapy?: No - Exclusion Criteria 0-3hr SBP greater than 185 or DBP greater than 110mmHg despite tx: No Recent IC/spinal surgery,head trauma or stroke w/in last 3mo: No Hx of previous IC hemorrhage, IC neoplasm, AVM or aneurysm: No Active internal bleeding: No Blding diathesis(low plt ct, inc PTT,INR>1.7 or use of NOAC): No Symptoms suggest subarachnoid hemorrhage: No CT demonstrates multilobar infarct(>1/3 cerebral hemiphere): No Arterial puncture at noncompressible site in previous 7 days: No Blood glucose concentration less than 50mg/dL (2.7mmol/L): No - Relative Exclusion Criteria 0-3h Life expectancy <1yr/severe co-morbid illness/[employer]DER on admit: No : No Patient/family refused: No Rapid improvement: Yes Stroke severity too mild: Yes Recent acute WA (w/in previous 3 months): No Seizure at onset with postictal residual neuro impairments: No Major surgery or serious trauma w/in previous 14 days: No Recent GI or hemorrhage (w/in previous 21 days): No - Ineligibility reason(s) Reasons No tPA given: Outside of window - delayed arrival
--- NOTE | 2018-05-29 02:52 | PDOC ---
*Physical Exam - Vital Signs Last Vital Signs Temp Pulse Resp BP Pulse Ox 97.7 F 77 18 131/68 96 05/29/18 01:56 05/29/18 01:56 05/29/18 01:56 05/29/18 01:56 05/29/18 01:56 ED Treatment Course - LABORATORY CBC & Chemistry Diagram: 05/29/18 00:25 05/29/18 00:25 - ADDITIONAL ORDERS Additional order review: Laboratory Results 05/29/18 05/28/18 00:25 23:30 Sodium 138 Potassium 3.7 Chloride 108 H Carbon Dioxide 24 Anion Gap 7 L BUN 14 Creatinine 0.8 Creat Clearance w eGFR > 60 Random Glucose 126 H Calcium 8.3 L Total Bilirubin 0.4 AST 11 L ALT 8 L Alkaline Phosphatase 115 Total Protein 6.4 Albumin 2.9 L TSH 2.83 Urine Color Yellow Urine Appearance Cloudy Urine pH 5.0 D Ur Specific [place] 1.018 Urine Protein Negative Urine Glucose (UA) Negative Urine Ketones Negative Urine Blood Negative Urine Nitrite Positive Urine Bilirubin Negative Urine Urobilinogen Negative Ur Leukocyte Esterase 3+ H Urine WBC (Auto) 212 Urine RBC (Auto) 2 Ur Epithelial Cells Rare Urine Bacteria Moderate Urine Mucus Rare 05/29/18 00:25 RBC 4.19 MCV 80.1 MCHC 34.7 RDW 19.8 H MPV 8.7 Neutrophils % 68.8 Lymphocytes % 19.5 Monocytes % 7.5 Eosinophils % 3.5 Basophils % 0.7 - Medications Given in the ED: ED Medications Discontinued Medications Generic Name Dose Route Start Last Admin Trade Name Freq PRN Reason Stop Dose Admin Acetaminophen 975 mg 05/28/18 21:41 05/28/18 21:55 Tylenol - PO 05/28/18 21:42 975 mg ONCE STA Administration Prednisone 60 mg 05/28/18 23:07 05/29/18 00:10 Deltasone - PO 05/28/18 23:08 60 mg ONCE ONE Administration Valacyclovir HCl 1,000 mg 05/29/18 01:53 05/29/18 02:20 Valtrex - PO 05/29/18 01:54 1,000 mg ONCE ONE Administration *DC/Admit/Observation/Transfer Diagnosis at time of Disposition: Quesada's palsy HTN (hypertension) Qualifiers: Hypertension type: unspecified Qualified Code(s): I10 - Essential (primary) hypertension Diabetes mellitus Qualifiers: Diabetes mellitus type: type 2 Diabetes mellitus detention insulin use: without detention use Diabetes mellitus complication status: with hyperglycemia Qualified Code(s): E11.65 - Type 2 diabetes mellitus with hyperglycemia - Discharge Dispostion Decision to Admit order: Yes - Referrals Referrals: Bryant Jacobs MD [Staff Physician] - Genet Sneed MD [Primary Care Provider] - - Patient Instructions Print Language: KHMER - Post Discharge Activity
[2018-05-29] MEDS ORDERED: ACETAMINOPHEN 325 MG TABLET (FP) PO PRN (03:05)
[2018-05-29] MEDS ORDERED: ARTIFICIAL TEARS (POLYVINYL ALCOHOL) OPTH DROPS OD PRN (03:07)
--- NOTE | 2018-05-29 03:13 | HP ---
CHIEF COMPLAINT:right facial droop, headache PCP:Dr. Nader Hu HISTORY OF PRESENT ILLNESS: Patient is an 83 year old ukrainian speaking female with past medical history of HTN, NIDDM, HLD, CAD s/p PCI, Hypothyroidism, arthritis, presented with a 2 day history of severe generalized pounding headache that was accompanied by right sided facial droop. Patient also reports right eye burning and drooling from right side of her mouth. Patient denies any trauma, recent travel or flu-like illness. Patient also reported to have bilateral leg pain/weakness that started 3 days ago. She lives alone at home with an aide. Patient denies any fever, chills, blurry vision, dizziness, nausea, vomiting, chest pain, SOB, abdominal pain, diarrhea, dysuria or frequency. ER course was notable for: (1)UA: 3+ LE, 212 WBC (2)Iv Levaquin 500mg given (3)Prednisone 60mg, Valtrex 1000mg Recent Travel:denies PAST MEDICAL HISTORY: NIDDM HTN CAD Hypothyroidism Athritis PAST SURGICAL HISTORY: Appendectomy Lap cholecystectomy umbilical hernia repair cataract surgery right rotator cuff tear repair CAD s/p stent placement Social History: Smoking:denies Alcohol:denies Drugs: denies Family History:noncontributory Allergies No Known Allergies Allergy (Verified 07/25/17 17:22) HOME MEDICATIONS: Home Medications Medication Instructions Recorded Metformin HCl [Glucophage] 1,000 mg PO BID 04/11/16 Docusate Sodium [Colace -] 100 mg PO BID 06/23/16 Furosemide [Lasix] 40 mg PO DAILY 06/23/16 Glipizide 10 mg PO DAILY 06/23/16 Sitagliptin Phosphate [Januvia] 100 mg PO DAILY 06/23/16 Estrogens,Conjugated [Premarin 1 applic VG HS tube 07/28/17 Vaginal Cream -] REVIEW OF SYSTEMS CONSTITUTIONAL: Absent: fever, chills, diaphoresis, generalized weakness, malaise, loss of appetite, weight change HEENT: Absent: rhinorrhea, nasal congestion, throat pain, throat swelling, difficulty swallowing, mouth swelling, ear pain, eye pain, visual changes CARDIOVASCULAR: Absent: chest pain, syncope, palpitations, irregular heart rate, lightheadedness , peripheral edema RESPIRATORY: Absent: cough, shortness of breath, dyspnea with exertion, orthopnea, wheezing, stridor, hemoptysis GASTROINTESTINAL: Absent: abdominal pain, abdominal distension, nausea, vomiting, diarrhea, constipation, melena, hematochezia GENITOURINARY: Absent: dysuria, frequency, urgency, hesitancy, hematuria, flank pain, genital pain MUSCULOSKELETAL: Absent: myalgia, arthralgia, joint swelling, back pain, neck pain SKIN: Absent: rash, itching, pallor HEMATOLOGIC/IMMUNOLOGIC: Absent: easy bleeding, easy bruising, lymphadenopathy, frequent infections ENDOCRINE: Absent: unexplained weight gain, unexplained weight loss, heat intolerance, cold intolerance NEUROLOGIC: Absent: headache, focal weakness or paresthesias, dizziness, unsteady gait, seizure, mental status changes, bladder or bowel incontinence PSYCHIATRIC: Absent: anxiety, depression, suicidal or homicidal ideation, hallucinations. PHYSICAL EXAMINATION Vital Signs - 24 hr 05/28/18 05/29/18 16:40 01:56 Temperature 97.9 F 97.7 F Pulse Rate 77 Pulse Rate [ 77 Apical] Respiratory 16 18 Rate Blood Pressure 158/100 Blood Pressure 131/68 [Left] O2 Sat by Pulse 96 96 Oximetry (%) GENERAL: Awake, alert, and fully oriented, in no acute distress. EYES: PERRLA, EOMI, sclera anicteric, conjunctiva clear. EARS, NOSE, THROAT: Ears normal,oropharynx clear without exudates. Moist mucous membranes. NECK: Normal range of motion, supple without lymphadenopathy, JVD, or masses. LUNGS: Breath sounds equal, clear to auscultation bilaterally. HEART: Regular rate and rhythm, normal S1 and S2 without murmur, rub or gallop. ABDOMEN: Soft, nontender, not distended, normoactive bowel sounds. MUSCULOSKELETAL: Normal range of motion at all joints. No CVA tenderness. UPPER EXTREMITIES: 2+ pulses, warm, well-perfused. No peripheral edema. LOWER EXTREMITIES: 2+ pulses, warm, well-perfused. No peripheral edema. +b/l straight leg raise NEUROLOGICAL: AAOx3, Right facial droop, flattening of right nasolabial fold, asymmetric smile, can not fully close right eye, right eye ptosis, Other Cranial nerves II-XII intact. Motor strength 4/5 b/l LE, limited by pain, 5/5 b/ l UE. Sensation intact. No dysmetria, no dysdiadochokinesia. Normal speech. Gait not observed. PSYCHIATRIC: Cooperative. Good eye contact. Appropriate mood and affect. SKIN: Warm, dry, normal turgor, no rashes or lesions. Laboratory Results - last 24 hr 05/28/18 05/29/18 05/29/18 23:30 00:25 00:25 WBC 6.6 RBC 4.19 Hgb 11.7 Hct 33.6 MCV 80.1 MCH 27.8 MCHC 34.7 RDW 19.8 H Plt Count 276 MPV 8.7 Absolute Neuts (auto) 4.6 Neutrophils % 68.8 Lymphocytes % 19.5 Monocytes % 7.5 Eosinophils % 3.5 Basophils % 0.7 Nucleated RBC % 0 Sodium 138 Potassium 3.7 Chloride 108 H Carbon Dioxide 24 Anion Gap 7 L BUN 14 Creatinine 0.8 Creat Clearance w eGFR > 60 Random Glucose 126 H Calcium 8.3 L Total Bilirubin 0.4 AST 11 L ALT 8 L Alkaline Phosphatase 115 Total Protein 6.4 Albumin 2.9 L TSH 2.83 Urine Color Yellow Urine Appearance Cloudy Urine pH 5.0 D Ur Specific [place] 1.018 Urine Protein Negative Urine Glucose (UA) Negative Urine Ketones Negative Urine Blood Negative Urine Nitrite Positive Urine Bilirubin Negative Urine Urobilinogen Negative Ur Leukocyte Esterase 3+ H Urine WBC (Auto) 212 Urine RBC (Auto) 2 Ur Epithelial Cells Rare Urine Bacteria Moderate Urine Mucus Rare ASSESSMENT/PLAN: Patient is an 83 year old ukrainian speaking female with past medical history of HTN, NIDDM, HLD, CAD s/p PCI, Hypothyroidism, arthritis, presented with a 2 day history of severe generalized pounding headache that was accompanied by right sided facial droop. #Right facial droop, likely 2/2 Quesada's palsy, rule out CVA -Head CT: No intracranial hemorrhage seen. No extra-axial fluid collection. No discrete infarct identified No obvious mass lesion. Involutional changes with mild ventricular dilatation. Calvarium appears intact. Partially imaged paranasal sinuses demonstrate no opacification. -Prednisone 60mg and Valtrex 1000mg given at the ED -Will continue Prednisone 60mg daily and Valtrex 1000mg TID -Consider neuro consult -Lyme titers pending -Tele monitoring -ESR/CRP, B12, TSH, RPR, Lipid panel ordered #Headache -Head CT: no acute intracranial pathology -Tylenol PRN -Neurology consulted. #Acute cystitis -UA: 3+ LE, 212 WBC -Levaquin given at the ED -Will start IV Ceftriaxone 1000mg daily -urine cultures pending #Bilateral LE pain/ weakness -Likely 2/2 arthritis -Physical therapy -ESR/CRP -Tylenol PRN for pain #NIDDM -Will hold home meds Glipizide, Metformin, Januvia -Insulin sliding scale implemented -BGM ACHS -HbA1c #CAD s/p PCI -Continue Plavix 75mg and ASA 81mg daily #Hypothyroidism -will continue home Levothyroxine #FEN -Not on any standing fluids -Encourage increased oral fluid intake -Electrolytes wnl, routine bmp monitoring -Soft diet for now, may advance to regular as tolerated #Prophylaxis -Lovenox 40mg sq daily #Disposition -tele obs Visit type - Emergency Visit Emergency Visit: Yes ED Registration Date: 05/29/18 Care time: The patient presented to the Emergency Department on the above date and was hospitalized for further evaluation of their emergent condition. - New Patient This patient is new to me today: Yes Date on this admission: 05/29/18 - Critical Care Critical Care patient: No
[2018-05-29] MEDS ORDERED: CEFTRIAXONE 1 GM in DEXTROSE 5%-WATER - 50 ML IVPB ONE (03:15)
[2018-05-29 03:23] LABS: CHOLESTEROL 146 mg/dL (50-200); HDL CHOLESTEROL 30 mg/dL (40-60); TRIGLYCERIDES 210 mg/dL (0-150)
[2018-05-29] MEDS ORDERED: MECLIZINE HCL 12.5 MG TABLET PO PRN (03:59)
[2018-05-29] MEDS ORDERED: LEVOTHYROXINE NA 25 MCG TABLET (FP) ONE (06:34)
[2018-05-29 06:38] LABS: BASO % 0.2 % (0-2.0); EOS % 0.1 % (0-4.5); HEMATOCRIT 35.5 % (32.4-45.2); LYMPH % 10.9 % (8-40); MCH 27.2 pg (25.7-33.7); MCHC 33.9 g/dl (32.0-36.0); MEAN CELL VOLUME 80.3 fl (80-96); MEAN PLT VOLUME 8.9 fl (7.5-11.1); MONO % 1.4 % (3.8-10.2); NEUT % 87.4 % (42.8-82.8); PLATELET COUNT 273 K/MM3 (134-434); RBC 4.42 M/mm3 (3.60-5.2); RDW 19.5 % (11.6-15.6); WHITE BLOOD COUNT 6.7 K/mm3 (4.0-10.0)
[2018-05-29] MEDS: valACYclovir HCL 1000 MG TABLET PO SCH ×2 (06:40→14:07)
[2018-05-29] MEDS: INSULIN SLIDING SCALE (NOVOLOG) 1 VIAL SQ SCH ×2 (06:45→11:43)
[2018-05-29] MEDS ORDERED: INSULIN (NOVOLOG) ASPART 100 UNITS/ML 10ML VIAL ONE ×2 (06:48→11:38)
[2018-05-29] MEDS ORDERED: LEVOTHYROXINE NA 50 MCG TABLET (FP) PO SCH (07:00)
[2018-05-29 07:17] LABS: ANION GAP 10 MMOL/L (8-16); BLOOD UREA NITROGEN 14 mg/dL (7-18); CALCIUM 8.7 mg/dL (8.5-10.1); CHLORIDE 103 mmol/L (98-107); CO2 22 mmol/L (21-32); GLUCOSE,RANDOM 246 mg/dL (74-106); MAGNESIUM 1.8 mg/dL (1.8-2.4); PHOSPHOROUS 3.5 mg/dL (2.5-4.9); POTASSIUM 4.2 mmol/L (3.5-5.1); SODIUM 134 mmol/L (136-145)
[2018-05-29] MEDS ORDERED: FERROUS SO4 325 MG TABLET (FP) PO SCH ×2 (08:00→10:00)
[2018-05-29] MEDS ORDERED: MAGNESIUM SULF 50% (8.12 MEQ/2 ML-1 GM VIAL) IVPB ONE (08:15)
[2018-05-29] MEDS ORDERED: PATIENT'S OWN MEDICATION (NON-FORMULARY) (Omeprazole [Omeprazole] 40 MG) PO SCH (10:00)
[2018-05-29] MEDS ORDERED: CEFTRIAXONE 1 GM in DEXTROSE 5%-WATER - 50 ML IVPB SCH (10:00)
[2018-05-29] MEDS ORDERED: ENOXAPARIN NA (PORCINE) 40 MG/0.4 ML DISP.SYRIN SQ SCH (10:00)
[2018-05-29] MEDS ORDERED: METOCLOPRAMIDE HCL 10 MG TABLET (FP) PO SCH (10:00)
[2018-05-29] MEDS ORDERED: CLOPIDOGREL BISULFATE 75 MG TABLET (FP) PO SCH (10:00)
[2018-05-29] MEDS ORDERED: PATIENT'S OWN MEDICATION (NON-FORMULARY) (Lubiprostone [Amitiza] 8 MCG) PO SCH (10:00)
[2018-05-29] MEDS ORDERED: CYANOCOBALAMIN 1,000 MCG TABLET (FP) PO SCH (10:00)
[2018-05-29] MEDS ORDERED: ASPIRIN COATED 81 MG TABLET.EC PO SCH (10:00)
[2018-05-29] MEDS ORDERED: PATIENT'S OWN MEDICATION (NON-FORMULARY) (Lipase/Protease/Amylase [Creon Dr 24,000 Units C PO SCH (10:00)
[2018-05-29] MEDS ORDERED: FUROSEMIDE 40 MG TABLET (FP) PO SCH (10:00)
[2018-05-29] MEDS ORDERED: predniSONE 20 MG TABLET (UD) PO SCH (10:00)
[2018-05-29] MEDS ORDERED: MAGNESIUM 1GM/D5W - 1 GM/100 ML IVPB IVPB ONE (11:04)
--- NOTE | 2018-05-29 12:34 | EKG ---
Test Reason : Blood Pressure : / mmHG Vent. Rate : 076 BPM Atrial Rate : 076 BPM P-R Int : 184 ms QRS Dur : 070 ms QT Int : 386 ms P-R-T Axes : 060 014 079 degrees QTc Int : 434 ms NORMAL SINUS RHYTHM WITH SINUS ARRHYTHMIA NORMAL ECG WHEN COMPARED WITH ECG OF 25-JUL-2017 17:12, NO SIGNIFICANT CHANGE WAS FOUND Confirmed by DEEPALI MONTANO, NUNO ([id number]) on 05/29/2018 12:34:32 PM Referred By: Confirmed By:NUNO PALUMBO MD
--- NOTE | 2018-05-29 15:56 | DS ---
Physical Examination Vital Signs: Vital Signs Temperature 97.5 F L 05/29/18 14:00 Pulse Rate 112 H 05/29/18 14:00 Respiratory Rate 22 H 05/29/18 14:00 Blood Pressure 126/73 05/29/18 14:00 O2 Sat by Pulse Oximetry (%) 95 05/29/18 10:57 Constitutional: Yes: Well Nourished, No Distress, Calm Eyes: Yes: Conjunctiva Clear, PERRL, Ptosis (right eye) HENT: Yes: Atraumatic, Normocephalic Neck: Yes: Supple, Trachea Midline Cardiovascular: Yes: Pulse Irregular Respiratory: Yes: Regular, CTA Bilaterally Gastrointestinal: Yes: Normal Bowel Sounds, Soft, Abdomen, Obese ...Rectal Exam: Yes: Deferred Musculoskeletal: Yes: WNL Extremities: Yes: WNL Edema: No Peripheral Pulses WNL: Yes Peripheral Pulses: Left Radial: 2+, Right Radial: 2+, Left Doralis Pedis: 2+, Right Dorsalis Pedis: 2+ Integumentary: Yes: WNL, Venous Stasis Changes Neurological: Yes: Alert, Oriented, Facial Droop (right sided) ...Motor Strength: WNL (slow steady gait, asymmetrical smile, inability to fully close left eye.) Psychiatric: Yes: Alert, Oriented Labs: CBC, BMP 05/29/18 05:30 05/29/18 05:30 Discharge Summary Reason For Visit: URINARY TRACT INFECTION QUESADA'S PALSY DM HYPERTENSI Current Active Problems Quesada's palsy (Acute) Procedures: Principal: Head CT 05/28/2018. Impression: No CT evidence of acute intracranial pathology. Other Procedures: MRI Brain w/o contrast 05/29/2018 pending Hospital Course: 83 year old female with history of HTN, DM, arthritis. Severe R-sided SLADE w/ facial droop for 48 hours. Patient was referred by PCP for evaluation of facial palsy, headache and dizziness. Describes no prodromal illness. Head Ct in ED negative. She was given valtrex and prednisone and medicine was called for admission. Has a UA that is strongly suggestive of UTI and she was started on ceftriaxone. Spoke with neurology who recommended MRI brain. Pt unable to complete MRI because radiology department required paperwork about her Drug eluting stents. Dr. Valente's office was recalled and she was scheduled for routine visit: May 30 2018 @ 3pm Pt stable for D/c home on oral pred taper, valtrex for [place] Palsy and Augmentin for UTI. Condition: Improved - Instructions Diet, Activity, Other Instructions: NEUROLOGY APPOINTMENT Dr. Jcarlos Valente DO ADDRESS [address] [place] [address] telephone: [phone] Appointment Time: May 30 2018 3:00pm Discharge Instructions: Call 911 anytime you think you may need emergency care. For example, call if: You have symptoms of a stroke. These may include: Sudden numbness, tingling, weakness, or loss of movement in your face, arm, or leg, especially on only one side of your body. Sudden vision changes. Sudden trouble speaking. Sudden confusion or trouble understanding simple statements. Sudden problems with walking or balance. A sudden, severe headache that is different from past headaches. Call your doctor or nurse call line now or seek immediate medical care if: You have numbness or weakness that spreads beyond one side of your face. You have a skin rash or eye pain or redness, or light bothers your eyes. You have a new or worse headache. Watch closely for changes in your health, and be sure to contact your doctor or nurse call line if: You do not get better as expected. Quesada's palsy is paralysis or weakness of the muscles on one side of the face. Often people with Quesada's palsy have a droop on one side of the mouth and have trouble completely shutting the eye on the same side. Quesada's palsy can also interfere with the sense of taste. These things happen when a nerve in your face becomes inflamed. Quesada's palsy is not caused by a stroke. The cause of the nerve inflammation is not known. But some experts think that a virus may cause it. Because of this, doctors sometimes prescribe antiviral medicine to treat it. You also may get medicine to reduce swelling. Quesada's palsy usually gets better on its own in a few weeks or months. Follow-up care is a tilley part of your treatment and safety. Be sure to make and go to all appointments, and call your doctor or nurse call line if you are having problems. It's also a good idea to know your test results and keep a list of the medicines you take. How can you care for yourself at home? Take your medicines exactly as prescribed. Call your doctor or nurse call line if you think you are having a problem with your medicine. You will get more details on the specific medicines your doctor prescribes. Use artificial tears or ointment if your eyes are too dry. Quesada's palsy can make your lower eyelid droop, causing a dry eye. If you cannot completely close your eye, consider using an eye patch while you sleep. Help yourself blink by using your finger to close and open your eyelid. This may help keep your eye moist. Wear glasses or goggles to keep dust and dirt out of your eye. As feeling comes back to your face, massage your forehead, cheeks, and lips. Massage may make the muscles in your face stronger. [place] and floss your teeth often to help prevent tooth decay. Quesada's palsy can dry up the spit on one side of your mouth. This increases the risk of tooth decay. Referrals: Bryant Jacobs MD [Staff Physician] - Genet Sneed MD [Primary Care Provider] - Disposition: HOME - Home Medications Comprehensive Discharge Medication List: Ambulatory Orders Metformin HCl [Glucophage] 1,000 mg PO BID 04/11/16 Furosemide [Lasix] 40 mg PO DAILY 06/23/16 Glipizide 10 mg PO BID 06/23/16 Sitagliptin Phosphate [Januvia] 100 mg PO DAILY 06/23/16 Aspirin [Adult Aspirin] 81 mg PO DAILY 05/29/18 Clopidogrel Bisulfate [Plavix] 75 mg PO DAILY 05/29/18 Cyanocobalamin [Vitamin B12 -] 1,000 mcg SL DAILY 05/29/18 Ferrous Sulfate 325 mg PO BID 05/29/18 Levothyroxine Sodium [Euthyrox] 50 mcg PO AM 05/29/18 Lipase/Protease/Amylase [Toya Dr 24,000 Units Capsule] 24,000 units PO DAILY Lubiprostone [Amitiza] 8 mcg PO DAILY 05/29/18 Meclizine HCl 12.5 mg PO TID PRN 05/29/18 Metoclopramide HCl 5 mg PO DAILY 05/29/18 Naproxen 500 mg PO DAILY 05/29/18 Omeprazole 40 mg PO DAILY 05/29/18 traZODone HCL [Trazodone HCl] 50 mg PO HS PRN 05/29/18 This patient is new to me today: Yes Date on this admission: 05/29/18 Emergency Visit: Yes ED Registration Date: 05/29/18 Care time: The patient presented to the Emergency Department on the above date and was hospitalized for further evaluation of their emergent condition. Critical Care patient: No - Discharge Referral Referred to [facility] Med [facility] No
[2018-05-29 16:56] VITALS: BP 130/78; PULSE 107; TEMP 97.7
[2018-05-29] MEDS ORDERED: traZODone HCL 50 MG TABLET (FP) PO SCH (22:00)
== END 2018-05-29 18:10 | disposition home or self-care (01) | DRG 74 ==
LOC: JER 16:14 → JERBED 05-29 02:52 → OBSVTOIN 05-29 12:36 → J4W 05-29 14:39
PROVIDERS: ADMIT Internal Medicine; ATTEND Nurse Practitioner Family
DX: G51.0 Bell's palsy (principal); N39.0 Urinary tract infection, site not specified; I10 Essential (primary) hypertension; E11.65 Type 2 diabetes mellitus with hyperglycemia; R51 Headache; I25.10 Atherosclerotic heart disease of native coronary artery without angina pectoris; E03.9 Hypothyroidism, unspecified; M19.90 Unspecified osteoarthritis, unspecified site; H02.401 Unspecified ptosis of right eyelid; R00.0 Tachycardia, unspecified; K76.0 Fatty (change of) liver, not elsewhere classified; E66.9 Obesity, unspecified; Z68.26 Body mass index [BMI] 26.0-26.9, adult; K63.5 Polyp of colon; K57.90 Diverticulosis of intestine, part unspecified, without perforation or abscess without bleeding; Z95.5 Presence of coronary angioplasty implant and graft; R53.1 Weakness
CPT/HCPCS: 36415; 70450-TC; 80048; 80053; 80061; 81003; 81015; 82607; 82962; 83036; 83721; 83735; 84100; 84443; 85025; 85651; 86140; 86593; 86618; 87086; 87186; 93005; 93010; 99283-25; G0378

== ENCOUNTER 2018-12-19 15:10 | Inpatient (IN) | payer MEDICARE ==
[2018-12-19] MEDS ORDERED: ONDANSETRON 4 MG/2 ML VIAL IVPUSH ONE ×2 (15:29→19:13)
[2018-12-19] MEDS ORDERED: SODIUM CHLORIDE 1,000 ML IV STA (15:29)
[2018-12-19] MEDS ORDERED: ACETAMINOPHEN 1000 MG/100 ML VIAL (NON FORMULARY) IVPB ONE (15:29)
--- NOTE | 2018-12-19 15:31 | PDOC ---
Rapid Medical Evaluation Chief Complaint: Pain Medical Evaluation: Allergies Allergy/AdvReac Type Severity Reaction Status Date / Time No Known Allergies Allergy Verified 12/19/18 15:14 12/19/18 15:27 The patient is an 83 y/o F with hx of multiple abdominal surgeries, who presents to the ER with three days of abdominal pain. She hasn't had a bowel movement in two days and now she is naudious and vomiting. Pt is not tolerating PO Exam: distended firm tender abdomen Orders: labs, IV, CTAP, meds Pt to proceed to the ER for further evaluation Discharge Disposition - Diagnosis Abdominal pain Qualifiers: Abdominal location: generalized Qualified Code(s): R10.84 - Generalized abdominal pain - Referrals Referrals: Genet Sneed MD [Primary Care Provider] - - Patient Instructions - Post Discharge Activity
[2018-12-19] MEDS ORDERED: ONDANSETRON 4 MG/2 ML VIAL ONE ×2 (15:56→19:09)
[2018-12-19] MEDS ORDERED: ACETAMINOPHEN INJECTION 100 ML IVPB ONE (15:56)
[2018-12-19 16:21] LABS: BASO % 0.8 % (0-2.0); EOS % 4.1 % (0-4.5); HEMATOCRIT 33.6 % (32.4-45.2); HEMOGLOBIN 10.3 GM/dL (10.7-15.3); LYMPH % 10.8 % (8-40); MCHC 30.6 g/dl (32.0-36.0); MEAN CELL VOLUME 71.9 fl (80-96); MONO % 4.7 % (3.8-10.2); NEUT % 79.6 % (42.8-82.8); PLATELET COUNT 297 K/MM3 (134-434); RBC 4.67 M/mm3 (3.60-5.2); RDW 19.3 % (11.6-15.6)
--- NOTE | 2018-12-19 16:25 | PDOC ---
History of Present Illness - General Chief Complaint: Pain Stated Complaint: ABDOMINAL PAIN Time Seen by Provider: 12/19/18 15:32 History Source: Patient Exam Limitations: No Limitations - History of Present Illness Initial Comments: 83 year old female with PMH HTN, HLD, CAD s/p stent, DM, fatty liver, and past surgical history of appendectomy, cholecystectomy, hernia repair presented to ED for generalized abdominal pain since sunday, worsening last night. Pt reported constipation x2 days, last BM x2 days ago. Pt admitted to nausea, 1 episode of vomiting today. Pt denied fever, chest pain, shortness of breath, diarrhea, blood in stool. ROS General: denied fever, chills, generalized weakness. HEENT: denied sore throat, rhinorrhea, ear pain. Cardiovascular: denied chest pain, palpitations, syncope, diaphoresis. Respiratory: denied shortness of breath, cough, sputum production, hemoptysis. Gastrointestinal: admitted to abdominal pain, nausea, vomiting, constipation. denied diarrhea, blood in stool. Genitourinary: denied dysuria, increased urinary frequency, hematuria, urinary incontinence, flank pain. Back: denied back pain. Musculoskeletal: denied joint pain, muscle pain, joint swelling. Neurological: denied headache, dizziness, numbness, tingling, weakness. Integumentary: denied rash, laceration, abrasion. Hematologic/Lymphatic: denied bruising or bleeding. PE Constitutional: Well-nourished, Well-developed, appearing stated age. HEENT: head is normocephalic, atraumatic. EOMI. PERRLA. Neck: supple. Full ROM. Cardiovascular: regular heart rhythm. no murmurs. no pericardial friction rub. Respiratory: clear to auscultation bilaterally. no crackles, rhonchi or wheezing. no stridor. Gastrointestinal: distended. diffuse tenderness to palpation. decreased bowel sounds. Extremities: peripheral pulses intact. no lower extremity edema. Neurological: CN 2-12 grossly intact. moves all four extremities. Psych: awake, alert, oriented x3. follows commands. answers questions appropriately. Rectal: no external hemorrhoids. soft stool palpated in rectal vault. no gross blood on glove. Past History - Past Medical History Allergies/Adverse Reactions: Allergies Allergy/AdvReac Type Severity Reaction Status Date / Time No Known Allergies Allergy Verified 12/19/18 15:14 Home Medications: Ambulatory Orders Metformin HCl [Glucophage] 1,000 mg PO BID 04/11/16 Furosemide [Lasix] 40 mg PO DAILY 06/23/16 Glipizide 10 mg PO BID 06/23/16 Sitagliptin Phosphate [Januvia] 100 mg PO DAILY 06/23/16 Acetaminophen [Tylenol .Regular Strength -] 650 mg PO Q6H PRN tablet 05/29/18 Amoxicillin/Potassium Clav [Augmentin 500-125 Tablet] 1 each PO BID 14 Days #7 tablet 05/29/18 Aspirin [Adult Aspirin] 81 mg PO DAILY 05/29/18 Ceftriaxone [Rocephin -] 1 gm IVPB DAILY vial 05/29/18 Clopidogrel Bisulfate [Plavix] 75 mg PO DAILY 05/29/18 Cyanocobalamin [Vitamin B12 -] 1,000 mcg SL DAILY 05/29/18 Ferrous Sulfate 325 mg PO BID 05/29/18 Ferrous Sulfate [Feosol] 325 mg PO BID ud 05/29/18 Levothyroxine Sodium [Euthyrox] 50 mcg PO AM 05/29/18 Lipase/Protease/Amylase [Creon Dr 24,000 Units Capsule] 24,000 units PO DAILY Lubiprostone [Amitiza] 8 mcg PO DAILY 05/29/18 Meclizine HCl 12.5 mg PO TID PRN 05/29/18 Metoclopramide HCl 5 mg PO DAILY 05/29/18 Naproxen 500 mg PO DAILY 05/29/18 Omeprazole 40 mg PO DAILY 05/29/18 Polyvinyl Alcohol [Artificial Tears] 1 drop OD BID PRN drops 05/29/18 Prednisone [Deltasone] See Taper PO DAILY 7 Days #9 tablet 05/29/18 Valacyclovir HCl [Valtrex -] 1,000 mg PO TID 7 Days #21 tablet 05/29/18 predniSONE [Deltasone -] See Taper PO DAILY 5 Days tablet 05/29/18 traZODone HCL [Trazodone HCl] 50 mg PO HS PRN 05/29/18 Anemia: Yes (h/o blood transfusion) Cardiac Disorders: Yes (stent, CAD) Diabetes: Yes 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, COLON POLYP, DIVERTICULOSIS) HTN: Yes Hypercholesterolemia: Yes Liver Disease: Yes (FATTY LIVER) - Surgical History Abdominal Surgery: Yes (UMBILICAL HERNIA REPAIR) Appendectomy: Yes Cardiac Surgery: Yes (Stent) Cholecystectomy: Yes Lung Surgery: No Neurologic Surgery: No Orthopedic Surgery: Yes (Rotator Cuff Surgery) - Suicide/Smoking/Psychosocial Hx Smoking Status: No Smoking History: Never smoked Have you smoked in the past 12 months: No Number of Cigarettes Smoked Daily: 2 If you are a former smoker, when did you quit?: 10 yrs ago Information on smoking cessation initiated: No Hx Alcohol Use: No Drug/Substance Use Hx: No Substance Use Type: None Hx Substance Use Treatment: No *Physical Exam - Vital Signs Last Vital Signs Temp Pulse Resp BP Pulse Ox 97.6 F 89 17 139/77 95 12/19/18 15:15 12/19/18 15:15 12/19/18 15:15 12/19/18 15:15 12/19/18 15:15 Procedures - NG Lavage NG Lavage: bilious non-bloody Progress: NG unable to be passed bilaterally. OG placed, with 150 cc yellow/clear fluid suctioned. Pt actively vomiting after procedure. ED Treatment Course - LABORATORY CBC & Chemistry Diagram: 12/19/18 15:46 12/19/18 15:46 Medical Decision Making - Medical Decision Making 83 year old female with above PMH presented to ED for diffuse abdominal pain, distension, nausea/vomiting. PSx positive for multiple abdominla surgeries as stated above. Initial Vital Signs Temp Pulse Resp BP Pulse Ox 97.6 F 89 17 139/77 95 12/19/18 15:15 12/19/18 15:15 12/19/18 15:15 12/19/18 15:15 12/19/18 15:15 Afebrile. No tachycardia. No tachypnea. No hypotension. No hypoxia on room air. Labs ordered: CBC, CMP, lactate, coags, T/S Imaging ordered: CT abdomen/pelvis with IV contrast Medications ordered: normal saline bolus 1000 cc once, tylenol IV, morphine 2 mg IV once, zofran 4 mg IV once EKG performed at 12/19/18 16:56 CBC WBC 8.0 K/mm3 (4.0-10.0) 12/19/18 15:46 RBC 4.67 M/mm3 (3.60-5.2) 12/19/18 15:46 Hgb 10.3 GM/dL (10.7-15.3) L 12/19/18 15:46 Hct 33.6 % (32.4-45.2) 12/19/18 15:46 MCV 71.9 fl (80-96) L 12/19/18 15:46 MCH 22.0 pg (25.7-33.7) L D 12/19/18 15:46 MCHC 30.6 g/dl (32.0-36.0) L 12/19/18 15:46 RDW 19.3 % (11.6-15.6) H 12/19/18 15:46 Plt Count 297 K/MM3 (134-434) 12/19/18 15:46 MPV 9.0 fl (7.5-11.1) 12/19/18 15:46 Absolute Neuts (auto) 6.4 K/mm3 (1.5-8.0) 12/19/18 15:46 Neutrophils % 79.6 % (42.8-82.8) 12/19/18 15:46 Lymphocytes % 10.8 % (8-40) 12/19/18 15:46 Monocytes % 4.7 % (3.8-10.2) D 12/19/18 15:46 Eosinophils % 4.1 % (0-4.5) D 12/19/18 15:46 Basophils % 0.8 % (0-2.0) D 12/19/18 15:46 Nucleated RBC % 0 % (0-0) 12/19/18 15:46 No electrolyte abnormalities. Microcytic anemia, mild. CMP Sodium 136 mmol/L (136-145) 12/19/18 15:46 Potassium 4.9 mmol/L (3.5-5.1) 12/19/18 15:46 Chloride 102 mmol/L (98-107) 12/19/18 15:46 Carbon Dioxide 25 mmol/L (21-32) 12/19/18 15:46 Anion Gap 8 MMOL/L (8-16) 12/19/18 15:46 BUN 11.3 mg/dL (7-18) 12/19/18 15:46 Creatinine 0.8 mg/dL (0.55-1.3) 12/19/18 15:46 Est GFR (CKD-EPI)AfAm 79.57 12/19/18 15:46 Est GFR (CKD-EPI)NonAf 68.66 12/19/18 15:46 Random Glucose 166 mg/dL (74-106) H 12/19/18 15:46 Calcium 9.0 mg/dL (8.5-10.1) 12/19/18 15:46 Total Bilirubin 0.6 mg/dL (0.2-1) 12/19/18 15:46 AST 91 U/L (15-37) H 12/19/18 15:46 ALT 125 U/L (13-61) H 12/19/18 15:46 Alkaline Phosphatase 729 U/L (45-117) H 12/19/18 15:46 Total Protein 7.3 g/dl (6.4-8.2) 12/19/18 15:46 Albumin 3.2 g/dl (3.4-5.0) L 12/19/18 15:46 No electrolyte abnormalities. No STEPHAN. Transaminitis. Lactate pending. 12/19/18 18:[address] report: Name: [facility] OF RADIOLOG[facility] Phys: Libby Fontenot : 1935 Age: 83 Sex: F [facility] Acct: [id number] Loc: [address] Exam Date: 12/19/18 Status: NOAH [place] [id number] Unit Number: [id number] EXAM#: TYPE/EXAM: RESULT: [id number] CT/ABDOMEN PELVIS CT WITH CONTR Abdomen and pelvis CT with intravenous contrast Clinical information: evaluate for obstruction Multiplanar imaging was performed following the intravenous administration of nonionic contrast. Enteric contrast was not administered. In comparison to a prior CT exam of 07/17/2017 interval development of small bowel obstruction is seen with a transition region in the at the level of the central pelvis. Distal ileal bowel loops as well as the colon demonstrated a collapsed appearance. No gross obstructing lesion is identified. The maximum dilated luminal diameter is approximately 3.7 cm. Note is again made of an approximately 3 mm common bile duct calculus adjacent to the level of the ampulla. As on the prior study mild extrahepatic and minimal intrahepatic biliary tract dilatation is visualized. Status post cholecystectomy also as on the previous exam. Possible diffuse hepatic steatosis. The spleen, pancreas, adrenal glands and kidneys demonstrate no discrete abnormality. There is no aortic aneurysm. No definite lymphadenopathy is seen. No CT evidence of acute appendicitis or diverticulitis. There is no evidence of pneumoperitoneum, free intraperitoneal fluid or abscess. There is no obvious CT evidence of pelvic pathology. Impression: Small bowel obstruction is identified as noted above. Note is again made of choledocholithiasis. As on the prior study mild extrahepatic and minimal intrahepatic to a tract dilatation is seen. Status post cholecystectomy also as on the prior exam. Reported By: Eren Wooten MD 12/19/18 1800 CXR report: Name: [facility] DEPARTMENT OF RADIOLOGY Phys: Nedra Flores RESIDENT : 1935 Age: 83 Sex: F [facility] Acct: [id number] Loc: [address] Exam Date: 12/19/18 Status: NOAH [place] [id number] Unit Number: [id number] EXAM#: TYPE/EXAM: RESULT: [id number] RAD/CHEST X-RAY PORTABLE* Chest: Abdominal distention. Pain. Single AP view of the chest has been submitted. Since 2017, there is no significant change and no sign of an acute process. The lungs are clear. There is a prominent mediastinum. There is evidence of previous right shoulder surgery with degenerative changes. The angles are sharp and the soft tissues are intact. Acute process is not seen. Impression: No acute chest pathology. Reported By: Darío Klein MD 12/19/18 1748 12/19/18 18:[address] Ardon, surgery nutritionist public health, who advised admission/NG tube/NPO. Above ordered. Hospitalist paged for admission. 12/19/18 19:12 NG tube attempted bilaterally, unable to pass. OG placed, pt actively vomiting, @45, 150 cc yellow/clear fluid suctioned from stomach. CXR ordered for placement. 12/19/18 19:26 Sign out given to Dr. Arroyo, Resident, pt to be admitted under Dr. Sushma brewster. 12/19/18 21:00 Tip of OG tube seen prior to GE junction, attempted to push down OG farther, but pt was unable to tolerate. *DC/Admit/Observation/Transfer Diagnosis at time of Disposition: SBO (small bowel obstruction), Transaminitis - Discharge Dispostion Condition at time of disposition: Stable Decision to Admit order: Yes - Referrals - Patient Instructions - Post Discharge Activity
[2018-12-19 16:36] LABS: ALBUMIN 3.2 g/dl (3.4-5.0); BILIRUBIN,TOTAL 0.6 mg/dL (0.2-1); BLOOD UREA NITROGEN 11.3 mg/dL (7-18); CREATININE 0.8 mg/dL (0.55-1.3); POTASSIUM 4.9 mmol/L (3.5-5.1); TOT PROT 7.3 g/dl (6.4-8.2)
[2018-12-19] MEDS ORDERED: morphine CARPU-JECT 4 MG/1 ML DISP.SYRIN IVPUSH ONE (16:39)
[2018-12-19 16:45] LABS: INR 0.98 (0.83-1.09); PROTHROMBIN TIME (PATIENT) 11.6 SEC (9.7-13.0)
[2018-12-19] MEDS ORDERED: MORPHINE SULFATE 2 MG/ML VIAL ONE (16:48)
--- NOTE | 2018-12-19 17:45 | PDOC ---
Documentation entered by Yuni Talley SCRIBE, acting as scribe for Kaitlyn Shi DO. Kaitlyn Shi, DO: This documentation has been prepared by the Gerri kern Adrianna, SCRIBE, under my direction and personally reviewed by me in its entirety. I confirm that the documentation accurately reflects all work, treatment, procedures, and medical decision making performed by me. Attending Attestation - Resident Resident Name: Nedra Flores - ED Attending Attestation I have performed the following: I have examined & evaluated the patient, The case was reviewed & discussed with the resident, I agree w/resident's findings & plan, Exceptions are as noted - HPI HPI: The patient is an 83 year old female, with a significant PMH of HTN, HLD, DM, arthritis, gastritis, diverticulosis, CAD (s/p RUDY), and anemia, who presents to the ED for evaluation of abdominal pain for 4 days. Patient complains of diffuse abdominal pain that radiates up and causes pressure under the chest. Patient endorses decreased PO intake secondary to abdominal pain, and has not been able to pass a bowel at this time. She reports one episode of nausea and NBNB vomit upon arrival to the ER. She denies chest pain, SOB, back pain, or dysuria. Allergies: NKA, NKDA Surgical History: Umbilical hernia repair, appendectomy, RUDY, cholecystectomy, rotator cuff repair Social History: Former smoker (quit 10 years ago). Denies EtOH or illicit drug use PCP: Dr. Jalloh - Physicial Exam PE: Constitutional: Awake, alert, oriented. No acute distress. Head: Normocephalic. Atraumatic Eyes: PERRL. EOMI. Conjunctivae are not pale. ENT: Mucous membranes are moist and intact. Posterior pharynx without exudates or erythema. Uvula midline. Neck: Supple. Full ROM. No lymphadenopathy. Cardiovascular: Regular rate. Regular rhythm. S1, S2 regular. Distal pulses are 2+ and symmetric. Pulmonary/Chest: No evidence of respiratory distress. Clear to auscultation bilaterally No wheezing, rales or rhonchi. Abdominal: +Diffusely tender to palpation. Soft and nondistended (as per family , the patients abdomen is protuberant at baseline). No rebound, guarding or rigidity. No organomegaly. No palpable masses. Good bowel sounds. Back: No CVA tenderness. Musculoskeletal: +trace edema at the bilateral ankles. No cyanosis. No clubbing. Full range of motion in all extremities. Nocalf tenderness. Radial/ pedal pulses are intact and 2+ bilaterally Skin: Skin is warm and dry. No petechiae. No purpura. Neurological: Alert and oriented to person, place, and time. Cranial nerves II -XII are grossly intact. Normal speech. Strength is grossly symmetric. No sensory deficits. Psychiatric: Good eye contact. Normal interaction, affect and behavior. - Critical Care Time Total Critical Care Time: 35 Critical Care Statement: The care of this patient involved high complexity decision making to prevent further life threatening deterioration of the patient 's condition and/or to evaluate & treat vital organ system(s) failure or risk of failure. - Medical Decision Making 12/19/18 17:39 I, Dr. Kaitlyn Shi, DO, attest that this document has been prepared under my direction and personally reviewed by me in its entirety. I further attest, that it accurately reflects all work, treatment, procedures and medical decision -making performed by me. a/p: 83yo female with hx of multiple abd surgeries with constipation x 2 days and abd pain since sunday -no flatus or bm since sunday -diffuse abd pain, nondistended per family -states abd pain radiates to chest, but denies assoc sob -pt denies cough, no f/c. -no dysuria/hematuria -concern for obstruction - will send labs, ct abd/pelvis -pt with 1 episode of n/v today -will monitor and reassess 12/19/18 19:23 pt with sbo with transition point to lower pelvis resident discussed the case with Dr. Ardon who recommends NGT tonight and will see patient in consult pt updated ogt placed by resident resident discussed the case with [facility]- pt will be admitted to [facility] pain controlled with morphine and benadryl Heart Score/ECG Review - ECG Intrepretation Comment:: 12/19/18 17:44 sinus at 79, nl axis, nl interval, no acute st/t wave findings, baseline artifact
[2018-12-19] MEDS ORDERED: LIDOCAINE VISCOUS 2% ORAL/TOP 20 ML UNIT-DOSE CUP MM ONE (18:36)
[2018-12-19] MEDS ORDERED: LIDOCAINE VISCOUS 2% ORAL/TOP 20 ML UNIT-DOSE CUP ONE (18:49)
[2018-12-19 18:54] LABS: ANISOCYTOSIS 2+; MACROCYTOSIS 0; PLATELET ESTIMATE NORMAL
--- NOTE | 2018-12-19 22:35 | HP ---
CHIEF COMPLAINT: Diffuse abdominal pain for the past 4 days PCP: Amrit Preciado HISTORY OF PRESENT ILLNESS: The patient is Ukrainian speaking, as is her son who is present at the bedside. Translation service was used, Clinical Nursing Professor ID: [id number] This is an 83 year old female with PMH significant for HLD, DM, CAD, and multiple abdominal surgeries. She presented to the ER with complaints of diffuse abdominal pain for the past 5 days. The pain was sudden in onset, rated 6/10 in intensity, sharp in quality, intermittent in nature, radiating to the back, partially alleviated by a one time dose of ibuprofen taken yesterday at home, and with no recognizable aggravating factors identified. She endorses loss of appetite, and her last meal was on Sunday. She has been taking sips of water since then. She had 2 episodes of vomiting the day the pain started, yellow and color, non bloody and non bilious. She had a loose bowel movement on Sunday, brown in color, with no blood noted. Other than that , she has not had any diarrhea since the pain started. She has no associated complaints of fever, chills, dizziness, light headedness, chest pain, SOB, palpitations, dysuria, urinary urgency, urinary frequency, or hematuria. She reports having similar pain approximately 3 weeks ago, which resolved spontaneously. She reports having a UTI 5 weeks ago, and she was started on a 3 week antibiotic course, which ended 2 weeks ago. She reports having multiple episodes of brown, non-bloody diarrhea up to 5 times per day for a few days around 3 weeks ago. She was started on Glipizide last week, after she was found to have BG in the 200s while on Metformin and Januvia. Other than that she has had no changes to her medication. She had a colonoscopy done 3 years ago, but does not remember what the results were. ER course was notable for: (1) Surgery consulted, NPO and NGT, unsuccessful NGT attempted B/L, OGT placed (2) CT AP: SBO with transition region in central pelvis, 3mm calculus in CBD at ampulla (3) AST 91, ALT 125 Recent Travel: None PAST MEDICAL HISTORY: HLD, DM, CAD DM: BGM 3/day, usually around 140. Was started on Glipizide 1 week ago. 12 pregnancies, 9 children, 1 PAST SURGICAL HISTORY: Umbilical hernia repair, appendectomy, RUDY, cholecystectomy, rotator cuff repair Social History: Smoking: Quit 10-15 years go, smoked occasionally but unable to quantify Alcohol: denies Drugs: denies Allergies No Known Allergies Allergy (Verified 12/19/18 15:14) HOME MEDICATIONS: Home Medications Medication Instructions Recorded Metformin HCl [Glucophage] 1,000 mg PO BID 04/11/16 Furosemide [Lasix] 40 mg PO DAILY 06/23/16 Glipizide 10 mg PO BID 06/23/16 Sitagliptin Phosphate [Januvia] 100 mg PO DAILY 06/23/16 Acetaminophen [Tylenol .Regular 650 mg PO Q6H PRN tablet 05/29/18 Strength -] Amoxicillin/Potassium Clav 1 each PO BID 14 Days #7 tablet 05/29/18 [Augmentin 500-125 Tablet] Aspirin [Adult Aspirin] 81 mg PO DAILY 05/29/18 Ceftriaxone [Rocephin -] 1 gm IVPB DAILY vial 05/29/18 Clopidogrel Bisulfate [Plavix] 75 mg PO DAILY 05/29/18 Cyanocobalamin [Vitamin B12 -] 1,000 mcg SL DAILY 05/29/18 Ferrous Sulfate 325 mg PO BID 05/29/18 Ferrous Sulfate [Feosol] 325 mg PO BID ud 05/29/18 Levothyroxine Sodium [Euthyrox] 50 mcg PO AM 05/29/18 Lipase/Protease/Amylase [Creon Dr 24,000 units PO DAILY 05/29/18 24,000 Units Capsule] Lubiprostone [Amitiza] 8 mcg PO DAILY 05/29/18 Meclizine HCl 12.5 mg PO TID PRN 05/29/18 Metoclopramide HCl 5 mg PO DAILY 05/29/18 Naproxen 500 mg PO DAILY 05/29/18 Omeprazole 40 mg PO DAILY 05/29/18 Polyvinyl Alcohol [Artificial 1 drop OD BID PRN drops 05/29/18 Tears] Prednisone [Deltasone] See Taper PO DAILY 7 Days #9 tablet 05/29/18 Valacyclovir HCl [Valtrex -] 1,000 mg PO TID 7 Days #21 tablet 05/29/18 predniSONE [Deltasone -] See Taper PO DAILY 5 Days tablet 05/29/18 traZODone HCL [Trazodone HCl] 50 mg PO HS PRN 05/29/18 REVIEW OF SYSTEMS CONSTITUTIONAL: Absent: fever, chills, diaphoresis, generalized weakness, malaise, loss of appetite, weight change HEENT: Absent: rhinorrhea, nasal congestion, throat pain, throat swelling, difficulty swallowing, mouth swelling, ear pain, eye pain, visual changes CARDIOVASCULAR: Absent: chest pain, syncope, palpitations, irregular heart rate, lightheadedness , peripheral edema RESPIRATORY: Absent: cough, shortness of breath, dyspnea with exertion, orthopnea, wheezing, stridor, hemoptysis GASTROINTESTINAL: abdominal pain, constipation, nausea Absent: abdominal pain, abdominal distension, nausea, vomiting, diarrhea, constipation, melena, hematochezia GENITOURINARY: Absent: dysuria, frequency, urgency, hesitancy, hematuria, flank pain, genital pain MUSCULOSKELETAL: Absent: myalgia, arthralgia, joint swelling, back pain, neck pain SKIN: Absent: rash, itching, pallor HEMATOLOGIC/IMMUNOLOGIC: Absent: easy bleeding, easy bruising, lymphadenopathy, frequent infections ENDOCRINE: Absent: unexplained weight gain, unexplained weight loss, heat intolerance, cold intolerance NEUROLOGIC: Absent: headache, focal weakness or paresthesias, dizziness, unsteady gait, seizure, mental status changes, bladder or bowel incontinence PSYCHIATRIC: Absent: anxiety, depression, suicidal or homicidal ideation, hallucinations. PHYSICAL EXAMINATION Vital Signs - 24 hr 12/19/18 12/19/18 12/19/18 15:15 15:29 20:31 Temperature 97.6 F Pulse Rate 89 Pulse Rate [ 68 85 Left Radial] Respiratory 17 18 18 Rate Blood Pressure 139/77 Blood Pressure 132/63 159/71 [Right Arm] O2 Sat by Pulse 95 96 Oximetry (%) 12/19/18 20:41 Temperature Pulse Rate Pulse Rate [ Left Radial] Respiratory Rate Blood Pressure Blood Pressure [Right Arm] O2 Sat by Pulse 95 Oximetry (%) GENERAL: AOx3 HEAD: Normal with no signs of trauma. EYES: Pupils equal, round and reactive to light, extraocular movements intact, sclera anicteric, conjunctiva clear. No lid lag. EARS, NOSE, THROAT: Ears normal, nares patent, oropharynx clear without exudates. Moist mucous membranes. NECK: Normal range of motion, supple without lymphadenopathy, JVD, or masses. LUNGS: Breath sounds equal, clear to auscultation bilaterally. No wheezes, and no crackles. No accessory muscle use. HEART: Regular rate and rhythm, normal S1 and S2 without murmur, rub or gallop. ABDOMEN: Distended, mild tenderness to palpation in all quadrants, tympanic on percussion, high pitched bowel sounds MUSCULOSKELETAL: Normal range of motion at all joints. No bony deformities or tenderness. No CVA tenderness. UPPER EXTREMITIES: 2+ pulses, warm, well-perfused. No cyanosis. No clubbing. No peripheral edema. LOWER EXTREMITIES: 2+ pulses, warm, well-perfused. No calf tenderness. No peripheral edema. NEUROLOGICAL: Cranial nerves II-XII intact. Normal speech. Normal gait. PSYCHIATRIC: Cooperative. Good eye contact. Appropriate mood and affect. SKIN: Warm, dry, normal turgor, no rashes or lesions noted, normal capillary refill. Laboratory Results - last 24 hr 12/19/18 12/19/18 12/19/18 15:46 15:46 15:46 WBC 8.0 RBC 4.67 Hgb 10.3 L Hct 33.6 MCV 71.9 L MCH 22.0 L D MCHC 30.6 L RDW 19.3 H Plt Count 297 MPV 9.0 Absolute Neuts (auto) 6.4 Neutrophils % 79.6 Lymphocytes % 10.8 Monocytes % 4.7 D Eosinophils % 4.1 D Basophils % 0.8 D Nucleated RBC % 0 Hypochromia 0 Platelet Estimate Normal Polychromasia 1+ Poikilocytosis 1+ Anisocytosis 2+ Microcytosis 2+ Macrocytosis 0 Spherocytes 1+ PT with INR 11.60 INR 0.98 Sodium 136 Potassium 4.9 Chloride 102 Carbon Dioxide 25 Anion Gap 8 BUN 11.3 Creatinine 0.8 Est GFR (CKD-EPI)AfAm 79.57 Est GFR (CKD-EPI)NonAf 68.66 Random Glucose 166 H Lactic Acid Calcium 9.0 Total Bilirubin 0.6 AST 91 H ALT 125 H Alkaline Phosphatase 729 H Total Protein 7.3 Albumin 3.2 L Blood Type Antibody Screen 12/19/18 12/19/18 15:46 16:17 WBC RBC Hgb Hct MCV MCH MCHC RDW Plt Count MPV Absolute Neuts (auto) Neutrophils % Lymphocytes % Monocytes % Eosinophils % Basophils % Nucleated RBC % Hypochromia Platelet Estimate Polychromasia Poikilocytosis Anisocytosis Microcytosis Macrocytosis Spherocytes PT with INR INR Sodium Potassium Chloride Carbon Dioxide Anion Gap BUN Creatinine Est GFR (CKD-EPI)AfAm Est GFR (CKD-EPI)NonAf Random Glucose Lactic Acid 1.1 Calcium Total Bilirubin AST ALT Alkaline Phosphatase Total Protein Albumin Blood Type O POSITIVE Antibody Screen Negative ASSESSMENT/PLAN: This is an 83 year old female with PMH significant for HLD, DM, CAD, and multiple abdominal surgeries. She presented to the ER with complaints of diffuse abdominal pain for the past 5 days. #Abdominal pain 2/2 SBO - CT AP: SBO with transition region in central pelvis, 3mm calculus in CBD at ampulla - Surgery consulted, NPO and NGT, unsuccessful NGT attempted B/L, OGT placed - Lactid acid normal - Trops normal - PT/PTT sent - Maintain OGT with intermittent suctioning - Zofran and Morphine administered in ER for symptomatic management #Transaminitis - CT AP: 3mm calculus in CBD at ampulla - AST 91, ALT 125, ALP 729 - RUQ US ordered - MRCP ordered, possible ERCP after GI consult - GI (Dr. Pool) consulted #Hx of DM - BGM ACHS - Novolog SS - HbA1c ordered #FEN - N/S @ 75 - Mg, Phos ordere - NPO #DVT PE - SCDs, hold anticoagulation for potential procedure by Surgery team Visit type - Emergency Visit Emergency Visit: Yes ED Registration Date: 12/19/18 Care time: The patient presented to the Emergency Department on the above date and was hospitalized for further evaluation of their emergent condition. - New Patient This patient is new to me today: Yes Date on this admission: 12/20/18 - Critical Care Critical Care patient: No ATTENDING PHYSICIAN STATEMENT I saw and evaluated the patient. I reviewed the resident's note and discussed the case with the resident. I agree with the resident's findings and plan as documented. SUBJECTIVE: OBJECTIVE: ASSESSMENT AND PLAN:
[2018-12-19] MEDS: INSULIN SLIDING SCALE (NOVOLOG) 1 VIAL SQ SCH (23:53)
[2018-12-20 00:13] LABS: EPI CELLS 1.7 /HPF (0-5/HPF); HYALINE CASTS 1 /lpf (0-8); PH,URINE 8.5 (5.0-8.0); URINE APPEARANCE CLEAR; URINE BACTERIA 2.7 /hpf (NEGATIVE); URINE BILIRUBIN NEGATIVE (NEGATIVE); URINE COLOR YELLOW; URINE GLUCOSE (UA) TRACE (NEGATIVE); URINE KETONE TRACE (NEGATIVE); URINE LEUK ESTERASE NEGATIVE (NEGATIVE); URINE NITRITE NEGATIVE (NEGATIVE); URINE PROTEIN 1+ (NEGATIVE); URINE RBC 2 /hpf (0-4); URINE WBC 1 /hpf (0-5)
--- NOTE | 2018-12-20 01:19 | PN ---
Teaching Attending Note Name of Resident: Francis Burns ATTENDING PHYSICIAN STATEMENT I saw and evaluated the patient. I reviewed the resident's note and discussed the case with the resident. I agree with the resident's findings and plan as documented. SUBJECTIVE: 83 year old female HTN, HLD, DM, arthritis, gastritis, diverticulosis, CAD (s/p RUDY), and anemia presents with abdominal pain for 4 days. No BMs since that time. History of abdominal surgeries-Umbilical hernia repair, appendectomy, cholecystectomy. Found to have SBO on abd/pelvis CT. Found to have choledocholithiasis w/ transaminitis. OBJECTIVE: Last Vital Signs Temp Pulse Resp BP Pulse Ox 97.9 F 73 18 138/77 96 12/19/18 21:30 12/19/18 21:30 12/19/18 21:30 12/19/18 21:30 12/19/18 21:30 heent -og tube neck supple cv-s1+s2+rrr chest clear abdomen - multiple scars, soft, nt, bs in 4 quadrants ext- no pedal edema Abnormal Lab Results 12/19/18 12/19/18 12/19/18 15:46 15:46 23:55 Hgb 10.3 L MCV 71.9 L MCH 22.0 L D MCHC 30.6 L RDW 19.3 H Random Glucose 166 H AST 91 H ALT 125 H Alkaline Phosphatase 729 H Albumin 3.2 L Urine pH 8.5 H D Urine Protein 1+ H Urine Ketones Trace H ASSESSMENT AND PLAN: #SBO , no lactic acidosis -med/surg -surgery consult -npo -iv fluid hydration -pt, ptt -type and screen -BGM -check electrolytes and replace prn -intermittent suction through OG tube -send troponin #Cholestatic pattern of transaminitis with choledocholithiasis seen on CT of abd /pelvis. -MRCP -NPO -GI consult for possible ERCP #Anemia #Uncontrolled DM - -a1c -tight glucose control perioperatively -dvt ppx- scds
[2018-12-20] MEDS ORDERED: MORPHINE SULFATE 2 MG/ML VIAL SQ PRN ×2 (05:30→05:36)
[2018-12-20] MEDS ORDERED: MORPHINE SULFATE 2 MG/ML VIAL IVPUSH PRN (05:44)
[2018-12-20] MEDS: INSULIN SLIDING SCALE (NOVOLOG) 1 VIAL SQ SCH ×4 (06:20→21:18)
[2018-12-20] MEDS: SODIUM CHLORIDE 1,000 ML IV SCH ×2 (06:28→16:21)
[2018-12-20 08:13] LABS: BASO % 0.5 % (0-2.0); EOS % 2.2 % (0-4.5); HEMATOCRIT 29.4 % (32.4-45.2); HEMOGLOBIN 9.3 GM/dL (10.7-15.3); LYMPH % 9.8 % (8-40); MCH 22.6 pg (25.7-33.7); MCHC 31.8 g/dl (32.0-36.0); MEAN CELL VOLUME 71.1 fl (80-96); MEAN PLT VOLUME 8.7 fl (7.5-11.1); MONO % 5.1 % (3.8-10.2); NEUT % 82.4 % (42.8-82.8); PLATELET COUNT 296 K/MM3 (134-434); RBC 4.14 M/mm3 (3.60-5.2); RDW 19.3 % (11.6-15.6); WHITE BLOOD COUNT 6.9 K/mm3 (4.0-10.0)
[2018-12-20 08:20] LABS: ALBUMIN 2.8 g/dl (3.4-5.0); BILIRUBIN,TOTAL 0.5 mg/dL (0.2-1); BLOOD UREA NITROGEN 8.4 mg/dL (7-18); CALCIUM 8.4 mg/dL (8.5-10.1); CREATININE 0.6 mg/dL (0.55-1.3); MAGNESIUM 2.6 mg/dL (1.8-2.4); PHOSPHOROUS 3.3 mg/dL (2.5-4.9); POTASSIUM 3.9 mmol/L (3.5-5.1); TOT PROT 6.3 g/dl (6.4-8.2)
--- NOTE | 2018-12-20 08:23 | CON.GI ---
Consult Consult Specialty:: GI Referred by:: Dr Francis Burns Reason for Consultation:: elev LFTs and 3mm CBD calculus - History of Present Illness Chief Complaint: Epigastric Pain History of Present Illness: Patient is an 83 y/o female with past medical history of HLD, DM, CAD, and multiple abdominal surgeries. Patient presented to ER yesterday after experiencing epigastric pain which began Sunday night. She says she develop epigastric pain which would radiate to back at times and was accompanied by poor appetite, nausea and vomiting. She experienced mild relief with ibuprofen but pain would be exacerbated with movement. Patient states she has not had a BM since Sunday and has experienced episodes of dark colored stool before. There is also a noted weight loss of 4lbs in [address] scan done in ER showed SBO with a transition region in the level of central pelvis and 3mm CBD calculus adjacent to ampulla. Labs show elevated LFTs. - History Source History Provided By: Patient, Family Member Limitations to Obtaining History: No Limitations - Past Medical History Cardio/Vascular: Yes: HTN, Hyperlipdemia Gastrointestinal: Yes: Diverticulosis, Gastritis - Past Surgical History Past Surgical History: Yes: Appendectomy, Cholecystectomy, Hernia Repair (Hiatal ) - Alcohol/Substance Use Hx Alcohol Use: No History of Substance Use: reports: None - Smoking History Smoking history: Never smoked Have you smoked in the past 12 months: No Aproximately how many cigarettes per day: 2 If you are a former smoker, when did you quit?: 10 yrs ago - Social History ADL: Independent History of Recent Travel: No Home Medications - Allergies Allergies/Adverse Reactions: Allergies Allergy/AdvReac Type Severity Reaction Status Date / Time No Known Allergies Allergy Verified 12/19/18 15:14 - Home Medications Home Medications: Ambulatory Orders Metformin HCl [Glucophage] 1,000 mg PO BID 04/11/16 Furosemide [Lasix] 40 mg PO DAILY 06/23/16 Glipizide 10 mg PO BID 06/23/16 Sitagliptin Phosphate [Januvia] 100 mg PO DAILY 06/23/16 Acetaminophen [Tylenol .Regular Strength -] 650 mg PO Q6H PRN tablet 05/29/18 Amoxicillin/Potassium Clav [Augmentin 500-125 Tablet] 1 each PO BID 14 Days #7 tablet 05/29/18 Aspirin [Adult Aspirin] 81 mg PO DAILY 05/29/18 Ceftriaxone [Rocephin -] 1 gm IVPB DAILY vial 05/29/18 Clopidogrel Bisulfate [Plavix] 75 mg PO DAILY 05/29/18 Cyanocobalamin [Vitamin B12 -] 1,000 mcg SL DAILY 05/29/18 Ferrous Sulfate 325 mg PO BID 05/29/18 Ferrous Sulfate [Feosol] 325 mg PO BID ud 05/29/18 Levothyroxine Sodium [Euthyrox] 50 mcg PO AM 05/29/18 Lipase/Protease/Amylase [Creon Dr 24,000 Units Capsule] 24,000 units PO DAILY Lubiprostone [Amitiza] 8 mcg PO DAILY 05/29/18 Meclizine HCl 12.5 mg PO TID PRN 05/29/18 Metoclopramide HCl 5 mg PO DAILY 05/29/18 Naproxen 500 mg PO DAILY 05/29/18 Omeprazole 40 mg PO DAILY 05/29/18 Polyvinyl Alcohol [Artificial Tears] 1 drop OD BID PRN drops 05/29/18 Prednisone [Deltasone] See Taper PO DAILY 7 Days #9 tablet 05/29/18 Valacyclovir HCl [Valtrex -] 1,000 mg PO TID 7 Days #21 tablet 05/29/18 predniSONE [Deltasone -] See Taper PO DAILY 5 Days tablet 05/29/18 traZODone HCL [Trazodone HCl] 50 mg PO HS PRN 05/29/18 Review of Systems - Review of Systems Constitutional: reports: Loss of Appetite, Unintentional Wgt. Loss, Weakness Eyes: reports: No Symptoms HENT: reports: No Symptoms Neck: reports: No Symptoms Cardiovascular: reports: No Symptoms Respiratory: reports: No Symptoms Gastrointestinal: reports: Abdominal Pain, Nausea, Vomiting Genitourinary: reports: No Symptoms Breasts: reports: No Symptoms Reported Musculoskeletal: reports: No Symptoms Integumentary: reports: No Symptoms Neurological: reports: No Symptoms Endocrine: reports: No Symptoms Hematology/Lymphatic: reports: No Symptoms Psychiatric: reports: No Symptoms Physical Exam-GI Vital Signs: Vital Signs Temperature 98.7 F 12/20/18 06:00 Pulse Rate 72 12/20/18 06:00 Respiratory Rate 18 12/20/18 06:00 Blood Pressure 152/82 12/20/18 06:00 O2 Sat by Pulse Oximetry (%) 96 12/19/18 21:30 Constitutional: Yes: No Distress, Calm Eyes: Yes: Conjunctiva Clear HENT: Yes: Atraumatic, Other Cardiovascular: Yes: Regular Rate and Rhythm Respiratory: Yes: Regular, CTA Bilaterally Gastrointestinal Inspection: Yes: Distention. No: WNL, Ascites, Hernia, Scars, Other ...Auscultate: Yes: Normoactive Bowel Sounds. No: Hyperactive Bowel Sounds, Hypoactive Bowel Sounds, No Bowel Sounds, Other ...Palpate: Yes: Soft, Tenderness (diffuse) ...Percussion: Yes: Other (high tympany). No: Dullness, Fluid Wave, Tympanitic Neurological: Yes: Alert, Oriented Psychiatric: Yes: Alert, Oriented Labs: INR, PTT INR 0.98 (0.83-1.09) 12/19/18 15:46 Active Medications Generic Name Dose Route Start Last Admin Trade Name Freq PRN Reason Stop Dose Admin Sodium Chloride 1,000 mls @ 75 mls/hr 12/19/18 22:15 12/20/18 06:28 Normal Saline - IV 75 mls/hr ASDIR SARAH Administration Insulin Aspart 1 vial 12/19/18 22:00 12/20/18 06:20 Novolog Vial Sliding Scale - SQ Not Given ACHS SARAH Protocol Morphine Sulfate 2 mg 12/20/18 05:44 12/20/18 06:28 Morphine Sulfate IVPUSH 2 mg Q4H PRN Administration PAIN LEVEL 7 - 10 Imaging - Results Cat Scan: Report Reviewed Problem List - Problems (1) SBO (small bowel obstruction) Assessment/Plan: continue oral gastrostomy tube Iv hydration Code(s): K56.609 - UNSP INTESTNL OBST, UNSP TO PARTIAL VERSUS COMPLETE OBST (2) Transaminitis Code(s): R74.0 - NONSPEC ELEV OF LEVELS OF TRANSAMNS & LACTIC ACID DEHYDRGNSE (3) Choledocholithiasis Assessment/Plan: elevated LFTS will sche[facility]ke for ERCP once medically cleared Code(s): K80.50 - CALCULUS OF BILE DUCT W/O CHOLANGITIS OR CHOLECYST W/O OBST
[2018-12-20 11:22] LABS: INR 0.98 (0.83-1.09); PROTHROMBIN TIME (PATIENT) 11.6 SEC (9.7-13.0)
[2018-12-20 11:25] LABS: ACTIVATED PTT 36.2 SECONDS (25.2-36.5)
--- NOTE | 2018-12-20 14:23 | PN ---
Teaching Attending Note Name of Resident: Prabhu Smith ATTENDING PHYSICIAN STATEMENT I saw and evaluated the patient. I reviewed the resident's note and discussed the case with the resident. I agree with the resident's findings and plan as documented. Seen and examined; please refer to resident note for further historical information. Briefly, this is a 83 y/o female who presented to the ER with a SBO, transaminitis with choledocholithiasis. Being seen by surgery, GI. Hemodynamics stable. ALP and her symptoms slightly improved from this mornign. VS, labs, imaging reviewed NAD, AAO, resting in bed RRR s1/2 Lungs CTAB, w/ sym exp Diffusely tender but not rigid, mild to mod distention, no guarding or rebound. Very restricted BS CT results noted AXR results noted Surgical and GI consult pending ASSESSMENT AND PLAN: Patient presenting with transaminitis and SBO; being seen by GI and and general sgy.
--- NOTE | 2018-12-20 14:23 | CONSULT ---
- Consultation REQUESTING PROVIDER: Sandra MONTANO CONSULT REQUEST: We have been asked to surgically evaluate this patient for abdominal pain and nausea and vomiting for 2 days. PCP:Riley Simeon MD HISTORY OF PRESENT ILLNESS: TYRON who is an 83 y/o female who presented w/the above complaints; she has # PMHx: PSHx: Home Medications Medication Instructions Recorded Metformin HCl [Glucophage] 1,000 mg PO BID 04/11/16 Furosemide [Lasix] 40 mg PO DAILY 06/23/16 Glipizide 10 mg PO BID 06/23/16 Sitagliptin Phosphate [Januvia] 100 mg PO DAILY 06/23/16 Acetaminophen [Tylenol .Regular 650 mg PO Q6H PRN tablet 05/29/18 Strength -] Amoxicillin/Potassium Clav 1 each PO BID 14 Days #7 tablet 05/29/18 [Augmentin 500-125 Tablet] Aspirin [Adult Aspirin] 81 mg PO DAILY 05/29/18 Ceftriaxone [Rocephin -] 1 gm IVPB DAILY vial 05/29/18 Clopidogrel Bisulfate [Plavix] 75 mg PO DAILY 05/29/18 Cyanocobalamin [Vitamin B12 -] 1,000 mcg SL DAILY 05/29/18 Ferrous Sulfate 325 mg PO BID 05/29/18 Ferrous Sulfate [Feosol] 325 mg PO BID ud 05/29/18 Levothyroxine Sodium [Euthyrox] 50 mcg PO AM 05/29/18 Lipase/Protease/Amylase [Creon Dr 24,000 units PO DAILY 05/29/18 24,000 Units Capsule] Lubiprostone [Amitiza] 8 mcg PO DAILY 05/29/18 Meclizine HCl 12.5 mg PO TID PRN 05/29/18 Metoclopramide HCl 5 mg PO DAILY 05/29/18 Naproxen 500 mg PO DAILY 05/29/18 Omeprazole 40 mg PO DAILY 05/29/18 Polyvinyl Alcohol [Artificial 1 drop OD BID PRN drops 05/29/18 Tears] Prednisone [Deltasone] See Taper PO DAILY 7 Days #9 tablet 05/29/18 Valacyclovir HCl [Valtrex -] 1,000 mg PO TID 7 Days #21 tablet 05/29/18 predniSONE [Deltasone -] See Taper PO DAILY 5 Days tablet 05/29/18 traZODone HCL [Trazodone HCl] 50 mg PO HS PRN 05/29/18 Allergies Allergy/AdvReac Type Severity Reaction Status Date / Time No Known Allergies Allergy Verified 12/19/18 15:14 REVIEW OF SYSTEMS: CONSTITUTIONAL: Absent: fever, chills, diaphoresis, generalized weakness, malaise, loss of appetite, weight change CARDIOVASCULAR: Absent: chest pain, syncope, palpitations, irregular heart rate, lightheadedness , peripheral edema RESPIRATORY: Absent: cough, shortness of breath, dyspnea with exertion, wheezing, stridor, hemoptysis GASTROINTESTINAL: Absent: abdominal pain, abdominal distension, nausea, vomiting, diarrhea, constipation, melena, hematochezia GENITOURINARY: Absent: dysuria, frequency, urgency, hesitancy, hematuria, flank pain, genital pain MUSCULOSKELETAL: Absent: myalgia, arthralgia, joint swelling, back pain, neck pain SKIN: Absent: rash, itching, pallor HEMATOLOGIC/IMMUNOLOGIC: Absent: easy bleeding, easy bruising, lymphadenopathy NEUROLOGIC: Absent: headache, focal weakness, paresthesias, dizziness, unsteady gait, seizure, mental status changes, bladder or bowel incontinence PSYCHIATRIC: Absent: anxiety, depression, suicidal or homicidal ideation, hallucinations. PHYSICAL EXAM: GENERAL: Awake, alert, and fully oriented, in no acute distress. HEAD: Normal with no signs of trauma. EYES: PERRL, sclera anicteric, conjunctiva clear. NECK: Normal ROM, supple without lymphadenopathy, JVD, or masses. LUNGS: Clear to auscultation bilat anteriorly. No wheezes, and no crackles. No accessory muscle use. HEART: Regular rate and rhythm. No murmurs ABDOMEN: Soft, nontender, not distended, normoactive bowel sounds, no guarding, no rebound, no masses. No organomegaly. MUSCULOSKELETAL: Normal ROM at all joints. No bony deformities or tenderness. No CVA tenderness. UPPER EXTREMITIES: 2+ pulses, warm, well-perfused. No cyanosis. Cap refill <2 seconds. No peripheral edema. LOWER EXTREMITIES: 2+ pulses, warm, well-perfused. No calf tenderness. No peripheral edema. NEUROLOGICAL: Normal speech, gait not observed. PSYCH: Cooperative. Good eye contact. Appropriate mood and affect. SKIN: Warm, dry, normal turgor, no rashes or lesions noted. Vital Signs Temperature 97.7 F 12/20/18 13:58 Pulse Rate 66 12/20/18 13:58 Respiratory Rate 18 12/20/18 13:58 Blood Pressure 120/57 L 12/20/18 13:58 O2 Sat by Pulse Oximetry (%) 96 12/20/18 09:00 Lab Results WBC 6.9 K/mm3 (4.0-10.0) 12/20/18 07:00 RBC 4.14 M/mm3 (3.60-5.2) 12/20/18 07:00 Hgb 9.3 GM/dL (10.7-15.3) L 12/20/18 07:00 Hct 29.4 % (32.4-45.2) L 12/20/18 07:00 MCV 71.1 fl (80-96) L 12/20/18 07:00 MCHC 31.8 g/dl (32.0-36.0) L 12/20/18 07:00 RDW 19.3 % (11.6-15.6) H 12/20/18 07:00 Plt Count 296 K/MM3 (134-434) 12/20/18 07:00 Sodium 135 mmol/L (136-145) L 12/20/18 07:00 Potassium 3.9 mmol/L (3.5-5.1) 12/20/18 07:00 Chloride 104 mmol/L (98-107) 12/20/18 07:00 Carbon Dioxide 23 mmol/L (21-32) 12/20/18 07:00 Anion Gap 8 MMOL/L (8-16) 12/20/18 07:00 BUN 8.4 mg/dL (7-18) 12/20/18 07:00 Creatinine 0.6 mg/dL (0.55-1.3) 12/20/18 07:00 Random Glucose 149 mg/dL (74-106) H 12/20/18 07:00 Calcium 8.4 mg/dL (8.5-10.1) L 12/20/18 07:00 Blood Type O POSITIVE 12/19/18 15:46 Antibody Screen Negative 12/19/18 15:46 INR 0.98 (0.83-1.09) 12/20/18 10:39 IMP: small bowel obstruction PLAN: NPO/IVF/IVAB's/serial abdominal exams and imaging; will f/u; d/w the patients son. Brandon Ardon MD FACS
--- NOTE | 2018-12-20 14:37 | EKG ---
Test Reason : Blood Pressure : / mmHG Vent. Rate : 079 BPM Atrial Rate : 078 BPM P-R Int : 154 ms QRS Dur : 072 ms QT Int : 384 ms P-R-T Axes : 073 040 062 degrees QTc Int : 440 ms Poor data quality NORMAL SINUS RHYTHM Confirmed by CHINTAN WISE MD ([id number]) on 12/20/2018 2:37:21 PM Referred By: Confirmed By:CHINTAN WISE MD
[2018-12-20 15:06] VITALS: BMI 25.0
--- NOTE | 2018-12-20 16:27 | PN ---
<Prabhu Smith - Last Filed: 12/20/18 16:25> Physical Exam: SUBJECTIVE: Patient seen and examined at bedside. Pt complains of belly pain OBJECTIVE: Vital Signs Period Temp Pulse Resp BP Sys/White Pulse Ox Last 24 Hr 97.6 F-98.7 F 66-85 18-18 120-159/57-92 95-96 GENERAL: The patient is awake, alert, and fully oriented, in no acute distress. HEAD: Normal with no signs of trauma. EYES: PERRL, extraocular movements intact, sclera anicteric, conjunctiva clear. No ptosis. ENT: Ears normal, nares patent, oropharynx clear without exudates, moist mucous membranes. OG tube NECK: Trachea midline, full range of motion, supple. LUNGS: Breath sounds equal, clear to auscultation bilaterally, no wheezes, no crackles, no accessory muscle use. HEART: Regular rate and rhythm, S1, S2 without murmur, rub or gallop. ABDOMEN: Soft,diffusely tender, nondistended, normoactive bowel sounds, no guarding, no rebound, no hepatosplenomegaly, no masses. EXTREMITIES: 2+ pulses, warm, well-perfused, no edema. NEUROLOGICAL: Cranial nerves II through XII grossly intact. Normal speech, gait not observed. PSYCH: Normal mood, normal affect. SKIN: Warm, dry, normal turgor, no rashes or lesions noted Laboratory Results - last 24 hr 12/19/18 12/19/18 12/19/18 15:46 15:46 15:46 WBC 8.0 RBC 4.67 Hgb 10.3 L Hct 33.6 MCV 71.9 L MCH 22.0 L D MCHC 30.6 L RDW 19.3 H Plt Count 297 MPV 9.0 Absolute Neuts (auto) 6.4 Neutrophils % 79.6 Lymphocytes % 10.8 Monocytes % 4.7 D Eosinophils % 4.1 D Basophils % 0.8 D Nucleated RBC % 0 Hypochromia 0 Platelet Estimate Normal Polychromasia 1+ Poikilocytosis 1+ Anisocytosis 2+ Microcytosis 2+ Macrocytosis 0 Spherocytes 1+ PT with INR 11.60 INR 0.98 PTT (Actin FS) Sodium 136 Potassium 4.9 Chloride 102 Carbon Dioxide 25 Anion Gap 8 BUN 11.3 Creatinine 0.8 Est GFR (CKD-EPI)AfAm 79.57 Est GFR (CKD-EPI)NonAf 68.66 POC Glucometer Random Glucose 166 H Hemoglobin A1c % Lactic Acid Calcium 9.0 Phosphorus Magnesium Total Bilirubin 0.6 AST 91 H ALT 125 H Alkaline Phosphatase 729 H Creatine Kinase Troponin I Total Protein 7.3 Albumin 3.2 L Urine Color Urine Appearance Urine pH Ur Specific [place] Urine Protein Urine Glucose (UA) Urine Ketones Urine Blood Urine Nitrite Urine Bilirubin Urine Urobilinogen Ur Leukocyte Esterase Urine WBC (Auto) Urine RBC (Auto) Urine Casts (Auto) U Epithel Cells (Auto) Urine Bacteria (Auto) Blood Type Antibody Screen 12/19/18 12/19/18 12/19/18 15:46 16:17 23:35 WBC RBC Hgb Hct MCV MCH MCHC RDW Plt Count MPV Absolute Neuts (auto) Neutrophils % Lymphocytes % Monocytes % Eosinophils % Basophils % Nucleated RBC % Hypochromia Platelet Estimate Polychromasia Poikilocytosis Anisocytosis Microcytosis Macrocytosis Spherocytes PT with INR INR PTT (Actin FS) Sodium Potassium Chloride Carbon Dioxide Anion Gap BUN Creatinine Est GFR (CKD-EPI)AfAm Est GFR (CKD-EPI)NonAf POC Glucometer 155 Random Glucose Hemoglobin A1c % Lactic Acid 1.1 Calcium Phosphorus Magnesium Total Bilirubin AST ALT Alkaline Phosphatase Creatine Kinase Troponin I Total Protein Albumin Urine Color Urine Appearance Urine pH Ur Specific [place] Urine Protein Urine Glucose (UA) Urine Ketones Urine Blood Urine Nitrite Urine Bilirubin Urine Urobilinogen Ur Leukocyte Esterase Urine WBC (Auto) Urine RBC (Auto) Urine Casts (Auto) U Epithel Cells (Auto) Urine Bacteria (Auto) Blood Type O POSITIVE Antibody Screen Negative 12/19/18 12/20/18 12/20/18 23:55 02:50 05:24 WBC RBC Hgb Hct MCV MCH MCHC RDW Plt Count MPV Absolute Neuts (auto) Neutrophils % Lymphocytes % Monocytes % Eosinophils % Basophils % Nucleated RBC % Hypochromia Platelet Estimate Polychromasia Poikilocytosis Anisocytosis Microcytosis Macrocytosis Spherocytes PT with INR INR PTT (Actin FS) Sodium Potassium Chloride Carbon Dioxide Anion Gap BUN Creatinine Est GFR (CKD-EPI)AfAm Est GFR (CKD-EPI)NonAf POC Glucometer 151 Random Glucose Hemoglobin A1c % Lactic Acid Calcium Phosphorus Magnesium Total Bilirubin AST ALT Alkaline Phosphatase Creatine Kinase 62 Troponin I < 0.02 Total Protein Albumin Urine Color Yellow Urine Appearance Clear Urine pH 8.5 H D Ur Specific [place] 1.035 Urine Protein 1+ H Urine Glucose (UA) Trace Urine Ketones Trace H Urine Blood Negative Urine Nitrite Negative Urine Bilirubin Negative Urine Urobilinogen 1.0 Ur Leukocyte Esterase Negative Urine WBC (Auto) 1 Urine RBC (Auto) 2 Urine Casts (Auto) 1 U Epithel Cells (Auto) 1.7 Urine Bacteria (Auto) 2.7 Blood Type Antibody Screen 12/20/18 12/20/18 12/20/18 07:00 07:00 07:00 WBC 6.9 RBC 4.14 Hgb 9.3 L Hct 29.4 L MCV 71.1 L MCH 22.6 L MCHC 31.8 L RDW 19.3 H Plt Count 296 MPV 8.7 Absolute Neuts (auto) 5.7 Neutrophils % 82.4 Lymphocytes % 9.8 Monocytes % 5.1 Eosinophils % 2.2 Basophils % 0.5 Nucleated RBC % 0 Hypochromia Platelet Estimate Polychromasia Poikilocytosis Anisocytosis Microcytosis Macrocytosis Spherocytes PT with INR INR PTT (Actin FS) Sodium 135 L Potassium 3.9 Chloride 104 Carbon Dioxide 23 Anion Gap 8 BUN 8.4 Creatinine 0.6 Est GFR (CKD-EPI)AfAm 98.38 Est GFR (CKD-EPI)NonAf 84.88 POC Glucometer Random Glucose 149 H Hemoglobin A1c % 7.8 H Lactic Acid Calcium 8.4 L Phosphorus 3.3 Magnesium 2.6 H Total Bilirubin 0.5 AST 35 ALT 81 H Alkaline Phosphatase 591 H Creatine Kinase Troponin I Total Protein 6.3 L Albumin 2.8 L Urine Color Urine Appearance Urine pH Ur Specific [place] Urine Protein Urine Glucose (UA) Urine Ketones Urine Blood Urine Nitrite Urine Bilirubin Urine Urobilinogen Ur Leukocyte Esterase Urine WBC (Auto) Urine RBC (Auto) Urine Casts (Auto) U Epithel Cells (Auto) Urine Bacteria (Auto) Blood Type Antibody Screen 12/20/18 12/20/18 12/20/18 10:39 11:19 16:00 WBC RBC Hgb Hct MCV MCH MCHC RDW Plt Count MPV Absolute Neuts (auto) Neutrophils % Lymphocytes % Monocytes % Eosinophils % Basophils % Nucleated RBC % Hypochromia Platelet Estimate Polychromasia Poikilocytosis Anisocytosis Microcytosis Macrocytosis Spherocytes PT with INR 11.60 INR 0.98 PTT (Actin FS) 36.2 Sodium Potassium Chloride Carbon Dioxide Anion Gap BUN Creatinine Est GFR (CKD-EPI)AfAm Est GFR (CKD-EPI)NonAf POC Glucometer 118 123 Random Glucose Hemoglobin A1c % Lactic Acid Calcium Phosphorus Magnesium Total Bilirubin AST ALT Alkaline Phosphatase Creatine Kinase Troponin I Total Protein Albumin Urine Color Urine Appearance Urine pH Ur Specific [place] Urine Protein Urine Glucose (UA) Urine Ketones Urine Blood Urine Nitrite Urine Bilirubin Urine Urobilinogen Ur Leukocyte Esterase Urine WBC (Auto) Urine RBC (Auto) Urine Casts (Auto) U Epithel Cells (Auto) Urine Bacteria (Auto) Blood Type Antibody Screen Active Medications Generic Name Dose Route Start Last Admin Trade Name Freq PRN Reason Stop Dose Admin Sodium Chloride 1,000 mls @ 75 mls/hr 12/19/18 22:15 12/20/18 16:21 Normal Saline - IV 75 mls/hr ASDIR SARAH Administration Insulin Aspart 1 vial 12/19/18 22:00 12/20/18 16:15 Novolog Vial Sliding Scale - SQ Not Given ACHS [facility] Protocol Morphine Sulfate 2 mg 12/20/18 05:44 12/20/18 06:28 Morphine Sulfate IVPUSH 2 mg Q4H PRN Administration PAIN LEVEL 7 - 10 ASSESSMENT/PLAN: This is an 83 year old female with PMH significant for HLD, DM, CAD, and multiple abdominal surgeries. She presented to the ER with complaints of diffuse abdominal pain for the past 5 days. #Abdominal pain 2/2 SBO - CT AP: SBO with transition region in central pelvis, 3mm calculus in CBD at ampulla - Surgery consulted, NPO and OGT, unsuccessful NGT attempted B/L, OGT placed - Lactid acid normal - Trops normal - PT/PTT sent - Maintain OGT with intermittent suctioning - Zofran and Morphine administered in ER for symptomatic management #Transaminitis - CT AP: 3mm calculus in CBD at ampulla - RUQ US ordered - MRCP ordered, possible ERCP after GI consult - GI (Dr. Pool) consulted #Hx of DM - BGM ACHS - Novolog SS - HbA1c ordered #DVT PE - SCDs, hold anticoagulation for potential procedure by Surgery team Visit type - Emergency Visit Emergency Visit: Yes ED Registration Date: 12/19/18 Care time: The patient presented to the Emergency Department on the above date and was hospitalized for further evaluation of their emergent condition. - New Patient This patient is new to me today: Yes Date on this admission: 12/20/18 - Critical Care Critical Care patient: No ATTENDING PHYSICIAN STATEMENT I saw and evaluated the patient. I reviewed the resident's note and discussed the case with the resident. I agree with the resident's findings and plan as documented. SUBJECTIVE: OBJECTIVE: ASSESSMENT AND PLAN: <Riley Simeon - Last Filed: 12/21/18 07:42> Physical Exam: Seen and examined; verified all tilley parts of resident history and exam. Agree with above aside from as supplemented by myself ATTENDING PHYSICIAN STATEMENT I saw and evaluated the patient. I reviewed the resident's note and discussed the case with the resident. I agree with the resident's findings and plan as documented. SUBJECTIVE: OBJECTIVE: ASSESSMENT AND PLAN:
[2018-12-21] MEDS: SODIUM CHLORIDE 1,000 ML IV SCH (05:52)
[2018-12-21] MEDS: INSULIN SLIDING SCALE (NOVOLOG) 1 VIAL SQ SCH ×4 (06:00→21:20)
[2018-12-21 07:55] LABS: HEMATOCRIT 30.2 % (32.4-45.2); HEMOGLOBIN 9.5 GM/dL (10.7-15.3); MCH 22.5 pg (25.7-33.7); MCHC 31.4 g/dl (32.0-36.0); MEAN CELL VOLUME 71.5 fl (80-96); MEAN PLT VOLUME 8.4 fl (7.5-11.1); PLATELET COUNT 268 K/MM3 (134-434); RBC 4.23 M/mm3 (3.60-5.2); RDW 19.3 % (11.6-15.6); WHITE BLOOD COUNT 5.7 K/mm3 (4.0-10.0)
[2018-12-21 08:17] LABS: BLOOD UREA NITROGEN 8.4 mg/dL (7-18); CALCIUM 8.1 mg/dL (8.5-10.1); CREATININE 0.7 mg/dL (0.55-1.3)
[2018-12-21] MEDS: PANTOPRAZOLE SODIUM 40 MG VIAL IVPUSH SCH (09:18)
[2018-12-21] MEDS ORDERED: PANTOPRAZOLE SODIUM 40 MG in SODIUM CHLORIDE 100 ML IVPB SCH (10:00)
--- NOTE | 2018-12-21 12:47 | PN ---
Progress Note (short form) - Note Progress Note: Attending Surgeon Seen in f/u; ? passed flatus; wanted to have a BM but would not go on the bedpan. VSS AF abdo-soft and less tympanitic; non tender AXR's pending this AM IMP: SBO PLAN: NPO/OGT/IVF/serial exams and x rays; d/w patient and family Brandon Ardon MD FACS
[2018-12-21] MEDS ORDERED: SODIUM PHOSPHATE/NA BIPHOS 133 ML ENEMA PR ONE (14:16)
[2018-12-22] MEDS: INSULIN SLIDING SCALE (NOVOLOG) 1 VIAL SQ SCH ×4 (06:05→21:08)
--- NOTE | 2018-12-22 07:56 | PN ---
Teaching Attending Note ATTENDING PHYSICIAN STATEMENT I saw and evaluated the patient. I reviewed the resident's note and discussed the case with the resident. I agree with the resident's findings and plan as documented. SUBJECTIVE: OBJECTIVE: ASSESSMENT AND PLAN:
--- NOTE | 2018-12-22 07:56 | PN ---
Teaching Attending Note Name of Resident: Riley Simeon PLEASE NOTE THIS DOCUMENTATION APPLIES TO 12/21NOTE WAS NOT SAVED AND CANNOT BE RECOVERED 12/21/2018 Seen and examiend; no new complaints overnight. Had multiple BMs post enema. Imaging results noted. Discussed case with Dr. Ardon. AXR results reviewed; no obstruction per flat and upright study. 10 sys ROS done and negative aside from HPI PMH, PSH, FH, SH reviewed Current Medications Generic Name Dose Route Start Last Admin Trade Name Freq PRN Reason Stop Dose Admin Sodium Chloride 1,000 mls @ 75 mls/hr 12/19/18 22:15 12/22/18 10:11 Normal Saline - IV 75 mls/hr ASDIR SARAH Administration Insulin Aspart 1 vial 12/19/18 22:00 12/22/18 11:43 Novolog Vial Sliding Scale - SQ Not Given ACHS SARAH Protocol Morphine Sulfate 2 mg 12/20/18 05:44 12/20/18 06:28 Morphine Sulfate IVPUSH 2 mg Q4H PRN Administration PAIN LEVEL 7 - 10 Pantoprazole Sodium 40 mg 12/21/18 10:00 12/22/18 09:18 Protonix Iv IVPUSH 40 mg DAILY SARAH Administration VS, labs, imaging reviewed NAD, AAO, Resting in bed. Poor historian. OGT out post imaging per consulting team NC AT EOMI PERRLA RRR s1/2 no mgr NT ND +BS CN2-12 wnl, no fnd Normal mood, restricted insight, appropriate behavior Skin without tears or breakdown, no new rashes Moves all 4 ext with normal muscle tone. ASSESSMENT AND PLAN: Patient was seen by general sgy and GI for potential SBO which has resolved with BM today and NGT out per GI. She has a benign abdominal exam at this point but is known to have imaging findings suggesting choledocholithiasis. GI continues to follow; CMP pending, MRCP pending. Will discuss with their service if plans for ERCP. Adequate glycemic control. Problems include: -Partial SBO (resolved) -Choledocholithiasis and transaminitits; pending MRCP/ERCP -DM (monitor fingersticks, controlled) -On IV protonix
[2018-12-22] MEDS: SODIUM CHLORIDE 1,000 ML IV SCH ×2 (09:14→10:11)
[2018-12-22] MEDS: PANTOPRAZOLE SODIUM 40 MG VIAL IVPUSH SCH (09:18)
--- NOTE | 2018-12-22 13:54 | PN ---
Physical Exam: SUBJECTIVE: Patient seen and examined; no abdominal pain today. +BS, feeling well. Needs to see PT in order to go home due to frailty; she was unable to be cleared today as they were not present. She is hemodynamically stable and afebrile and tolerating clears. Advance diet per sgy/GI. Will discuss with subspecialty services. Stopping IV morphine. As she is stable but will not be safe DC until cleared by PT and after GI procedure will continue to trend CMP and tomorrow CBC and CMP, 10 sys ROS done and negative aside from HPI OBJECTIVE: Vital Signs Period Temp Pulse Resp BP Sys/White Pulse Ox Last 24 Hr 98.0 F-98.6 F 71-83 18-20 110-138/53-74 95-96 VS, labs, imaging reviewed NAD, AAO, Resting in bed. Poor historian. OGT out post imaging per consulting team NC AT EOMI PERRLA RRR s1/2 no mgr NT ND +BS CN2-12 wnl, no fnd Normal mood, restricted insight, appropriate behavior Skin without tears or breakdown, no new rashes Moves all 4 ext with normal muscle tone. Trachea midline, no LN, supple neck. Laboratory Results - last 24 hr 12/21/18 12/21/18 12/22/18 16:31 21:19 05:41 POC Glucometer 150 114 110 12/22/18 11:42 POC Glucometer 97 Active Medications Generic Name Dose Route Start Last Admin Trade Name Freq PRN Reason Stop Dose Admin Sodium Chloride 1,000 mls @ 75 mls/hr 12/19/18 22:15 12/22/18 10:11 Normal Saline - IV 75 mls/hr ASDIR SARAH Administration Insulin Aspart 1 vial 12/19/18 22:00 12/22/18 11:43 Novolog Vial Sliding Scale - SQ Not Given ACHS SARAH Protocol Morphine Sulfate 2 mg 12/20/18 05:44 12/20/18 06:28 Morphine Sulfate IVPUSH 2 mg Q4H PRN Administration PAIN LEVEL 7 - 10 Pantoprazole Sodium 40 mg 12/21/18 10:00 12/22/18 09:18 Protonix Iv IVPUSH 40 mg DAILY SARAH Administration ASSESSMENT/PLAN: Patient was seen by general sgy and GI for potential SBO which has resolved. She has a benign abdominal exam at this point but is known to have imaging findings suggesting choledocholithiasis. GI continues to follow; CMP pending, MRCP pending. Will discuss with their service if plans for ERCP. Adequate glycemic control. [facility] and check coags, type and cross, etc. Problems include: -Partial SBO (resolved) -Choledocholithiasis and transaminitits; pending MRCP/ERCP -DM (off SSI, monitor fingersticks, controlled) -On IV protonix. Full Code Visit type - Emergency Visit Emergency Visit: No - New Patient This patient is new to me today: No - Critical Care Critical Care patient: No
[2018-12-22] MEDS ORDERED: ACETAMINOPHEN 325 MG SUPP.RECT PR PRN (14:15)
[2018-12-22 19:19] LABS: ALBUMIN 2.8 g/dl (3.4-5.0); BILIRUBIN,TOTAL 0.7 mg/dL (0.2-1); BLOOD UREA NITROGEN 8.9 mg/dL (7-18); CALCIUM 8.2 mg/dL (8.5-10.1); CREATININE 0.8 mg/dL (0.55-1.3); POTASSIUM 3.6 mmol/L (3.5-5.1); TOT PROT 6.1 g/dl (6.4-8.2)
[2018-12-22] MEDS: ACETAMINOPHEN 325 MG TABLET (FP) PO PRN (19:44)
[2018-12-23] MEDS: SODIUM CHLORIDE 1,000 ML IV SCH (00:50)
[2018-12-23] MEDS: ACETAMINOPHEN 325 MG TABLET (FP) PO PRN (06:21)
[2018-12-23] MEDS: INSULIN SLIDING SCALE (NOVOLOG) 1 VIAL SQ SCH ×2 (06:23→11:10)
--- NOTE | 2018-12-23 07:42 | PN ---
Progress Note (short form) - Note Progress Note: Surgery Patient being followed for SBO seen and examined at bedside with no new complaints. Patient has moved her bowels and is passing gas. She states that she has minimal abdominal pain and is tolerating her diet. She denies any CP, SOB, N/V fever or chills. Vital Signs Temp 98.4 F 12/23/18 06:07 Pulse 72 12/23/18 06:07 Resp 20 12/23/18 06:07 BP 114/59 L 12/23/18 06:07 Pulse Ox 95 12/22/18 21:00 Intake & Output 12/22/18 12/22/18 12/23/18 11:59 23:59 11:59 Intake Total 400 1100 750 Balance 400 1100 750 Intake: IV 600 750 Normal Saline - 1,000 ml 600 750 @ 75 mls/hr IV ASDIR SARAH Rx#:[id number] Oral 400 500 Other: Voiding Method Toilet Toilet # Unmeasured Voids Void 1 1 Bowel Movement No Abnormal Lab Results 12/22/18 12/23/18 12/23/18 18:40 06:48 06:48 Hgb 8.4 L Hct 26.4 L MCV 71.7 L MCH 22.9 L MCHC 31.9 L RDW 20.1 H Eosinophils % 6.4 H D Chloride 109 H Random Glucose 146 H 126 H Calcium 8.2 L 8.1 L AST 14 L Alkaline Phosphatase 380 H 339 H Total Protein 6.1 L 5.7 L Albumin 2.8 L 2.5 L CBC, BMP 12/23/18 06:48 12/23/18 06:48 PE: A&O, NAD unlabored resp on RA ABD: obese, soft, ND with mild focal TTP over RUQ and LUQ. Problem List - Problems (1) SBO (small bowel obstruction) Assessment/Plan: 83yo patient with SBO currently resolved, imaging and labs suggests choledocholithiasis. LFTs tending down. -F/u with GI as out patient, will likely need ERCP -diet as tolerated -trend labs -GI and DVT prophylaxis -OOB as tolerated -Encourage daily IS -d/c planning Evaluation and plan discussed with Dr Ardon Code(s): K56.609 - UNSP INTESTNL OBST, UNSP TO PARTIAL VERSUS COMPLETE OBST
[2018-12-23 07:45] LABS: BASO % 0.9 % (0-2.0); EOS % 6.4 % (0-4.5); HEMATOCRIT 26.4 % (32.4-45.2); HEMOGLOBIN 8.4 GM/dL (10.7-15.3); LYMPH % 13.6 % (8-40); MCH 22.9 pg (25.7-33.7); MCHC 31.9 g/dl (32.0-36.0); MEAN CELL VOLUME 71.7 fl (80-96); MEAN PLT VOLUME 8.4 fl (7.5-11.1); MONO % 8.3 % (3.8-10.2); NEUT % 70.8 % (42.8-82.8); PLATELET COUNT 223 K/MM3 (134-434); RBC 3.68 M/mm3 (3.60-5.2); RDW 20.1 % (11.6-15.6); WHITE BLOOD COUNT 4.6 K/mm3 (4.0-10.0)
--- NOTE | 2018-12-23 07:45 | PN ---
Progress Note, Physician History of Present Illness: GI FOLLOW UP NOTE Patient examined and case discussed with Dr Kay Patient awake and alert in bed. OGT removed. States abdominal pain is improving, denies nausea, vomiting. Denies having a BM but states she is passing flatus. Labs show Alk phos trending down. - Current Medication List Current Medications: Active Medications Acetaminophen (Tylenol Suppository -) 325 mg NE Q6H PRN PRN Reason: FEVER Acetaminophen (Tylenol -) 650 mg PO Q6H PRN PRN Reason: PAIN Last Admin: 12/23/18 06:21 Dose: 650 mg Sodium Chloride (Normal Saline -) 1,000 mls @ 75 mls/hr IV ASDIR SARAH Last Admin: 12/23/18 00:50 Dose: 75 mls/hr Insulin Aspart (Novolog Vial Sliding Scale -) 1 vial SQ ACHS REPLACED BY [facility]; Protocol Last Admin: 12/23/18 06:23 Dose: Not Given Pantoprazole Sodium (Protonix Iv) 40 mg IVPUSH DAILY REPLACED BY [facility] Last Admin: 12/22/18 09:18 Dose: 40 mg - Objective Vital Signs: Vital Signs Temperature 98.4 F 12/23/18 06:07 Pulse Rate 72 12/23/18 06:07 Respiratory Rate 20 12/23/18 06:07 Blood Pressure 114/59 L 12/23/18 06:07 O2 Sat by Pulse Oximetry (%) 95 12/22/18 21:00 Constitutional: Yes: No Distress, Calm Eyes: Yes: Conjunctiva Clear HENT: Yes: Atraumatic Cardiovascular: Yes: Regular Rate and Rhythm Respiratory: Yes: Regular, CTA Bilaterally Gastrointestinal: Yes: Normal Bowel Sounds, Soft, Tenderness (mild, diffuse) Neurological: Yes: Alert, Oriented Psychiatric: Yes: Alert, Oriented Labs: INR, PTT INR 0.98 (0.83-1.09) 12/20/18 10:39 Problem List - Problems (1) Choledocholithiasis Assessment/Plan: >will need close GI outpatient follow >ERCP as outpatient >Alk Phos 380, monitor LFTs daily Code(s): K80.50 - CALCULUS OF BILE DUCT W/O CHOLANGITIS OR CHOLECYST W/O OBST (2) SBO (small bowel obstruction) Assessment/Plan: >resolving >Abd Xray from 12/21/18 shows no sign of a gross small bowel or partial bowel obstruction Code(s): K56.609 - UNSP INTESTNL OBST, UNSP TO PARTIAL VERSUS COMPLETE OBST
[2018-12-23 08:00] LABS: INR 1.03 (0.83-1.09); PROTHROMBIN TIME (PATIENT) 12.2 SEC (9.7-13.0)
[2018-12-23 09:30] LABS: ALBUMIN 2.5 g/dl (3.4-5.0); BILIRUBIN,TOTAL 0.8 mg/dL (0.2-1); CALCIUM 8.1 mg/dL (8.5-10.1); CREATININE 0.8 mg/dL (0.55-1.3); MAGNESIUM 2.2 mg/dL (1.8-2.4); POTASSIUM 3.7 mmol/L (3.5-5.1); TOT PROT 5.7 g/dl (6.4-8.2)
[2018-12-23] MEDS ORDERED: INSULIN (NOVOLOG) ASPART 100 UNITS/ML 10ML VIAL ONE (09:34)
[2018-12-23 10:13] LABS: BLOOD UREA NITROGEN 7.8 mg/dL (7-18)
[2018-12-23] MEDS: PANTOPRAZOLE SODIUM 40 MG VIAL IVPUSH SCH (10:25)
[2018-12-23 14:52] VITALS: BP 124/71; PULSE 76; TEMP 98.5
--- NOTE | 2018-12-23 15:52 | DS ---
Physical Exam: SUBJECTIVE: Patient seen and examined; PT cleared for DC Due to the acute obstruction, etc. I spoke with Dr. Steele and he hopes to allow the patient time to recover from the acute bowel issues. He plans to see her in several days an an outpatient to complete ERCP She continues to have bowel movements and positive bowel sounds Continue all home meds, instructed that when calling Dr. Steele's office for followup to ask about holding the antiplatelet meds preprocedurally. She is safe for DC home with her son, she has aid at home and her family verbally states they can provide care. Continue old home diet, continue regular activity level Followup with PCP, Dr. Ardon, Dr. Steele OBJECTIVE: Vital Signs Period Temp Pulse Resp BP Sys/White Pulse Ox Last 24 Hr 98.4 F-99.2 F 69-80 18-20 108-131/54-71 95-96 PHYSICAL EXAM GENERAL: The patient is awake, alert, and fully oriented, in no acute distress. HEAD: Normal with no signs of trauma. EYES: PERRL, extraocular movements intact, sclera anicteric, conjunctiva clear. ENT: Ears normal, nares patent, oropharynx clear without exudates, moist mucous membranes. NECK: Trachea midline, full range of motion, supple. LUNGS: Breath sounds equal, clear to auscultation bilaterally, no wheezes, no crackles, no accessory muscle use. HEART: Regular rate and rhythm, S1, S2 without murmur, rub or gallop. ABDOMEN: Soft, nontender, nondistended, normoactive bowel sounds, no guarding, no rebound, no hepatosplenomegaly, no masses. EXTREMITIES: 2+ pulses, warm, well-perfused, no edema. NEUROLOGICAL: Cranial nerves II through XII grossly intact. Normal speech, gait not observed. PSYCH: Normal mood, normal affect. SKIN: Warm, dry, normal turgor, no rashes or lesions noted. LABS Laboratory Results - last 24 hr 12/22/18 12/22/18 12/22/18 16:25 18:40 21:01 WBC RBC Hgb Hct MCV MCH MCHC RDW Plt Count MPV Absolute Neuts (auto) Neutrophils % Lymphocytes % Monocytes % Eosinophils % Basophils % Nucleated RBC % PT with INR INR Sodium 138 Potassium 3.6 Chloride 106 Carbon Dioxide 22 Anion Gap 10 BUN 8.9 Creatinine 0.8 Est GFR (CKD-EPI)AfAm 79.57 Est GFR (CKD-EPI)NonAf 68.66 POC Glucometer 109 153 Random Glucose 146 H Calcium 8.2 L Magnesium Total Bilirubin 0.7 AST 16 ALT 33 Alkaline Phosphatase 380 H Total Protein 6.1 L Albumin 2.8 L 12/23/18 12/23/18 12/23/18 06:20 06:48 06:48 WBC 4.6 RBC 3.68 Hgb 8.4 L Hct 26.4 L MCV 71.7 L MCH 22.9 L MCHC 31.9 L RDW 20.1 H Plt Count 223 MPV 8.4 Absolute Neuts (auto) 3.3 Neutrophils % 70.8 Lymphocytes % 13.6 D Monocytes % 8.3 Eosinophils % 6.4 H D Basophils % 0.9 Nucleated RBC % 0 PT with INR 12.20 INR 1.03 Sodium Potassium Chloride Carbon Dioxide Anion Gap BUN Creatinine Est GFR (CKD-EPI)AfAm Est GFR (CKD-EPI)NonAf POC Glucometer 124 Random Glucose Calcium Magnesium Total Bilirubin AST ALT Alkaline Phosphatase Total Protein Albumin 12/23/18 12/23/18 06:48 11:09 WBC RBC Hgb Hct MCV MCH MCHC RDW Plt Count MPV Absolute Neuts (auto) Neutrophils % Lymphocytes % Monocytes % Eosinophils % Basophils % Nucleated RBC % PT with INR INR Sodium 141 Potassium 3.7 Chloride 109 H Carbon Dioxide 23 Anion Gap 9 BUN 7.8 Creatinine 0.8 Est GFR (CKD-EPI)AfAm 79.57 Est GFR (CKD-EPI)NonAf 68.66 POC Glucometer 150 Random Glucose 126 H Calcium 8.1 L Magnesium 2.2 Total Bilirubin 0.8 AST 14 L ALT 25 Alkaline Phosphatase 339 H Total Protein 5.7 L Albumin 2.5 L HOSPITAL COURSE: Date of Admission:12/19/18 Date of Discharge: 12/23/18 Patient was seen by general sgy and GI for potential SBO which has resolved. She has a benign abdominal exam at this point but is known to have imaging findings suggesting choledocholithiasis. GI continues to follow; CMP with downtrending LFTs and cleared for DC by GI and Gen sgy. Their service plans to complete ERCP in the next week as OP. Adequate glycemic control. Problems include: -Partial SBO (resolved) -Choledocholithiasis and transaminitits; improved with plans for OP ERCP per GI -DM (off SSI, monitor fingersticks, controlled) -On IV protonix. Full Code Minutes to complete discharge: 33 Discharge Summary Reason For Visit: SMALL BOWEL OBSTRUCTION Current Active Problems Abdominal pain (Acute) Choledocholithiasis (Acute) SBO (small bowel obstruction) (Acute) Transaminitis (Acute) Condition: Stable - Instructions Diet, Activity, Other Instructions: YOU NEED TO SEE DR. STEELE within 5 DAYS OF DISCHARGE TO COMPLETE PLANNING FOR ERCP YOU MUST FOLLOWUP PER HIS INSTRUCTION THIS IS URGENT ASK DR STEELE WHEN TO START HOLDING YOUR ASPIRIN AND PLAVIX FOR THE PROCEDURE Return to the ER if you experience any worsening abdominal pain, bloody bowel movements, hemetemesis, etc. Return to the ER if you cannot pass gas or have a BM Return to the ER if you notice your skin color turning yellow Continue your home medications as prescribed but make sure you talk to Dr. Steele's office about the antiplatelet drugs when scheduling follouwp for the ERCP Other followup appointments: Dr. Ardon 1-2 weeks, general sgy PCP 3-5 days - Home Medications Comprehensive Discharge Medication List: Ambulatory Orders Metformin HCl [Glucophage] 1,000 mg PO BID 04/11/16 Furosemide [Lasix] 40 mg PO DAILY 06/23/16 Glipizide 10 mg PO BID 06/23/16 Sitagliptin Phosphate [Januvia] 100 mg PO DAILY 06/23/16 Acetaminophen [Tylenol .Regular Strength -] 650 mg PO Q6H PRN tablet 05/29/18 Amoxicillin/Potassium Clav [Augmentin 500-125 Tablet] 1 each PO BID 14 Days #7 tablet 05/29/18 Aspirin [Adult Aspirin] 81 mg PO DAILY 05/29/18 Ceftriaxone [Rocephin -] 1 gm IVPB DAILY vial 05/29/18 Clopidogrel Bisulfate [Plavix] 75 mg PO DAILY 05/29/18 Cyanocobalamin [Vitamin B12 -] 1,000 mcg SL DAILY 05/29/18 Ferrous Sulfate 325 mg PO BID 05/29/18 Ferrous Sulfate [Feosol] 325 mg PO BID ud 05/29/18 Levothyroxine Sodium [Euthyrox] 50 mcg PO AM 05/29/18 Lipase/Protease/Amylase [Toya Tucker 24,000 Units Capsule] 24,000 units PO DAILY Lubiprostone [Amitiza] 8 mcg PO DAILY 05/29/18 Meclizine HCl 12.5 mg PO TID PRN 05/29/18 Metoclopramide HCl 5 mg PO DAILY 05/29/18 Naproxen 500 mg PO DAILY 05/29/18 Omeprazole 40 mg PO DAILY 05/29/18 Polyvinyl Alcohol [Artificial Tears] 1 drop OD BID PRN drops 05/29/18 Prednisone [Deltasone] See Taper PO DAILY 7 Days #9 tablet 05/29/18 Valacyclovir HCl [Valtrex -] 1,000 mg PO TID 7 Days #21 tablet 05/29/18 predniSONE [Deltasone -] See Taper PO DAILY 5 Days tablet 05/29/18 traZODone HCL [Trazodone HCl] 50 mg PO HS PRN 05/29/18 This patient is new to me today: No Emergency Visit: No Critical Care patient: No - Discharge Referral Referred to [facility] No
== END 2018-12-23 17:10 | disposition home health service (06) | DRG 445 ==
LOC: SUPCPDRO 15:10 → JER 15:10 → JERBED 18:39 → J7W 21:30
PROVIDERS: ADMIT Internal Medicine; ATTEND Internal Medicine
DX: K80.50 Calculus of bile duct without cholangitis or cholecystitis without obstruction (principal); K56.609 Unspecified intestinal obstruction, unspecified as to partial versus complete obstruction; R74.0 Nonspecific elevation of levels of transaminase and lactic acid dehydrogenase [LDH]; E11.65 Type 2 diabetes mellitus with hyperglycemia; I25.10 Atherosclerotic heart disease of native coronary artery without angina pectoris; E78.5 Hyperlipidemia, unspecified; R63.0 Anorexia; R10.9 Unspecified abdominal pain; D64.9 Anemia, unspecified
CPT/HCPCS: 36415; 71045-TC-FY; 74019-TC-FY; 74177-TC; 80048; 80053; 80074; 81003; 82550; 82962; 83036; 83605; 83735; 84100; 84484; 85025; 85027; 85610; 85730; 86850; 86900; 86901; 87086; 93005; 93010; 97116-GP; 97161-GP; 99284-25; J0131; J7030